=== PATIENT | female | born 1960 | race Caucasian/White ===

== ENCOUNTER 2020-03-30 08:28 | Outpatient (REF) | payer OTHER, SELFPAY ==
--- NOTE | 2020-03-30 08:39 | MM_ITS ---
EXAMINATION: MM SCREENING DIGITAL BREAST TOMOSYNTHESIS, BILATERAL CLINICAL INFORMATION: Screening. Asymptomatic. The lifetime risk of breast cancer based on the Tyrer-Cuzick Model is 3.7%. COMPARISON: Mammography: December 28, 2017 and studies dating back to January 07, 2013 TECHNIQUE: Digital breast tomosynthesis is performed in both the craniocaudal and mediolateral oblique views along with computer-aided detection (CAD). Synthesized 2D images are generated from the tomosynthesis. FINDINGS: The breasts are heterogeneously dense, which may obscure small masses (ACR BI-RADS breast composition Category c). There are no significant masses, abnormal calcifications, or other abnormalities. MM/MM tomosynthesis screening BI IMPRESSION: There are no significant changes from prior study. ASSESSMENT: BI-RADS 1: Negative RECOMMENDATION: Routine annual mammography screening. This patient's information was entered into a reminder system with a target due date for their next mammogram.
--- NOTE | 2020-03-30 08:39 | MM_ITS ---
EXAMINATION: BONE DENSITOMETRY CLINICAL INDICATION: Asymptomatic menopausal state. COMPARISON: None (current study represents initial baseline exam). TECHNIQUE: Using a enosiX DXA System (software version: 13.1) manufactured by [employer], dual-energy x-ray absorptiometry was performed of the lumbar spine and left hip. The images are of good technical quality. Summary results are attached. FINDINGS: AP SPINE L1-L4: BMD 1.032 g/cm2, Z-score 0.6, T-score -1.2, osteopenia. LEFT FEMUR, NECK: BMD 0.694 g/cm2, Z-score -0.8, T-score -2.5, osteoporosis. LEFT FEMUR, TOTAL: BMD 0.648 g/cm2, Z-score -1.5, T-score -2.9, osteoporosis. IDENTIFIED RISK FACTORS: Early menopause. Secondary osteoporosis. Left oophorectomy. Low body weight. Low calcium intake. Current smoker. HISTORY OF FRACTURE: Other. No insufficiency fracture reported. MEDICATIONS: None listed. MM/XR DEXA axial skeleton IMPRESSION: 1. DIAGNOSIS: Osteoporosis based on the lowest T-score value of -2.9 in the total femur applying World Health Organization criteria. 2. 10-YEAR FRACTURE RISK PREDICTION, FRAX: Major osteoporotic fracture (clinical spine, forearm, hip or shoulder) 10.3%. Hip fracture 3.4%. 3. Treatment Recommendations: NOF guidelines recommend consideration for treatment in postmenopausal women and men age 50 and older presenting with the following: -A hip or vertebral (clinical or morphometric) fracture. -T-score less than or equal to -2.5 at the femoral neck or spine after appropriate evaluation to exclude secondary causes. -Low bone mass at the hip or spine and a 10-year fracture probability by FRAX of greater than or equal to 3% for hip fracture or greater than or equal to 20% for major osteoporotic fracture based on the [place] adapted WHO algorithm. 4. Other Recommendations: All treatment decisions require clinical judgment and consideration of individual patient factors, including patient preferences, comorbidities, previous drug use, risk factors not captured in the FRAX model (e.g. frailty, falls, vitamin D deficiency, increased bone turnover, interval significant decline in bone density) and possible under or overestimation of fracture risk by FRAX. Additional medical evaluation for secondary cause of low bone mineral density may be appropriate. FUTURE SCAN RECOMMENDATION: People with diagnosed cases of osteoporosis or at high risk for fracture should have regular bone mineral density tests. For patients eligible for Medicare, routine testing is allowed once every 2 years. The testing frequency can be increased to one year for patients who have rapidly progressing disease, those who are receiving or discontinuing medical therapy to restore bone mass, or have additional risk factors.
== END 2020-03-30 08:29 | disposition home or self-care (01) ==
LOC: HO.MAMMO 08:28
PROVIDERS: Visit Provider Internal Medicine
DX: Z12.31 Encounter for screening mammogram for malignant neoplasm of breast (principal); M81.8 Other osteoporosis without current pathological fracture; E58 Dietary calcium deficiency; R63.6 Underweight; F17.200 Nicotine dependence, unspecified, uncomplicated; Z78.0 Asymptomatic menopausal state; Z90.721 Acquired absence of ovaries, unilateral
CPT/HCPCS: 77063; 77067; 77080

== ENCOUNTER 2020-06-24 07:08 | Day surgery (SDC) | payer OTHER, SELFPAY ==
[2020-06-20 10:57] VITALS: BMI 17.7
--- NOTE | 2020-06-23 08:30 | HO.ANESPROP2 ---
Documented by User: Madelaine Mckinney 06/23/20 08:31 HPI - Anesthesia Eval Consult details Narrative: 60yo F for Colonoscopy [facility] Past Medical History Medical History (Updated 06/24/20 @ 08:03 by Noreen Armijo) Anxiety and depression COPD (chronic obstructive pulmonary disease) Surgical History Surgical History H/O colonoscopy History of esophagogastroduodenoscopy (EGD) Hx of oophorectomy Social History Social History Smoking Status: Current every day smoker Tobacco Type: Cigarette Cigarettes Per Day: 10.0 Second Hand Smoke Exposure: No Use of substances other than those prescribed or required for medical reasons: No Advance Directives: No Advance Directives Information Provided: No Advance Directives on File: No Meds Allergies Allergy/AdvReac Type Severity Reaction Status Date / Time No Known Allergies Allergy Verified 06/24/20 07:20 Home Medications Medication Instructions Recorded Confirmed Type levalbuterol tartrate 06/20/20 History sertraline [Zoloft] 100 mg PO DAILY 06/20/20 06/20/20 History cetirizine [Zyrtec] 5 mg PO DAILY 06/24/20 06/24/20 History umeclidinium-vilanterol [Anoro INHALATION 06/24/20 History Ellipta] Exam Exam Date and Time: June 23, 2020 0830 Height,Weight and Vital Signs: Height 5 ft 4.5 in Weight 47.627 kg Assessment and Plan Assessment Anesthesia Assessment: Chart Reviewed Documented by User: Noreen Armijo 06/24/20 08:33 [facility] Past Medical History Medical History (Updated 06/24/20 @ 08:03 by Noreen Armijo) Anxiety and depression COPD (chronic obstructive pulmonary disease) Surgical History Surgical History H/O colonoscopy History of esophagogastroduodenoscopy (EGD) Hx of oophorectomy Social History Social History Smoking Status: Current every day smoker Tobacco Type: Cigarette Cigarettes Per Day: 10.0 Second Hand Smoke Exposure: No Use of substances other than those prescribed or required for medical reasons: No Advance Directives: No Advance Directives Information Provided: No Advance Directives on File: No Meds Allergies Allergy/AdvReac Type Severity Reaction Status Date / Time No Known Allergies Allergy Verified 06/24/20 07:20 Home Medications Medication Instructions Recorded Confirmed Type levalbuterol tartrate 06/20/20 History sertraline [Zoloft] 100 mg PO DAILY 06/20/20 06/20/20 History cetirizine [Zyrtec] 5 mg PO DAILY 06/24/20 06/24/20 History umeclidinium-vilanterol [Anoro INHALATION 06/24/20 History Ellipta] Exam Height,Weight and Vital Signs: Vital Signs Temp Pulse Resp BP Pulse Ox 06/24/20 07:24 98.1 F 91 16 99/63 98 Airway Mallampati Class: I TM Dist: >3cm Neck ROM: Full Heart: RRR Lungs: CTAB Assessment and Plan Assessment Anesthesia Assessment: Anesthesia Plan Discussed and Chart Reviewed Final Anesthetic Review NPO: Yes ASA Class: II Final Preanesthetic Review: No Changes in Pt Med Stat, Meds/Allgs Chart Reviewed, Consent Obtained/Reviewed and Anes Risks/Benef Reviewed Patient Risk: Low Procedure Risk: Low Anesthetic Plan Anesthetic Plan: MAC: Disposition: Standard PACU
--- NOTE | 2020-06-24 | XR_ITS ---
EXAMINATION: XR CHEST CLINICAL INFORMATION: Post procedure. Evaluate for aspiration. COMPARISON: None TECHNIQUE: Frontal view of the chest was obtained. FINDINGS: The cardiac and mediastinal contours are normal. The lungs are clear. There is blunting at the bilateral costophrenic angles questionable for pleural thickening or small pleural effusions. There is lucency under the right hemidiaphragm questionable for free intraperitoneal air. This may be post operative. If there is no history of recent abdominal procedure, additional imaging would be recommended. There is no pneumothorax. There is curvature of the thoracic spine to the right and degenerative change. XR/XR chest 1V IMPRESSION: No evidence of pneumonia. Blunting at the bilateral costophrenic angles questionable for pleural thickening or tiny bilateral pleural effusions. Lucency under the right hemidiaphragm questionable for free intraperitoneal air. Correlation with recent surgical history recommended. Findings will be communicated by the [place] work flow line builder Danette Sanches.
[2020-06-24 07:24] VITALS: BP 99/63; PULSE 91; RESP 16; TEMP 36.7; O2SAT 98
[2020-06-24] MEDS: Lactated Ringers 1,000 ML 100 ML IVCONT (07:36)
[2020-06-24 09:22] VITALS: BP 102/66; PULSE 86; RESP 20; TEMP 36.5; O2SAT 100
--- NOTE | 2020-06-24 09:23 | PM.OP ---
Brief Operative Note Date of Service: 06/24/20 Pre-op diagnosis: SCreening Post-op diagnosis: other (Colon polyps) Procedure: Colonoscopy to cecum with biopsy and removal of polyps Surgeon: Raymon Sawyer Anesthesia: MAC Estimated blood loss (mL): 3.0 Pathology: other (A. Polyp at 30cm B. Polyp at 60cm C. Ascending colon polyps D. Transverse colon polyps) Condition: stable Disposition: PACU
[2020-06-24 09:27] VITALS: BP 114/96; PULSE 95; RESP 20; O2SAT 96
[2020-06-24 09:37] VITALS: BP 110/61; PULSE 86; RESP 20; O2SAT 95
--- NOTE | 2020-06-24 09:47 | OP_ITS ---
SURGEON: Raymon Sawyer MD INDICATIONS: The patient presents for evaluation of personal history of tubular adenoma of the colon, family history of colon cancer, and colorectal cancer screening. Full consent was obtained from her for this, including risks of bleeding and perforation. PREOPERATIVE DIAGNOSIS: POSTOPERATIVE DIAGNOSIS: PROCEDURE PERFORMED: Colonoscopy to cecum with biopsy and removal of polyps. ESTIMATED BLOOD LOSS: COMPLICATIONS: ANESTHESIA: Medication used, monitored anesthesia care. ASSISTANTS: SPECIMENS: PREOPERATIVE DIAGNOSES: Colorectal cancer screening, personal history of tubular adenoma of the colon, family history of colon cancer. POSTOPERATIVE DIAGNOSES: Colorectal cancer screening, personal history of tubular adenoma of the colon, family history of colon cancer, colon polyps, diverticulosis, and internal hemorrhoids. DESCRIPTION OF PROCEDURE: The patient was placed in the left lateral decubitus position. The digital rectal exam revealed no abnormalities. The Olympus video pediatric colonoscope was entered into the rectum and advanced easily to the cecum. Once in the cecum, I did identify normal-appearing cecal pouch with appendiceal orifice and a normal-appearing ileocecal valve. The entire cecum and ileocecal valve appeared normal. There was transillumination of light deep in the right lower quadrant. The scope was slowly withdrawn assessing all mucosal surfaces carefully. Preparation was excellent. In the ascending colon were 3 flat, approximately 4 mm polyps, which were all biopsied and completely removed with cold biopsy forceps. In the transverse colon, at 60 cm and at 30 cm, were flat approximately 4 mm polyps, which were all biopsied and completely removed with cold biopsy forceps as well. I did not visualize any other polyps, colitis, nor angiodysplasia. There was a mild amount of sigmoid diverticulosis. In the rectum, scope was retroflexed visualizing small internal hemorrhoids, but no other pathology. The rectal mucosa appeared normal. The scope was straightened and withdrawn from the patient. She tolerated the procedure well and was returned to recovery area in stable condition. IMPRESSION: 1. Small colon polyps, status post biopsy removal. 2. Mild diverticulosis. 3. Internal hemorrhoids. PLAN: The results of the biopsies will be checked. Given her previous history, today's findings, and family history, I would recommend a repeat colonoscopy in 3 years for further screening. She will otherwise see me on a p.r.n. basis. MD GRECIA Gillette/DAVID / [phone] MTDD
[2020-06-24 09:52] VITALS: BP 115/66; PULSE 84; RESP 20; O2SAT 98
--- NOTE | 2020-06-24 09:53 | PC.NURSE ---
PORT CXR DONE LESS COUGHING NOW, BREATH SOUNDS VERY DIM NO NOTED WHZS AT PRESENT O2 SAT 97-98 STS SHE DIDNT TAKE HER ANORA THIS AM AND STS SHE FINDS THAT SHE REALLY NEEDS TO TAKE EVERY MORNING
--- NOTE | 2020-06-24 10:02 | PC.NURSE ---
1000 DR COMBS AT BEDSIDE SPEAKING TO PT RE COUGHING AND EXPECTORATION AT END OF CASE WHY CXR WAS DONE AND S&S OF ISSUES AND WHEN SHE SHOULD GO TO ED IF ISSUES
--- NOTE | 2020-06-24 10:09 | PC.NURSE ---
[id number] CXR RESULTS MONITORS AND IVF DCD ASST OOB CH STEADY IV PRN ADAPTER REMAINS IN PLACE, DRESSED SELF AT BEDSIDE CALL DE LA CRUZ IN REACH.
== END 2020-06-24 11:10 | disposition home or self-care (01) ==
PROVIDERS: PCP Internal Medicine; Visit Provider Internal Medicine
PROC: 0DJD8ZZ Inspection of Lower Intestinal Tract, Via Natural or Artificial Opening Endoscopic (ICD-10-PCS; CPT 45378; principal; 2020-06-24 08:30)
DX: Z12.11 Encounter for screening for malignant neoplasm of colon (principal); Z86.010 Personal history of colon polyps; Z80.0 Family history of malignant neoplasm of digestive organs; Z83.71 Family history of colonic polyps; D12.3 Benign neoplasm of transverse colon; D12.4 Benign neoplasm of descending colon; D12.5 Benign neoplasm of sigmoid colon; K57.30 Diverticulosis of large intestine without perforation or abscess without bleeding; K64.8 Other hemorrhoids; J44.9 Chronic obstructive pulmonary disease, unspecified; F32.9 Major depressive disorder, single episode, unspecified; F17.210 Nicotine dependence, cigarettes, uncomplicated; Z79.51 Long term (current) use of inhaled steroids; Z79.899 Other long term (current) drug therapy
CPT/HCPCS: 45380; 71045; 88305; J2405; J2765

== ENCOUNTER 2020-06-25 10:00 | Outpatient (REF) | payer OTHER, SELFPAY ==
--- NOTE | 2020-06-25 | XR_ITS ---
EXAMINATION: XR ABDOMEN COMPLETE CLINICAL INDICATION: Rule out free air COMPARISON: Chest x-ray 06/24/2020 TECHNIQUE: 2 views of the abdomen. FINDINGS: Cardiac silhouette is normal in size. The lungs are well aerated. No lobar consolidation. Symmetric nodular opacities projecting over both lower lungs are nonspecific but suspected to represent nipple shadows. Similar mild blunting of the costophrenic angles. No pneumothorax. No dilated air-filled loops of small bowel to suggest an obstructive process. No abnormal air-fluid levels appreciated on upright imaging. No gross free abdominal air. Mild stool burden throughout the colon. Scoliotic and degenerative changes of the spine. Calcifications of the pelvis are likely vascular in nature. XR/XR acute abdomen series IMPRESSION: -No gross free intra-abdominal air. -Nonobstructing bowel gas pattern.
== END 2020-06-25 10:01 | disposition home or self-care (01) ==
LOC: HO.XRAY 10:00
PROVIDERS: PCP Internal Medicine; Visit Provider Internal Medicine
DX: R93.5 Abnormal findings on diagnostic imaging of other abdominal regions, including retroperitoneum (principal)
CPT/HCPCS: 74022

== ENCOUNTER → 2020-08-31 13:51 | Outpatient (BNVA) | payer OTHER, SELFPAY | PROVIDERS: PCP Internal Medicine; Referring Provider Internal Medicine; Visit Provider Internal Medicine Endocrinology, Diabetes & Metabolism | DX: M81.0 Age-related osteoporosis without current pathological fracture (principal); R79.89 Other specified abnormal findings of blood chemistry | CPT/HCPCS: 99202 ==

== ENCOUNTER 2020-10-14 15:41 | Inpatient (IN) | payer OTHER, SELFPAY ==
[2020-10-14] VITALS (8 sets, daily range): BP systolic 98–124; BP diastolic 54–79; PULSE 73–100; RESP 16–19; TEMP 36.6–36.7; O2SAT 95–99; BMI 17.4
--- NOTE | ~2020-10-14 | CT_ITS ---
EXAMINATION: CT CHEST WITHOUT CONTRAST CLINICAL INFORMATION: Pulmonary nodule COMPARISON: Chest x-ray 10/14/[address] head/cervical spine 10/14/2020 TECHNIQUE: Multidetector volumetric CT imaging of the chest was done. Axial MIP volume rendering provided. Sagittal and coronal reformatted images were obtained. This CT examination was performed using dose optimization techniques as appropriate, variously including the following: *Automated exposure control *Adjustment of mA and/or kV according to patient size (this includes techniques or standardized protocols for targeted exams where dose is matched to indication/reason for exam; i.e. extremities or head) *Use of iterative reconstruction technique DLP: 160 mGy-cm FINDINGS: The heart is normal in size. Coronary artery calcifications are present. There is no pericardial effusion. Nonaneurysmal thoracic aorta. No gross mediastinal lymphadenopathy appreciated on today's noncontrast imaging. Heterogeneous 2 cm left thyroid nodule. No enlarged axillary lymph nodes appreciated. Central airways are patent. Lungs are adequately aerated. Moderate diffuse emphysematous changes are present. Spiculated 1 cm pulmonary nodule again demonstrated within the medial aspect of the left upper lobe (image 98/560, series 5). 2 mm pulmonary nodule the posterior left lower lobe (image 405). There is a 3 mm subpleural nodule of the left lower lobe (image 306). No lobar consolidation, pleural effusion or pneumothorax. Visualized portion of the upper abdomen demonstrate some retained contrast within the bilateral collecting systems, likely secondary to yesterday's CTA imaging of the head and neck. There are partially visualized coarse calcifications noted in the region of the duodenal sweep/CBD which are inaccurately characterized. Degenerative changes of the spine. CT/CT chest wo con IMPRESSION: 1. Spiculated 1 cm left upper lobe pulmonary nodule. Findings are concerning for neoplasm. A few other tiny pulmonary nodules are also noted. PET imaging likely warranted. 2. Moderate emphysema. 3. Heterogeneous 2 cm left thyroid nodule. This can be further evaluated with dedicated thyroid ultrasound if clinically indicated. 4. Partially visualized coarse calcifications are noted in the region of the duodenal sweep/CBD. There exact location cannot be determined and anesthetized they are nonspecific. These may be further evaluated with cross-sectional imaging of the abdomen as clinically indicated. According to the UPDATED 2017 Fleischner Society recommendations, the advised follow-up imaging for a single solid nodule measuring 8 mm or greater is: Consider CT, PET/CT, or tissue sampling at 3 months.
--- NOTE | ~2020-10-14 | XR_ITS ---
EXAMINATION: XR CHEST CLINICAL INFORMATION: AMS COMPARISON: June 24, 2020 TECHNIQUE: AP portable view of the chest was obtained. FINDINGS: There is hyperinflation lungs with diminished vascularity in the upper lobes consistent with emphysematous change. Heart normal size. No evidence of pulmonary edema. No pneumothorax or significant pleural effusion. Old healed left rib fractures evident. XR/XR chest 1V IMPRESSION: COPD. No acute disease.
--- NOTE | ~2020-10-14 | CT_ITS ---
EXAMINATION: CTA OF THE HEAD AND NECK CLINICAL INFORMATION: Dizziness and slurred speech. COMPARISON: Head CT from earlier in the same day on 10/14/2020. TECHNIQUE: Test bolus sequences followed by intravenous administration 70 mL of Omnipaque 350. Helical imaging was performed in the axial plane from the mediastinum to the skull vertex. Delayed postcontrast imaging of the head was also performed. The data was processed at the eeg technologist's workstation for generation of MIP sequences. Three-dimensional volume rendered reformatted images were also generated at an offline 3-D workstation. Stenoses are assessed in accordance with NASCET criteria unless otherwise indicated. This CT examination was performed using dose optimization techniques as appropriate, variously including the following: *Automated exposure control *Adjustment of mA and/or kV according to patient size (this includes techniques or standardized protocols for targeted exams where dose is matched to indication/reason for exam; i.e. extremities or head) *Use of iterative reconstruction technique DLP: 1411 mGy-cm. FINDINGS: CTA neck: The imaged aortic arch and origins of the great vessels are normal. The common carotid arteries are widely patent. The carotid bifurcations are patent with mild atherosclerotic wall calcifications, more so on the left side. The cervical internal carotid arteries are otherwise normal in caliber. The vertebral arteries opacify normally and are of normal caliber. There is a 2.3 cm heterogeneous central low density nodule arising posterolaterally from the left thyroid lobe with some calcification. Extensive emphysematous changes are visible. There is a spiculated 1 cm nodular lesion medially in the left upper lobe. CTA head: The intradural vertebral arteries and basilar artery are normal. The posterior cerebral arteries are widely patent. The internal carotid arteries are of normal caliber. The ANTHONY and MCA vascular complexes bilaterally are normal. The venous sinuses opacify normally. CT/CT angio head neck IMPRESSION: No vascular occlusion or significant stenosis in the cervical or intracranial vessels. Severe emphysema and suspicious spiculated 1 cm nodule in the left upper lobe, concerning for malignancy. Recommend further oncologic workup. Incidental 2.3 cm heterogeneous nodule arising from the left thyroid lobe. Imaging findings reported to JEOVANNY Terrell at 7:44 PM on 10/14/2020.
--- NOTE | ~2020-10-14 | CT_ITS ---
EXAMINATION: CT HEAD WITHOUT CONTRAST CLINICAL INFORMATION: Acute mental status change. Slurred speech. COMPARISON: Previous head CT September 2015 TECHNIQUE: Contiguous axial imaging was performed from the skull base to vertex without intravenous administration of contrast. This CT examination was performed using dose optimization techniques as appropriate, variously including the following: *Automated exposure control *Adjustment of mA and/or kV according to patient size (this includes techniques or standardized protocols for targeted exams where dose is matched to indication/reason for exam; i.e. extremities or head) *Use of iterative reconstruction technique DLP: 557 mGy-cm FINDINGS: There is no evidence of acute intracranial hemorrhage or territorial infarction. No abnormal mass effect or midline shift is seen. Garcia to white matter differentiation is well preserved. No extra-axial fluid collections are identified. The ventricles are normal in size. There is no abnormal attenuation within the brain parenchyma. The osseous structures and soft tissues are normal. The mastoid air cells and visualized portions of the paranasal sinuses are well aerated. CT/CT head/brain wo con IMPRESSION: No acute intracranial pathology.
--- NOTE | ~2020-10-14 | MR_ITS ---
MRI OF THE BRAIN WITHOUT IV CONTRAST INDICATION: Slurred speech, rule out stroke. COMPARISON: Head CT 10/14/2020. TECHNIQUE: Multiplanar multisequence MR imaging of the brain was obtained without IV contrast. FINDINGS: There is no hydrocephalus, extra-axial surface collection, or herniation. There is mild chronic microangiopathy. The major flow voids at the skull base are preserved. There is no acute infarct on diffusion-weighted imaging. There is no intracranial hemorrhage on the gradient recalled echo acquisition. The midline structures are normal. The cerebellar tonsils are normally positioned. The cerebellum and brainstem are normal. The craniocervical junction is normal. Osseous marrow signal intensity is homogenous. The visualized soft tissues are unremarkable. Small right mastoid effusion. MR/MR head/brain wo con IMPRESSION: - No acute intracranial findings. - Mild chronic microangiopathy.
--- NOTE | ~2020-10-14 | US_ITS ---
EXAMINATION: US VENOUS ULTRASOUND WITH DOPPLER LOWER EXTREMITY, BILATERAL CLINICAL INFORMATION: Pain COMPARISON: None TECHNIQUE: Ultrasound of the deep veins is performed from the hip to the calf with compression sonography and color and pulse Doppler assessment. Spectral analysis with color-flow imaging is performed. FINDINGS: RIGHT: There is normal venous compression and respiratory variation and augmented flow. The visualized common femoral vein, superficial femoral vein, profunda femoral vein, popliteal vein, and the trifurcation region shows no evidence of deep venous thrombosis. There is no significant popliteal fossa cyst. LEFT: There is normal venous compression and respiratory variation and augmented flow. The visualized common femoral vein, superficial femoral vein, profunda femoral vein, popliteal vein, and the trifurcation region shows no evidence of deep venous thrombosis. There is no significant popliteal fossa cyst. If the patient's symptoms persist, followup ultrasound in 5 days 7 days might be of value to exclude proximal propagation from a non-visualized calf vein. US/US venous duplex LE BI IMPRESSION: No DVT demonstrated in the right and left lower extremity.
--- NOTE | 2020-10-14 15:44 | ECG_ITS ---
Test Reason : STROKE Blood Pressure : / mmHG Vent. Rate : 074 BPM Atrial Rate : 074 BPM P-R Int : 146 ms QRS Dur : 084 ms QT Int : 384 ms P-R-T Axes : 075 078 060 degrees QTc Int : 426 ms Normal sinus rhythm Possible Left atrial enlargement Borderline ECG When compared with ECG of 22-JUN-2004 01:33, No significant change was found Referred By: Marga Davis Electronically Signed By:Daniel Hernandez
--- NOTE | 2020-10-14 15:50 | ED.NEUROSD ---
HPI - Neuro Symptoms/Deficit General Chief Complaint: Stroke <JEOVANNY Triplett - Last Filed: 10/14/20 20:04> Stated Complaint: Stroke alert <JEOVANNY Triplett - Last Filed: 10/14/20 20:04> Time Seen by Provider: 10/14/20 15:43 <JEOVANNY Triplett Last Filed: 10/14/20 20:04> Source: patient and EMS <JEOVANNY Triplett - Last Filed: 10/14/20 20:04> Mode of arrival: EMS <JEOVANNY Triplett - Last Filed: 10/14/20 20:04> Limitations: no limitations <JEOVANNY Triplett Last Filed: 10/14/20 20:04> History of Present Illness HPI Narrative: 60 y/o female with history of anxiety, depression, osteoporosis, former ETOH abuse (sober x4 years) , COPD, active smoker who presents to the ED from home via EMS with new onset of slurred speech that started when she woke up at 5am today. She states that she started feeling off four days ago with slight dizziness. When she went to work on Saturday the dizziness was worse and she had difficulty ambulating and had to leave early. She spent most of in bed because she was so tired and was having to hold onto giron when she walked. When she woke up today at 5am she noticed her speech was slurred and she was having trouble talking. She states she texted her daughter that something was wrong who called 911 this afternoon. She denies weakness, numbness or tingling. No vision changes. On arrival her speech is slurred and she feels like the room is spinning when she moves. <JEOVANNY Triplett - Last Filed: 10/14/20 20:04> Onset (ago): hour(s) (11) <JEOVANNY Triplett - Last Filed: 10/14/20 20:04> Time: 05:00 <JEOVANNY Triplett - Last Filed: 10/14/20 20:04> Location: speech and ataxia <JEOVANNY Triplett Last Filed: 10/14/20 20:04> History of same: No <JEOVANNY Triplett Last Filed: 10/14/20 20:04> Severity: moderate <JEOVANNY Triplett - Last Filed: 10/14/20 20:04> Quality: constant <JEOVANNY Triplett Last Filed: 10/14/20 20:04> Relieving factors: none <JEOVANNY Triplett Last Filed: 10/14/20 20:04> Exacerbating factors: other (movement) <JEOVANNY Triplett Last Filed: 10/14/20 20:04> Context: gradual onset <JEVOANNY Triplett Last Filed: 10/14/20 20:04> On Anticoagulants: No <JEOVANNY Triplett Last Filed: 10/14/20 20:04> Associated symptoms: vertigo <JEOVANNY Triplett Last Filed: 10/14/20 20:04> Treatments Prior to Arrival: none <JEOVANNY Triplett Last Filed: 10/14/20 20:04> Related Data Home Medications: Home Medications Medication Instructions Recorded Confirmed sertraline [Zoloft] 100 mg PO DAILY 06/20/20 10/14/20 Anoro Ellipta 1 puff PO DAILY 10/14/20 10/14/20 levalbuterol tartrate [Xopenex HFA] 1 puff PO Q4H PRN 10/14/20 10/14/20 meclizine 1 tab PO TID PRN 10/14/20 10/14/20 <JEOVANNY Triplett Last Filed: 10/14/20 20:04> Allergies/Adverse Reactions: Allergies Allergy/AdvReac Type Severity Reaction Status Date / Time No Known Allergies Allergy Verified 10/14/20 18:01 <JEOVANNY Triplett Last Filed: 10/14/20 20:04> Review of Systems Review of Systems: Constitutional: No Fever, No Chills ENT/Mouth: No sore throat, No Rhinorrhea, No Swallowing Difficulty Eyes: No Eye Pain, No Swelling, No Redness, No vision changes Cardiovascular: No Chest Pain, No SOB, No Orthopnea, No Edema Respiratory: No Cough, No Sputum, No Wheezing, No dyspnea Gastrointestinal: No Nausea, No Vomiting, No Diarrhea, No abdominal Pain Genitourinary: No Dysuria, No Urinary Frequency, No Hematuria Musculoskeletal: + joint pain (right knee, now resolved), No Myalgias Skin: No Skin Lesions, No rash Neuro: No Weakness, No Numbness, + Dizziness, No Headache, +slurred speech Psych: + Anxiety/Panic, No Depression Heme/Lymph: No Bruising, No Lymphadenopathy Endocrine: No Polyuria, No Polydipsia <JEOVANNY Triplett - Last Filed: 10/14/20 20:04> [facility] Past Medical History Medical History: Medical History Anxiety and depression COPD (chronic obstructive pulmonary disease) Low TSH level Osteoporosis <JEOVANNY Triplett - Last Filed: 10/14/20 20:04> Surgical History: Surgical History H/O colonoscopy History of esophagogastroduodenoscopy (EGD) Hx of oophorectomy <JEOVANNY Triplett - Last Filed: 10/14/20 20:04> Social History Social History: Social History Household Members: Other Housing: House Do you presently have visiting nurse or other home services: No Alcohol intake: former Cigarettes Per Day: 24 Second Hand Smoke Exposure: No service: No Current occupational status: employed <JEOVANNY Triplett - Last Filed: 10/14/20 20:04> Physical Exam Vital Signs: Vital Signs: Last Vital Signs Temp 97 F 10/15/20 15:38 Pulse 77 10/15/20 15:38 Resp 20 10/15/20 15:38 BP 119/67 10/15/20 15:38 Pulse Ox 97 10/15/20 15:38 Body Mass Index 17.4 Appearance: Alert middle aged female laying on the stretcher, tearful. Oriented X3. No acute distress. Eyes: Pupils equal, round and reactive to light. EOMI, no nystagmus. ENT: Pharynx normal. Neck: Normal inspection. Neck supple. CVS: Normal heart rate and rhythm. Pulses normal. Respiratory: No respiratory distress. Breath sounds normal. Abdomen: Soft and nontender. +BS x4 Skin: Skin warm and dry. Normal skin color. Normal skin turgor. No rashes. Extremities: No lower extremity edema. Neuro: Oriented X 3. No motor deficit. No sensory deficit. Equal and symmetrical strength throughout. No pronator drift. Speech is slurred and pressured but she is speaking in full sentences. Normal patellar DTR. Able to sit on the side of the side. Gait not tested due to dizziness. Normal heel to bright and finger to nose bilaterally. <JEOVANNY Triplett - Last Filed: 10/14/20 20:04> Vital Signs: Last Vital Signs Temp 97 F 10/15/20 15:38 Pulse 77 10/15/20 15:38 Resp 20 10/15/20 15:38 BP 119/67 10/15/20 15:38 Pulse Ox 97 10/15/20 15:38 Body Mass Index 17.4 <Betito Machado MD - Last Filed: 11/07/20 07:17> Course Course Course Narrative: 60 y/o female presenting with slurred speech x11 hours and dizziness x3 days. Non-focal physical exam with non-debilitating symptoms. NIH 0. Out of window for TPA. CT head and metabolic workup ordered. Doubt LVO. Possible cerebellar lesion with dizziness. May also have vertigo, ?etoh or illiicit drugs. <JEOVANNY Triplett - Last Filed: 10/14/20 20:04> I have reviewed the chart <Betito Machado MD - Last Filed: 11/07/20 07:17> Reevaluation(s) Reevaluation #1: CT head negative. CTA ordered, although LVO is less likely given her exam. Metabolic workup is unremarkable so far. Dysarthria slowly improving but persists and so does dizziness. <JEOVANNY Triplett - Last Filed: 10/14/20 20:04> Reevaluation #2: CTA head/neck is negative. It did show a spiculated MARYELLEN nodule concerning for malignancy. She is a long time smoker. The findings were d/w the patient and her daughter at the bedside. All questions were anwered. They are agreeable to admission for further workup and management. Dr. Giles to admit. <JEOVANNY Triplett - Last Filed: 10/14/20 20:04> MDM - Neuro Symptoms/Deficit Medical Records Attestation: I reviewed the patient's medical records. <JEOVANNY Triplett - Last Filed: 10/14/20 20:04> Lab Data Attestation: I reviewed the patient's lab results. <JEOVANNY Triplett - Last Filed: 10/14/20 20:04> Result diagrams: : 10/15/20 06:48 10/15/20 06:48 <JEOVANNY Triplett - Last Filed: 10/14/20 20:04> Labs: Lab Results 10/14/20 10/14/20 10/14/20 Range/Units 16:34 16:34 16:34 WBC 8.2 (4.8-10.8) X10*3/uL RBC 5.27 (4.20-5.50) X10*6/uL Hgb 15.4 (12.0-16.0) g/dl Hct 46.4 (37-47) % MCV 88.0 (80-98) fL MCH 29.2 (27.0-33.0) pg MCHC 33.2 (31.0-35.0) g/dl RDW 12.1 (11.0-16.0) % Plt Count 215 (160-400) X10*3/uL MPV 9.4 (9.4-12.3) fL Immature Gran % (Auto) 0.2 (0.0-0.4) % Neut % (Auto) 80.7 H (45-73) % Lymph % (Auto) 12.0 L (20-40) % Zapata % (Auto) 5.7 (2-11) % Eos % (Auto) 1.2 (0-4) % Baso % (Auto) 0.2 (0-2) % Lymph # (Auto) 1.0 L (1.2-4.9) X10*3/uL Zapata # (Auto) 0.5 (0.1-1.2) X10*3/uL Eos # (Auto) 0.1 (0.0-0.4) X10*3/uL Baso # (Auto) 0.0 (0.0-0.2) X10*3/uL Abs Immat Gran (auto) 0.02 (0.00-0.03) X10*3/uL Absolute Neuts (auto) 6.6 (2.0-8.3) X10*3/uL Absolute Nucleated RBC 0.000 (0.0-0.012) X10*3/uL Nucleated RBC % (auto) 0.0 (0.0-0.2) /100WBC PT (10.8-13.0) SEC INR (0.9-1.1) APTT (24.1-38.0) SEC VBG pH (7.32-7.43) VBG pCO2 mmHg VBG pO2 mmHg VBG HCO3 (22-26) mmol/L VBG O2 Saturation % VBG Base Excess mmol/L Sodium 143 (135-145) mmol/L Potassium 3.5 (3.3-5.1) mmol/L Chloride 104 (96-108) mmol/L Carbon Dioxide 29 (22-29) mmol/L Anion Gap 14 (12-20) BUN 21 H (9-16) mg/dL Creatinine 0.71 (0.5-1.4) mg/dL Estim Creat Clear Calc 61.1 Estimated GFR > 60 POC Glucose (60-115) mg/dL Random Glucose 102 (60-115) mg/dL Lactic Acid (0.5-2.0) mmol/L Calcium 9.2 (8.4-10.2) mg/dL Magnesium 2.1 (1.6-2.6) mg/dL Total Bilirubin 0.4 (0.0-1.0) mg/dL Direct Bilirubin 0.2 (0.0-0.5) mg/dL AST 17 (5-31) U/L ALT 19 (0-31) U/L Alkaline Phosphatase 64 (39-117) U/L Ammonia (13-55) umol/L Troponin I High Sens (<3.5-17.0) ng/L Total Protein 6.8 (6.5-8.0) g/dL Albumin 4.4 (3.5-5.0) g/dL Lipase 37 (8-78) U/L TSH 0.14 L (0.32-4.0) uIU/mL Ethyl Alcohol mg/dL COVID-19 ([facility]) Negative (Negative) COVID-19 Clin Com See Note 10/14/20 10/14/20 10/14/20 Range/Units 16:34 16:34 16:34 WBC (4.8-10.8) X10*3/uL RBC (4.20-5.50) X10*6/uL Hgb (12.0-16.0) g/dl Hct (37-47) % MCV (80-98) fL MCH (27.0-33.0) pg MCHC (31.0-35.0) g/dl RDW (11.0-16.0) % Plt Count (160-400) X10*3/uL MPV (9.4-12.3) fL Immature Gran % (Auto) (0.0-0.4) % Neut % (Auto) (45-73) % Lymph % (Auto) (20-40) % Zapata % (Auto) (2-11) % Eos % (Auto) (0-4) % Baso % (Auto) (0-2) % Lymph # (Auto) (1.2-4.9) X10*3/uL Zapata # (Auto) (0.1-1.2) X10*3/uL Eos # (Auto) (0.0-0.4) X10*3/uL Baso # (Auto) (0.0-0.2) X10*3/uL Abs Immat Gran (auto) (0.00-0.03) X10*3/uL Absolute Neuts (auto) (2.0-8.3) X10*3/uL Absolute Nucleated RBC (0.0-0.012) X10*3/uL Nucleated RBC % (auto) (0.0-0.2) /100WBC PT 11.6 (10.8-13.0) SEC INR 1.0 (0.9-1.1) APTT 33.3 (24.1-38.0) SEC VBG pH (7.32-7.43) VBG pCO2 mmHg VBG pO2 mmHg VBG HCO3 (22-26) mmol/L VBG O2 Saturation % VBG Base Excess mmol/L Sodium (135-145) mmol/L Potassium (3.3-5.1) mmol/L Chloride (96-108) mmol/L Carbon Dioxide (22-29) mmol/L Anion Gap (12-20) BUN (9-16) mg/dL Creatinine (0.5-1.4) mg/dL Estim Creat Clear Calc Estimated GFR POC Glucose (60-115) mg/dL Random Glucose (60-115) mg/dL Lactic Acid 1.0 (0.5-2.0) mmol/L Calcium (8.4-10.2) mg/dL Magnesium (1.6-2.6) mg/dL Total Bilirubin (0.0-1.0) mg/dL Direct Bilirubin (0.0-0.5) mg/dL AST (5-31) U/L ALT (0-31) U/L Alkaline Phosphatase (39-117) U/L Ammonia (13-55) umol/L Troponin I High Sens < 3.5 (<3.5-17.0) ng/L Total Protein (6.5-8.0) g/dL Albumin (3.5-5.0) g/dL Lipase (8-78) U/L TSH (0.32-4.0) uIU/mL Ethyl Alcohol mg/dL COVID-19 ([facility]) (Negative) COVID-19 Clin Com 10/14/20 10/14/20 10/14/20 Range/Units 16:34 16:42 16:45 WBC (4.8-10.8) X10*3/uL RBC (4.20-5.50) X10*6/uL Hgb (12.0-16.0) g/dl Hct (37-47) % MCV (80-98) fL MCH (27.0-33.0) pg MCHC (31.0-35.0) g/dl RDW (11.0-16.0) % Plt Count (160-400) X10*3/uL MPV (9.4-12.3) fL Immature Gran % (Auto) (0.0-0.4) % Neut % (Auto) (45-73) % Lymph % (Auto) (20-40) % Zapata % (Auto) (2-11) % Eos % (Auto) (0-4) % Baso % (Auto) (0-2) % Lymph # (Auto) (1.2-4.9) X10*3/uL Zapata # (Auto) (0.1-1.2) X10*3/uL Eos # (Auto) (0.0-0.4) X10*3/uL Baso # (Auto) (0.0-0.2) X10*3/uL Abs Immat Gran (auto) (0.00-0.03) X10*3/uL Absolute Neuts (auto) (2.0-8.3) X10*3/uL Absolute Nucleated RBC (0.0-0.012) X10*3/uL Nucleated RBC % (auto) (0.0-0.2) /100WBC PT (10.8-13.0) SEC INR (0.9-1.1) APTT (24.1-38.0) SEC VBG pH 7.37 (7.32-7.43) VBG pCO2 49 mmHg VBG pO2 45 mmHg VBG HCO3 28 H (22-26) mmol/L VBG O2 Saturation 77.0 % VBG Base Excess 2.7 mmol/L Sodium (135-145) mmol/L Potassium (3.3-5.1) mmol/L Chloride (96-108) mmol/L Carbon Dioxide (22-29) mmol/L Anion Gap (12-20) BUN (9-16) mg/dL Creatinine (0.5-1.4) mg/dL Estim Creat Clear Calc Estimated GFR POC Glucose (60-115) mg/dL Random Glucose (60-115) mg/dL Lactic Acid (0.5-2.0) mmol/L Calcium (8.4-10.2) mg/dL Magnesium (1.6-2.6) mg/dL Total Bilirubin (0.0-1.0) mg/dL Direct Bilirubin (0.0-0.5) mg/dL AST (5-31) U/L ALT (0-31) U/L Alkaline Phosphatase (39-117) U/L Ammonia 27 (13-55) umol/L Troponin I High Sens (<3.5-17.0) ng/L Total Protein (6.5-8.0) g/dL Albumin (3.5-5.0) g/dL Lipase (8-78) U/L TSH (0.32-4.0) uIU/mL Ethyl Alcohol < 10 mg/dL COVID-19 ([facility]) (Negative) COVID-19 Clin Com 10/14/20 Range/Units 17:00 WBC (4.8-10.8) X10*3/uL RBC (4.20-5.50) X10*6/uL Hgb (12.0-16.0) g/dl Hct (37-47) % MCV (80-98) fL MCH (27.0-33.0) pg MCHC (31.0-35.0) g/dl RDW (11.0-16.0) % Plt Count (160-400) X10*3/uL MPV (9.4-12.3) fL Immature Gran % (Auto) (0.0-0.4) % Neut % (Auto) (45-73) % Lymph % (Auto) (20-40) % Zapata % (Auto) (2-11) % Eos % (Auto) (0-4) % Baso % (Auto) (0-2) % Lymph # (Auto) (1.2-4.9) X10*3/uL Zapata # (Auto) (0.1-1.2) X10*3/uL Eos # (Auto) (0.0-0.4) X10*3/uL Baso # (Auto) (0.0-0.2) X10*3/uL Abs Immat Gran (auto) (0.00-0.03) X10*3/uL Absolute Neuts (auto) (2.0-8.3) X10*3/uL Absolute Nucleated RBC (0.0-0.012) X10*3/uL Nucleated RBC % (auto) (0.0-0.2) /100WBC PT (10.8-13.0) SEC INR (0.9-1.1) APTT (24.1-38.0) SEC VBG pH (7.32-7.43) VBG pCO2 mmHg VBG pO2 mmHg VBG HCO3 (22-26) mmol/L VBG O2 Saturation % VBG Base Excess mmol/L Sodium (135-145) mmol/L Potassium (3.3-5.1) mmol/L Chloride (96-108) mmol/L Carbon Dioxide (22-29) mmol/L Anion Gap (12-20) BUN (9-16) mg/dL Creatinine (0.5-1.4) mg/dL Estim Creat Clear Calc Estimated GFR POC Glucose 101 (60-115) mg/dL Random Glucose (60-115) mg/dL Lactic Acid (0.5-2.0) mmol/L Calcium (8.4-10.2) mg/dL Magnesium (1.6-2.6) mg/dL Total Bilirubin (0.0-1.0) mg/dL Direct Bilirubin (0.0-0.5) mg/dL AST (5-31) U/L ALT (0-31) U/L Alkaline Phosphatase (39-117) U/L Ammonia (13-55) umol/L Troponin I High Sens (<3.5-17.0) ng/L Total Protein (6.5-8.0) g/dL Albumin (3.5-5.0) g/dL Lipase (8-78) U/L TSH (0.32-4.0) uIU/mL Ethyl Alcohol mg/dL COVID-19 ([facility]) (Negative) COVID-19 Clin Com <JEOVANNY Triplett - Last Filed: 10/14/20 20:04> Lab Results 10/14/20 10/14/20 10/14/20 Range/Units 16:34 16:34 16:34 WBC 8.2 (4.8-10.8) X10*3/uL RBC 5.27 (4.20-5.50) X10*6/uL Hgb 15.4 (12.0-16.0) g/dl Hct 46.4 (37-47) % MCV 88.0 (80-98) fL MCH 29.2 (27.0-33.0) pg MCHC 33.2 (31.0-35.0) g/dl RDW 12.1 (11.0-16.0) % Plt Count 215 (160-400) X10*3/uL MPV 9.4 (9.4-12.3) fL Immature Gran % (Auto) 0.2 (0.0-0.4) % Neut % (Auto) 80.7 H (45-73) % Lymph % (Auto) 12.0 L (20-40) % Zapata % (Auto) 5.7 (2-11) % Eos % (Auto) 1.2 (0-4) % Baso % (Auto) 0.2 (0-2) % Lymph # (Auto) 1.0 L (1.2-4.9) X10*3/uL Zapata # (Auto) 0.5 (0.1-1.2) X10*3/uL Eos # (Auto) 0.1 (0.0-0.4) X10*3/uL Baso # (Auto) 0.0 (0.0-0.2) X10*3/uL Abs Immat Gran (auto) 0.02 (0.00-0.03) X10*3/uL Absolute Neuts (auto) 6.6 (2.0-8.3) X10*3/uL Absolute Nucleated RBC 0.000 (0.0-0.012) X10*3/uL Nucleated RBC % (auto) 0.0 (0.0-0.2) /100WBC PT (10.8-13.0) SEC INR (0.9-1.1) APTT (24.1-38.0) SEC VBG pH (7.32-7.43) VBG pCO2 mmHg VBG pO2 mmHg VBG HCO3 (22-26) mmol/L VBG O2 Saturation % VBG Base Excess mmol/L Sodium 143 (135-145) mmol/L Potassium 3.5 (3.3-5.1) mmol/L Chloride 104 (96-108) mmol/L Carbon Dioxide 29 (22-29) mmol/L Anion Gap 14 (12-20) BUN 21 H (9-16) mg/dL Creatinine 0.71 (0.5-1.4) mg/dL Estim Creat Clear Calc 61.1 Estimated GFR > 60 POC Glucose (60-115) mg/dL Random Glucose 102 (60-115) mg/dL Lactic Acid (0.5-2.0) mmol/L Calcium 9.2 (8.4-10.2) mg/dL Magnesium 2.1 (1.6-2.6) mg/dL Total Bilirubin 0.4 (0.0-1.0) mg/dL Direct Bilirubin 0.2 (0.0-0.5) mg/dL AST 17 (5-31) U/L ALT 19 (0-31) U/L Alkaline Phosphatase 64 (39-117) U/L Ammonia (13-55) umol/L Troponin I High Sens (<3.5-17.0) ng/L Total Protein 6.8 (6.5-8.0) g/dL Albumin 4.4 (3.5-5.0) g/dL Lipase 37 (8-78) U/L TSH 0.14 L (0.32-4.0) uIU/mL Ethyl Alcohol mg/dL COVID-19 ([facility]) Negative (Negative) COVID-19 Clin Com See Note 10/14/20 10/14/20 10/14/20 Range/Units 16:34 16:34 16:34 WBC (4.8-10.8) X10*3/uL RBC (4.20-5.50) X10*6/uL Hgb (12.0-16.0) g/dl Hct (37-47) % MCV (80-98) fL MCH (27.0-33.0) pg MCHC (31.0-35.0) g/dl RDW (11.0-16.0) % Plt Count (160-400) X10*3/uL MPV (9.4-12.3) fL Immature Gran % (Auto) (0.0-0.4) % Neut % (Auto) (45-73) % Lymph % (Auto) (20-40) % Zapata % (Auto) (2-11) % Eos % (Auto) (0-4) % Baso % (Auto) (0-2) % Lymph # (Auto) (1.2-4.9) X10*3/uL Zapata # (Auto) (0.1-1.2) X10*3/uL Eos # (Auto) (0.0-0.4) X10*3/uL Baso # (Auto) (0.0-0.2) X10*3/uL Abs Immat Gran (auto) (0.00-0.03) X10*3/uL Absolute Neuts (auto) (2.0-8.3) X10*3/uL Absolute Nucleated RBC (0.0-0.012) X10*3/uL Nucleated RBC % (auto) (0.0-0.2) /100WBC PT 11.6 (10.8-13.0) SEC INR 1.0 (0.9-1.1) APTT 33.3 (24.1-38.0) SEC VBG pH (7.32-7.43) VBG pCO2 mmHg VBG pO2 mmHg VBG HCO3 (22-26) mmol/L VBG O2 Saturation % VBG Base Excess mmol/L Sodium (135-145) mmol/L Potassium (3.3-5.1) mmol/L Chloride (96-108) mmol/L Carbon Dioxide (22-29) mmol/L Anion Gap (12-20) BUN (9-16) mg/dL Creatinine (0.5-1.4) mg/dL Estim Creat Clear Calc Estimated GFR POC Glucose (60-115) mg/dL Random Glucose (60-115) mg/dL Lactic Acid 1.0 (0.5-2.0) mmol/L Calcium (8.4-10.2) mg/dL Magnesium (1.6-2.6) mg/dL Total Bilirubin (0.0-1.0) mg/dL Direct Bilirubin (0.0-0.5) mg/dL AST (5-31) U/L ALT (0-31) U/L Alkaline Phosphatase (39-117) U/L Ammonia (13-55) umol/L Troponin I High Sens < 3.5 (<3.5-17.0) ng/L Total Protein (6.5-8.0) g/dL Albumin (3.5-5.0) g/dL Lipase (8-78) U/L TSH (0.32-4.0) uIU/mL Ethyl Alcohol mg/dL COVID-19 ([facility]) (Negative) COVID-19 Clin Com 10/14/20 10/14/20 10/14/20 Range/Units 16:34 16:42 16:45 WBC (4.8-10.8) X10*3/uL RBC (4.20-5.50) X10*6/uL Hgb (12.0-16.0) g/dl Hct (37-47) % MCV (80-98) fL MCH (27.0-33.0) pg MCHC (31.0-35.0) g/dl RDW (11.0-16.0) % Plt Count (160-400) X10*3/uL MPV (9.4-12.3) fL Immature Gran % (Auto) (0.0-0.4) % Neut % (Auto) (45-73) % Lymph % (Auto) (20-40) % Zapata % (Auto) (2-11) % Eos % (Auto) (0-4) % Baso % (Auto) (0-2) % Lymph # (Auto) (1.2-4.9) X10*3/uL Zapata # (Auto) (0.1-1.2) X10*3/uL Eos # (Auto) (0.0-0.4) X10*3/uL Baso # (Auto) (0.0-0.2) X10*3/uL Abs Immat Gran (auto) (0.00-0.03) X10*3/uL Absolute Neuts (auto) (2.0-8.3) X10*3/uL Absolute Nucleated RBC (0.0-0.012) X10*3/uL Nucleated RBC % (auto) (0.0-0.2) /100WBC PT (10.8-13.0) SEC INR (0.9-1.1) APTT (24.1-38.0) SEC VBG pH 7.37 (7.32-7.43) VBG pCO2 49 mmHg VBG pO2 45 mmHg VBG HCO3 28 H (22-26) mmol/L VBG O2 Saturation 77.0 % VBG Base Excess 2.7 mmol/L Sodium (135-145) mmol/L Potassium (3.3-5.1) mmol/L Chloride (96-108) mmol/L Carbon Dioxide (22-29) mmol/L Anion Gap (12-20) BUN (9-16) mg/dL Creatinine (0.5-1.4) mg/dL Estim Creat Clear Calc Estimated GFR POC Glucose (60-115) mg/dL Random Glucose (60-115) mg/dL Lactic Acid (0.5-2.0) mmol/L Calcium (8.4-10.2) mg/dL Magnesium (1.6-2.6) mg/dL Total Bilirubin (0.0-1.0) mg/dL Direct Bilirubin (0.0-0.5) mg/dL AST (5-31) U/L ALT (0-31) U/L Alkaline Phosphatase (39-117) U/L Ammonia 27 (13-55) umol/L Troponin I High Sens (<3.5-17.0) ng/L Total Protein (6.5-8.0) g/dL Albumin (3.5-5.0) g/dL Lipase (8-78) U/L TSH (0.32-4.0) uIU/mL Ethyl Alcohol < 10 mg/dL COVID-19 ([facility]) (Negative) COVID-19 Clin Com 10/14/20 Range/Units 17:00 WBC (4.8-10.8) X10*3/uL RBC (4.20-5.50) X10*6/uL Hgb (12.0-16.0) g/dl Hct (37-47) % MCV (80-98) fL MCH (27.0-33.0) pg MCHC (31.0-35.0) g/dl RDW (11.0-16.0) % Plt Count (160-400) X10*3/uL MPV (9.4-12.3) fL Immature Gran % (Auto) (0.0-0.4) % Neut % (Auto) (45-73) % Lymph % (Auto) (20-40) % Zapata % (Auto) (2-11) % Eos % (Auto) (0-4) % Baso % (Auto) (0-2) % Lymph # (Auto) (1.2-4.9) X10*3/uL [place]apata # (Auto) (0.1-1.2) X10*3/uL Eos # (Auto) (0.0-0.4) X10*3/uL Baso # (Auto) (0.0-0.2) X10*3/uL Abs Immat Gran (auto) (0.00-0.03) X10*3/uL Absolute Neuts (auto) (2.0-8.3) X10*3/uL Absolute Nucleated RBC (0.0-0.012) X10*3/uL Nucleated RBC % (auto) (0.0-0.2) /100WBC PT (10.8-13.0) SEC INR (0.9-1.1) APTT (24.1-38.0) SEC VBG pH (7.32-7.43) VBG pCO2 mmHg VBG pO2 mmHg VBG HCO3 (22-26) mmol/L VBG O2 Saturation % VBG Base Excess mmol/L Sodium (135-145) mmol/L Potassium (3.3-5.1) mmol/L Chloride (96-108) mmol/L Carbon Dioxide (22-29) mmol/L Anion Gap (12-20) BUN (9-16) mg/dL Creatinine (0.5-1.4) mg/dL Estim Creat Clear Calc Estimated GFR POC Glucose 101 (60-115) mg/dL Random Glucose (60-115) mg/dL Lactic Acid (0.5-2.0) mmol/L Calcium (8.4-10.2) mg/dL Magnesium (1.6-2.6) mg/dL Total Bilirubin (0.0-1.0) mg/dL Direct Bilirubin (0.0-0.5) mg/dL AST (5-31) U/L ALT (0-31) U/L Alkaline Phosphatase (39-117) U/L Ammonia (13-55) umol/L Troponin I High Sens (<3.5-17.0) ng/L Total Protein (6.5-8.0) g/dL Albumin (3.5-5.0) g/dL Lipase (8-78) U/L TSH (0.32-4.0) uIU/mL Ethyl Alcohol mg/dL COVID-19 ([facility]) (Negative) COVID-19 Clin Com <Betito Machado MD - Last Filed: 11/07/20 07:17> ECG Data Attestation: I personally reviewed and interpreted this ECG as follows: <JEOVANNY Triplett - Last Filed: 10/14/20 20:04> ECG interpretation date: 10/14/20 <JEOVANNY Triplett - Last Filed: 10/14/20 20:04> ECG interpretation time: 16:25 <JEOVANNY Triplett - Last Filed: 10/14/20 20:04> Interpretation: normal sinus rhythm, HR 74 bpm, normal FL interval, normal QTc, normal QRS <JEOVANNY Triplett - Last Filed: 10/14/20 20:04> NIH Stroke Scale Internal: Initial- Upon Arrival <JEOVANNY Triplett - Last Filed: 10/14/20 20:04> Level of Consciousness: Alert <JEOVANNY Triplett - Last Filed: 10/14/20 20:04> Level of Consciousness Questions: Answers both questions correctly <JEOVANNY Triplett - Last Filed: 10/14/20 20:04> Level of Consciousness Commands: Performs both tasks correctly <JEOVANNY Triplett - Last Filed: 10/14/20 20:04> Best Gaze: Normal <JEOVANNY Triplett - Last Filed: 10/14/20 20:04> Visual: No visual loss <JEOVANNY Triplett - Last Filed: 10/14/20 20:04> Facial Palsy: Normal <JEOVANNY Triplett - Last Filed: 10/14/20 20:04> Motor Arm (Right): No drift <JEOVANNY Triplett - Last Filed: 10/14/20 20:04> Motor Arm (Left): No drift <JEOVANNY Triplett - Last Filed: 10/14/20 20:04> Motor Leg (Right): No drift <JEOVANNY Triplett - Last Filed: 10/14/20 20:04> Motor Leg (Left): No drift <JEOVANNY Triplett - Last Filed: 10/14/20 20:04> Limb Ataxia: Absent <JEOVANNY Triplett - Last Filed: 10/14/20 20:04> Sensory: Normal <JEOVANNY Triplett - Last Filed: 10/14/20 20:04> Best Language: No aphasia <JEOVANNY Triplett - Last Filed: 10/14/20 20:04> Dysarthia: Mild to moderate dysarthria <JEOVANNY Triplett - Last Filed: 10/14/20 20:04> Extinction and Inattention: No abnormality <JEOVANNY Triplett - Last Filed: 10/14/20 20:04> Score: 1 <JEOVANNY Triplett - Last Filed: 10/14/20 20:04> Critical Care Time Critical Care Time Critical Care Time: Yes <JEOVANNY Triplett - Last Filed: 10/14/20 20:04> Total Critical Care Time: 45 <JEOVANNY Triplett - Last Filed: 10/14/20 20:04> Attestation: I attest to critical care time spent caring for this patient. <JEOVANNY Triplett - Last Filed: 10/14/20 20:04> Discharge Plan Discharge Clinical Impression: Dizziness, Dysarthria, Lung nodule <JEOVANNY Triplett - Last Filed: 10/14/20 20:04> Patient Disposition: Admitted As Inpatient <JEOVANNY Triplett - Last Filed: 10/14/20 20:04> Interventions: Admission Worksheet (ED) Last Done: 10/15/20 05:50 <JEOVANNY Triplett - Last Filed: 10/14/20 20:04> Discharge Date/Time: 10/15/20 06:27 <JEOVANNY Triplett - Last Filed: 10/14/20 20:04>
[2020-10-14 16:46] LABS: MANUAL DIFF FLAG NO; Venous Blood Gas Refer to POC result
[2020-10-14 16:47] LABS: Basophils Percent Auto 0.2 % (0-2); Eosinophils Absolute Auto 0.1 X10*3/uL (0.0-0.4); Eosinophils Percent Auto 1.2 % (0-4); Hematocrit 46.4 % (37-47); Hemoglobin 15.4 g/dl (12.0-16.0); Imm Gran Abs Auto 0.02 X10*3/uL (0.00-0.03); Imm Gran Pct Auto 0.2 % (0.0-0.4); Mean Corpuscular HGB Conc 33.2 g/dl (31.0-35.0); Mean Corpuscular Hemoglobin 29.2 pg (27.0-33.0); Mean Platelet Volume 9.4 fL (9.4-12.3); Monocytes Absolute Auto 0.5 X10*3/uL (0.1-1.2); Monocytes Percent Auto 5.7 % (2-11); Neutrophils Absolute Auto 6.6 X10*3/uL (2.0-8.3); Neutrophils Percent Auto 80.7 % (45-73); Platelet Count 215 X10*3/uL (160-400); Red Blood Count 5.27 X10*6/uL (4.20-5.50); Red Cell Distribution Width 12.1 % (11.0-16.0); White Blood Count 8.2 X10*3/uL (4.8-10.8)
[2020-10-14 16:48] LABS: VBG Base Excess 2.7 mmol/L; VBG HCO3 28 mmol/L (22-26); VBG pCO2 49 mmHg; VBG pH 7.37 (7.32-7.43); VBG pO2 45 mmHg
[2020-10-14 16:55] LABS: Prothrombin Time 11.6 SEC (10.8-13.0)
[2020-10-14 16:58] LABS: Partial Thromboplastin Time 33.3 SEC (24.1-38.0)
[2020-10-14 17:05] LABS: Glucose, Whole Blood 101 mg/dL (60-115)
[2020-10-14 17:12] LABS: Ethanol < 10 mg/dL
[2020-10-14 17:16] LABS: COVID-19 Test Negative (Negative)
[2020-10-14 17:18] LABS: Alanine Aminotransferase 19 U/L (0-31); Albumin Level 4.4 g/dL (3.5-5.0); Alkaline Phosphatase 64 U/L (39-117); Anion Gap 14 (12-20); Aspartate Amino Transferase 17 U/L (5-31); Bilirubin Direct 0.2 mg/dL (0.0-0.5); Bilirubin Total 0.4 mg/dL (0.0-1.0); Blood Urea Nitrogen 21 mg/dL (9-16); Calcium 9.2 mg/dL (8.4-10.2); Carbon Dioxide 29 mmol/L (22-29); Chloride 104 mmol/L (96-108); Creatinine Clr Calc Pharmacy 61.1; Estimated Glomerular Filt Rate > 60; Glucose Random 102 mg/dL (60-115); Lipase 37 U/L (8-78); Magnesium 2.1 mg/dL (1.6-2.6); Potassium 3.5 mmol/L (3.3-5.1); Sodium 143 mmol/L (135-145); Total Protein 6.8 g/dL (6.5-8.0); Troponin-I High Sensitivity < 3.5 ng/L (<3.5-17.0)
[2020-10-14 17:22] LABS: Ammonia 27 umol/L (13-55)
[2020-10-14 17:38] LABS: Thyroid Stimulating Hormone 0.14 uIU/mL (0.32-4.0)
[2020-10-14] MEDS: Acetaminophen 325 MG TABLET 975 MG PO (17:51)
--- NOTE | 2020-10-14 17:53 | PC.NURSE ---
Pt medicated for a headache to the left side of her head. PA aware of pt's headache
[2020-10-14] MEDS: iohexoL 350 MG/ML 100 ML INFUS..BTL IV (19:17)
--- NOTE | 2020-10-14 19:47 | PC.NURSE ---
REPORT TAKEN FROM THIERRY Levy RN, FIRST CONTACT WITH PT. SITTING UP IN BED SKIN PWD RESPIRATIONS EVEN UNLABORED. AWAITING MD REEVAL AND UPDATED PLAN OF CARE. OFFERS NO COMPLAINT AT THIS [facility].E
--- NOTE | 2020-10-14 20:07 | PM.IMHP ---
History of Present Illness Date of Service: 10/14/20 Chief Complaint: Slurred speech 60-year-old female with a past medical history of COPD, tobacco dependence, anxiety, depression, osteoporosis presented to the hospital with a chief complaint of slurred speech. Reportedly noted slurred speech this morning around 5:00 a.m.; denies headaches blurry visions numbness tingling focal weakness. Denies any chest pain or palpitations. Rate and afternoon her daughter called in the EMS and presented to the ER for further evaluation. Denies any swallowing difficulty. Denies any GI or symptoms. Also complains of dizziness and unsteady on the gait. Denies any falls or trauma; reports that when she had dizziness she also feels things around her moving like vertigo. She was given meclizine recently but has not used yet. Review of all other systems is negative except mentioned above ER course: Per ER team patient noted to have slurred speech otherwise grossly nonfocal examination. Patient is out of the window for tPA. CT head and CT angio head and neck showed no acute findings. Noted spiculated lesion of lung; admitted to the hospital for further management. [facility] Medical History Anxiety and depression COPD (chronic obstructive pulmonary disease) Low TSH level Osteoporosis Surgical History H/O colonoscopy History of esophagogastroduodenoscopy (EGD) Hx of oophorectomy Social History Household Members: Other Housing: House Do you presently have visiting nurse or other home services: No Alcohol intake: former Smoking Status: Current every day smoker Tobacco Type: Cigarette Cigarettes Per Day: 24 Second Hand Smoke Exposure: No service: No Current occupational status: employed Meds Allergies Allergy/AdvReac Type Severity Reaction Status Date / Time No Known Allergies Allergy Verified 10/14/20 18:01 Active Medications: Current Medications Generic Name Dose Route Start Last Admin Trade Name Freq PRN Reason Stop Dose Admin Acetaminophen 650 mg 10/14/20 19:59 Acetaminophen 325 Mg Tablet PO Q6H PRN Pain, Mild (Pain Scale 1-3) Aspirin 81 mg 10/15/20 09:00 Aspirin Enteric Coated 81 Mg Tablet.Dr PO DAILY RILEY Atorvastatin Calcium 80 mg 10/15/20 09:00 Atorvastatin Calcium 80 Mg Tablet PO DAILY [facility] Heparin Sodium (Porcine) 5,000 unit 10/14/20 20:00 Heparin Sodium,Porcine 5,000 Unit/Ml Vial SUBCUT Q8H [facility] Magnesium Hydroxide 30 ml 10/14/20 19:59 Milk Of Magnesia 30 Ml Oral.Susp PO DAILY PRN Constipation Meclizine HCl 25 mg 10/14/20 20:03 Meclizine Hcl 25 Mg Tablet PO TID PRN Dizziness Non-Formulary Medication 1 puff 10/14/20 20:03 Levalbuterol Tartrate [Xopenex Hfa] PO Q4H PRN Shortness Of Breath Or Wheezing Non-Formulary Medication 1 puff 10/15/20 09:00 Umeclidinium-Vilanterol [Anoro Ellipta] PO DAILY [facility] Ondansetron HCl 4 mg 10/14/20 19:59 Ondansetron Hcl 4 Mg/2 Ml Vial IVPUSH Q8H PRN Nausea and Vomiting Pharmacy Consult 1 each 10/14/20 18:02 Consult Rx Perform Med Rec MISCELLANE ONCE PRN Consult order Senna 17.2 mg 10/14/20 19:59 Sennosides 8.6 Mg Tablet PO BEDTIME PRN Constipation Sertraline HCl 100 mg 10/15/20 09:00 Sertraline Hcl 100 Mg Tablet PO DAILY [facility] Sodium Chloride 3 ml 10/15/20 00:00 0.9 % Sodium Chloride Flush 3 Ml Syringe IVFLUSH QSHIFT [facility] Home Medications Medication Instructions Recorded Confirmed Last Taken Type sertraline [Zoloft] 100 mg PO DAILY 06/20/20 10/14/20 1 Day Ago History ~10/13/20 Anoro Ellipta 1 puff PO DAILY 10/14/20 10/14/20 Unknown History levalbuterol tartrate [Xopenex HFA] 1 puff PO Q4H PRN 10/14/20 10/14/20 Unknown History meclizine 1 tab PO TID PRN 10/14/20 10/14/20 10/14/20 History Physical Exam Vital Signs and Narrative: Vital Signs: Last Vital Signs Temp 98.0 F 10/14/20 19:42 Pulse 74 10/14/20 19:42 Resp 19 10/14/20 19:42 BP 122/65 10/14/20 19:42 Pulse Ox 95 10/14/20 19:42 Body Mass Index 17.4 Gen: Appears be in no acute distress HEENT: NCAT, Moist mucosa. Pulmonary: Vesicular breath sounds, fair air entry CVS: Normal S1-S2 Abdomen: BS+, Soft, Nontender Extremities: Warm well perfused Neuro: Alert and awake. Oriented x3. Strength 5/5 upper and lower extremities. Sensations equal bilaterally. Speech is slightly slurred. Uvula is midline. No facial droop noted. [id number] intact bilaterally; [id number] slightly uncoordinated Results Labs CBC and Chem 7: 10/15/20 06:48 10/15/20 06:48 Labs: Laboratory Results - last 24 hr 10/14/20 10/14/20 10/14/20 16:34 16:34 16:34 MCV 88.0 MCH 29.2 MCHC 33.2 RDW 12.1 Plt Count 215 MPV 9.4 Immature Gran % (Auto) 0.2 Neut % (Auto) 80.7 H Lymph % (Auto) 12.0 L [place] % (Auto) 5.7 Eos % (Auto) 1.2 Baso % (Auto) 0.2 Lymph # (Auto) 1.0 L [place] # (Auto) 0.5 Eos # (Auto) 0.1 Baso # (Auto) 0.0 Abs Immat Gran (auto) 0.02 Absolute Neuts (auto) 6.6 Absolute Nucleated RBC 0.000 Nucleated RBC % (auto) 0.0 PT INR APTT VBG pH VBG pCO2 VBG pO2 VBG HCO3 VBG O2 Saturation VBG Base Excess Anion Gap 14 Estim Creat Clear Calc 61.1 Estimated GFR > 60 POC Glucose Random Glucose 102 Lactic Acid Calcium 9.2 Magnesium 2.1 Total Bilirubin 0.4 Direct Bilirubin 0.2 AST 17 ALT 19 Alkaline Phosphatase 64 Ammonia Troponin I High Sens Total Protein 6.8 Albumin 4.4 Lipase 37 TSH 0.14 L Ethyl Alcohol COVID-19 ([facility]) Negative COVID-19 Clin Com See Note 10/14/20 10/14/20 10/14/20 16:34 16:34 16:34 MCV MCH MCHC RDW Plt Count MPV Immature Gran % (Auto) Neut % (Auto) Lymph % (Auto) [place] % (Auto) Eos % (Auto) Baso % (Auto) Lymph # (Auto) [place] # (Auto) Eos # (Auto) Baso # (Auto) Abs Immat Gran (auto) Absolute Neuts (auto) Absolute Nucleated RBC Nucleated RBC % (auto) PT 11.6 INR 1.0 APTT 33.3 VBG pH VBG pCO2 VBG pO2 VBG HCO3 VBG O2 Saturation VBG Base Excess Anion Gap Estim Creat Clear Calc Estimated GFR POC Glucose Random Glucose Lactic Acid 1.0 Calcium Magnesium Total Bilirubin Direct Bilirubin AST ALT Alkaline Phosphatase Ammonia Troponin I High Sens < 3.5 Total Protein Albumin Lipase TSH Ethyl Alcohol COVID-19 ([facility]) COVID-19 Control de Pacientes 10/14/20 10/14/20 10/14/20 16:34 16:42 16:45 MCV MCH MCHC RDW Plt Count MPV Immature Gran % (Auto) Neut % (Auto) Lymph % (Auto) [place] % (Auto) Eos % (Auto) Baso % (Auto) Lymph # (Auto) [place] # (Auto) Eos # (Auto) Baso # (Auto) Abs Immat Gran (auto) Absolute Neuts (auto) Absolute Nucleated RBC Nucleated RBC % (auto) PT INR APTT VBG pH 7.37 VBG pCO2 49 VBG pO2 45 VBG HCO3 28 H VBG O2 Saturation 77.0 VBG Base Excess 2.7 Anion Gap Estim Creat Clear Calc Estimated GFR POC Glucose Random Glucose Lactic Acid Calcium Magnesium Total Bilirubin Direct Bilirubin AST ALT Alkaline Phosphatase Ammonia 27 Troponin I High Sens Total Protein Albumin Lipase TSH Ethyl Alcohol < 10 COVID-19 ([facility]ANY) COVID-19 Control de [place]ientes 10/14/20 17:00 MCV MCH MCHC RDW Plt Count MPV Immature Gran % (Auto) Neut % (Auto) Lymph % (Auto) [place] % (Auto) Eos % (Auto) Baso % (Auto) Lymph # (Auto) [place] # (Auto) Eos # (Auto) Baso # (Auto) Abs Immat Gran (auto) Absolute Neuts (auto) Absolute Nucleated RBC Nucleated RBC % (auto) PT INR APTT VBG pH VBG pCO2 VBG pO2 VBG HCO3 VBG O2 Saturation VBG Base Excess Anion Gap Estim Creat Clear Calc Estimated GFR POC Glucose 101 Random Glucose Lactic Acid Calcium Magnesium Total Bilirubin Direct Bilirubin AST ALT Alkaline Phosphatase Ammonia Troponin I High Sens Total Protein Albumin Lipase TSH Ethyl Alcohol COVID-19 ([facility]) COVID-19 Clin Com Imaging Radiologist's Impressions: Impressions Chest X-Ray 10/14/20 15:44 IMPRESSION: COPD. No acute disease. Head CT 10/14/20 15:44 IMPRESSION: No acute intracranial pathology. Head/Neck CTA 10/14/20 16:26 IMPRESSION: No vascular occlusion or significant stenosis in the cervical or intracranial vessels. Severe emphysema and suspicious spiculated 1 cm nodule in the left upper lobe, concerning for malignancy. Recommend further oncologic workup. Incidental 2.3 cm heterogeneous nodule arising from the left thyroid lobe. Imaging findings reported to JEOVANNY Terrell at 7:44 PM on 10/14/2020. Assessment and Plan (1) Dysarthria: Status: Resolved 60-year-old female with a past medical history of COPD, tobacco dependence, anxiety, depression presented to the hospital with a chief complaint of slurred speech/dizziness. Admitted to hospital concerns for CVA. CVA: Patient is to have persistent slurred speech. Otherwise nonfocal examination. CT head and CT angio head and neck showed no acute findings. Neuro checks Dysphagia screen Speech and swallow eval PT/OT Fall precautions Neurology consult Echo with bubble study EKG nonischemic, follow-up troponin. Dizziness: Meclizine p.r.n.. Will continue for now. Fall precautions. PT/OT. Neurology consult as mentioned Leg pain: Will obtain venous duplex Thyroid nodule: 2.3 cm heterogeneous nodule noted from left thyroid lobe. Patient TSH is 0.14. Free T3 and free T4 pending. Endocrine follow-up. Spiculated lung lesion: Noted 1 cm spiculated lesion on the left upper lobe concerning for malignancy. Will consult pulmonology. COPD: Stable. Continue home inhalers . Tobacco dependence: Counseled on smoking cessation. For all other chronic conditions, home medications will be continued DVT prophylaxis: Subcu heparin Code status: Full code
[2020-10-14 21:01] LABS: Cholesterol 177 mg/dL; HDL Cholesterol 60 mg/dL; LDL Cholesterol Calculated 108 mg/dl; Triglycerides 46 mg/dL
[2020-10-14 21:08] LABS: Troponin-I High Sensitivity < 3.5 ng/L (<3.5-17.0)
[2020-10-14 21:09] LABS: Glucose Urine UA NEG (NEG); Leukocyte Esterase Urine NEG (NEG); Nitrite Urine NEG (NEG); Specific Gravity - Urine <= 1.005 (1.005-1.025); Urine Blood NEG (NEG); Urine Ketones NEG (NEG); Urine Protein NEG (NEG-TRACE)
[2020-10-14 21:10] LABS: Appearance Urine CLEAR; Color Urine YELLOW
[2020-10-14 21:12] LABS: Glucose, Whole Blood 98 mg/dL (60-115)
[2020-10-14 21:26] LABS: Amphetamine Screen Urine Not Detected (Not Detect); Barbiturates, Urine Not Detected (Not Detect); Benzodiazepines Screen Urine Not Detected (Not Detect); Cannabinoid Screen Urine Not Detected (Not Detect); Cocaine Screen Urine Not Detected (Not Detect); Opiate Screen Urine Not Detected (Not Detect); Phencyclidine Screen Urine Not Detected (Not Detect)
[2020-10-14] MEDS: 0.9 % Sodium Chloride Flush 3 ML SYRINGE IVFLUSH (23:37)
[2020-10-14] MEDS: Heparin Sodium,Porcine 5,000 UNIT/ML VIAL 5000 UNIT SUBCUT (23:39)
--- NOTE | 2020-10-14 23:54 | PC.NURSE ---
PT TO REMAIN IN ED AT THIS TIME UNTIL BED AVAILABLE UPSTAIRS. AWARE OF PLAN OF CARE. NEUROS INTACT, NO DEFICITS NOTED. VSS. SKIN PWD RESPIRATIONS EVEN UNLABORED. 20G IV TO LEFT AC REMOVED FOR PT COMFORT. RIGHT FOREARM 18G J LOOP CHANGED AND NEW DRESSING APPLIED, FLUSHING WITHOUT DIFFICULTY. ADDITIONAL PILLOW GIVEN FOR COMFORT. WILL CONTINUE TO MONITOR.
[2020-10-15 00:39] VITALS: BP 98/54; PULSE 77; RESP 15; O2SAT 95
[2020-10-15 06:25] VITALS: BP 100/63; PULSE 86; RESP 16; TEMP 36.3; O2SAT 97
[2020-10-15 07:10] LABS: MANUAL DIFF FLAG NO
[2020-10-15 07:19] LABS: Basophils Percent Auto 0.5 % (0-2); Eosinophils Absolute Auto 0.1 X10*3/uL (0.0-0.4); Eosinophils Percent Auto 1.8 % (0-4); Hematocrit 44.5 % (37-47); Hemoglobin 14.8 g/dl (12.0-16.0); Lymphocytes Absolute Auto 1.3 X10*3/uL (1.2-4.9); Lymphocytes Percent Auto 22.7 % (20-40); Mean Corpuscular HGB Conc 33.3 g/dl (31.0-35.0); Mean Corpuscular Hemoglobin 29.2 pg (27.0-33.0); Mean Corpuscular Volume 87.9 fL (80-98); Mean Platelet Volume 9.5 fL (9.4-12.3); Monocytes Absolute Auto 0.4 X10*3/uL (0.1-1.2); Monocytes Percent Auto 7.4 % (2-11); Neutrophils Absolute Auto 3.9 X10*3/uL (2.0-8.3); Neutrophils Percent Auto 67.6 % (45-73); Platelet Count 209 X10*3/uL (160-400); Red Blood Count 5.06 X10*6/uL (4.20-5.50); White Blood Count 5.7 X10*3/uL (4.8-10.8)
[2020-10-15 07:34] LABS: Estimated Average Glucose 103 mg/dL; Hemoglobin A1c % 5.2 %
[2020-10-15 07:35] LABS: Blood Urea Nitrogen 16 mg/dL (9-16); Carbon Dioxide 29 mmol/L (22-29); Chloride 106 mmol/L (96-108); Creatinine Clr Calc Pharmacy 68.9; Estimated Glomerular Filt Rate > 60; Glucose Random 90 mg/dL (60-115); Sodium 141 mmol/L (135-145)
[2020-10-15 07:41] LABS: Anion Gap 10 (12-20); Potassium 4.4 mmol/L (3.3-5.1)
[2020-10-15 08:00] VITALS: BP 112/68; PULSE 91; RESP 18; TEMP 36.1; O2SAT 96
[2020-10-15] MEDS: 0.9 % Sodium Chloride Flush 3 ML SYRINGE IVFLUSH ×2 (08:25→15:32)
[2020-10-15] MEDS: Aspirin Enteric Coated 81 MG TABLET.DR PO (08:25)
[2020-10-15] MEDS: Sertraline HCL 100 MG TABLET PO (08:25)
[2020-10-15 08:56] VITALS: BP 112/68; PULSE 91; O2SAT 96
--- NOTE | 2020-10-15 09:39 | HO.PM.IMPN ---
Subjective Subjective Date of Service: 10/15/20 Interval History: Seen in f/u for dysarthria and lung mass--word finding difficulty is better and able converse better Review of Systems Gen: no fever Resp: no sob, no cough CV: no chest, no ADAN, no leg edema GI: No n/v, no abd pain Neuro: Dysarthria otherwise unremarkable. No focal deficit Physical Exam Vital Signs: Vital Signs: Last Vital Signs Temp 96.9 F 10/15/20 08:00 Pulse 91 10/15/20 08:56 Resp 18 10/15/20 08:00 BP 112/68 10/15/20 08:56 Pulse Ox 96 10/15/20 08:56 Body Mass Index 17.4 Const: Other: General: AO X 3, no acute distress Resp: CTA bilateral CVS: S1,S2,RRR GI: +BS, NT, no distention Skin: No rash Neuro: grosly normal, other mild residual dysarthria Psych: appropriate affect Objective Data Current Medications Generic Name Dose Route Start Last Admin Trade Name Brandenq PRN Reason Stop Dose Admin Acetaminophen 650 mg 10/14/20 19:59 Acetaminophen 325 Mg Tablet PO Q6H PRN Pain, Mild (Pain Scale 1-3) Aspirin 81 mg 10/15/20 09:00 10/15/20 08:25 Aspirin Enteric Coated 81 Mg Tablet.Dr PO 81 mg DAILY [facility] Administration Atorvastatin Calcium 80 mg 10/15/20 09:00 10/15/20 08:29 Atorvastatin Calcium 80 Mg Tablet PO Not Given DAILY [facility] Heparin Sodium (Porcine) 5,000 unit 10/14/20 22:00 10/14/20 23:39 Heparin Sodium,Porcine 5,000 Unit/Ml Vial SUBCUT 5,000 unit Q12H [facility] Administration Levalbuterol HCl 1.25 mg 10/14/20 20:44 Levalbuterol Hcl 1.25 Mg/0.5 Ml Vial.Neb INHALE Q4H PRN Shortness Of Breath Or Wheezing Magnesium Hydroxide 30 ml 10/14/20 19:59 Milk Of Magnesia 30 Ml Oral.Susp PO DAILY PRN Constipation Meclizine HCl 25 mg 10/14/20 20:03 Meclizine Hcl 25 Mg Tablet PO TID PRN Dizziness Non-Formulary Medication 1 puff 10/15/20 09:00 Umeclidinium-Vilanterol [Anoro Ellipta] PO DAILY [facility] Ondansetron HCl 4 mg 10/14/20 19:59 Ondansetron Hcl 4 Mg/2 Ml Vial IVPUSH Q8H PRN Nausea and Vomiting Pharmacy Consult 1 each 10/14/20 18:02 Consult Rx Perform Med Rec MISCELLANE ONCE PRN Consult order Senna 17.2 mg 10/14/20 19:59 Sennosides 8.6 Mg Tablet PO BEDTIME PRN Constipation Sertraline HCl 100 mg 10/15/20 09:00 10/15/20 08:25 Sertraline Hcl 100 Mg Tablet PO 100 mg DAILY [facility] Administration Sodium Chloride 3 ml 10/15/20 00:00 10/15/20 08:25 0.9 % Sodium Chloride Flush 3 Ml Syringe IVFLUSH 3 ml QSHIFT [facility] Administration Labs CBC & Chem 7: 10/15/20 06:48 10/15/20 06:48 Assessment and Plan (1) Dysarthria: Status: Acute Assessment and Plan: 60-year-old female with a past medical history of COPD, tobacco dependence, anxiety, depression here with dysarthria, negative CVA by CT, aslo found to have a spiculated lung mass Dysarthria--better, CT and H/N CTA negative, need to rule CVA or mets -MRI, Neuro consult -Echo Dizziness: Meclizine p.r.n.. Will continue for now. Fall precautions. PT/OT. Neurology consult as mentioned Leg pain: negative doppler, no pain right now Thyroid nodule: 2.3 cm heterogeneous nodule noted from left thyroid lobe. Patient TSH is 0.14. Free T3 and free T4 pending. Endocrine follow-up on outpatient basis Spiculated lung lesion: Noted 1 cm spiculated lesion on the left upper lobe concerning for malignancy. -dedicated CT of chest, pulmonary consult COPD: Stable. Continue home inhalers . Tobacco dependence: Counseled on smoking cessation. For all other chronic conditions, home medications will be continued DVT prophylaxis: Subcu heparin Code status: Full code
[2020-10-15 10:56] LABS: Free T4 (Free Thyroxine) 1.15 ng/dL (0.71-1.85); T4 Thyroxine 8.2 ug/dL (4.5-12.0)
--- NOTE | 2020-10-15 11:06 | P.CONPL_ITS ---
History of Present Illness History of Present Illness Consult date: 10/15/20 Requesting physician: Zak Giles Chief complaint: CVA Narrative: 60-year-old lady, active 50+ pack-year smoker, hospitalized on 10/14/2020 with slurring of speech, who has had air CT angiogram of neck to workup her neurologic symptoms was noted to have a left upper 1 cm pulmonary no dule. Pulmonary evaluation has been requested. Patient states that she has never seen a rv detailer. She uses Anoro and levalbuterol MDI. She denies wheezing or dyspnea. Patient denies family history of lung disease. She also has no current pulmonary concerns or complaints. Review of Systems Constitutional: Constitutional: Denies daytime sleepiness, Denies excessive sweating, Denies fatigue, Denies fever(s), Denies lethargy, Denies malaise, Denies night sweats, Denies snoring and Denies weight loss Eyes: Eyes: Denies blurry vision and Denies itchy eyes ENT: Denies nasal congestion, Denies post nasal drip, Denies sinus pain, Denies sinus pressure and Denies other ( Thrush) Cardiovascular: Cardiovascular: Denies chest pain, Denies pedal edema, Denies dyspnea, Denies orthopnea and Denies paroxysmal nocturnal dyspnea Respiratory: Respiratory: Denies cough, Denies hemoptysis, Denies excessive phlegm production, Denies dyspnea, Denies snoring and Denies wheezing Gastrointestinal: Gastrointestinal: Denies abdominal pain and Denies heartburn Musculoskeletal: Musculoskeletal: Denies myalgias, Denies arthralgias and Denies joint swelling Integumentary/Breasts: Skin/Breast: Denies rash Neurologic: Denies memory loss and Denies seizure-like activity Psychiatric: Psychiatric: Denies abnormal sleep pattern, Denies anxiety and Denies memory loss Endocrine: Endocrine: Denies excessive sweating, Denies fatigue and Denies heat intolerance Hematologic/Lymphatic: Hematologic/Lymphatic: Denies easy bruising Allergic/Immunologic: Allergic/Immunologic: Denies itchy eyes, Denies seasonal rhinorrhea and Denies wheezing PMFSH Past Medical History Medical History Anxiety and depression COPD (chronic obstructive pulmonary disease) Low TSH level Osteoporosis Surgical History Surgical History H/O colonoscopy History of esophagogastroduodenoscopy (EGD) Hx of oophorectomy Social History Social History Household Members: Other Housing: House Do you presently have visiting nurse or other home services: No Alcohol intake: former Smoking Status: Current every day smoker Tobacco Type: Cigarette Cigarettes Per Day: 24 Smoked in Last 30 Days: Yes Patient Interested in Nicotine Replacement: No Patient Given Instructions on How to Stop Smoking: No Second Hand Smoke Exposure: No Use of substances other than those prescribed or required for medical reasons: No Currently Displaying Signs/Symptoms of Drug Intoxication Withdrawal: No Any prior treatment program specific to substance use: No Have you been hit, kicked, punched, or otherwise hurt by someone within the past year? If so, by whom?: No Do you feel safe in your current relationship?: No Is there a partner from a previous relationship who is making you feel unsafe now?: No Are you made to feel afraid or neglected: Yes Advance Directives: No Advance Directives Information Provided: No Do you have thoughts of harming others: None Do you have a plan to hurt others: No Plan Patient : No : No Poor oral hygiene: No Meds Allergies Allergy/AdvReac Type Severity Reaction Status Date / Time No Known Allergies Allergy Verified 10/14/20 18:01 Active Medications: Current Medications Generic Name Dose Route Start Last Admin Trade Name Freq PRN Reason Stop Dose Admin Acetaminophen 650 mg 10/14/20 19:59 Acetaminophen 325 Mg Tablet PO Q6H PRN Pain, Mild (Pain Scale 1-3) Aspirin 81 mg 10/15/20 09:00 10/15/20 08:25 Aspirin Enteric Coated 81 Mg Tablet. PO 81 mg DAILY RILEY Administration Atorvastatin Calcium 80 mg 10/15/20 09:00 10/15/20 08:29 Atorvastatin Calcium 80 Mg Tablet PO Not Given DAILY RILEY Heparin Sodium (Porcine) 5,000 unit 10/14/20 22:00 10/14/20 23:39 Heparin Sodium,Porcine 5,000 Unit/Ml Vial SUBCUT 5,000 unit Q12H RILEY Administration Levalbuterol HCl 1.25 mg 10/14/20 20:44 Levalbuterol Hcl 1.25 Mg/0.5 Ml Vial.Neb INHALE Q4H PRN Shortness Of Breath Or Wheezing Magnesium Hydroxide 30 ml 10/14/20 19:59 Milk Of Magnesia 30 Ml Oral.Susp PO DAILY PRN Constipation Meclizine HCl 25 mg 10/14/20 20:03 Meclizine Hcl 25 Mg Tablet PO TID PRN Dizziness Non-Formulary Medication 1 puff 10/15/20 09:00 Umeclidinium-Vilanterol [Anoro Ellipta] PO DAILY [facility] Ondansetron HCl 4 mg 10/14/20 19:59 Ondansetron Hcl 4 Mg/2 Ml Vial IVPUSH Q8H PRN Nausea and Vomiting Pharmacy Consult 1 each 10/14/20 18:02 Consult Rx Perform Med Rec MISCELLANE ONCE PRN Consult order Senna 17.2 mg 10/14/20 19:59 Sennosides 8.6 Mg Tablet PO BEDTIME PRN Constipation Sertraline HCl 100 mg 10/15/20 09:00 10/15/20 08:25 Sertraline Hcl 100 Mg Tablet PO 100 mg DAILY RILEY Administration Sodium Chloride 3 ml 10/15/20 00:00 10/15/20 08:25 0.9 % Sodium Chloride Flush 3 Ml Syringe IVFLUSH 3 ml QSHIFT RILEY Administration Home Medications Medication Instructions Recorded Confirmed Last Taken Type sertraline [Zoloft] 100 mg PO DAILY 06/20/20 10/14/20 1 Day Ago History ~10/13/20 levalbuterol tartrate [Xopenex HFA] 1 puff PO Q4H PRN 10/14/20 10/14/20 Unknown History meclizine 1 tab PO TID PRN 10/14/20 10/14/20 10/14/20 History umeclidinium-vilanterol [Anoro 1 puff PO DAILY 10/14/20 10/14/20 Unknown History Ellipta] Physical Exam Vital Signs: Vital Signs: Last Vital Signs Temp 96.9 F 10/15/20 08:00 Pulse 91 10/15/20 08:56 Resp 18 10/15/20 08:00 BP 112/68 10/15/20 08:56 Pulse Ox 96 10/15/20 08:56 Body Mass Index 17.4 Const: General: no acute distress, alert and awake Eyes: Sclerae: sclerae normal EOM: EOMs intact bilaterally Neck: Neck: Yes no lymphadenopathy, Yes trachea midline and Yes supple Resp: Effort & Inspection: normal respiratory effort and no respiratory distress Auscultation: clear to auscultation bilaterally Cardio: Rate: regular rate Rhythm: regular rhythm Heart sounds: no gallops, no murmurs and no rubs GI: Palpation (GI): Soft to palpation and Other GI palpation findings present ( Nontender) Auscultation: normal bowel sounds Extrem: General: Yes no pedal edema, No clubbing and No cyanosis Results Laboratory Findings CBC and BMP: 10/15/20 06:48 10/15/20 06:48 ABG, PT/INR, D-dimer: PT/INR, D-dimer PT 11.6 SEC (10.8-13.0) 10/14/20 16:34 INR 1.0 (0.9-1.1) 10/14/20 16:34 Abnormal lab findings: Abnormal Labs 10/14/20 10/14/20 10/14/20 16:34 16:34 16:42 Neut % (Auto) 80.7 H Lymph % (Auto) 12.0 L Lymph # (Auto) 1.0 L VBG HCO3 28 H Anion Gap BUN 21 H TSH 0.14 L 10/15/20 06:48 Neut % (Auto) Lymph % (Auto) Lymph # (Auto) VBG HCO3 Anion Gap 10 L BUN TSH Assessment and Plan (1) Lung nodule: Status: Acute Impression: 60-year-old lady active 50+ pack-years smoker admitted with neurologic symptoms found to have an incidental 1 cm left upper lobe nodule on the background of significant emphysema. Recommendations: Outpatient follow-up with pulmonary service for lung function testing and discussion of excisional biopsy.
--- NOTE | 2020-10-15 11:28 | MHC.STROKE ---
10/14/20 NO EMS PRE-NOTIFICATION, ARRIVED AT 1541, EXPRESSIVE [facility] LKW 10/13/20 AT 2300, DISCOVERED SYMPTOMS 10/14/20 AT [address] HEAD AT 1555, NO BLEED, CTA DONE NO LVO. OUT OF THE WINDOW FOR TPA, SLIGHTLY HYPOTENSIVE. PASSED SWALLOW SCREEN ON 10/14/20 AT 1649, PRIOR TO ANY PO. ALL STROKE MEASURES ORDERED, PLEASE INITIATE STROKE EDUCATION.
[2020-10-15 11:59] VITALS: BP 135/70; PULSE 70; RESP 18; TEMP 36.3; O2SAT 96
--- NOTE | 2020-10-15 13:29 | MHC.CM.PN ---
CASE MANAGEMENT ATTEMPTED ASSESSMENT. PATIENT IS ASLEEP FOLLOWING PAIN MEDICATION ADMINISTRATION FOR COMPLAINT OF HEADACHE. CASE MANAGEMENT CARD LEFT BEDSIDE AND NAME WRITTEN ON WHITE BOARD. NO HCP ON FILE AND SUBJECT TO BE DISCUSSED DURING ASSESSMENT.
[2020-10-15 15:38] VITALS: BP 119/67; PULSE 77; RESP 20; TEMP 36.1; O2SAT 97
--- NOTE | 2020-10-15 16:21 | MHC.CM.PN ---
PATIENT LIVES WITH A ROOMMATE SHE IS INDEPENDENT WITH HER ADLS. NO DME OR VNA SERVICES. SHE ASSIGNS HER DAUGHTER ANDREW (IN ROOM) HCP AGENT. [phone]. COPY IN CHART. PLAN IS DISCHARGE HOME WITH NO SERVICES.
--- NOTE | 2020-10-15 18:55 | PM.DS ---
DS: Providers Provider Date of Service: 11/01/20 Date of admission: 10/14/20 19:59 Primary care physician: Ric Prado MD Consults: 10/14/20 20:01 Consult to Neurology Routine Consulting Provider: Karel Haro Reason for consultation: Slurred speech 10/14/20 20:05 Consult to Pulmonology Routine Consulting Provider: Tessa Spangler Reason for consultation: spiculated lung lesion DS: Diagnosis Discharge Diagnosis (1) Lung nodule: Status: Acute DS: Medications Discharge Medications Home Medications: Home Medications Medication Instructions Recorded Confirmed sertraline [Zoloft] 100 mg PO DAILY 06/20/20 10/14/20 Anoro Ellipta 1 puff PO DAILY 10/14/20 10/14/20 levalbuterol tartrate [Xopenex HFA] 1 puff PO Q4H PRN 10/14/20 10/14/20 meclizine 1 tab PO TID PRN 10/14/20 10/14/20 DS: Summary Hospital Course Hospital Course: 60-year-old female with a past medical history of COPD, tobacco dependence, anxiety, depression here with dysarthria, negative CVA by CT, aslo found to have a spiculated lung mass Dysarthria--better, CT and H/N CTA negative, and MRI negative for stroke. I discussed finding with Dr. Haro over the phone and will se patient in the office, offer baby ASA in the event of tia, patietn would like to wait and see Neurologist first. Dizziness: this has resolved Leg pain: negative doppler, no pain right now Thyroid nodule: 2.3 cm heterogeneous nodule noted from left thyroid lobe. Patient TSH is 0.14. Free T3 and free T4 normal Endocrine follow-up on outpatient basis. Will arrange for outpatient thyroid ultraound Spiculated lung lesion: Noted 1 cm spiculated lesion on the left upper lobe concerning for malignancy. -dedicated CT of chest done result pending. Dr. Sandoval saw her and would like to follow up on outpatient basis for further work up. COPD: Stable. Continue home inhalers . Tobacco dependence: Counseled on smoking cessation. HLD-- offered statin and patient's would like to try non phamarcological means first Time spent discussing smoking cessation with patient: 3 to 10 minutes Time Spent with Patient Time attestation: Total time spent providing and/or coordinating discharge services: Discharge coordination time: Greater than 30 minutes Quality: Stroke Does the patient have a stroke diagnosis?: No Physical Exam Vital Signs: Vital Signs: Last Vital Signs Temp 97 F 10/15/20 15:38 Pulse 77 10/15/20 15:38 Resp 20 10/15/20 15:38 BP 119/67 10/15/20 15:38 Pulse Ox 97 10/15/20 15:38 Body Mass Index 17.4 Constitutional Awake and Alert, No apparent distress HEENT both ears looked into and uremarkable Neck Supple, No lymphadenopathy, could not palpate thyroid nodule Cardiovascular RRR, No M/R/G, S1 S2, No S3 S4, No pedal edema Respiratory Lungs clear, No respiratory distress Gastrointestinal Non tender, Non-distended Skin No rash Neurological Alert & oriented x3, no focal deficit and normal speech Psychological Appropriate affect DS: Data Data Completed and Pending Labs on day of discharge: Laboratory Results - last 24 hr 10/14/20 10/14/20 10/14/20 20:30 20:30 21:01 WBC RBC Hgb Hct MCV MCH MCHC RDW Plt Count MPV Immature Gran % (Auto) Neut % (Auto) Lymph % (Auto) Moody % (Auto) Eos % (Auto) Baso % (Auto) Lymph # (Auto) Moody # (Auto) Eos # (Auto) Baso # (Auto) Abs Immat Gran (auto) Absolute Neuts (auto) Absolute Nucleated RBC Nucleated RBC % (auto) Sodium Potassium Chloride Carbon Dioxide Anion Gap BUN Creatinine Estim Creat Clear Calc Estimated GFR POC Glucose Random Glucose Estimat Average Glucose Hemoglobin A1c % Calcium Troponin I High Sens < 3.5 Triglycerides 46 Cholesterol 177 LDL Cholesterol, Calc 108 HDL Cholesterol 60 Free T4 Free T4 (Dialysis) Thyroxine (T4) Urine Color YELLOW Urine Appearance CLEAR Urine pH 6.0 Ur Specific Huntington <= 1.005 Urine Protein NEG Urine Glucose (UA) NEG Urine Ketones NEG Urine Blood NEG Urine Nitrite NEG Ur Leukocyte Esterase NEG Urine Opiates Screen Ur Barbiturates Screen Ur Phencyclidine Scrn Ur Amphetamines Screen U Benzodiazepines Scrn Urine Cocaine Screen U Marijuana (THC) Screen 10/14/20 10/14/20 10/15/20 21:01 21:05 06:48 WBC 5.7 RBC 5.06 Hgb 14.8 Hct 44.5 MCV 87.9 MCH 29.2 MCHC 33.3 RDW 12.0 Plt Count 209 MPV 9.5 Immature Gran % (Auto) 0.0 Neut % (Auto) 67.6 Lymph % (Auto) 22.7 Moody % (Auto) 7.4 Eos % (Auto) 1.8 Baso % (Auto) 0.5 Lymph # (Auto) 1.3 Moody # (Auto) 0.4 Eos # (Auto) 0.1 Baso # (Auto) 0.0 Abs Immat Gran (auto) 0.00 Absolute Neuts (auto) 3.9 Absolute Nucleated RBC 0.000 Nucleated RBC % (auto) 0.0 Sodium Potassium Chloride Carbon Dioxide Anion Gap BUN Creatinine Estim Creat Clear Calc Estimated GFR POC Glucose 98 Random Glucose Estimat Average Glucose Hemoglobin A1c % Calcium Troponin I High Sens Triglycerides Cholesterol LDL Cholesterol, Calc HDL Cholesterol Free T4 Free T4 (Dialysis) Thyroxine (T4) Urine Color Urine Appearance Urine pH Ur Specific Huntington Urine Protein Urine Glucose (UA) Urine Ketones Urine Blood Urine Nitrite Ur Leukocyte Esterase Urine Opiates Screen Not Detected Ur Barbiturates Screen Not Detected Ur Phencyclidine Scrn Not Detected Ur Amphetamines Screen Not Detected U Benzodiazepines Scrn Not Detected Urine Cocaine Screen Not Detected U Marijuana (THC) Screen Not Detected 10/15/20 10/15/20 10/15/20 06:48 06:48 06:48 WBC RBC Hgb Hct MCV MCH MCHC RDW Plt Count MPV Immature Gran % (Auto) Neut % (Auto) Lymph % (Auto) Moody % (Auto) Eos % (Auto) Baso % (Auto) Lymph # (Auto) Moody # (Auto) Eos # (Auto) Baso # (Auto) Abs Immat Gran (auto) Absolute Neuts (auto) Absolute Nucleated RBC Nucleated RBC % (auto) Sodium 141 Potassium 4.4 D Chloride 106 Carbon Dioxide 29 Anion Gap 10 L BUN 16 Creatinine 0.63 Estim Creat Clear Calc 68.9 Estimated GFR > 60 POC Glucose Random Glucose 90 Estimat Average Glucose 103 Hemoglobin A1c % 5.2 Calcium 9.0 Troponin I High Sens Triglycerides Cholesterol LDL Cholesterol, Calc HDL Cholesterol Free T4 1.15 Free T4 (Dialysis) Cancelled Thyroxine (T4) 8.2 Urine Color Urine Appearance Urine pH Ur Specific Huntington Urine Protein Urine Glucose (UA) Urine Ketones Urine Blood Urine Nitrite Ur Leukocyte Esterase Urine Opiates Screen Ur Barbiturates Screen Ur Phencyclidine Scrn Ur Amphetamines Screen U Benzodiazepines Scrn Urine Cocaine Screen U Marijuana (THC) Screen Preliminary micro results at discharge 10/14/20 16:45 Blood Culture - Preliminary Blood - Venous No growth after 24 hours. 10/14/20 16:34 Blood Culture - Preliminary Blood - Venous No growth after 24 hours. Discharge Plan Discharge Anticipated Discharge Date/Time: 10/15/20 18:02 Patient Disposition: Home, Self-Care Discharge Diagnosis: Transient dysarthria Referrals: Ric Prado MD [Primary Care Provider] - 1 Week Karel Haro MD [Physician] - 1 Week (follow up on dysarthria) Rajendra Sandoval MD [Physician] - 1 Week (follow up on lung nodule) Ashok Gomez MD [Physician] - 1 Week (thyroid nodule) Discharge Medications: Continued sertraline [Zoloft] 100 mg Tablet 100 mg PO DAILY RF: 0 meclizine 25 mg tablet 1 tab PO TID PRN (Reason: Dizziness) RF: 0 levalbuterol tartrate [Xopenex HFA] 45 mcg/actuation HFA aerosol inhaler 1 puff PO Q4H PRN (Reason: Shortness Of Breath Or Wheezing) RF: 0 Anoro Ellipta 62.5-25 mcg/actuation blister with device 1 puff PO DAILY RF: 0 Discharge Orders: Discharge Order (Routine); Ordered 10/15/20 Ordered By: Sheldon Nguyễn Diet: advance to usual diet Activity on Discharge: As tolerated Stand Alone Forms: Patient Portal Discharge page Other Ambulatory Orders: US thyroid (Routine) Timeframe: 1 Day Facility: [facility] - Location: Ultrasound Ordered By: Sheldon Kinney Care Plan Goals: Full work into Dysarthria, lung nodule, thyroid nodule Health Concerns: Lung mass, thyroid nodule Plan of Treatment: Outpatient follow up with Dr. Haro (Neurolgist) for dysarthria Outpatient follow up with Dr. Sandoval for lung nodule Outpatient follow up with Endocrinology Dr. Sauer Follow up with your Doctor Assessment: See above Discharge Date/Time: 10/15/20 18:35
[2020-10-17 03:54] LABS: Folate 16.9 ng/mL (> or = 4.0); Vitamin B12 516 pg/mL (200-900)
== END 2020-10-15 18:35 | disposition home or self-care (01) | DRG 136 ==
LOC: HO.ED 20:04 → HO.EDOVER 20:16 → HO.S3 10-15 05:26
PROVIDERS: Admitting Provider Hospitalist; Emergency Provider Emergency Medicine; PCP Internal Medicine; Visit Provider Internal Medicine
DX: C34.12 Malignant neoplasm of upper lobe, left bronchus or lung (principal); E04.1 Nontoxic single thyroid nodule; R47.1 Dysarthria and anarthria; J44.9 Chronic obstructive pulmonary disease, unspecified; E78.5 Hyperlipidemia, unspecified; F10.21 Alcohol dependence, in remission; F17.210 Nicotine dependence, cigarettes, uncomplicated; F41.9 Anxiety disorder, unspecified; F32.9 Major depressive disorder, single episode, unspecified; R47.81 Slurred speech; Z20.822 Contact with and (suspected) exposure to COVID-19; Z71.6 Tobacco abuse counseling; Z79.899 Other long term (current) drug therapy
CPT/HCPCS: 36415; 70450; 70496; 70498; 70551; 71045; 71250; 80048; 80061; 80076; 80307; 80320; 81003; 82140; 82607; 82746; 82947; 83036; 83605; 83690; 83735; 84436; 84439; 84443; 84484; 85025; 85610; 85730; 87040; 87635; 93005; 93970; 97162; 99285; 99291; Q9967

== ENCOUNTER 2020-11-07 08:29 | Outpatient (REF) | payer OTHER, SELFPAY ==
--- NOTE | ~2020-11-07 | US_ITS ---
EXAMINATION: US THYROID CLINICAL INFORMATION: Thyroid nodule COMPARISON: Previous chest CT October 2020 TECHNIQUE: Linear transducer grayscale and color Doppler examination with attention to the region of the thyroid. FINDINGS: SIZE: Measurements of the thyroid lobes and nodules are given in sagittal, anteroposterior and transverse dimensions respectively. Right Thyroid Lobe: 4.3 x 1.3 x 1.4 cm, volume 4.1 mL. Parenchyma: The gland echotexture is heterogeneous. Thyroid vascularity is increased. Left Thyroid Lobe: 4.7 x 2.3 x 1.5 cm, volume 8.5 mL. Parenchyma: The gland echotexture is heterogeneous. Thyroid vascularity is increased. Isthmus: 0.2 cm in maximum AP dimension. There are bilateral multiple nodules. Estimated total number of nodules greater than or equal to 1 cm: 3. Hand Patcher nodules are described as follows: 1. Location: Mid left. Size: 2.4 x 1.7 x 1.6 cm, volume 3.38 mL. Nodule characteristics: Composition: Solid/almost completely solid (2). Echogenicity: Isoechoic (1). Shape: Taller than wide (3). Margins: Irregular (2). Echogenic Foci: Macrocalcifications (1). ACR TI-RADS total points: 12 ACR TI-RADS category: 5 2. Location: Low medial left. Size: 1.4 x 0.7 x 1.2 cm, volume 0.58 mL. Nodule characteristics: Composition: Solid/almost completely solid (2). Echogenicity: Isoechoic (1). Shape: Not taller than wide (0). Margins: Smooth (0). Echogenic Foci: None (0). ACR TI-RADS total points: 3 ACR TI-RADS category: 3 3. Location: Lower lateral left. Size: 1.1 x 0.8 x 0.8 cm, volume 0.38 mL. Nodule characteristics: Composition: Solid/almost completely solid (2). Echogenicity: Isoechoic (1). Shape: Not taller than wide (0). Margins: Irregular (2). Echogenic Foci: Punctate echogenic foci (3). ACR TI-RADS total points: 8 ACR TI-RADS category: 5 4. Location: Upper right isthmus. Size: 0.9 x 0.4 x 0.8 cm, volume 0.15 mL. Nodule characteristics: Composition: Solid/almost completely solid (2). Echogenicity: Isoechoic (1). Shape: Not taller than wide (0). Margins: Smooth (0). Echogenic Foci: None (0). ACR TI-RADS total points: 3 ACR TI-RADS category: 3 NODES: No lymphadenopathy is seen in the tissue surrounding the thyroid gland. US/US thyroid IMPRESSION: Heterogeneous hypervascular thyroid with multiple bilateral nodules. Fine-needle aspiration of nodule in the mid left lobe and lateral lower left lobe and continued ultrasound follow-up every year for 5 years recommended. ACR TI-RADS RECOMMENDATION REFERENCE: Ultrasound-guided fine-needle aspiration, followup ultrasound, no further follow up. * TR1 (0 point) and TR 2 (2 points): No FNA or follow up * TR3 (3 points): FNA if more than or equal to 2.5 cm in maximum dimension, followup ultrasound in 1, 3 and 5 years if 1.5 to 2.4 cm in maximum dimension. * TR4 (4-6 points): FNA if more than or equal to 1.5 cm in maximum dimension, followup ultrasound in 1, 2, 3 and 5 years if 1 to 1.4 cm in maximum dimension. * TR5 (more than or equal to 7 points): FNA if more than or equal to 1 cm in maximum dimension, followup ultrasound every year for 5 years if 0.5 to 0.9 cm in maximum dimension. * TR3, TR4 or TR5 nodules that are below the size threshold for follow up receive no follow up.
== END 2020-11-07 08:30 | disposition home or self-care (01) ==
LOC: HO.HMGCX 08:29
PROVIDERS: Visit Provider Internal Medicine
DX: E04.1 Nontoxic single thyroid nodule (principal)
CPT/HCPCS: 76536

== ENCOUNTER 2020-11-25 06:26 | Outpatient (REF) | payer OTHER, SELFPAY ==
[2020-11-25 08:01] LABS: Free T4 (Free Thyroxine) 0.98 ng/dL (0.71-1.85); Thyroid Stimulating Hormone 0.09 uIU/mL (0.32-4.0)
[2020-11-26 08:51] LABS: Triiodothyronine T3 Total 122 ng/dL (76-181)
[2020-11-26 10:32] LABS: Thyroglobulin Antibodies <1 IU/mL (< or = 1); Thyroid Peroxidase Antibodies 2 IU/mL (<9)
[2020-11-28 15:32] LABS: Prot Elec - Albumin 4.2 g/dL (3.8-4.8); Prot Elec - Alpha1 0.3 g/dL (0.2-0.3); Prot Elec - Alpha2 0.7 g/dL (0.5-0.9); Prot Elec - Beta 1 0.4 g/dL (0.4-0.6); Prot Elec - Beta 2 0.3 g/dL (0.2-0.5); Prot Elec - Gamma 0.8 g/dL (0.8-1.7); Prot Elec - Total Protein 6.8 g/dL (6.1-8.1)
[2020-11-28 17:33] LABS: Iodine, Random Urine 34 mcg/L (34-523)
[2020-11-29 08:53] LABS: Calcium (PTHI) 9.4 mg/dL (8.6-10.4); PTHI 68 pg/mL (14-64)
[2020-11-29 13:42] LABS: Thyrotropin Receptor Antibody <1.00 IU/L (<=2.00)
[2020-11-30 22:11] LABS: N-Telopeptide 35 (see note); NTXCreaRU 31 mg/dL (20-275)
[2020-12-01 15:42] LABS: Thyroid Stimulating Immunoglob <89 % baseline (<140)
== END 2020-11-25 06:27 | disposition home or self-care (01) ==
LOC: HO.LAB 06:26
PROVIDERS: PCP Internal Medicine; Visit Provider Internal Medicine Endocrinology, Diabetes & Metabolism
DX: R79.89 Other specified abnormal findings of blood chemistry (principal); E04.2 Nontoxic multinodular goiter; M81.0 Age-related osteoporosis without current pathological fracture
CPT/HCPCS: 36415; 82306; 82523; 83520; 83789; 83970; 84155; 84165; 84439; 84443; 84445; 84480; 86376; 86800

== ENCOUNTER → 2020-11-30 14:32 | Outpatient (BNVA) | payer OTHER, SELFPAY | PROVIDERS: PCP Internal Medicine; Visit Provider Internal Medicine Endocrinology, Diabetes & Metabolism | DX: M81.0 Age-related osteoporosis without current pathological fracture (principal); E04.2 Nontoxic multinodular goiter; E05.90 Thyrotoxicosis, unspecified without thyrotoxic crisis or storm; E21.1 Secondary hyperparathyroidism, not elsewhere classified | CPT/HCPCS: 99212 ==

== ENCOUNTER → 2020-12-06 15:43 | Outpatient (BNVA) | payer OTHER, SELFPAY | PROVIDERS: PCP Internal Medicine; Visit Provider Internal Medicine Pulmonary Disease | DX: R91.1 Solitary pulmonary nodule (principal); J44.9 Chronic obstructive pulmonary disease, unspecified; E04.2 Nontoxic multinodular goiter; E21.2 Other hyperparathyroidism; M81.0 Age-related osteoporosis without current pathological fracture; F17.210 Nicotine dependence, cigarettes, uncomplicated; Z90.721 Acquired absence of ovaries, unilateral | CPT/HCPCS: 99212 ==

== ENCOUNTER → 2020-12-07 13:56 | Outpatient (REF) | payer OTHER, SELFPAY ==
--- NOTE | 2020-12-07 14:00 | CA_ITS ---
Transthoracic Echocardiogram Patient (Last, First, Middle): Araseli Bridges, Gender: Female Date of : 1960 Age: 60 Procedure Date: 12/07/2020 Procedure Type: Transthoracic Echocardiogram Location: OP Height: 162.56 cm Weight: 48.08 kg BSA: 1.49 m2 Heart Rate: bpm BP: 106 / 60 mmHg Sheet Cutting Operator: BLANQUITA Referring MD: Ric Prado MD Symptoms: G45.9 TIA Study Quality: Good ECG Rhythm: Sinus Conclusions: - The left ventricular systolic function is normal. The visually estimated ejection fraction is between 60-65%. - No obvious valvular pathology seen on this study. Findings Left Ventricle Normal left ventricular cavity size. There is normal left ventricular wall thickness. The left ventricular systolic function is normal. The visually estimated ejection fraction is between 60-65%. There is no evidence of regional wall motion abnormalities. Diastolic function is normal for age. Right Ventricle Normal right ventricular cavity size and systolic function. Atria Both atria are normal in size. Aortic Valve There is a normal trileaflet aortic valve. There is no aortic valve stenosis. There is no aortic valve regurgitation. Mitral Valve The mitral valve appears normal. There is no mitral valve regurgitation. There is no mitral valve stenosis. Pulmonic Valve The pulmonic valve was not well visualized. Tricuspid Valve Normal tricuspid valve structure. There is trace tricuspid valve regurgitation. The pulmonary artery systolic pressure is normal. Great Vessels The aortic annulus, sinuses of valsalva, asc aorta, and aortic arch are normal in size. Venous The inferior vena cava is normal in size and collapses greater than 50% with inspiration. Pericardium/Pleural There is no evidence of pericardial effusion. Prior Study Comparison No prior study available for comparison. Recommendations, Care & Conclusions No obvious valvular pathology seen on this study. Measurements 2D Linear Measurements IVSd: 0.89 0.6-0.9/0.6-1.0 cm LVIDd: 4.16 3.9-5.3/4.2-5.9 cm LVIDd Index: 2.79 2.4-3.2/2.2-3.1 cm/m2 LVIDs: 2.00 2.0-3.6 cm LVPWd: 0.95 0.7-1.1 cm Ao Root: 2.90 2.1-3.5 cm LA Diam: 2.40 2.7-3.8/3.0-4.0 cm LAIDs Index: 1.61 1.5-2.3 cm/m2 LV Mass: 150.22 67-162/88-224 g LV Mass Index: 100.82 43-95/49-115 g/m2 LVOT Diam: 2.10 3.0+(-)1.3 cm 2D Systolic Function EF 4C: 73.50 >55% Mitral Valve MV Pk E: 0.84 MV PK A: 0.70 MV Decel Time: 214.00 E/A: 1.20 E'Lateral: 11.00 E'Medial: 8.27 E/E' Med: 10.20 E/E' Lat: 7.60 PHT: 63.00 MVA PHT: 3.49 Decel Johnson: 3.93 Aortic Valve AoV Pk Gilberto: 1.07 AoV Pk Grad: 5.00 LVOT LVOT Pk Gilberto: 0.87 LVOT Mn Gilberto: 0.51 LVOT VTI: 0.20 LVOT Pk Grad: 3.00 LVOT Mn Grad: 1.00 LVOT Diam: 2.10 LVOT Area: 3.46 Diastolic Function MV Pk E: 0.84 MV Pk A: 0.70 E/A: 1.20 E'Medial: 8.27 E/E' Med: 10.20 E' Laterial: 11.00 E/E' Lat: 7.60 Tricuspid Valve TR Pk Gilberto: 2.47 TR Pk Grad: 24.00 RA Press: 3.00 RVSP: 27.00 Great Vessels Aorta Ao Root-2D: 2.90 2.0-3.7 cm Ao Asc: 3.50 2.1-3.4 cm Updated in Other Vendor System with Status of Final Juan Gant MD electronically signed on 12/09/2020 10:41:39 AM with status of Final
== END ==
LOC: HO.CARD 13:56
PROVIDERS: PCP Internal Medicine; Visit Provider Internal Medicine
DX: G45.9 Transient cerebral ischemic attack, unspecified (principal)
CPT/HCPCS: 93306

== ENCOUNTER 2020-12-15 15:51 | Outpatient (REF) | payer OTHER, SELFPAY ==
--- NOTE | 2020-12-15 17:29 | PFT_ITS ---
FLOWS: FEV1 of 47% of predicted at 1.20 L. FVC 89% of predicted at 2.92 L. FEV1 to FVC ratio of 0.41. No bronchodilator response except in small to medium airways. LUNG VOLUMES: Total lung capacity 124% of predicted at 6.27 L. Residual volume 183% of predicted at 3.66 L. Slow vital capacity 85% of predicted at 2.61 L. Expiratory reserve volume 136% of predicted at 1.18 L. Diffusion capacity is severely decreased. IMPRESSION: Severe obstructive ventilatory defect with no bronchodilator response except in small to medium airways. Increased total lung capacity suggests hyperinflation. Increased residual volume suggests air trapping. Decreased diffusion capacity suggests emphysema. MD WILLIE Paige/MODL / [id number]
== END 2020-12-15 15:52 | disposition home or self-care (01) ==
LOC: HO.RESP 15:51
PROVIDERS: PCP Internal Medicine; Visit Provider Internal Medicine Pulmonary Disease
DX: R91.1 Solitary pulmonary nodule (principal)
CPT/HCPCS: 94060; 94727; 94729

== ENCOUNTER 2020-12-19 12:16 | Outpatient (REF) | payer OTHER, SELFPAY | END 2020-12-19 12:17 | disposition home or self-care (01) | LOC: HO.PET 12:16 | PROVIDERS: PCP Internal Medicine; Visit Provider Internal Medicine Pulmonary Disease | DX: Z13.89 Encounter for screening for other disorder (principal) ==

== ENCOUNTER 2020-12-20 12:41 | Outpatient (REF) | payer OTHER, SELFPAY ==
--- NOTE | ~2020-12-20 | PE_ITS ---
EXAMINATION: Fluorine-18 FDG PET/CT Scan CLINICAL INDICATION: Initial treatment management. Solitary pulmonary nodule. PROCEDURE: 60 minutes following the intravenous administration of 15.8 mCi of fluorine 18 FDG, images from the base of the skull to the mid thighs were obtained using a combined PET/CT scanner with CT scan based attenuation correction. No oral contrast was administered. No intravenous contrast was administered. Transverse, coronal, sagittal, and volume reconstruction projections were obtained. The patient's blood glucose as determined by a finger stick, was 93 mg/dl immediately prior to injection. Total CT exam dose-length product 261.56 mGy-cm * These CT images were obtained using dose optimization techniques as appropriate, variously including the following: Automated exposure control * Adjustment of mA and/or kV according to patient size (this includes techniques or standardized protocols for targeted exams where dose is matched to indication/reason for exam; i.e. extremities or head) * Use of iterative reconstruction technique COMPARISON: No previous PET/CT scan is available for comparison. CT scan of the chest dated 10/15/[address] angiogram of the head and neck dated 10/14/2020 are available for comparison. FINDINGS: (Slice numbers described in this report are numbered superiorly to inferiorly with slice #1 in the head) NECK AND VISUALIZED HEAD: No foci of abnormal FDG activity are noted. The distribution of FDG activity is physiological. There is no cervical lymphadenopathy. There is a 1.3 cm centrally hypodense left thyroid nodule. This shows no abnormal FDG activity and this nodule was better visualized on the IV contrast enhanced CT angiogram of the head and neck dated 10/14/2020 and does not appear significantly changed since that date. THORAX: There is FDG avid medial left upper lobe pulmonary nodule showing SUVmax 7.4, slice 66/267. This measures 1.0 x 1.3 cm in largest transverse dimensions, and approximately 1.4 cm cephalocaudad. No additional foci of abnormal FDG activity are visualized in the chest. There are no additional pulmonary nodules visualized. There is no mediastinal, supraclavicular, or axillary lymphadenopathy. There is no pleural or pericardial fluid, or pneumothorax. ABDOMEN AND PELVIS: No foci of abnormal FDG activity are present in the abdomen or pelvis. There is mild diffuse FDG activity throughout the gastrointestinal tract without a suspicious focal component. There is mild diverticulosis without evidence of diverticulitis. The liver, gallbladder, spleen, kidneys, adrenal glands, and pancreas are unremarkable. There are dense calcifications in the portacaval region with no associated abnormal FDG activity likely representing calcified lymph nodes. There is no retroperitoneal, mesenteric, pelvic or inguinal lymphadenopathy. MUSCULOSKELETAL: No foci of abnormal FDG activity are present in the osseous structures. VASCULAR: Diffuse vascular calcifications including coronary are noted. PET/PET CT fusion skull to thigh IMPRESSION: 1. A solitary FDG avid left upper lobe pulmonary nodule is noted as described above. This is strongly suspicious for malignancy and biopsy is recommended. 2. A centrally hypodense left thyroid nodule is noted. The absence of abnormal FDG activity suggests this is benign. Further characterization of this with thyroid ultrasonography is recommended. 3. No additional abnormalities suspicious for metastatic or other malignant lesions are noted. 4. Diffuse vascular calcifications including coronary.
== END 2020-12-20 12:42 | disposition home or self-care (01) ==
LOC: HO.PET 12:41
PROVIDERS: PCP Internal Medicine; Visit Provider Internal Medicine Pulmonary Disease
DX: Z13.89 Encounter for screening for other disorder (principal)

== ENCOUNTER → 2020-12-23 09:28 | Outpatient (BNVA) | payer OTHER, SELFPAY | PROVIDERS: PCP Internal Medicine; Visit Provider Surgery | DX: R91.1 Solitary pulmonary nodule (principal); J44.9 Chronic obstructive pulmonary disease, unspecified; F17.210 Nicotine dependence, cigarettes, uncomplicated; Z79.899 Other long term (current) drug therapy; Z71.6 Tobacco abuse counseling | CPT/HCPCS: 99212 ==

== ENCOUNTER 2021-01-05 08:45 | Outpatient (REF) | payer OTHER, SELFPAY ==
--- NOTE | ~2021-01-05 | XR_ITS ---
EXAMINATION: XR CHEST CLINICAL INFORMATION: Solitary pulmonary nodule COMPARISON: CT scan of October 15, 2020 and chest x-rays dating back to January 09, 2013 TECHNIQUE: 2 views of the chest were obtained. FINDINGS: There is a 1 cm ill-defined density seen within the left upper lobe which can be seen a few centimeters superior to the aortic arch. Heart normal size. No evidence of pulmonary edema. No pneumothorax or pleural effusion. XR/XR chest 2V IMPRESSION: 1 cm density left upper lobe as seen on CT scan of October 15, 2020
== END 2021-01-05 08:46 | disposition home or self-care (01) ==
LOC: HO.XRAY 08:45
PROVIDERS: PCP Internal Medicine; Visit Provider Surgery
DX: R91.1 Solitary pulmonary nodule (principal)
CPT/HCPCS: 71046

== ENCOUNTER → 2021-01-06 13:22 | Outpatient (REF) | payer OTHER, SELFPAY ==
--- NOTE | ~2021-01-06 | NM_ITS ---
EXAMINATION: MO NUCLEAR MEDICINE PERFUSION QUANTITATIVE SCAN CLINICAL INFORMATION: Solitary pulmonary nodule left upper lobe. COMPARISON: Nothing recent. TECHNIQUE: Following intravenous administration of 4 mCi of technetium 99 MAA, imaging of both lungs was obtained in multiple projections. Subsequently, quantification of activity was performed upper, mid and lower segments of both lobes. FINDINGS: There is normal perfusion seen to all segments of both lungs without any focal defect. Of the total lung quantification, right lung contribution is 49.40% perfusion. The right upper lobe contributes 6.32%, middle lobe contributes 28.35% and lower lobe contributes 14.72%. Total left lung contribution is 50.60%. The upper lobe contributes 9.24%, midpole contributes 30.93% and the lower pole contributes 10.43%. MO/MO pul perf britta dif w image IMPRESSION: Almost symmetrical bilateral lung perfusion. There is diminished perfusion in the right upper lobe, left upper lobe and left lower lobe compared to right side.
== END ==
LOC: HO.NUCMED 13:22
PROVIDERS: Visit Provider Surgery
DX: R91.1 Solitary pulmonary nodule (principal)
CPT/HCPCS: 78597; A9540

== ENCOUNTER → 2021-03-08 09:12 | Outpatient (REF) | payer OTHER, SELFPAY ==
--- NOTE | ~2021-03-08 | NM_ITS ---
EXAMINATION: THYROID UPTAKE AND SCAN CLINICAL INFORMATION: Thyrotoxicosis. COMPARISON: No previous radionuclide thyroid scan is available for comparison. Thyroid ultrasound dated 11/07/2020 is available for comparison. TECHNIQUE: Following the oral administration of 295 microcuries of I-123 sodium iodide, thyroid uptake was performed and expressed as a percentage of the administrated dose. Gamma scintillation camera images of the thyroid in the anterior and right and left anterior oblique views were obtained using a pinhole collimator following the administration of 10 mCi Tc-99m pertechnetate. FINDINGS: The uptake is 14.5% at 4 hours and 33.1% at 24 hours (Normal radioiodine uptake at 24 hours is 10% to 30%). The radioiodine uptake is mildly elevated. The radiopertechnetate thyroid scintigram demonstrates the thyroid gland to be normal in size, shape, and position. There is a discrete focus of more intense activity present in the mid left thyroid lobe. The trapping function in the remainder the gland appears normal but is significantly less intense than at this focus. No other focal abnormalities are present in either lobe. A single anterior radioiodine image obtained at the time of the 24-hour uptake measurement is similar to the radio pertechnetate image. The thyroid ultrasound dated 11/07/2020 shows a dominant 2.4 x 1.7 x 1.6 cm nodule in the mid left lobe that appears to correspond to the focal abnormality present on the current study at this site. There are several much smaller additional nodules present bilaterally. None of these is well visualized on this radionuclide scan. NM/NM thyroid w uptake IMPRESSION: 1. A solitary hyperfunctioning (hot) nodule is visualized in the mid left lobe and appears to correspond to a solid nodule at this site on the 11/07/2020 ultrasound. The activity in the remainder the gland is mildly decreased compared to this, but is nonetheless well visualized. This suggests that the patient thyrotoxicosis is either due to Graves' disease with a coexisting hot nodule in the left lobe, or alternatively there is incomplete extra nodular suppression of a solitary autonomously functioning nodule in the left lobe. The presence or absence of thyroid stimulating immunoglobulins should be helpful in determining whether or not Graves' disease is present. 2. No additional nodules are well delineated, although subtle concavity in the lateral aspect of the mid right lobe and may represent poorly delineated hypofunctioning (cold nodules). 3. The radioiodine uptake is mildly elevated.
== END ==
LOC: HO.NUCMED 09:12
PROVIDERS: Visit Provider Internal Medicine Endocrinology, Diabetes & Metabolism
DX: E05.90 Thyrotoxicosis, unspecified without thyrotoxic crisis or storm (principal); E03.8 Other specified hypothyroidism
CPT/HCPCS: 78014; A9512; A9516

== ENCOUNTER → 2021-03-15 07:52 | Outpatient (BNV) | payer OTHER, SELFPAY | PROVIDERS: PCP Internal Medicine; Referring Provider Surgery; Visit Provider Internal Medicine Medical Oncology | DX: C34.12 Malignant neoplasm of upper lobe, left bronchus or lung (principal) | CPT/HCPCS: 99203; 99213 ==

== ENCOUNTER 2021-03-20 14:46 | Outpatient (REF) | payer OTHER, SELFPAY ==
[2021-03-20 18:02] LABS: Alanine Aminotransferase 15 U/L (0-31); Albumin Level 4.8 g/dL (3.5-5.0); Alkaline Phosphatase 65 U/L (39-117); Anion Gap 14 (12-20); Aspartate Amino Transferase 18 U/L (5-31); Bilirubin Total 0.6 mg/dL (0.0-1.0); Blood Urea Nitrogen 8 mg/dL (9-16); Calcium 9.7 mg/dL (8.4-10.2); Carbon Dioxide 26 mmol/L (22-29); Chloride 105 mmol/L (96-108); Estimated Glomerular Filt Rate > 60; Glucose Random 82 mg/dL (60-115); Phosphorus 3.4 mg/dL (2.7-4.5); Potassium 3.7 mmol/L (3.3-5.1); Sodium 141 mmol/L (135-145); Total Protein 7.5 g/dL (6.5-8.0)
[2021-03-20 18:25] LABS: Free T4 (Free Thyroxine) 1.09 ng/dL (0.71-1.85); Thyroid Stimulating Hormone 0.16 uIU/mL (0.32-4.0); Vitamin D 25-OH Total 68.9 ng/mL (>30)
[2021-03-21 12:42] LABS: Thyroglobulin Antibodies <1 IU/mL (< or = 1); Thyroid Peroxidase Antibodies 2 IU/mL (<9)
[2021-03-21 16:05] LABS: Calcium (PTHI) 9.8 mg/dL (8.6-10.4); PTHI 48 pg/mL (14-64)
[2021-03-21 21:27] LABS: Prot Elec - Albumin 4.4 g/dL (3.8-4.8); Prot Elec - Alpha1 0.4 g/dL (0.2-0.3); Prot Elec - Alpha2 0.7 g/dL (0.5-0.9); Prot Elec - Beta 1 0.4 g/dL (0.4-0.6); Prot Elec - Beta 2 0.4 g/dL (0.2-0.5); Prot Elec - Gamma 0.8 g/dL (0.8-1.7)
[2021-03-21 22:42] LABS: Triiodothyronine T3 Total 115 ng/dL (76-181)
[2021-03-24 19:31] LABS: Thyrotropin Receptor Antibody <1.00 IU/L (<=2.00)
[2021-03-29 16:02] LABS: Thyroid Stimulating Immunoglob <89 % baseline (<140)
== END 2021-03-20 14:47 | disposition home or self-care (01) ==
LOC: HO.LAB 14:46
PROVIDERS: PCP Internal Medicine; Visit Provider Internal Medicine
DX: M81.0 Age-related osteoporosis without current pathological fracture (principal); E21.3 Hyperparathyroidism, unspecified; E05.90 Thyrotoxicosis, unspecified without thyrotoxic crisis or storm; E04.2 Nontoxic multinodular goiter; E55.9 Vitamin D deficiency, unspecified
CPT/HCPCS: 36415; 80053; 82306; 83520; 83970; 84100; 84165; 84439; 84443; 84445; 84480; 86376; 86800; 99212

== ENCOUNTER 2021-07-11 16:04 | Outpatient (REF) | payer OTHER, SELFPAY ==
--- NOTE | ~2021-07-11 | MM_ITS ---
EXAMINATION: MM SCREENING DIGITAL BREAST TOMOSYNTHESIS, BILATERAL CLINICAL INFORMATION: Screening. Asymptomatic. The lifetime risk of breast cancer based on the Tyrer-Cuzick Model is 3%. COMPARISON: Mammography: 03/30/2020, 12/25/2017, 11/23/2016 TECHNIQUE: Digital breast tomosynthesis is performed in both the craniocaudal and mediolateral oblique views along with computer-aided detection (CAD). Synthesized 2D images are generated from the tomosynthesis. FINDINGS: There are scattered areas of fibroglandular density (ACR BI-RADS breast composition Category b). There are no significant masses, abnormal calcifications, or other abnormalities. Parenchymal pattern is similar to prior studies. There is no developing density or architectural abnormality. Parenchymal pattern borders on heterogeneously dense. The axilla and skin contours are unremarkable. No significant changes. MM/MM tomosynthesis screening BI IMPRESSION: No mammographic evidence of malignancy. ASSESSMENT: BI-RADS 1: Negative RECOMMENDATION: Routine annual mammography screening. This patient's information was entered into a reminder system with a target due date for their next mammogram.
== END 2021-07-11 16:05 | disposition home or self-care (01) ==
LOC: HO.MAMMO 16:04
PROVIDERS: Visit Provider Internal Medicine
DX: Z12.31 Encounter for screening mammogram for malignant neoplasm of breast (principal)
CPT/HCPCS: 77063; 77067

== ENCOUNTER 2021-08-03 07:45 | Outpatient (REF) | payer OTHER, SELFPAY ==
--- NOTE | 2021-08-03 08:53 | PM.OP ---
Brief Operative Note Date of Service: 08/03/21 Pre-op diagnosis: Multinodular Thyroid Procedure: This is doctor Elana Suazo. This is an ultrasound-guided fine-needle aspiration report. Date of Examination: 08/03/2021 Indication: Multinodular Thyroid Porcedure: Procedure was explained to the patient. Alternatives, the risk and benefits were discussed. Written consent was obtained. A time-out was also obtained. After sterile preparation, fine-needle aspiration of a left mid pole anterior 1.1 cm thyroid nodule was performed using direct ultrasound guidance to confirm accurate needle placement. Three aspirations were made using 27 gauge needles. Samples were submitted for cytology. One pass was dedicated for [employer] sequencing oracle business analyst testing. Our attention was then turned to the left lower pole. Fine-needle aspiration of a left lower pole 1.4 cm thyroid nodule was performed using direct ultrasound guidance to confirm accurate needle placement. Four aspirations were made using 27 gauge needles. An additional 2 aspirations were made using 25 guage needles. Samples were submitted for cytology. One pass was dedicated for [employer] sequencing oracle business analyst testing. The patient tolerated the procedure well. Aftercare instructions were provided. Impression: Uncomplicated fine needle aspiration biopsy of a left mid pole 1.1 cm thyroid nodule and a left lower pole 1.4 cm thyroid nodule under ultrasound guidance. Surgeon: Elana Suazo, DO Was an Horse Breeder used for this Procedure?: No Estimated blood loss (mL): 0
[2021-08-03] MEDS: Lidocaine HCl 1 % MPF 5 ML VIAL SUBCUT (10:45)
== END 2021-08-03 07:46 | disposition home or self-care (01) ==
LOC: HO.US 07:45
PROVIDERS: Visit Provider Internal Medicine
DX: E04.2 Nontoxic multinodular goiter (principal)
CPT/HCPCS: 10005; 10006; 88172; 88173; 88177

== ENCOUNTER 2021-08-10 13:37 | Outpatient (REF) | payer OTHER, SELFPAY ==
--- NOTE | ~2021-08-10 | CT_ITS ---
EXAMINATION: CT CHEST WITHOUT CONTRAST CLINICAL INFORMATION: Malignant neoplasm of unspecified part of unspecified lung COMPARISON: Chest CT 10/15/2020, PET/CT 12/20/2020 TECHNIQUE: Multidetector volumetric CT imaging of the chest was done. Axial MIP volume rendering provided. Sagittal and coronal reformatted images were obtained. This CT examination was performed using dose optimization techniques as appropriate, variously including the following: *Automated exposure control *Adjustment of mA and/or kV according to patient size (this includes techniques or standardized protocols for targeted exams where dose is matched to indication/reason for exam; i.e. extremities or head) *Use of iterative reconstruction technique DLP: 86 mGy-cm FINDINGS: LUNGS: There are postsurgical changes along the medial superior aspect of the left upper lobe from interval resection of the previously seen spiculated nodule. There is expected architectural distortion in this region in particular along inferior anterior aspect of the staple line there is small amount of opacity likely relating to postsurgical change which measures up to 5 mm in thickness (image 164, series 7). Stable appearance of a 3 mm left lower lobe nodule adjacent to the pleura (image 318, series 7) and a 2 mm posterior left lower lobe nodule (image 455, series 7). No new pulmonary nodules are identified. No consolidative opacities. Emphysematous changes of the lungs are similar to prior. Chronic mild thickening of the airways again noted. The airways are otherwise patent and unremarkable. MEDIASTINUM: The heart is not enlarged. There are atherosclerotic calcifications of the coronary arteries. The ascending thoracic aorta is ectatic and measures 3.8 cm at the level of the main pulmonary artery. No pathologically enlarged mediastinal or hilar lymph nodes are seen. There is again a heterogeneous 1.7 cm left thyroid nodule. PLEURA: Expected pleural changes at the resection margin. No pleural effusion or other abnormal pleural thickening. AXILLA: No lymphadenopathy. UPPER ABDOMEN: Unremarkable. OSSEOUS STRUCTURES: Unremarkable. CT/CT chest wo con IMPRESSION: Postsurgical changes relating to resection of a medial left upper lobe pulmonary nodule with architectural distortion along the staple line. There is a stable appearance of subcentimeter left lower lobe pulmonary nodules. No new evidence of intrathoracic malignancy. Fleischner guidelines were followed.
== END 2021-08-10 13:38 | disposition home or self-care (01) ==
LOC: HO.CT 13:37
PROVIDERS: Visit Provider Surgery
DX: C34.90 Malignant neoplasm of unspecified part of unspecified bronchus or lung (principal)
CPT/HCPCS: 71250

== ENCOUNTER → 2021-08-17 12:49 | Outpatient (BNVA) | payer OTHER, SELFPAY | PROVIDERS: PCP Internal Medicine; Visit Provider Internal Medicine | DX: Z13.89 Encounter for screening for other disorder (principal) ==

== ENCOUNTER → 2021-08-25 09:35 | Outpatient (BNVA) | payer OTHER, SELFPAY | PROVIDERS: PCP Internal Medicine; Visit Provider Surgery | DX: C34.12 Malignant neoplasm of upper lobe, left bronchus or lung (principal) | CPT/HCPCS: 99212 ==

== ENCOUNTER → 2021-09-04 15:30 | Outpatient (BNVA) | payer OTHER, SELFPAY | PROVIDERS: PCP Internal Medicine; Visit Provider Internal Medicine Pulmonary Disease | DX: J44.9 Chronic obstructive pulmonary disease, unspecified (principal) | CPT/HCPCS: 99212 ==

== ENCOUNTER → 2021-10-16 15:34 | Outpatient (BNVA) | payer OTHER, SELFPAY | PROVIDERS: PCP Internal Medicine; Visit Provider Internal Medicine Pulmonary Disease | DX: J44.9 Chronic obstructive pulmonary disease, unspecified (principal) | CPT/HCPCS: 99212 ==

== ENCOUNTER 2022-02-23 07:22 | Outpatient (REF) | payer OTHER, SELFPAY ==
--- NOTE | ~2022-02-23 | CT_ITS ---
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 COMPARISON: Chest CTs dated August 10, 2021 and October 15, 2020 TECHNIQUE: Multidetector volumetric CT imaging of the chest was done. Axial MIP volume rendering provided. Sagittal and coronal reformatted images were obtained. This CT examination was performed using dose optimization techniques as appropriate, variously including the following: *Automated exposure control *Adjustment of mA and/or kV according to patient size (this includes techniques or standardized protocols for targeted exams where dose is matched to indication/reason for exam; i.e. extremities or head) *Use of iterative reconstruction technique DLP: 91 mGy-cm FINDINGS: LUNGS: Postsurgical change sutures and fibrotic changes involving the medial aspect of the left upper lobe, unchanged compared with most recent prior. No evidence of local tumor recurrence. Moderate emphysema, unchanged. MEDIASTINUM: No evidence of adenopathy by size criteria. 1.2 cm left posterior thyroid nodule containing an approximately 3 mm calcification, not grossly changed dating back to October 15, 2020. CORONARY ARTERY CALCIFICATION: None visualized on this study. PLEURA: There is no pleural effusion. No pleural mass or thickening. AXILLA: No lymphadenopathy by size criteria. UPPER ABDOMEN: Unremarkable. OSSEOUS STRUCTURES: Unremarkable. CT/CT chest wo IV con IMPRESSION: No evidence of recurrent malignancy. Moderate emphysema, unchanged. 1.2 cm left posterior thyroid nodule containing an approximately 3 mm calcification, not grossly changed dating back to October 15, 2020. The patient underwent thyroid ultrasound examination on November 07, 2020. Please refer to that study for further details.
== END 2022-02-23 07:23 | disposition home or self-care (01) ==
LOC: HO.CT 07:22
PROVIDERS: Visit Provider Surgery
DX: C34.90 Malignant neoplasm of unspecified part of unspecified bronchus or lung (principal); R06.00 Dyspnea, unspecified; J44.9 Chronic obstructive pulmonary disease, unspecified; Z87.891 Personal history of nicotine dependence
CPT/HCPCS: 71250; 94618; 99212

== ENCOUNTER → 2022-04-04 11:18 | Outpatient (BNVA) | payer OTHER, SELFPAY | PROVIDERS: PCP Internal Medicine; Visit Provider Internal Medicine Pulmonary Disease | DX: J44.9 Chronic obstructive pulmonary disease, unspecified (principal); R91.1 Solitary pulmonary nodule; C34.90 Malignant neoplasm of unspecified part of unspecified bronchus or lung | CPT/HCPCS: 99212 ==

== ENCOUNTER → 2022-04-09 09:43 | Outpatient (BNVA) | payer OTHER, SELFPAY | PROVIDERS: PCP Internal Medicine; Visit Provider Internal Medicine Pulmonary Disease | DX: J44.9 Chronic obstructive pulmonary disease, unspecified (principal) | CPT/HCPCS: 99212 ==

== ENCOUNTER → 2022-04-16 10:19 | Outpatient (BNVA) | payer OTHER, SELFPAY | PROVIDERS: PCP Internal Medicine; Visit Provider Internal Medicine Pulmonary Disease | DX: J44.9 Chronic obstructive pulmonary disease, unspecified (principal) | CPT/HCPCS: 99212 ==

== ENCOUNTER 2022-04-19 08:48 | Outpatient (REF) | payer OTHER, SELFPAY ==
--- NOTE | 2022-04-19 13:03 | PFT_ITS ---
FLOWS: FEV1 48% of predicted at 1.21 L. FVC 91% of predicted at 2.97 L. FEV1 to FVC ratio of 0.41. Positive bronchodilator response. LUNG VOLUMES: Total lung capacity 113% of predicted at 5.72 L. Residual volume 159% of predicted at 3.24 L. Slow vital capacity 82% of predicted at 2.49 L. Expiratory reserve volume 81% of predicted at 0.68 L. Diffusion capacity is severely decreased. In comparison to pulmonary function test from December 2020, FEV1 and FVC have been without significant changes; total lung capacity has decreased by 0.55 L; residual volume has decreased by 0.42 L; slow vital capacity has decreased by 0.12 L; expiratory reserve volume has decreased by 0.50 L; diffusion capacity has improved by 1.2 mL/minute per mmHg. IMPRESSION: Severe obstructive ventilatory defect with positive bronchodilator response. Increased residual volume suggests air trapping. Decreased diffusion capacity suggests emphysema. MD WILLIE Paige/MODL / [id number]
== END 2022-04-19 08:49 | disposition home or self-care (01) ==
LOC: HO.RESP 08:48
PROVIDERS: PCP Internal Medicine; Visit Provider Internal Medicine Pulmonary Disease
DX: J44.9 Chronic obstructive pulmonary disease, unspecified (principal)
CPT/HCPCS: 94060; 94727; 94729

== ENCOUNTER → 2022-05-01 10:22 | Outpatient (BNVA) | payer OTHER, SELFPAY | PROVIDERS: PCP Internal Medicine; Visit Provider Internal Medicine Pulmonary Disease | DX: J44.9 Chronic obstructive pulmonary disease, unspecified (principal); R06.09 Other forms of dyspnea | CPT/HCPCS: 99212 ==

== ENCOUNTER → 2022-05-04 09:24 | Outpatient (REF) | payer OTHER, SELFPAY ==
--- NOTE | 2022-05-04 09:26 | CA_ITS ---
Transthoracic Echocardiogram Patient (Last, First, Middle): Araseli Bridges M Gender: Female Date of : 1960 Age: 62 Procedure Date: 05/04/2022 Procedure Type: Transthoracic Echocardiogram Location: OP Height: 162.56 cm Weight: 50.8 kg BSA: 1.53 m2 Heart Rate: 85 bpm BP: 105 / 60 mmHg Mental Health Orderly: [place] Referring MD: Rajendra Sandoval MD Symptoms: R06.09 - Other forms of dyspnea Study Quality: Fair ECG Rhythm: Sinus Conclusions: - Normal left ventricular size and systolic function. There is normal left ventricular wall thickness. The visually estimated ejection fraction is between 55-60%. - Normal right ventricular cavity size and systolic function. - There is mild dilatation of the ascending aorta measuring 3.70 cm. Findings Left Ventricle Normal left ventricular size and systolic function. There is normal left ventricular wall thickness. The visually estimated ejection fraction is between 55-60%. There is no evidence of regional wall motion abnormalities. Diastolic function is normal for age. Right Ventricle Normal right ventricular cavity size and systolic function. Atria The left atrium is normal in size. The right atrium is normal in size. Aortic Valve There is a normal trileaflet aortic valve. There is no aortic valve stenosis. There is no aortic valve regurgitation. Mitral Valve The mitral valve appears normal. There is no mitral valve regurgitation. There is no mitral valve stenosis. Pulmonic Valve The pulmonic valve is likely normal. Tricuspid Valve Likely normal tricuspid valve structure and function. Tricuspid regurgitation envelope is inadequate for calculation of right ventricular systolic pressure. Normal right atrial pressure. Great Vessels There is mild dilatation of the ascending aorta measuring 3.70 cm. The visualized portions of the pulmonary artery and branches are normal. Venous The inferior vena cava is normal in size and collapses greater than 50% with inspiration. Pericardium/Pleural There is no evidence of pericardial effusion. Prior Study Comparison Changes noted compared to prior study dated: 12/07/2020. Mild dilation of the ascending aorta. Measurements 2D Linear Measurements IVSd: 0.91 0.6-0.9/0.6-1.0 cm LVIDd: 3.36 3.9-5.3/4.2-5.9 cm LVIDd Index: 2.20 2.4-3.2/2.2-3.1 cm/m2 LVIDs: 2.71 2.0-3.6 cm LVPWd: 0.83 0.7-1.1 cm LA Diam: 2.10 2.7-3.8/3.0-4.0 cm LAIDs Index: 1.37 1.5-2.3 cm/m2 LV Mass: 98.91 67-162/88-224 g LV Mass Index: 64.65 43-95/49-115 g/m2 LVOT Diam: 1.90 3.0+(-)1.3 cm 2D Systolic Function EF 4C: 54.00 >55% EF 2C: 51.20 >55% EF BiP: 51.60 >55% Mitral Valve MV Pk E: 0.69 MV PK A: 0.71 MV Decel Time: 274.00 E/A: 1.00 E'Lateral: 10.80 E'Medial: 8.27 E/E' Med: 8.30 E/E' Lat: 6.40 PHT: 80.00 MVA PHT: 2.75 Decel Vilas: 2.50 Aortic Valve AoV Pk Gilberto: 1.01 AoV Mn Gilberto: 0.68 AoV VTI: 0.16 AoV Pk Grad: 4.00 Aov Mn Grad: 2.00 AMANDA Cont.VTI: 2.47 LVOT LVOT Pk Gilberto: 0.82 LVOT Mn Gilberto: 0.57 LVOT VTI: 0.14 LVOT Pk Grad: 3.00 LVOT Mn Grad: 2.00 LVOT Diam: 1.90 LVOT Area: 2.84 Diastolic Function MV Pk E: 0.69 MV Pk A: 0.71 E/A: 1.00 E'Medial: 8.27 E/E' Med: 8.30 E' Laterial: 10.80 E/E' Lat: 6.40 Right Ventricle TAPSE (mm): 13.10 Tricuspid Valve RA Press: 3.00 Great Vessels Aorta Sinus of Valsalva: 3.70 2.0-3.5 cm Ao Asc: 3.70 2.1-3.4 cm Pulmonary Valve PV Pk Gilberto: 0.75 Peak PV Grad: 2.00 Updated in Other Vendor System with Status of Final Daniel Hernandez MD electronically signed on 05/05/2022 7:52:45 PM with status of Final
== END ==
LOC: HO.CARD 09:24
PROVIDERS: Visit Provider Internal Medicine Pulmonary Disease
DX: R06.09 Other forms of dyspnea (principal)
CPT/HCPCS: 93306

== ENCOUNTER → 2022-05-22 10:18 | Outpatient (BNVA) | payer OTHER, SELFPAY | PROVIDERS: PCP Internal Medicine; Visit Provider Internal Medicine Pulmonary Disease | DX: J44.9 Chronic obstructive pulmonary disease, unspecified (principal) | CPT/HCPCS: 99212 ==

== ENCOUNTER 2022-07-19 15:54 | Outpatient (REF) | payer OTHER, SELFPAY ==
[2022-07-19 16:00] LABS: MANUAL DIFF FLAG NO
[2022-07-19 16:08] LABS: Basophils Percent Auto 0.8 % (0-2); Eosinophils Absolute Auto 0.1 X10*3/uL (0.0-0.4); Eosinophils Percent Auto 2.2 % (0-4); Hematocrit 46.2 % (37.0-47.0); Hemoglobin 15.5 g/dl (12.0-16.0); Imm Gran Abs Auto 0.01 X10*3/uL (0.00-0.03); Imm Gran Pct Auto 0.2 % (0.0-0.4); Lymphocytes Absolute Auto 1.1 X10*3/uL (1.2-4.9); Mean Corpuscular HGB Conc 33.5 g/dl (31.0-35.0); Mean Corpuscular Hemoglobin 28.9 pg (27.0-33.0); Mean Corpuscular Volume 86.2 fL (80.0-98.0); Mean Platelet Volume 9.6 fL (9.4-12.3); Monocytes Absolute Auto 0.3 X10*3/uL (0.1-1.2); Monocytes Percent Auto 5.6 % (2-11); Neutrophils Absolute Auto 3.5 x10*3/uL (2.0-8.3); Neutrophils Percent Auto 70.2 % (45-73); Platelet Count 244 X10*3/uL (160-400); Red Blood Count 5.36 X10*6/uL (4.20-5.50); Red Cell Distribution Width 12.3 % (11.0-16.0)
[2022-07-19 16:45] LABS: Alanine Aminotransferase 12 U/L (0-31); Albumin Level 4.3 g/dL (3.5-5.0); Alkaline Phosphatase 65 U/L (39-117); Anion Gap 16 (12-20); Aspartate Amino Transferase 17 U/L (5-31); Bilirubin Total 0.5 mg/dL (0.0-1.0); Blood Urea Nitrogen 11 mg/dL (9-16); Calcium 9.4 mg/dL (8.4-10.2); Carbon Dioxide 24 mmol/L (22-29); Chloride 107 mmol/L (96-108); Estimated Glomerular Filt Rate > 60; Glucose Fasting 88 mg/dL (60-99); Potassium 4.5 mmol/L (3.3-5.1); Sodium 142 mmol/L (135-145); Total Protein 6.6 g/dL (6.5-8.0)
[2022-07-19 16:57] LABS: Erythrocyte Sedimentation Rate 5 MM/HR (0-20)
[2022-07-20 03:39] LABS: Theophylline 11.2 MG/L ((10-20))
== END 2022-07-19 15:55 | disposition home or self-care (01) ==
LOC: HO.LNP 15:54
PROVIDERS: Visit Provider Internal Medicine
DX: Z85.118 Personal history of other malignant neoplasm of bronchus and lung (principal)
CPT/HCPCS: 80053; 80198; 85025; 85652

== ENCOUNTER 2022-07-20 13:10 | Outpatient (REF) | payer OTHER, SELFPAY ==
--- NOTE | ~2022-07-20 | MM_ITS ---
EXAMINATION: MM SCREENING DIGITAL BREAST TOMOSYNTHESIS, BILATERAL CLINICAL INFORMATION: Screening. Asymptomatic. The lifetime risk of breast cancer based on the Tyrer-Cuzick Model is 4%. COMPARISON: Mammography: 07/11/2021, 03/30/2020, 12/25/2017 TECHNIQUE: Digital breast tomosynthesis is performed in both the craniocaudal and mediolateral oblique views along with computer-aided detection (CAD). Synthesized 2D images are generated from the tomosynthesis. FINDINGS: There are scattered areas of fibroglandular density (ACR BI-RADS breast composition Category b). There are no significant masses, abnormal calcifications, or other abnormalities. No architectural abnormality or developing density or significant change from prior studies. The axilla and skin contours are unremarkable. MM/MM tomosynthesis screening BI IMPRESSION: No mammographic evidence of malignancy. ASSESSMENT: BI-RADS 1: Negative RECOMMENDATION: Routine annual mammography screening. This patient's information was entered into a reminder system with a target due date for their next mammogram.
== END 2022-07-20 13:11 | disposition home or self-care (01) ==
LOC: HO.MAMMO 13:10
PROVIDERS: PCP Internal Medicine; Visit Provider Nurse Practitioner Adult Health
DX: Z12.31 Encounter for screening mammogram for malignant neoplasm of breast (principal)
CPT/HCPCS: 77063; 77067

== ENCOUNTER 2022-08-01 08:52 | Outpatient (REF) | payer OTHER, SELFPAY ==
--- NOTE | ~2022-08-01 | CT_ITS ---
EXAMINATION: CT CHEST WITHOUT CONTRAST CLINICAL INFORMATION: Squamous cell carcinoma of the lung. COMPARISON: CT chest 02/23/2022. TECHNIQUE: Multidetector volumetric CT imaging of the chest was done. Axial MIP volume rendering provided. Sagittal and coronal reformatted images were obtained. This CT examination was performed using dose optimization techniques as appropriate, variously including the following: *Automated exposure control *Adjustment of mA and/or kV according to patient size (this includes techniques or standardized protocols for targeted exams where dose is matched to indication/reason for exam; i.e. extremities or head) *Use of iterative reconstruction technique DLP: 75 mGy-cm FINDINGS: FISHERIES MANAGEMENT BIOLOGIST: Hyperinflated lungs. LUNGS: There are postsurgical changes left upper lobe medially with scarring but no recurrent lung nodule, mass or consolidation. Lungs are diffusely emphysematous. MEDIASTINUM: The thyroid lobes are symmetrical and normal. The central trachea and the bronchi are widely patent. The heart size and the great vessels are normal caliber. No abnormal-size mediastinal or hilar lymph node seen. No pericardial effusion. CORONARY ARTERY CALCIFICATION: There is moderate coronary artery calcification PLEURA: There is no pleural effusion. No pleural mass or thickening. AXILLA: There are small shotty bilateral axillary lymph nodes. UPPER ABDOMEN: Visualized liver, spleen, pancreas and bilateral adrenal glands are unremarkable. OSSEOUS STRUCTURES: Unremarkable. CT/CT chest wo IV con IMPRESSION: 1. Postsurgical changes left upper lobe medially with scarring. No recurrent lung nodule, mass or consolidation seen. Diffuse emphysematous lungs. 2. No abnormal mediastinal or axillary lymph nodes seen. 3. No major change compared to previous study 02/23/2022. Fleischner guidelines were followed.
== END 2022-08-01 08:53 | disposition home or self-care (01) ==
LOC: HO.CT 08:52
PROVIDERS: PCP Internal Medicine; Visit Provider Surgery
DX: C34.90 Malignant neoplasm of unspecified part of unspecified bronchus or lung (principal)
CPT/HCPCS: 71250

== ENCOUNTER → 2022-08-03 10:45 | Outpatient (REF) | payer OTHER, SELFPAY ==
--- NOTE | ~2022-08-03 | NM_ITS ---
EXAMINATION: NM BONE SCAN OF THE WHOLE BODY CLINICAL INFORMATION: Bone pain. History of pulmonary nodules. Patient states COPD and lung cancer. Also states bone pain all over. Worst pain is in the left shoulder and bilateral hips. COMPARISON: No previous bone scan is available for comparison. No recent radiographs are available for comparison. CT scan of the chest dated 08/01/2022 TECHNIQUE: Multiple gamma scintillation camera images of the whole body were performed 2.25 hours following the intravenous administration of 20 mCi Tc-99m MDP. FINDINGS: In the head, no significant abnormalities are present. In the thoracic cage and upper extremities, there is minimally increased activity in the sternoclavicular joints bilaterally. There is mildly increased activity in the radial side of the right hand, probably at the first carpometacarpal joint. Is a small focus of residual radiopharmaceutical at the injection site in the right antecubital fossa. In the spine, there is a minimal S-shaped thoracolumbar scoliosis with lower lumbar convexity to the right. There is a focus of moderately increased activity in the right posterior elements at L3-L4. There is minimally increased activity in the left side of the mid cervical spine in the posterior elements. In the pelvis, no significant abnormalities are present. In the lower extremities, no significant abnormalities are present. No other definite bony abnormalities are noted. The urinary bladder and faint visualization of both kidneys are noted. NM/NM bone scan whole body IMPRESSION: 1. Prominent nonspecific abnormality in the right posterior elements at L3-L4 is nonspecific but most likely due to facet arthropathy. 2. Mild nonspecific abnormality in the left side of the mid cervical spine is also likely due to facet arthropathy. 3. A few additional very mild nonspecific abnormalities are noted as described above and these are all likely arthritic or traumatic in etiology. None of these abnormalities is strongly suspicious for metastatic disease.
== END ==
LOC: HO.NUCMED 10:45
PROVIDERS: Visit Provider Internal Medicine
DX: M89.8X9 Other specified disorders of bone, unspecified site (principal); C34.90 Malignant neoplasm of unspecified part of unspecified bronchus or lung; J44.9 Chronic obstructive pulmonary disease, unspecified
CPT/HCPCS: 78306; A9503

== ENCOUNTER → 2022-08-10 10:03 | Outpatient (BNVA) | payer OTHER, SELFPAY | PROVIDERS: PCP Internal Medicine; Visit Provider Internal Medicine Pulmonary Disease | DX: J44.9 Chronic obstructive pulmonary disease, unspecified (principal) | CPT/HCPCS: 99212 ==

== ENCOUNTER → 2022-08-17 10:21 | Outpatient (BNVA) | payer OTHER, SELFPAY | PROVIDERS: PCP Internal Medicine; Visit Provider Surgery | DX: C34.90 Malignant neoplasm of unspecified part of unspecified bronchus or lung (principal); Z87.891 Personal history of nicotine dependence | CPT/HCPCS: 99212 ==

== ENCOUNTER 2022-09-14 12:05 | Outpatient (REF) | payer OTHER, SELFPAY ==
--- NOTE | ~2022-09-14 | XR_ITS ---
EXAMINATION: XR SHOULDER, LEFT CLINICAL INFORMATION: Reason for Exam PAIN COMPARISON: None TECHNIQUE: Four views of the shoulder. FINDINGS: No acute fracture or dislocation. Mild degenerative changes of the acromioclavicular joint with degenerative spurring. Soft tissues are unremarkable. Suture chain material in the left lung apex. XR/XR shoulder LT min 2V IMPRESSION: * Mild degenerative changes of the shoulder.
--- NOTE | ~2022-09-14 | XR_ITS ---
EXAMINATION: XR HIP, LEFT CLINICAL INFORMATION: Pain COMPARISON: None available. TECHNIQUE: Two views of the left hip. FINDINGS: Mild degenerative changes of the hip with acetabular spurring. Moderate degenerative changes of the pubic symphysis with mineralization within the pubic symphysis suggesting chondrocalcinosis. No acute fracture or dislocation. Calcified phleboliths in the pelvis. XR/XR hip LT min 2V IMPRESSION: 1. Mild degenerative changes of the hip with acetabular spurring. 2. Moderate degenerative changes of the pubic symphysis with mineralization within the pubic symphysis suggesting chondrocalcinosis.
== END 2022-09-14 12:06 | disposition home or self-care (01) ==
LOC: HO.XRAY 12:05
PROVIDERS: PCP Internal Medicine; Visit Provider Internal Medicine
DX: M25.552 Pain in left hip (principal); M25.512 Pain in left shoulder
CPT/HCPCS: 73030; 73502

== ENCOUNTER → 2022-10-05 09:48 | Outpatient (BNVA) | payer OTHER, SELFPAY | PROVIDERS: PCP Internal Medicine; Visit Provider Internal Medicine Pulmonary Disease | DX: J44.9 Chronic obstructive pulmonary disease, unspecified (principal); R91.1 Solitary pulmonary nodule; R06.09 Other forms of dyspnea | CPT/HCPCS: 99212 ==

== ENCOUNTER 2023-02-12 07:09 | Outpatient (REF) | payer OTHER, SELFPAY ==
--- NOTE | ~2023-02-12 | CT_ITS ---
EXAMINATION: CT CHEST WITHOUT CONTRAST CLINICAL INFORMATION: Malignant neoplasm of lung. COMPARISON: CT chest 08/01/2022. Thyroid ultrasound 11/07/2020 TECHNIQUE: Multidetector volumetric CT imaging of the chest was done. Axial MIP volume rendering provided. Sagittal and coronal reformatted images were obtained. This CT examination was performed using dose optimization techniques as appropriate, variously including the following: *Automated exposure control *Adjustment of mA and/or kV according to patient size (this includes techniques or standardized protocols for targeted exams where dose is matched to indication/reason for exam; i.e. extremities or head) *Use of iterative reconstruction technique DLP: 78 mGy-cm FINDINGS: LUNGS: Again seen are postsurgical changes in the left lung with a suture line in the left upper lobe medially. No recurrent mass is seen. Marked emphysematous changes are again noted throughout the lungs which are hyperinflated. Of note, there are a number of new pulmonary densities seen not noted previously (novak images of all have been saved) including: - 3 mm left upper lobe nodule (5:251) - 6 mm left lower lobe spiculated nodular density (5:289) - 4 mm lingular density (5:305) - 4 mm left lower lobe anterior nodule (5:397) - 3 mm nodule in the right lower lobe, azygoesophageal recess (5:402) - 2 mm right lower lobe nodule (5:406) There is a 3 mm left lower lobe nodule which was present previously (5:478 compare prior 7:452). No consolidations. MEDIASTINUM: No mediastinal or hilar lymphadenopathy. Heart size normal. Calcific plaque present in the aorta without aneurysm. A 1.2 cm nodule appears to be present in the left lobe of the thyroid which was seen on the 11/07/2020 ultrasound. CORONARY ARTERY CALCIFICATION: Moderate. PLEURA: There is no pleural effusion. No pleural mass or thickening. AXILLA: No lymphadenopathy. UPPER ABDOMEN: Unremarkable. OSSEOUS STRUCTURES: Unremarkable. CT/CT chest wo IV con IMPRESSION: 1. Stable postsurgical changes in the left lung. 2. New pulmonary densities are seen, the largest measuring 6 mm in the left lower lobe. Appearance since the prior study of 08/01/2022 is concerning for malignancy. 3. Incidentally noted 1.2 cm left thyroid nodule appears stable. Follow up per oncology protocol.
== END 2023-02-12 07:10 | disposition home or self-care (01) ==
LOC: HO.CT 07:09
PROVIDERS: PCP Internal Medicine; Visit Provider Surgery
DX: C34.90 Malignant neoplasm of unspecified part of unspecified bronchus or lung (principal)
CPT/HCPCS: 71250

== ENCOUNTER 2023-02-15 08:49 | Outpatient (AMB) | payer OTHER, SELFPAY ==
--- NOTE | 2023-02-15 09:05 | MHC.OFFVIS ---
Intake Intake Visit Reasons: copd Allergies No Known Allergies Allergy (Verified 02/15/23 09:13) HPI copd HPI Details 62-year-old lady, recent 50+ pack-year smoker, followed for underlying severe COPD.? 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 Dutton.? She also was evaluated by Oncology and did not require any adjuvant therapy.? She continues to follow-up with thoracic surgery and Oncology. Unfortunately, now she has new pulmonary nodules and is scheduled to undergo follow-up CT scan and evaluation by Dr. Dutton in 3 months.? She continues Anoro, Xopenex, and theophylline 600 with worsening baseline control of her symptoms.? She denies any recent acute exacerbations. [facility] Medical History Vitamin D deficiency Hyperparathyroidism Personal history of nicotine dependence Tubular adenoma of colon (~2002) Subclinical hyperthyroidism Multinodular goiter Low TSH level Osteoporosis Anxiety and depression COPD (chronic obstructive pulmonary disease) Surgical History Status post biopsy of thyroid gland (~08/2021) History of left oophorectomy History of lung surgery (~02/2021) History of colonoscopy (~06/2020) History of esophagogastroduodenoscopy (EGD) Family History Mother Hx of cardiac pacemaker Father Colon cancer Brother Testicular cancer COPD (chronic obstructive pulmonary disease) Maternal Aunt Breast cancer Social History Household Members: Other Household Members Other:: Housemate Housing: House Are you a primary critical care unit nurse to a significant other at home: No Do you presently have visiting nurse or other home services: No Alcohol intake: former Patient Tobacco Use Status: Current everyday Tobacco user Tobacco use type: Cigarette Cigarette Packs Per Day: 0.5 Cigarettes Per Day: 10 Years Smoked: 50yrs Second Hand Smoke Exposure: Yes service: No Current occupational status: employed Review of Systems Const Denies daytime sleepiness, Denies excessive sweating, Denies fatigue, Denies fever(s), Denies lethargy, Denies malaise, Denies night sweats, Denies snoring and Denies weight loss Eyes Denies blurry vision and Denies itchy eyes ENT Denies nasal congestion, Denies post nasal drip, Denies sinus pain, Denies sinus pressure and Denies other ( Thrush) Card Denies chest pain, Denies pedal edema, Denies dyspnea, Reports dyspnea on exertion, Denies orthopnea and Denies paroxysmal nocturnal dyspnea Resp Denies cough, Denies hemoptysis, Denies excessive phlegm production, Denies dyspnea, Reports dyspnea on exertion, Denies snoring and Denies wheezing GI Denies abdominal pain and Denies heartburn Musc Denies myalgias, Denies arthralgias and Denies joint swelling Skin/Breast Denies rash Neuro Denies memory loss and Denies seizure-like activity Psych Denies abnormal sleep pattern, Denies anxiety and Denies memory loss Endo Denies excessive sweating, Denies fatigue and Denies heat intolerance Christopher/Lymph Denies easy bruising Aller/Immun Denies itchy eyes, Denies seasonal rhinorrhea and Denies wheezing Physical Exam Const General: no acute distress and alert Nutritional Appearance: not obese Orientation/consciousness: Other orientation findings ( oriented) HEENT Head: Yes atraumatic Eyes General: appearance normal, both eyes and all related structures Sclerae: sclerae normal EOM: EOMs intact bilaterally Neck Neck: Yes supple Lymphatic: no lymphadenopathy noted Resp Effort & Inspection: normal respiratory effort and no use of accessory muscles Auscultation: clear to auscultation bilaterally Cardio Rate: regular rate Rhythm: regular rhythm Heart sounds: no gallops, no murmurs and no rubs Skin General skin exam: other ( warm) Extrem General: No clubbing, No cyanosis and No edema Assessment & Plan Assessment & Plan (1) COPD (chronic obstructive pulmonary disease): Code(s): J44.9 - Chronic obstructive pulmonary disease, unspecified Plan: Suboptimally controlled on Anoro, theophylline 600, duo nebs. Will add Brovana. (2) Multiple pulmonary nodules: Code(s): R91.8 - Other nonspecific abnormal finding of lung field Plan: New 6 mm and under pulmonary nodules on the side of the prior resection. Patient schedule for 3 months follow-up CT and re-evaluation by thoracic surgery. Medications: New arformoterol (Brovana) 2 mL inhalation BID 120 mL 6RF 30 days Changed From umeclidinium-vilanterol 62.5-25 mcg/actuation (Anoro Ellipta) 1 puff PO DAILY To umeclidinium-vilanterol 62.5-25 mcg/actuation (Anoro Ellipta) 1 ea PO DAILY 1 ea 6RF 30 days Coding Level of Care Code Est Pt Level 4 (32137) Diagnoses COPD (chronic obstructive pulmonary disease) J44.9 Multiple pulmonary nodules R91.8
== END 2023-02-15 09:30 | disposition home or self-care (01) ==
PROVIDERS: PCP Internal Medicine; Visit Provider Internal Medicine Pulmonary Disease
DX: J44.9 Chronic obstructive pulmonary disease, unspecified (principal); R91.8 Other nonspecific abnormal finding of lung field
CPT/HCPCS: 99214

== ENCOUNTER 2023-02-15 08:49 | Outpatient (AMB) | payer OTHER, SELFPAY ==
--- NOTE | 2023-02-15 09:01 | MHC.OFFVIS ---
Intake Vital Signs 02/15/23 09:02 Height 5 ft 4 in Weight 99 lb BMI 17.0 BP 90/60 Blood Pressure Location Lt brachial Position Sitting Pulse 100 Pulse Oximetry (%) 95 Intake Visit Reasons: 6 month follow up Allergies No Known Allergies Allergy (Verified 02/15/23 09:13) Medication List - Last Reconciled 02/15/23 by Caio Dutton MD ipratropium bromide 2.5 mL inhalation Q6H PRN 30 days meclizine 12.5 mg PO DAILY sertraline (Zoloft) 100 mg PO DAILY theophylline ER 600 mg (1.5 x 400 mg) PO DAILY umeclidinium-vilanterol 62.5-25 mcg/actuation (Anoro Ellipta) 1 puff PO DAILY Xopenex HFA 45 mcg/actuation (levalbuterol tartrate) 1 puff PO Q4H PRN NS HPI 6 month follow up HPI Details 62-year-old woman current smoker who had a Davinci left upper lobe wedge and mediastinal lymphadenectomy on 02/14/2021. Since that time as per protocol she has had a CT scan every 6 months with a visit up until this point showing no evidence of recurrence or new disease. Her most recent CT scan done on 02/12/2023 shows multiple new pulmonary nodules reviewed interpreted by me directly. There is a 3 mm left upper lobe nodule, 6 mm left lower lobe nodule, 4 mm lingular nodule, 4 mm left lower lobe nodule, 3 mm right lower lobe nodule, and 3 mm separate right lower lobe nodule. All of these are new. There is no mediastinal lymphadenopathy and no pleural fluid. She tells me her breathing is at her baseline and does report some pain in the left chest specially when sleeping on that side. She denies unintentional weight loss decreased appetite fevers chills or soaking sweats. She denies hemoptysis. She does report a chronic cough that she has had for many years and shortness of breath as above at her baseline. She has no new neurologic symptoms. [facility] Medical History Vitamin D deficiency Hyperparathyroidism Personal history of nicotine dependence Tubular adenoma of colon (~2002) Subclinical hyperthyroidism Multinodular goiter Low TSH level Osteoporosis Anxiety and depression COPD (chronic obstructive pulmonary disease) Surgical History Status post biopsy of thyroid gland (~08/2021) History of left oophorectomy History of lung surgery (~02/2021) History of colonoscopy (~06/2020) History of esophagogastroduodenoscopy (EGD) Family History Mother Hx of cardiac pacemaker Father Colon cancer Brother Testicular cancer COPD (chronic obstructive pulmonary disease) Maternal Aunt Breast cancer Social History Household Members: Other Household Members Other:: Housemate Housing: House Are you a primary healthcare translator to a significant other at home: No Do you presently have visiting nurse or other home services: No Alcohol intake: former Patient Tobacco Use Status: Current everyday Tobacco user Tobacco use type: Cigarette Cigarette Packs Per Day: 0.5 Cigarettes Per Day: 10 Years Smoked: 50yrs Second Hand Smoke Exposure: Yes service: No Current occupational status: employed Physical Exam Vital Signs: Last Vital Signs Pulse 100 02/15/23 09:02 BP 90/60 02/15/23 09:02 Pulse Ox 95 02/15/23 09:02 BMI result Body Mass Index 17.0 General: No acute distress HEENT: Moist mucous membranes, normocephalic, pupils equal round and reactive to light. Neck: No thyromegaly, supple, no JVD Lymph: No cervical, supraclavicular, or other lymphadenopathy Chest: No chest wall abnormalities or deformities wounds are all well healed Heart: Regular rate and rhythm Lungs: Clear to auscultation bilaterally Abdomen: Soft, nontender, normal bowel sounds Extremities: No edema, cyanosis, or clubbing. Full range of motion Neuro: Grossly intact, alert and oriented x3, and nonfocal Skin: Warm and dry no rashes Affect: Normal Assessment & Plan Assessment & Plan (1) Squamous cell carcinoma of lung, stage I: Onset Date: ~2020 Code(s): C34.90 - Malignant neoplasm of unspecified part of unspecified bronchus or lung Plan: 62-year-old woman long-time smoker who underwent a Davinci left upper lobe wedge resection and mediastinal lymphadenectomy on 02/14/2021 for stage I squamous cell carcinoma of the lung. She has been followed with serial CT scans as per protocol every 6 months for the 1st 2 years and her most recent CT scan unfortunately shows multiple new 6 mm and less pulmonary nodules. I discussed with her these findings in detail as described above. I also discussed pulmonary nodules in general and how their size, shape, and belt changer time affect her level of suspicion for malignancy in particular in some with a history of malignancy and a sublobar resection done to to poor pulmonary function testing. It is possible that these are just infectious or inflammatory but a.m. quite suspicious so will plan on getting a 3 month follow-up CT scan of the chest and a visit with me at the [facility] office after that. I gave her the option of following up here at [facility] per she wants to stay with me because she knows me and I did her operation. (2) Multiple pulmonary nodules: Code(s): R91.8 - Other nonspecific abnormal finding of lung field Orders: Orders CT chest wo IV con 3 Months R91.8 - Other nonspecific abnormal finding of lung field Coding Level of Care Code Est Pt Level 5 (94866) Diagnoses Squamous cell carcinoma of lung, stage I C34.90 Multiple pulmonary nodules R91.8 Time Spent (min) 55
[2023-02-15 09:02] VITALS: BP 90/60; PULSE 100; O2SAT 95; BMI 17.0
== END 2023-02-15 09:14 | disposition home or self-care (01) ==
PROVIDERS: PCP Internal Medicine; Visit Provider Surgery
DX: C34.90 Malignant neoplasm of unspecified part of unspecified bronchus or lung (principal); R91.8 Other nonspecific abnormal finding of lung field

== ENCOUNTER → 2023-02-15 08:49 | Outpatient (BNVA) | payer OTHER, SELFPAY | PROVIDERS: PCP Internal Medicine; Visit Provider Surgery | DX: C34.12 Malignant neoplasm of upper lobe, left bronchus or lung (principal); R91.8 Other nonspecific abnormal finding of lung field; J44.9 Chronic obstructive pulmonary disease, unspecified; Z79.899 Other long term (current) drug therapy | CPT/HCPCS: 99212 ==

== ENCOUNTER 2023-03-04 14:03 | Outpatient (AMB) | payer OTHER, SELFPAY ==
--- NOTE | 2023-03-04 14:10 | A.OFFVIS_ITS ---
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 Patient reports that she has had ongoing shoulder pain for about a year now. Reports no previous treatment. Her pain is felt at all times, worsted with lateral lifting. Her pain is felt in the underarm and radiates down the arm and occasionally feels numbness and tingling. She reports that she has history of left partial lung removal due to cancer, her symptoms seem to have started after this. 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 She complains of pain primarily in her left underarm, and says this radiates down her arm. She has pain constantly, worse with lateral lifting activities. She denies any prior treatment and is not taking any pain medication. She has a hx of lung cancer and a left partial lobectomy, and says her symptoms of pain seemed to begin shortly after surgery. She says she has more nodules found on her left lung and is in the process of planning another surgery. [facility] Medical History Vitamin D deficiency Hyperparathyroidism Personal history of nicotine dependence Tubular adenoma of colon (~2002) Subclinical hyperthyroidism Multinodular goiter Low TSH level Osteoporosis Anxiety and depression COPD (chronic obstructive pulmonary disease) Surgical History Status post biopsy of thyroid gland (~08/2021) History of left oophorectomy History of lung surgery (~02/2021) History of colonoscopy (~06/2020) History of esophagogastroduodenoscopy (EGD) Family History Mother Hx of cardiac pacemaker Father Colon cancer Brother Testicular cancer COPD (chronic obstructive pulmonary disease) Maternal Aunt Breast cancer Social History Household Members: Other Household Members Other:: Housemate Housing: House Are you a primary career services director to a significant other at home: No Do you presently have visiting nurse or other home services: No Alcohol intake: former Patient Tobacco Use Status: Current everyday Tobacco user Tobacco use type: Cigarette Cigarette Packs Per Day: 0.5 Cigarettes Per Day: 10 Years Smoked: 50yrs Second Hand Smoke Exposure: Yes service: No Current occupational status: employed Review of Systems Const All systems reviewed & are unremarkable except as noted in HPI and below Physical Exam Vital Signs: BMI result Body Mass Index 17.0 Const Other: cachectic General: no acute distress, alert and awake Orientation/consciousness: patient oriented x3 HEENT Head: Yes normocephalic and Yes atraumatic Eyes EOM: EOMs intact bilaterally Resp Effort & Inspection: normal respiratory effort and able to speak in complete sentences Cardio Jugular venous distension: no JVD Skin General skin exam: turgor normal Rashes: no rashes Neuro General: patient oriented x3 Extrem Other: Left Shoulder: + haswkins and Neer Painful but strong empty can ER to 45 deg Psych Appearance: grossly normal Affect: normal affect Attitude: cooperative Office Procedures Joint Injection/Drain Joint Injection/Drain Details: Injected 1 mL of Decadron and 3 mL 1% lidocaine and 3 mL of 0.25% Marcaine. Site was prepped using aseptic technique. Patient tolerated the procedure well. Primary Site: left shoulder Approach Used: posterolateral Coding 89022 - Large joint Procedure code (CPT) selection complete Results Reviewed Results Reviewed: 03/04/23 14:34 BUPivacaine MPF 0.25 % [Sensorcaine-MPF 0.25% 10 ML] 10 ml .ROUTE .STK-MED ONE Lidocaine HCl 2 % MPF [Xylocaine 2 % MPF] 5 ml .ROUTE .STK-MED ONE dexAMETHasone sod phosphate [Decadron] 4 mg .ROUTE .STK-MED ONE I personally reviewed relevant radiographs. Mild GH OA Assessment & Plan Assessment & Plan (1) Multiple pulmonary nodules: Code(s): R91.8 - Other nonspecific abnormal finding of lung field (2) Squamous cell carcinoma of lung, stage I: Onset Date: ~2020 Code(s): C34.90 - Malignant neoplasm of unspecified part of unspecified bronchus or lung Plan: S/P MAREYLLEN wedge resection (3) Bursitis of left shoulder: Code(s): M75.52 - Bursitis of left shoulder Plan: This is a 63 year old woman with left shoulder pain. She has pain with daily activity, worse with lifting activities, that radiates from her underarm distally. I discussed her diagnosis and treatment options. I cannot exclude pleural pain as underarm pain is not common with shoulder pathology but she also describes sub deltoid pain and night and has a + Segura and Neer. I injected her left shoulder today and recommend occasional NSAIDs She declined PT at this time, and can follow up as needed. Medications: New ibuprofen 800 mg PO TID PRN 90 tabs 0RF pain Coding Level of Care Code New Pt Level 4 (00565) Diagnoses Multiple pulmonary nodules R91.8 Squamous cell carcinoma of lung, stage I C34.90 Bursitis of left shoulder M75.52 CPT Codes Coding - 07232 Large joint: 32855 - Large joint ([id number])
[2023-03-04 14:11] VITALS: BMI 17.0
== END 2023-03-04 14:54 | disposition home or self-care (01) ==
PROVIDERS: PCP Internal Medicine; Visit Provider Orthopaedic Surgery
DX: M75.52 Bursitis of left shoulder (principal); R91.8 Other nonspecific abnormal finding of lung field; C34.90 Malignant neoplasm of unspecified part of unspecified bronchus or lung
CPT/HCPCS: 20610; 99204

== ENCOUNTER → 2023-03-04 14:03 | Outpatient (BNVA) | payer OTHER, SELFPAY | PROVIDERS: PCP Internal Medicine; Visit Provider Orthopaedic Surgery | DX: M75.52 Bursitis of left shoulder (principal); C34.90 Malignant neoplasm of unspecified part of unspecified bronchus or lung; R91.8 Other nonspecific abnormal finding of lung field; F17.210 Nicotine dependence, cigarettes, uncomplicated; Z90.2 Acquired absence of lung [part of] | CPT/HCPCS: 20610; 99202; J1100 ==

== ENCOUNTER 2023-03-19 13:30 | Outpatient (AMB) | payer OTHER, SELFPAY ==
[2023-03-19 13:32] VITALS: BP 98/60; PULSE 93; O2SAT 97; BMI 17.4
--- NOTE | 2023-03-19 13:32 | MHC.OFFVIS ---
Intake Vital Signs 03/19/23 13:32 Height 5 ft 4 in Weight 101 lb 6.602 oz BMI 17.4 BP 98/60 Blood Pressure Location Lt brachial Position Sitting Pulse 93 Pulse Source Doppler Pulse Oximetry (%) 97 Oxygen Delivery Method Room Air Intake Visit Reasons: copd Allergies No Known Allergies Allergy (Verified 03/19/23 13:37) HPI copd HPI Details 63-year-old lady, recent 50+ pack-year smoker, followed for underlying severe COPD.? 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 Dutton.? She also was evaluated by Oncology and did not require any adjuvant therapy.? She continues to follow-up with thoracic surgery for newly noted pulmonary nodules. She was not able to receive Anoro since the last office visit and she has been relying on Xopenex much more. Though she denies an acute exacerbation. [facility] Medical History Vitamin D deficiency Hyperparathyroidism Personal history of nicotine dependence Tubular adenoma of colon (~2002) Subclinical hyperthyroidism Multinodular goiter Low TSH level Osteoporosis Anxiety and depression COPD (chronic obstructive pulmonary disease) Surgical History Status post biopsy of thyroid gland (~08/2021) History of left oophorectomy History of lung surgery (~02/2021) History of colonoscopy (~06/2020) History of esophagogastroduodenoscopy (EGD) Family History Mother Hx of cardiac pacemaker Father Colon cancer Brother Testicular cancer COPD (chronic obstructive pulmonary disease) Maternal Aunt Breast cancer Social History Household Members: Other Household Members Other:: Housemate Housing: House Are you a primary skin care therapist to a significant other at home: No Do you presently have visiting nurse or other home services: No Alcohol intake: former Patient Tobacco Use Status: Current everyday Tobacco user Tobacco use type: Cigarette Cigarette Packs Per Day: 0.5 Cigarettes Per Day: 14 Years Smoked: 50yrs Second Hand Smoke Exposure: Yes service: No Current occupational status: employed Review of Systems Const Denies daytime sleepiness, Denies excessive sweating, Denies fatigue, Denies fever(s), Denies lethargy, Denies malaise, Denies night sweats, Denies snoring and Denies weight loss Eyes Denies blurry vision and Denies itchy eyes ENT Denies nasal congestion, Denies post nasal drip, Denies sinus pain, Denies sinus pressure and Denies other ( Thrush) Card Denies chest pain, Denies pedal edema, Denies dyspnea, Reports dyspnea on exertion, Denies orthopnea and Denies paroxysmal nocturnal dyspnea Resp Denies cough, Denies hemoptysis, Denies excessive phlegm production, Denies dyspnea, Reports dyspnea on exertion, Denies snoring and Denies wheezing GI Denies abdominal pain and Denies heartburn Musc Denies myalgias, Denies arthralgias and Denies joint swelling Skin/Breast Denies rash Neuro Denies memory loss and Denies seizure-like activity Psych Denies abnormal sleep pattern, Denies anxiety and Denies memory loss Endo Denies excessive sweating, Denies fatigue and Denies heat intolerance Christopher/Lymph Denies easy bruising Aller/Immun Denies itchy eyes, Denies seasonal rhinorrhea and Denies wheezing Physical Exam Vital Signs: Last Vital Signs Pulse 93 03/19/23 13:32 BP 98/60 03/19/23 13:32 Pulse Ox 97 03/19/23 13:32 Oxygen Delivery Method Room Air 03/19/23 13:32 BMI result Body Mass Index 17.4 Const General: no acute distress and alert Nutritional Appearance: thin Orientation/consciousness: Other orientation findings ( oriented) HEENT Head: Yes atraumatic Eyes General: appearance normal, both eyes and all related structures Sclerae: sclerae normal EOM: EOMs intact bilaterally Neck Neck: Yes supple Lymphatic: no lymphadenopathy noted Resp Effort & Inspection: normal respiratory effort and no use of accessory muscles Auscultation: clear to auscultation bilaterally Cardio Rate: regular rate Rhythm: regular rhythm Heart sounds: no gallops, no murmurs and no rubs Skin General skin exam: other ( warm) Extrem General: No clubbing, No cyanosis and No edema Assessment & Plan Assessment & Plan (1) COPD (chronic obstructive pulmonary disease): Code(s): J44.9 - Chronic obstructive pulmonary disease, unspecified Plan: Suboptimally controlled as patient was not able to receive Anoro pre Anoro reordered as a 3 months supply. Continue Brovana, theophylline, and Xopenex. (2) Multiple pulmonary nodules: Code(s): R91.8 - Other nonspecific abnormal finding of lung field Plan: Patient continues to follow-up with thoracic surgery. Medications: Changed From umeclidinium-vilanterol 62.5-25 mcg/actuation (Anoro Ellipta) 1 ea PO DAILY 30 days 1 ea 6RF To umeclidinium-vilanterol 62.5-25 mcg/actuation (Anoro Ellipta) 1 ea PO DAILY 90 days 3 ea 4RF Coding Level of Care Code Est Pt Level 3 (38767) Diagnoses COPD (chronic obstructive pulmonary disease) J44.9 Multiple pulmonary nodules R91.8
== END 2023-03-19 14:03 | disposition home or self-care (01) ==
PROVIDERS: PCP Internal Medicine; Visit Provider Internal Medicine Pulmonary Disease
DX: J44.9 Chronic obstructive pulmonary disease, unspecified (principal); R91.8 Other nonspecific abnormal finding of lung field
CPT/HCPCS: 99213

== ENCOUNTER → 2023-03-19 13:30 | Outpatient (BNVA) | payer OTHER, SELFPAY | PROVIDERS: PCP Internal Medicine; Visit Provider Internal Medicine Pulmonary Disease | DX: J44.9 Chronic obstructive pulmonary disease, unspecified (principal); R91.8 Other nonspecific abnormal finding of lung field; F17.210 Nicotine dependence, cigarettes, uncomplicated | CPT/HCPCS: 99212 ==

== ENCOUNTER 2023-05-17 12:43 | Outpatient (REF) | payer OTHER, SELFPAY ==
--- NOTE | ~2023-05-17 | CT_ITS ---
EXAMINATION: CT CHEST WITHOUT CONTRAST CLINICAL INFORMATION: Multiple pulmonary nodules. COMPARISON: Chest CT 02/12/2023. TECHNIQUE: Multidetector volumetric CT imaging of the chest was done. Axial MIP volume rendering provided. Sagittal and coronal reformatted images were obtained. This CT examination was performed using dose optimization techniques as appropriate, variously including the following: *Automated exposure control *Adjustment of mA and/or kV according to patient size (this includes techniques or standardized protocols for targeted exams where dose is matched to indication/reason for exam; i.e. extremities or head) *Use of iterative reconstruction technique DLP: 72 mGy-cm FINDINGS: LUNGS: Medial left upper lobe staple line. No evidence of local recurrence along the staple line. Severe centrilobular emphysema. Diffuse airway wall thickening. Previously seen pulmonary nodules have either resolved or significantly improved in size. The largest persistent nodule measures 4 x 3 mm decreased from 6 x 4 mm in the left lower lobe series 5 image 279. This is consistent with positive treatment effect. New cystic lesion in the right middle lobe series 5 image 283 measuring 6 x 6 mm with an irregular wall measuring 1-2 mm in thickness MEDIASTINUM: No adenopathy. CORONARY ARTERY CALCIFICATION: Moderate LAD calcium. PLEURA: There is no pleural effusion. No pleural mass or thickening. AXILLA: No lymphadenopathy. UPPER ABDOMEN: Unremarkable. OSSEOUS STRUCTURES: No suspicious osseous lesions. CT/CT chest wo IV con IMPRESSION: Significant interval improvement in the multiple pulmonary nodules compared to the prior study consistent with positive treatment effect. New 6 mm cystic lesion in the right middle lobe may reflect similar positive treatment response to a nodule that developed between the the most recent CT scan and this CT scan. Alternatively this may represent an infectious/inflammatory finding. Continued surveillance via oncologic protocol is recommended. Fleischner guidelines do not apply (lung cancer patient).
== END 2023-05-17 12:44 | disposition home or self-care (01) ==
LOC: HO.CT 12:43
PROVIDERS: PCP Internal Medicine; Visit Provider Surgery
DX: R91.8 Other nonspecific abnormal finding of lung field (principal)
CPT/HCPCS: 71250

== ENCOUNTER 2023-06-06 12:50 | Outpatient (AMB) | payer OTHER, SELFPAY ==
--- NOTE | 2023-06-06 13:22 | MHC.OFFVIS ---
Intake Intake Visit Reasons: OV-Left rotator cuff injection-last inject 03/04/23 Intake Note: Araseli is a 63 year old right hand dominant female who presents today for a follow up of her left shoulder pain. Last injection was done on 03/04/23, she reports that this injection was not helpful. She has been using topical creams and lidocane patches which offer minimal releif. Allergies No Known Allergies Allergy (Verified 03/19/23 13:37) HPI OV-Left rotator cuff injection-last inject 03/04/23 HPI Details Araseli is a 63 year old woman who returns to discuss her left shoulder pain. She continues to have pain in her shoulder with daily activity, primarily in her underarm, that radiates down her arm She found no relief from her steroid injection on 03/04/23. She has been managing her pain with NSAIDs & Lidocaine patches, with limited relief. She declined PT at her last appointment. Ward is describing similar symptoms in her right shoulder [facility] Medical History Vitamin D deficiency Hyperparathyroidism Personal history of nicotine dependence Tubular adenoma of colon (~2002) Subclinical hyperthyroidism Multinodular goiter Low TSH level Osteoporosis Anxiety and depression COPD (chronic obstructive pulmonary disease) Surgical History Status post biopsy of thyroid gland (~08/2021) History of left oophorectomy History of lung surgery (~02/2021) History of colonoscopy (~06/2020) History of esophagogastroduodenoscopy (EGD) Family History Mother Hx of cardiac pacemaker Father Colon cancer Brother Testicular cancer COPD (chronic obstructive pulmonary disease) Maternal Aunt Breast cancer Social History Household Members: Other Household Members Other:: Housemate Housing: House Are you a primary healthcare science specialist to a significant other at home: No Do you presently have visiting nurse or other home services: No Alcohol intake: former Patient Tobacco Use Status: Current everyday Tobacco user Tobacco use type: Cigarette Cigarette Packs Per Day: 0.5 Cigarettes Per Day: 14 Years Smoked: 50yrs Second Hand Smoke Exposure: Yes service: No Current occupational status: employed Review of Systems Const All systems reviewed & are unremarkable except as noted in HPI and below Physical Exam Const General: no acute distress, alert and awake Orientation/consciousness: patient oriented x3 HEENT Head: Yes normocephalic and Yes atraumatic Eyes EOM: EOMs intact bilaterally Resp Effort & Inspection: normal respiratory effort and able to speak in complete sentences Cardio Jugular venous distension: no JVD Skin General skin exam: turgor normal Rashes: no rashes Neuro General: patient oriented x3 Extrem Other: ROM of motion of shoulder is not limited +Segura and Neer bilaterally Neg Spurlings Psych Appearance: grossly normal Affect: normal affect Attitude: cooperative Assessment & Plan Assessment & Plan (1) Shoulder pain: Code(s): M25.519 - Pain in unspecified shoulder Plan: Bilateral shoulder pain Injections entirely unhelpful on the left Deconditioned and mildly cachectic Not interested in PT I recommend referral to pain management Plan Scribed for Marlon Perez MD by Rupert Elliott, director of graduate medical education, on 06/06/23 at 1:35 PM, EST. Orders: Referrals Pain Management Referral M25.519 - Pain in unspecified shoulder Coding Level of Care Code Est Pt Level 4 (01083) Diagnoses Shoulder pain M25.519
== END 2023-06-06 15:07 | disposition home or self-care (01) ==
PROVIDERS: PCP Internal Medicine; Visit Provider Orthopaedic Surgery
DX: M25.512 Pain in left shoulder (principal); M25.511 Pain in right shoulder
CPT/HCPCS: 99214

== ENCOUNTER → 2023-06-06 12:50 | Outpatient (BNVA) | payer OTHER, SELFPAY | PROVIDERS: PCP Internal Medicine; Visit Provider Orthopaedic Surgery | DX: M25.512 Pain in left shoulder (principal) | CPT/HCPCS: 99212 ==

== ENCOUNTER 2023-08-13 11:33 | Outpatient (AMB) | payer OTHER, SELFPAY ==
[2023-08-13 11:39] VITALS: BP 98/62; PULSE 102; O2SAT 93; BMI 38.2
--- NOTE | 2023-08-13 11:39 | MHC.OFFVIS ---
Intake Vital Signs 08/13/23 11:39 Height 5 ft 4 in Weight 222 lb 10.67 oz BMI 38.2 BP 98/62 Blood Pressure Location Lt brachial Position Sitting Pulse 102 H Pulse Source Doppler Pulse Oximetry (%) 93 Oxygen Delivery Method Room Air Intake Visit Reasons: copd Allergies No Known Allergies Allergy (Verified 06/11/23 14:07) HPI copd HPI Details 63-year-old lady, recent 50+ pack-year smoker, followed for underlying severe COPD.? 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 Dutton.? She also was evaluated by Oncology and did not require any adjuvant therapy.? At this time patient wants to have follow-up CT scans performed at [facility]. At the last office visit she was restarted on Anoro with improvement her symptoms. She is also using Brovana, ipratropium, theophylline, and Xopenex MDI. She denies recent acute exacerbations. She denies recent acute exacerbations. [facility] Medical History Vitamin D deficiency Hyperparathyroidism Personal history of nicotine dependence Tubular adenoma of colon (~2002) Subclinical hyperthyroidism Multinodular goiter Low TSH level Osteoporosis Anxiety and depression COPD (chronic obstructive pulmonary disease) Surgical History Status post biopsy of thyroid gland (~08/2021) History of left oophorectomy History of lung surgery (~02/2021) History of colonoscopy (~06/2020) History of esophagogastroduodenoscopy (EGD) Family History Mother Hx of cardiac pacemaker Father Colon cancer Brother Testicular cancer COPD (chronic obstructive pulmonary disease) Maternal Aunt Breast cancer Social History Household Members: Other Household Members Other:: Housemate Housing: House Are you a primary child day care provider to a significant other at home: No Do you presently have visiting nurse or other home services: No Alcohol intake: former Patient Tobacco Use Status: Current everyday Tobacco user Tobacco use type: Cigarette Cigarette Packs Per Day: 0.5 Cigarettes Per Day: 14 Years Smoked: 50yrs Second Hand Smoke Exposure: Yes service: No Current occupational status: employed Review of Systems Const Denies daytime sleepiness, Denies excessive sweating, Denies fatigue, Denies fever(s), Denies lethargy, Denies malaise, Denies night sweats, Denies snoring and Denies weight loss Eyes Denies blurry vision and Denies itchy eyes ENT Denies nasal congestion, Denies post nasal drip, Denies sinus pain, Denies sinus pressure and Denies other ( Thrush) Card Denies chest pain, Denies pedal edema, Denies dyspnea, Denies orthopnea and Denies paroxysmal nocturnal dyspnea Resp Denies cough, Denies hemoptysis, Denies excessive phlegm production, Denies dyspnea, Denies snoring and Denies wheezing GI Denies abdominal pain and Denies heartburn Musc Denies myalgias, Denies arthralgias and Denies joint swelling Skin/Breast Denies rash Neuro Denies memory loss and Denies seizure-like activity Psych Denies abnormal sleep pattern, Denies anxiety and Denies memory loss Endo Denies excessive sweating, Denies fatigue and Denies heat intolerance Christopher/Lymph Denies easy bruising Aller/Immun Denies itchy eyes, Denies seasonal rhinorrhea and Denies wheezing Physical Exam Vital Signs: Last Vital Signs Pulse 102 H 08/13/23 11:39 BP 98/62 08/13/23 11:39 Pulse Ox 93 08/13/23 11:39 Oxygen Delivery Method Room Air 08/13/23 11:39 BMI result Body Mass Index 38.2 Const General: no acute distress and alert Nutritional Appearance: not obese Orientation/consciousness: Other orientation findings ( oriented) HEENT Head: Yes atraumatic Eyes General: appearance normal, both eyes and all related structures Sclerae: sclerae normal EOM: EOMs intact bilaterally Neck Neck: Yes supple Lymphatic: no lymphadenopathy noted Resp Effort & Inspection: normal respiratory effort and no use of accessory muscles Auscultation: clear to auscultation bilaterally Cardio Rate: regular rate Rhythm: regular rhythm Heart sounds: no gallops, no murmurs and no rubs Skin General skin exam: other ( warm) Extrem General: No clubbing, No cyanosis and No edema Assessment & Plan Assessment & Plan (1) COPD (chronic obstructive pulmonary disease): Code(s): J44.9 - Chronic obstructive pulmonary disease, unspecified Plan: Reasonable control on current regimen of Anoro, Xopenex, ipratropium neb, Brovana, theophylline. Continue current regimen. (2) Multiple pulmonary nodules: Code(s): R91.8 - Other nonspecific abnormal finding of lung field Plan: Follow-up CT scan ordered for November of 2023. Orders: Orders CT chest wo IV con 11/13/23 R91.8 - Other nonspecific abnormal finding of lung field Coding Level of Care Code Est Pt Level 4 (05329) Diagnoses COPD (chronic obstructive pulmonary disease) J44.9 Multiple pulmonary nodules R91.8
== END 2023-08-13 11:56 | disposition home or self-care (01) ==
PROVIDERS: PCP Internal Medicine; Visit Provider Internal Medicine Pulmonary Disease
DX: J44.9 Chronic obstructive pulmonary disease, unspecified (principal); R91.8 Other nonspecific abnormal finding of lung field
CPT/HCPCS: 99214

== ENCOUNTER → 2023-08-13 11:33 | Outpatient (BNVA) | payer OTHER, SELFPAY | PROVIDERS: PCP Internal Medicine; Visit Provider Internal Medicine Pulmonary Disease | DX: J44.9 Chronic obstructive pulmonary disease, unspecified (principal); R91.8 Other nonspecific abnormal finding of lung field | CPT/HCPCS: 99212 ==

== ENCOUNTER 2023-08-27 14:55 | Outpatient (REF) | payer OTHER, SELFPAY | END 2023-08-27 14:56 | disposition home or self-care (01) | LOC: HO.MAMMO 14:55 | PROVIDERS: PCP Internal Medicine; Visit Provider Nurse Practitioner Adult Health | DX: Z12.31 Encounter for screening mammogram for malignant neoplasm of breast (principal) | CPT/HCPCS: 77063; 77067 ==

== ENCOUNTER → 2023-08-27 15:15 | Outpatient (BNV) | payer OTHER, SELFPAY | PROVIDERS: PCP Internal Medicine; Visit Provider Radiology Diagnostic Radiology | DX: Z12.31 Encounter for screening mammogram for malignant neoplasm of breast (principal) | CPT/HCPCS: 77063; 77067 ==

== ENCOUNTER 2023-12-06 08:57 | Outpatient (REF) | payer OTHER, SELFPAY ==
--- NOTE | ~2023-12-06 | CT_ITS ---
EXAMINATION: CT CHEST WITHOUT CONTRAST CLINICAL INFORMATION: Pulmonary nodules, follow-up, history of lung CA; other nonspecific abnormal finding of lung field. COMPARISON: CT chest 05/17/2023, 02/12/2023. TECHNIQUE: Multidetector volumetric CT imaging of the chest was done. Axial MIP volume rendering provided. Sagittal and coronal reformatted images were obtained. This CT examination was performed using dose optimization techniques as appropriate, variously including the following: *Automated exposure control *Adjustment of mA and/or kV according to patient size (this includes techniques or standardized protocols for targeted exams where dose is matched to indication/reason for exam; i.e. extremities or head) *Use of iterative reconstruction technique DLP: 75 mGy-cm FINDINGS: BOOM STICK MAN: There is pulmonary hyperaeration suggesting COPD. LUNGS: -There is moderate to severe centrilobular emphysema with upper lobe predominance. There is been a prior wedge resection of the medial left upper lobe, with surgical sutures and clips seen along the left superior mediastinal wall. -There are no pulmonary consolidations or groundglass opacities. -There is mild bronchiectasis without bronchial wall thickening in both lower lobes. -There is mild scarring in the medial left upper lobe. -Previously seen 2 mm nodule in the left upper lobe centrally is no longer appreciated. -There is a 2 mm nodule in the subpleural anterior left upper lobe (series 5, image 162), previously measuring 3 mm. -There are a few scattered tiny 2 mm nodules which have not significantly changed. Some appear calcified representing granulomas. -In the superior segment left lower lobe, there is a stable and unchanged 3 mm nodule (series 5, image 193). -In the posterior superior left temporal lobe, there is a pleural-based opacity measuring 1.2 x 0.4 cm, new from prior, although appearance highly suggests localized scarring or microatelectasis. Attention on follow-up recommended. -There is a 2 mm nodule in the anterior superior left lower lobe (series 5, image 309), smaller, previously measuring 4 x 3 mm. -A previously present 5 mm cavitary nodule in the medial right lower lobe has resolved. -A previously present 4 mm nodule in the most posterior most inferior right upper lobe abutting the major fissure has resolved and is not currently seen. -A previously present cystic 6 x 6 mm nodule in the right middle lobe superiorly with near completely resolved, currently measuring 2 mm (series 5, image 290). -A left upper lobe pleural-based lateral nodule measuring 5 mm (series 5, image 108), is unchanged. -There are no new or enlarging nodules. PLEURA: There is no pleural effusion. No pleural mass or thickening. MEDIASTINUM: -Multinodular thyroid is present with a solitary left posterior lobe calcification. -Aorta is mildly prominent measuring up to 3.8 cm descending region, not meeting criteria for true aneurysm. This is ectatic. Mild to moderate aortic calcification. No dissection or aneurysm identified. -Main pulmonary artery is prominent but not enlarged. -No pathologic adenopathy is present. There are small subcentimeter lymph nodes present. -Heart size is normal. No pericardial effusion. -Esophagus has a normal appearance. CORONARY ARTERY CALCIFICATION: Moderate left main and LAD calcification. Mild ostial RCA calcifications. AXILLA/CHEST WALL: No masses or abnormal lymphadenopathy. UPPER ABDOMEN: Renal pyramids are somewhat hyperattenuating on this noncontrast exam, finding which can relate to hypercalcemic states or medullary nephrocalcinosis. Mild hyperplasia of the adrenal glands noted. No masses. OSSEOUS STRUCTURES: No suspicious lytic or blastic bone lesions. Minimal superior wedging T3 and T4, likely chronic. Bones do appear osteopenic. CT/CT chest wo IV con IMPRESSION: 1. Numerous pulmonary nodules previously seen demonstrate the majority are significantly smaller or have resolved, and the other tiny nodules are unchanged. Findings represent continued good treatment response. 2. Moderate to severe centrilobular emphysema with upper lobe predominance. Prior wedge resection medial left upper lobe. 3. Mild bronchiectasis both lower lobes without significant bronchial wall thickening. 4. No definite parenchymal consolidation or opacity. No active disease aside from known pulmonary nodules. 5. No pathologic lymphadenopathy identified. 6. See above for additional ancillary findings. Recommend follow-up as per oncology.
== END 2023-12-06 08:58 | disposition home or self-care (01) ==
LOC: HO.CT 08:57
PROVIDERS: PCP Internal Medicine; Visit Provider Internal Medicine Pulmonary Disease
DX: R91.8 Other nonspecific abnormal finding of lung field (principal)
CPT/HCPCS: 71250

== ENCOUNTER → 2023-12-06 08:58 | Outpatient (BNV) | payer OTHER, SELFPAY | PROVIDERS: PCP Internal Medicine; Visit Provider Radiology Diagnostic Radiology | DX: R91.8 Other nonspecific abnormal finding of lung field (principal) | CPT/HCPCS: 71250 ==

== ENCOUNTER 2024-01-22 13:02 | Outpatient (AMB) | payer OTHER, SELFPAY ==
--- NOTE | 2024-01-22 13:07 | A.OFFVIS_ITS ---
Vital Signs 01/22/24 13:12 Height 5 ft 4 in Weight 90 lb BMI 15.4 BP 98/62 Blood Pressure Location Lt brachial Position Sitting Pulse 113 H Pulse Source Doppler Pulse Oximetry (%) 94 Oxygen Delivery Method Room Air Intake Visit Reasons: COPD/CT Chest results Allergies No Known Allergies Allergy (Verified 11/11/23 14:37) HPI HPI COPD/CT Chest results: Details: 63-year-old lady, recent 50+ pack-year smoker, followed for underlying severe COPD.? 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 Dutton.? She also was evaluated by Oncology and did not require any adjuvant therapy.? Patient had follow-up CT scan that showed improving pulmonary nodules. She also continues to use Anoro, Brovana, theophylline, ipratropium, and Xopenex with good control of her underlying symptoms. She denies recent exacerbations. [facility] Medical History Vitamin D deficiency Hyperparathyroidism Personal history of nicotine dependence Tubular adenoma of colon (~2002) Subclinical hyperthyroidism Multinodular goiter Low TSH level Osteoporosis Anxiety and depression COPD (chronic obstructive pulmonary disease) Surgical History Status post biopsy of thyroid gland (~08/2021) History of left oophorectomy History of lung surgery (~02/2021) History of colonoscopy (~06/2020) History of esophagogastroduodenoscopy (EGD) Family History Mother Hx of cardiac pacemaker Father Colon cancer Brother Testicular cancer COPD (chronic obstructive pulmonary disease) Maternal Aunt Breast cancer Social History Household Members: Other Household Members Other:: Housemate Housing: House Are you a primary nursing care partner to a significant other at home: No Do you presently have visiting nurse or other home services: No Alcohol intake: former Patient Tobacco Use Status: Current everyday Tobacco user Tobacco use type: Cigarette Cigarette Packs Per Day: 0.5 Cigarettes Per Day: 14 Years Smoked: 50yrs Second Hand Smoke Exposure: Yes service: No Current occupational status: employed Review of Systems Const Denies daytime sleepiness, Denies excessive sweating, Denies fatigue, Denies fever(s), Denies lethargy, Denies malaise, Denies night sweats, Denies snoring and Denies weight loss Eyes Denies blurry vision and Denies itchy eyes ENT Denies nasal congestion, Denies post nasal drip, Denies sinus pain, Denies sinus pressure and Denies other ( Thrush) Card Denies chest pain, Denies pedal edema, Denies dyspnea, Denies orthopnea and Denies paroxysmal nocturnal dyspnea Resp Denies cough, Denies hemoptysis, Denies excessive phlegm production, Denies dyspnea, Denies snoring and Denies wheezing GI Denies abdominal pain and Denies heartburn Musc Denies myalgias, Denies arthralgias and Denies joint swelling Skin/Breast Denies rash Neuro Denies memory loss and Denies seizure-like activity Psych Denies abnormal sleep pattern, Denies anxiety and Denies memory loss Endo Denies excessive sweating, Denies fatigue and Denies heat intolerance Christopher/Lymph Denies easy bruising Aller/Immun Denies itchy eyes, Denies seasonal rhinorrhea and Denies wheezing Physical Exam Vital Signs: Last Vital Signs Pulse 113 H 01/22/24 13:12 BP 98/62 01/22/24 13:12 Pulse Ox 94 01/22/24 13:12 Oxygen Delivery Method Room Air 01/22/24 13:12 BMI result Body Mass Index 15.4 Const General: no acute distress and alert Nutritional Appearance: not obese Orientation/consciousness: Other orientation findings ( oriented) HEENT Head: Yes atraumatic Eyes General: appearance normal, both eyes and all related structures Sclerae: sclerae normal EOM: EOMs intact bilaterally Neck Neck: Yes supple Lymphatic: no lymphadenopathy noted Resp Effort & Inspection: normal respiratory effort and no use of accessory muscles Auscultation: clear to auscultation bilaterally Cardio Rate: tachycardic Rhythm: regular rhythm Heart sounds: no gallops, no murmurs and no rubs Skin General skin exam: other ( warm) Extrem General: No clubbing, No cyanosis and No edema Assessment & Plan Assessment & Plan (1) COPD (chronic obstructive pulmonary disease): Code(s): J44.9 - Chronic obstructive pulmonary disease, unspecified Category: Medical Plan: Reasonable control on current regimen of Anoro, Brovana, theophylline, ipratropium, and Xopenex. Continue current regimen. (2) Multiple pulmonary nodules: Code(s): R91.8 - Other nonspecific abnormal finding of lung field Category: Medical Plan: Results of follow-up CT chest reviewed, improving pulmonary nodules. Will repeat CT chest in 12 months. Coding Level of Care Code Est Pt Level 4 (96133) Diagnoses COPD (chronic obstructive pulmonary disease) J44.9 Multiple pulmonary nodules R91.8
[2024-01-22 13:12] VITALS: BP 98/62; PULSE 113; O2SAT 94; BMI 15.4
== END 2024-01-22 13:30 | disposition home or self-care (01) ==
PROVIDERS: PCP Internal Medicine; Visit Provider Internal Medicine Pulmonary Disease
DX: J44.9 Chronic obstructive pulmonary disease, unspecified (principal); R91.8 Other nonspecific abnormal finding of lung field
CPT/HCPCS: 99214

== ENCOUNTER → 2024-01-22 13:02 | Outpatient (BNVA) | payer OTHER, SELFPAY | PROVIDERS: PCP Internal Medicine; Visit Provider Internal Medicine Pulmonary Disease | DX: J44.9 Chronic obstructive pulmonary disease, unspecified (principal); R91.8 Other nonspecific abnormal finding of lung field; F17.210 Nicotine dependence, cigarettes, uncomplicated; Z85.118 Personal history of other malignant neoplasm of bronchus and lung | CPT/HCPCS: 99212 ==

== ENCOUNTER 2024-05-20 13:59 | Outpatient (AMB) | payer OTHER, SELFPAY ==
[2024-05-20 14:04] VITALS: BP 98/58; PULSE 99; O2SAT 93; BMI 16.1
--- NOTE | 2024-05-20 14:04 | MHC.OFFVIS ---
Vital Signs 05/20/24 14:04 Height 5 ft 4 in Weight 94 lb BMI 16.1 BP 98/58 L Blood Pressure Location Lt brachial Position Sitting Pulse 99 Pulse Source Doppler Pulse Oximetry (%) 93 Oxygen Delivery Method Room Air Intake Visit Reasons: COPD/CT Chest results Allergies No Known Allergies Allergy (Verified 11/11/23 14:37) HPI HPI COPD/CT Chest results: Details: 64-year-old lady, active 50+ pack-year smoker, followed for underlying severe COPD.? 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 Dutton.? She also was evaluated by Oncology and did not require any adjuvant therapy.? Patient had follow-up CT scan that showed improving pulmonary nodules. She also continues to use Anoro, Brovana, theophylline, ipratropium, and Xopenex with good control of her underlying symptoms. She complains of bronchitic symptoms, particularly cough productive of greenish sputum. [facility] Medical History Vitamin D deficiency Hyperparathyroidism Personal history of nicotine dependence Tubular adenoma of colon (~2002) Subclinical hyperthyroidism Multinodular goiter Low TSH level Osteoporosis Anxiety and depression COPD (chronic obstructive pulmonary disease) Surgical History Status post biopsy of thyroid gland (~08/2021) History of left oophorectomy History of lung surgery (~02/2021) History of colonoscopy (~06/2020) History of esophagogastroduodenoscopy (EGD) Family History Mother Hx of cardiac pacemaker Father Colon cancer Brother Testicular cancer COPD (chronic obstructive pulmonary disease) Maternal Aunt Breast cancer Social History Household Members: Other Household Members Other:: Housemate Housing: House Are you a primary medical care evaluation specialist to a significant other at home: No Do you presently have visiting nurse or other home services: No Alcohol intake: former Patient Tobacco Use Status: Current everyday Tobacco user Tobacco use type: Cigarette Cigarette Packs Per Day: 0.5 Cigarettes Per Day: 14 Years Smoked: 50yrs Second Hand Smoke Exposure: Yes service: No Current occupational status: employed Review of Systems Const Denies daytime sleepiness, Denies excessive sweating, Denies fatigue, Denies fever(s), Denies lethargy, Denies malaise, Denies night sweats, Denies snoring and Denies weight loss Eyes Denies blurry vision and Denies itchy eyes ENT Denies nasal congestion, Denies post nasal drip, Denies sinus pain, Denies sinus pressure and Denies other ( Thrush) Card Denies chest pain, Denies pedal edema, Denies dyspnea, Denies orthopnea and Denies paroxysmal nocturnal dyspnea Resp Reports cough, Denies hemoptysis, Reports excessive phlegm production, Denies dyspnea, Denies snoring and Denies wheezing GI Denies abdominal pain and Denies heartburn Musc Denies myalgias, Denies arthralgias and Denies joint swelling Skin/Breast Denies rash Neuro Denies memory loss and Denies seizure-like activity Psych Denies abnormal sleep pattern, Denies anxiety and Denies memory loss Endo Denies excessive sweating, Denies fatigue and Denies heat intolerance Christopher/Lymph Denies easy bruising Aller/Immun Denies itchy eyes, Denies seasonal rhinorrhea and Denies wheezing Physical Exam Vital Signs: Last Vital Signs Pulse 99 05/20/24 14:04 BP 98/58 L 05/20/24 14:04 Pulse Ox 93 05/20/24 14:04 Oxygen Delivery Method Room Air 05/20/24 14:04 BMI result Body Mass Index 16.1 Const General: no acute distress and alert Nutritional Appearance: not obese Orientation/consciousness: Other orientation findings ( oriented) HEENT Head: Yes atraumatic Eyes General: appearance normal, both eyes and all related structures Sclerae: sclerae normal EOM: EOMs intact bilaterally Neck Neck: Yes supple Lymphatic: no lymphadenopathy noted Resp Effort & Inspection: normal respiratory effort and no use of accessory muscles Auscultation: clear to auscultation bilaterally Cardio Rate: regular rate Rhythm: regular rhythm Heart sounds: no gallops, no murmurs and no rubs Skin General skin exam: other ( warm) Extrem General: No clubbing, No cyanosis and No edema Assessment & Plan Assessment & Plan (1) COPD (chronic obstructive pulmonary disease): Code(s): J44.9 - Chronic obstructive pulmonary disease, unspecified Category: Medical Plan: Essentially on maximum medical therapy with Anoro, theophylline, Brovana, and Xopenex. Continue current regimen. Will treat bronchitic exacerbation with a course of Levaquin. (2) Multiple pulmonary nodules: Code(s): R91.8 - Other nonspecific abnormal finding of lung field Category: Medical Plan: Waxing waning pulmonary nodules. Continue with yearly lung cancer screening, next in December of 2024, ordered. Orders: Orders CT chest wo IV con 12/18/24 R91.8 - Other nonspecific abnormal finding of lung field Medications: New levofloxacin 750 mg PO DAILY 10 tabs 0RF Coding Level of Care Code Est Pt Level 4 (00243) Complex EM visit Add On G2211 Diagnoses COPD (chronic obstructive pulmonary disease) J44.9 Multiple pulmonary nodules R91.8
== END 2024-05-20 14:21 | disposition home or self-care (01) ==
PROVIDERS: PCP Internal Medicine; Visit Provider Internal Medicine Pulmonary Disease
DX: J44.9 Chronic obstructive pulmonary disease, unspecified (principal); R91.8 Other nonspecific abnormal finding of lung field
CPT/HCPCS: 99214; G2211

== ENCOUNTER → 2024-05-20 13:59 | Outpatient (BNVA) | payer OTHER, SELFPAY | PROVIDERS: PCP Internal Medicine; Visit Provider Internal Medicine Pulmonary Disease | DX: J44.9 Chronic obstructive pulmonary disease, unspecified (principal); R91.8 Other nonspecific abnormal finding of lung field | CPT/HCPCS: 99212 ==

== ENCOUNTER 2024-09-24 13:35 | Outpatient (AMB) | payer OTHER, SELFPAY ==
--- NOTE | 2024-09-24 13:40 | MHC.OFFVIS ---
Vital Signs 09/24/24 13:41 Height 5 ft 4 in Weight 88 lb BMI 15.1 BP 100/57 L Blood Pressure Location Lt brachial Position Sitting Pulse 111 H Pulse Source Doppler Pulse Oximetry (%) 93 Oxygen Delivery Method Room Air Intake Visit Reasons: copd Allergies No Known Allergies Allergy (Verified 11/11/23 14:37) HPI HPI copd: Details: 64-year-old lady, active 50+ pack-year smoker, followed for underlying severe COPD.? 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 Dutton.? She also was evaluated by Oncology and did not require any adjuvant therapy.? Patient had follow-up CT scan that showed improving pulmonary nodules. She also continues to use Anoro, Brovana, theophylline, ipratropium, and Xopenex with good control of her underlying symptoms. She continues to unintentional lose weight, likely secondary to chronically elevated work of breathing. [facility] Medical History (Updated 09/24/24 @ 14:28 by Rajendra Sandoval MD) Lung cancer Depression Pancreatitis Vitamin D deficiency Hyperparathyroidism Personal history of nicotine dependence Tubular adenoma of colon (~2002) Subclinical hyperthyroidism Multinodular goiter Low TSH level Osteoporosis Anxiety and depression COPD (chronic obstructive pulmonary disease) Surgical History Status post biopsy of thyroid gland (~08/2021) History of left oophorectomy History of lung surgery (~02/2021) History of colonoscopy (~06/2020) History of esophagogastroduodenoscopy (EGD) Family History Mother Hx of cardiac pacemaker Father Colon cancer Brother Testicular cancer COPD (chronic obstructive pulmonary disease) Maternal Aunt Breast cancer Social History Household Members: Other Household Members Other:: Housemate Housing: House Are you a primary home health care case manager to a significant other at home: No Do you presently have visiting nurse or other home services: No Alcohol intake: former Patient Tobacco Use Status: Current everyday Tobacco user Tobacco use type: Cigarette Cigarette Packs Per Day: 0.5 Cigarettes Per Day: 14 Years Smoked: 50yrs Second Hand Smoke Exposure: Yes service: No Current occupational status: employed Review of Systems Const Denies daytime sleepiness, Denies excessive sweating, Denies fatigue, Denies fever(s), Denies lethargy, Denies malaise, Denies night sweats, Denies snoring and Reports weight loss Eyes Denies blurry vision and Denies itchy eyes ENT Denies nasal congestion, Denies post nasal drip, Denies sinus pain, Denies sinus pressure and Denies other ( Thrush) Card Denies chest pain, Denies pedal edema, Denies dyspnea, Denies orthopnea and Denies paroxysmal nocturnal dyspnea Resp Denies cough, Denies hemoptysis, Denies excessive phlegm production, Denies dyspnea, Denies snoring and Denies wheezing GI Denies abdominal pain and Denies heartburn Musc Denies myalgias, Denies arthralgias and Denies joint swelling Skin/Breast Denies rash Neuro Denies memory loss and Denies seizure-like activity Psych Denies abnormal sleep pattern, Denies anxiety and Denies memory loss Endo Denies excessive sweating, Denies fatigue and Denies heat intolerance Christopher/Lymph Denies easy bruising Aller/Immun Denies itchy eyes, Denies seasonal rhinorrhea and Denies wheezing Physical Exam Vital Signs: Last Vital Signs Pulse 111 H 09/24/24 13:41 BP 100/57 L 09/24/24 13:41 Pulse Ox 93 09/24/24 13:41 Oxygen Delivery Method Room Air 09/24/24 13:41 BMI result Body Mass Index 15.1 Const General: no acute distress and alert Nutritional Appearance: cachectic Orientation/consciousness: Other orientation findings ( oriented) HEENT Head: Yes atraumatic Eyes General: appearance normal, both eyes and all related structures Sclerae: sclerae normal EOM: EOMs intact bilaterally Neck Neck: Yes supple Lymphatic: no lymphadenopathy noted Resp Effort & Inspection: normal respiratory effort and no use of accessory muscles Auscultation: clear to auscultation bilaterally Cardio Rate: regular rate Rhythm: regular rhythm Heart sounds: no gallops, no murmurs and no rubs Skin General skin exam: other ( warm) Extrem General: No clubbing, No cyanosis and No edema Assessment & Plan Assessment & Plan (1) COPD (chronic obstructive pulmonary disease): Code(s): J44.9 - Chronic obstructive pulmonary disease, unspecified Category: Medical Plan: Reasonable baseline control on Anoro, theophylline, ipratropium, Brovana, and albuterol MDI. Continue current regimen. (2) Multiple pulmonary nodules: Code(s): R91.8 - Other nonspecific abnormal finding of lung field Category: Medical Plan: Follow-up CT chest is pending for December of 2024. (3) Cachexia: Code(s): R64 - Cachexia Category: Medical Plan: Appears to be related to chronically elevated work breathing with underlying COPD. Will start on dronabinol. Medications: New dronabinol administer before lunch and evening meal/dinner 10 mg PO BID 60 caps 3RF Coding Level of Care Code Est Pt Level 4 (10408) Complex EM visit Add On G2211 Diagnoses COPD (chronic obstructive pulmonary disease) J44.9 Multiple pulmonary nodules R91.8 Cachexia R64
[2024-09-24 13:41] VITALS: BP 100/57; PULSE 111; O2SAT 93; BMI 15.1
--- OUTSIDE RECORDS SUMMARY | 2024-09-24 15:57 | XMS_ITS | Clinical Summary ---
Author Organization [facility] Address [address] [place] [phone] Care Team Providers Care Records Management Clerk Name Role Phone Ric Prado MD Primary Care Provider Medical History Medical History Date Comments Lung cancer ([facility] V24, [facility] V28) DX:Lung cancer ([facility]); COMMENT: MARYELLEN Lung Cancer COPD (chronic obstructive pu lmonary disease) ([facility] V24, [facility] V28) DX:COPD (chronic o bstructive pulmonary disease) ([facility]) Pulmonary nodules DX:Pulmonary n odules Family History Medical History Relation Name Comments COPD Brother Relation Name Status Comments Brother Social History Tobacco Use Types Packs/Day Years Used Date Smoking Tobacco: Every Day Cigarettes 0.5 51.3 Started: 06/03/1973 Smokeless Tobacco: Never Alcohol Use Standard Drinks/Week Comments Never 0 (1 standard drink = 0.6 oz pur e alcohol) Comments Unknown Sex and Gender Information Value Date Recorded Sex Assigned at Not on file Legal Sex Female 7:30 PM EST Gender Identity Not on file Sexual Orientation Not on file Obstetrics History Last Filed Vital Signs Vital Sign Reading Time Taken Comments Blood Pressure 127/81 06/06/2023 10:45 AM EST Si tting L Arm Pulse 89 06/06/2023 10:45 AM EST Temperature - - Respiratory Rate - - Oxygen Saturation - - Inhaled Oxygen Concentration - - Weight 47.6 kg (105 lb) 06/06/2023 10:45 AM EST Height 162.6 cm (5' 4 ) 06/06/2023 10:45 AM EST Body Mass Index 18.02 06/06/2023 10:45 AM EST Plan of Treatment Health Maintenance Due Date Last Done Comments Breast Cancer Screening 1960 COVID-19 Vaccine (#1) 1965 DTaP,Tdap,and Td Vaccines (1 - Tdap) 1979 Pneumococcal Vaccine: 50+ Ye ars (1 of 2 - PCV) 1979 Pneumococcal Vaccine: Pediat rics (0 to 5 Years) and At-Risk Patients (6 to 64 Years) (1 of 2 - PCV) 1979 Zoster Vaccines (1 of 2) 1979 Cervical Cancer Screening: P ap Smear 1981 RSV Immunization Adult Patie nts (1 - Risk 60-74 years 1-dose series) 2020 Colorectal Cancer Screening: Colonoscopy 05/05/2022 Depression Screening 05/05/2022 HIV Screening 05/05/2022 Hepatitis C Screening 05/05/2022 Social Influencers of Health Screening 05/05/2022 Influenza Vaccine (Season Ended) 2025 HIB Vaccines Aged Out No longer eligi ble based on patient's age to complete this topic HPV Vaccines Aged Out No longer eligi ble based on patient's age to complete this topic Hepatitis A Vaccines Aged Out No long er eligible based on patient's age to complete this topic Hepatitis B Vaccines Aged Out No long er eligible based on patient's age to complete this topic IPV Vaccines Aged Out No longer eligi ble based on patient's age to complete this topic MMR Vaccines Aged Out No longer eligi ble based on patient's age to complete this topic Meningococcal ACWY Vaccine Aged Out N o longer eligible based on patient's age to complete this topic Meningococcal B Vaccine Aged Out No l onger eligible based on patient's age to complete this topic RSV Immunization Patients Un gutierrez 20 months Aged Out No longer eligible b ased on patient's age to complete this topic Varicella Vaccines Aged Out No longer eligible based on patient's age to complete this topic Advance Directives Documents on File Type Date Recorded Patient Billet Heater Expl anation Health Care Decision (hx) 02/17/2021 AD SHIRLEY DIRECTIVE Health Care Decision (hx) 02/17/2021 AD SHIRLEY DIRECTIVE Health Care Decision (hx) 02/17/2021 AD SHIRLEY DIRECTIVE Health Care Decision (hx) 02/17/2021 AD SHIRLEY DIRECTIVE Care Teams Records Management Clerk Relationship Specialty Start Date End Date Ric Prado MD PCP - General Internal Medicine 3/25/22
== END 2024-09-24 14:05 | disposition home or self-care (01) ==
LOC: HO.HPS 13:35
PROVIDERS: PCP Internal Medicine; Visit Provider Internal Medicine Pulmonary Disease
DX: J44.9 Chronic obstructive pulmonary disease, unspecified (principal); R91.8 Other nonspecific abnormal finding of lung field; R64 Cachexia
CPT/HCPCS: 99214; G2211

== ENCOUNTER → 2024-09-24 13:35 | Outpatient (BNVA) | payer OTHER, SELFPAY | PROVIDERS: PCP Internal Medicine; Visit Provider Internal Medicine Pulmonary Disease | DX: J44.9 Chronic obstructive pulmonary disease, unspecified (principal); R91.8 Other nonspecific abnormal finding of lung field; R64 Cachexia; F17.210 Nicotine dependence, cigarettes, uncomplicated | CPT/HCPCS: 99212 ==

== ENCOUNTER 2024-10-20 15:17 | Outpatient (REF) | payer OTHER, SELFPAY ==
--- OUTSIDE RECORDS SUMMARY | 2024-10-20 16:21 | XMS_ITS ---
Author Organization Ric Prado MD Address [address] [place] [id number] Care Team Providers Care Barrel Marker Name Role Phone Ric Prado Primary Care [...] needed for 30 days 02/11/2023 Active Ipratropium [place] 0.02 % 2.5 mL Inhalation every 8 [...] Location Date Provider Diagnosis Ric Prado MD [address] [place] [address] [address] [place], [place] [id number] 01/20/2024 Ric Prado Chronic obstructive pulmonary disease, [...] Up: 6 Months, Reason: Provider Name:Ric garvin, 01/28/2025 03:00:00 PM, [address] [place] [address], [address], [phone], Progress Notes * Araseli BRIDGES MDOB:[birth year] (63 yo F)Acc No.[id number]:01/20/2024 Progress Notes Patient:?Araseli Bridges Provider:?Ric Prado MD :1960???Age:63 Y???Sex:Female D ate:01/20/2024 Address:[address] [place], [place] [id number] Subjective: * Chief Complaints: * ???6 MO F/U * HPI: ???Symptom(s):? patient is a 63 yo female here for 6 month follow up visit complaining she is not able to breath. * ROS:?General/Constitutional:?Denies?Chills.?Denies?Fatigue.?Denies?Fever.?Denies?Headache.?ENT:?Patient denies?decreased sense of smell , any loss of taste , sore throat.?Denies?Sore throat.?Respiratory:?Admits?Cough.?Admits?Shortness of breath at rest.?Admits?Shortness of breath with exertion.?Admits?Sputum production.?Denies?Wheezing.?Gastrointestinal:?Denies?Diarrhea.?Denies?Nausea.?Musculoskeletal:?Patient denies?muscle aches.?Peripheral Vascular:?Patient denies?red and blue toes.? * Medical History:? * Surgical History:? * Hospitalization/Major Diagno stic Procedure:? * Social History:?Tobacco Use:?Tobacco Use/Smoking?Patient is a?current smoker,?How often do you smoke cigarettes??every day,?How many cigarettes a day do you smoke??11-20,?How soon after you wake up do you smoke your first cigarette??31-60 minutes,?Are you interested in quitting??Not ready to quit,?Additional Findings: Tobacco User?Current cigarette smoker, not currently using another form of tobacco.?Patient states has not had a drink in 4 years. * Medications:?TakingMeclizine HCl 12.5 MG Tablet 1 tablet as needed Orally twice a dayAmbien 5 MG Tablet 1 tablet at bedtime as needed Orally Once a day as neededAnoro Ellipta 62.5-25 MCG/ACT Aerosol Powder Breath Activated inhale 1 puff into the lungs every day for 90 days Inhalation Once a dayTheophylline ER 400 MG Tablet Extended Release 24 Hour 1 tablet Orally Once a dayIpratropium [place] 0.02 % Solution 2.5 mL Inhalation every [...] 1 tablet Orally Once a dayTaking Ipratropium [place] 0.02 % Solution 2.5 mL Inhalation every [...] a dayVitamin D3 Super Strength 50 MCG (2000 UT) [...] reviewed and reconciled with the patient * Allergies:?N.K.D.A.yes[Aller gies Verified] Objective: * Vitals:?Ht: 64, Wt:92, BMI:1 5.79, BP:84/50 weight is down 8 pounds since 02-11-23. * Examination: ???General Examination: ?GENERAL APPEARANCE:? alert, well hydrated, in no distress , female.?HEAD:? normocephalic.?HEART:? regular rate and rhythm, no murmurs, rubs, gallops.?LUNGS:? diminished breath sounds throughout.? Assessment: * Assessment: 1.?Chronic obstructive pulmo nary disease, unspecified - J44.9 (Primary)?2.?Smoker unmotivated to quit - F17.210? Plan: * Treatment: 2.?Smoker unmotivated to haley t? Notes: have explained that her continued smoking does not help her breathing and continues to worsen it.?? * Procedure Codes:? * Preventive Medicine:? ??Counseling:?Smoking?Patient counseled on the dangers of tobacco use and urged to quit.?01/20/2024,?Patient Lifestyle Goals?Patient does not want to quit,?Treatment Goals?suggested patient at least, Cut down by 1 cigarette a week,?Self-Managment Goals?Consider support such as [employer] or counseling,?Barriers?Does not want to quit,?Set a Quit Date?Does not want to quit.? ??COPD Care Plan:?Patient Lifestyle Goals?Relieve symptoms and improve quality of life.?Treatment Goals?Quit smoking or cut down number of cigarettes slowly.?Barriers?Patient unmotivated to quit smoking.?Self-Managment Plan?Make a plan for quitting smoking - set a quit date.? * Follow Up:?6 Months * * Sign off status: Completed true * Provider:?Ric Prado MD Date:?0 01/20/2024 Generated for Colton gordon/Derek/Lambert on:?10/20/2024 04:21 PM EDT History and Physical Notes * [...]
--- OUTSIDE RECORDS SUMMARY | 2024-10-20 16:21 | XMS_ITS | Patient Health Record ---
[facility] Organization [facility] Address [address] [place] [address] Care Team Providers Care Production Operations Engineer Name Role Phone Ric Prado MD Primary Care Provider Raymon Alegria Unavailable [phone] Allergies Allergen (clinical drug ingredient) Drug/Non Drug Allergy documented on EMR Reaction Allergy Type Onset Date Status seasonal (uncoded) Unknown Allergy A ctive Reason For Referral No Information Medications Medication SIG (Take, Route, Frequency, Duration) Notes Start Date End Date Status Ipratropium [place] 0.02 % 2.5 ML INHALE D EVERY 6 HOURS NEEDED FOR SHORTNESS OF BREATH OR WHEEZING FOR 30 DAYS Inhalation for 30 Active Sertraline HCl 100 MG Oral for 90 Active Theophylline ER 400 MG Oral for 90 Active Arformoterol Tartrate 15 MCG/2ML Inhalation for 30 Active MiraLax (colon prep) 17 GM/SCOOP 1/2 of 238m bottle mixed with Gatorade 2 days before the colonoscopy, and then 1 full 238 bottle of Miralax mixed with Gatorade or Crystal Light the day before the colonoscopy orally Begin 2 days before the colonoscopy, and then begin at 5:00 p.m. the day before the procedure for 2 days 07/02/2024 Active Zoloft 100 MG Orally Active Levalbuterol Tartrate Active Biotin Active Anoro Ellipta 62.5-25 MCG/ACT INHALE 1 PUFF ORALLY DAILY FOR 90 DAYS Inhalation for 30 Active Dulcolax (colon prep) 5 MG Take 2 tablet s 2 days before the colonoscopy, and then take 2 tablets at 3:00 p.m and 7:00p.m. on the day before the colonosocpy orally Two tablets once two days before the colonoscopy, and then two tablets twice a day for one day for 2 days 07/02/2024 Active Meloxicam 15 MG Oral for 30 Ac tive Gabapentin 300 MG Oral for 30 Active Immunizations Vaccine Route Administration Date Status Comme nts Influenza Unknown 03/09/2020 Administered Influenza Unknown 03/24/2024 Administered Social History Tobacco Use: Social History Observation Description Date Details (start date - stop date) Current Smoker NA - NA Tobacco Use/Smoking Question Answer Notes Patient is a current smoker When did you start smoking? 13 years old How often do you smoke cigarettes? every day How many cigarettes a day do you smoke? 6-10 How soon after you wake up do you smoke your fir st cigarette? 6-30 minutes Are you interested in quitting? Not ready to haley t Section Notes: She smokes, and reports 2 be ers per day She smokes 1 ppd and has not used alcohol in 1 year--has a hx of heavy EtOH use in the past She smokes 1 ppd and has not used alcohol in 1 year--has a hx of heavy EtOH use in the past She smokes 7 cig a day and h as not used alcohol in 3 year--has a hx of heavy EtOH use in the past She smokes 9 cigs a day and has not used alcohol in 8 years--has a hx of heavy EtOH use in the past Problems Problem Type SNOMED Code ICD Code Onset Dates Problem Status W/U Status Risk Notes Problem 550240669 Encounter for screening for malignant neoplasm of colon (Z12.11) Active confirmed Problem 243988967 History of adenomatous polyp of colon (Z86.010) Active confirmed Problem Imaging of abdomen abnormal (596441067) Abnormal findings on diagnostic imaging of other abdominal regions, including retroperitoneum (R93.5) Active confirmed Problem Screening for malignant neoplasm of rectum (345139959) Encounter for screening for malignant neoplasm of rectum (Z12.12) Active confirmed Problem 425611908 Family history o f colon cancer (Z80.0) Active confirmed Problem 91285406 Constipation, unspecified constipation type (K59.00) Active confirmed Problem Personal history of adenomatous and serrated colon polyps (Z86.0101) Active confirmed Vital Signs Temperature 97.1 degrees Fahrenheit 06/10/2024 Blood pressure diastolic 00 mm Hg 06/10/2024 Height 64.5 in 06/10/2024 Blood pressure systolic 000 mm Hg 06/10/2024 Weight 90 lb 8 oz lbs 06/10/2024 BMI 15.29 kg/m2 06/10/2024 Encounters Encounter Location Date Provider Diagnosis [facility] [address] [place] [address] 06/10/2024 Raymon Sawyer Constipation, unspecified constipation type K59.00 ; History of adenomatous polyp of colon Z86.010 ; Family history of colon cancer Z80.0 and Encounter for screening for malignant neoplasm of colon Z12.11 [facility] [address] [place] [address] 02/04/2024 Raymon Sawyer [facility] [address] [place] [address] 06/10/2024 Raymon Sawyer [facility] [address] [place] [phone] 10/03/2024 Raymon Sawyer [facility] [address] [place] [address] 10/05/2024 Raymon Sawyer Assessments Encounter Date Diagnosis (ICD Code) Assessment Notes Treatment Notes Treatment Clinical Notes Section Notes 06/10/2024 History of adenomatous polyp of colon (ICD-10 - Z86.010) Overall, Nichole appears well from a GI standpoint, although her weight loss since her lung cancer surgery has been significant. However, based on her history it does seem to have leveled off at this point. I advised her to continue to eat well and monitor her weight. We did review that her continued smoking obviously needs to be addressed and hopefully she will be able to stop completely at some point. In regard to the chronic constipation I did recommend that she use MiraLax and Citrucel on a daily and regular basis rather than just p.r.n.. I also advised her to drink plenty of fluids on a daily basis and try to eat a healthy diet with fruits and vegetables. I did recommend a followup colonoscopy for further screening given her personal history of tubular adenomas and significant family history of colon cancer. We did review the rationale for that in regard to colon cancer prevention. Full consent was obtained for this, including risks of bleeding and perforation. The procedure will be done with monitored anesthesia care. She will have a 2 day preparation for the colonoscopy given her significant constipation so as to hopefully allow for an adequate clean out. Nichole was comfortable with this plan. Thank you again for allowing me to participate in Nichole's care. I shall continue to keep you advised of her progress. 06/10/2024 Constipation, unspecified constipation type (ICD-10 - K59.00) Use some Miralax and Citrucel every day with a lot of fluids to help with the constipation Overall, Nichole appears well from a GI standpoint, although her weight loss since her lung cancer surgery has been significant. However, based on her history it does seem to have leveled off at this point. I advised her to continue to eat well and monitor her weight. We did review that her continued smoking obviously needs to be addressed and hopefully she will be able to stop completely at some point. In regard to the chronic constipation I did recommend that she use MiraLax and Citrucel on a daily and regular basis rather than just p.r.n.. I also advised her to drink plenty of fluids on a daily basis and try to eat a healthy diet with fruits and vegetables. I did recommend a followup colonoscopy for further screening given her personal history of tubular adenomas and significant family history of colon cancer. We did review the rationale for that in regard to colon cancer prevention. Full consent was obtained for this, including risks of bleeding and perforation. The procedure will be done with monitored anesthesia care. She will have a 2 day preparation for the colonoscopy given her significant constipation so as to hopefully allow for an adequate clean out. Nichole was comfortable with this plan. Thank you again for allowing me to participate in Nichole's care. I shall continue to keep you advised of her progress. 06/10/2024 Family history of colon cancer (ICD-10 - Z80.0) Overall, Nichole appears well from a GI standpoint, although her weight loss since her lung cancer surgery has been significant. However, based on her history it does seem to have leveled off at this point. I advised her to continue to eat well and monitor her weight. We did review that her continued smoking obviously needs to be addressed and hopefully she will be able to stop completely at some point. In regard to the chronic constipation I did recommend that she use MiraLax and Citrucel on a daily and regular basis rather than just p.r.n.. I also advised her to drink plenty of fluids on a daily basis and try to eat a healthy diet with fruits and vegetables. I did recommend a followup colonoscopy for further screening given her personal history of tubular adenomas and significant family history of colon cancer. We did review the rationale for that in regard to colon cancer prevention. Full consent was obtained for this, including risks of bleeding and perforation. The procedure will be done with monitored anesthesia care. She will have a 2 day preparation for the colonoscopy given her significant constipation so as to hopefully allow for an adequate clean out. Nichole was comfortable with this plan. Thank you again for allowing me to participate in Nichole's care. I shall continue to keep you advised of her progress. 06/10/2024 Encounter for screening for malignant neoplasm of colon (ICD-10 - Z12.11) Overall, Nichole appears well from a GI standpoint, although her weight loss since her lung cancer surgery has been significant. However, based on her history it does seem to have leveled off at this point. I advised her to continue to eat well and monitor her weight. We did review that her continued smoking obviously needs to be addressed and hopefully she will be able to stop completely at some point. In regard to the chronic constipation I did recommend that she use MiraLax and Citrucel on a daily and regular basis rather than just p.r.n.. I also advised her to drink plenty of fluids on a daily basis and try to eat a healthy diet with fruits and vegetables. I did recommend a followup colonoscopy for further screening given her personal history of tubular adenomas and significant family history of colon cancer. We did review the rationale for that in regard to colon cancer prevention. Full consent was obtained for this, including risks of bleeding and perforation. The procedure will be done with monitored anesthesia care. She will have a 2 day preparation for the colonoscopy given her significant constipation so as to hopefully allow for an adequate clean out. Nichloe was comfortable with this plan. Thank you again for allowing me to participate in Nichole's care. I shall continue to keep you advised of her progress. Plan Of Treatment Pending Test Test Name Order Date XR ABD UPRIGHT AND CHEST 06/24/2020 Pathology 06/24/2020 Future Test Test Name Order Date COLONOSCOPY 03/14/2016 COLONOSCOPY 05/04/2020 COLONOSCOPY 06/10/2024 Insurance Providers Payer Name Payer Address Payer Phone Subscriber Number Group Number Insured Name Patient Relationship to Insured Coverage Start Date Coverage End Date [facility] [address] [address] [place], [place] [id number] [phone] [id number] ISAIAS KING Self - patient is the insured MEDICAID OF [facility] [address] [place] [phone] [id number] ISAIAS KING Self - patient is the insured Medical (General) History Medical History History ICD Code EGD in 2001--small HH-no gastritis, no e sophagitis Tubular adenomas of the colon removed in 2002 and 2004 Colonoscopy 07-25-2009--no polyps, internal wholesaler al hemorrhoids Denies VT,DM,CV,renal disease Distant history of pancreatitis in relat ion to previous alcohol use Colonoscopy in 01/2015--1.5 c m flat tubular adenoma removed from the ascending colon Depression Osteoporosis Colonoscopy in 06/2016 with a hyperplasti c polyp removed [place] [facility] [place] in 06/2020 with several tubul ar adenomas Left lung cancer approx 2021-Dr. Dutton Surgical History Surgery Date(Month/Year) Endometriosis and removal of one ovary Lung cancer-removed part of left lung
--- OUTSIDE RECORDS SUMMARY | 2024-10-20 16:21 | XMS_ITS ---
Author Organization Ric Prado MD Address [address] [place] [phone] Care Team Providers Care Erp Project Manager Name Role Phone Ric Prado Primary Care Provider REASON FOR VISIT REFILL GABAPENTIN Medications Medication SIG (Take, Route, Fr equency, Duration) Notes Start Date End Date Status Gabapentin 300 MG 1 capsule Orally at night for 30 days 07/25/2023 Active Encounters Encounter Location Date Provider Diagnosis Ric Prado MD [address] [place] [phone] 04/09/2024 Ric Prado Cervical neuropathy G54.2 Assessments Encounter Date Diagnosis (ICD Code) Assessment Notes Treatment Notes Treatment Clinical Notes Section Notes 04/09/2024 Cervical neuropathy (ICD-10 - G54.2) Plan Of Treatment Medication Medication Name Sig Start Date Stop Date Notes Gabapentin 300 MG 1 capsule Orally at night for 30 days Next Appt Details Provider Name:Ric Lundberg ier, 01/28/2025 03:00:00 PM, [address] [facility], [address], [place], [phone], Progress Notes * Araseli BRIDGES MDOB:[birth year] (64 yo F)Acc No.[id number]:04/09/2024 Patient:?Araseli Bridges :1960???Age:64 Y???Sex:Female Address:[address] [place] [address] [place], [id number] * Refills? Refill Gabapentin Capsule, 300 MG, Orally, 1 capsule, at night, 30 days, Refills=3 * true * Date:? Generated for Colton gordon/Derek/eTransmitting on:?10/20/2024 04:21 PM EDT
--- OUTSIDE RECORDS SUMMARY | 2024-10-20 16:22 | XMS_ITS | Clinical Summary ---
Author Organization [facility] Address [id number] [place] [id number] Care Team Providers Care Planner/Scheduler Name Role Phone Ric Prado MD Primary Care Provider [phone] Medical History Medical History Date Comments Lung cancer ([facility] V24, [facility] V28) DX:Lung cancer ([facility]); COMMENT: MARYELELN Lung Cancer COPD (chronic obstructive pu lmonary disease) ([facility] V24, [facility] V28) DX:COPD (chronic o bstructive pulmonary disease) ([facility]) Pulmonary nodules DX:Pulmonary n odules Family History Medical History Relation Name Comments COPD Brother Relation Name Status Comments Brother Social History Tobacco Use Types Packs/Day Years Used Date Smoking Tobacco: Every Day Cigarettes 0.5 51.4 Started: 06/03/1973 Smokeless Tobacco: Never Alcohol Use [...] Documents on File Type Date Recorded Patient Copy Manager Expl anation Health Care Decision (hx) 02/17/2021 AD SHIRLEY DIRECTIVE Health Care Decision (hx) 02/17/2021 AD SHIRLEY DIRECTIVE Health Care Decision (hx) 02/17/2021 AD SHIRLEY DIRECTIVE Health Care Decision (hx) 02/17/2021 AD SHIRLEY DIRECTIVE Care Teams Planner/Scheduler Relationship Specialty Start Date End Date Ric Prado MD PCP - General Internal Medicine 3/25/22
--- OUTSIDE RECORDS SUMMARY | 2024-10-20 16:22 | XMS_ITS ---
Author Organization [facility] Address [address] [place] [address] Care Team Providers Care Emergency Service Worker Name Role Phone Ric Prado MD Primary Care Provider Raymon Alegria Unavailable [phone] Encounters Encounter Location Date Provider Diagnosis [facility] [address] [place] [address] 10/05/2024 Raymon Sawyer Plan Of Treatment No Information Progress Notes * ISAIAS KING MDOB:[birth year] (64 yo F)Acc No.[id number]:10/05/2024 Patient:?ISAIAS KING :1960???Age:64 Y???Sex:Female Address:[address] [place] [address] * true * Date:? Generated for Printi ng/Faxing/eTransmitting on:?10/20/2024 04:21 PM EDT
--- OUTSIDE RECORDS SUMMARY | 2024-10-20 16:22 | XMS_ITS | Patient Health Record ---
Author Organization Ric Prado MD Address [address] [place], [place] [id number] Care Team Providers Care Certified Neurodiagnostic Technologist Name Role Phone Ric Prado Primary Care Provider Allergies No Known Allergies Results Component Value Reference Range Notes Complete Blood Count Auto Di ff Reviewed date:11/11/2023 04:29:35 PM Interpretation: Performing Lab:[facility], [address] [place] [id number] Notes/Report: White Blood Count 4.6 4.8-10.8 X10*3/uL Red Blood Count 5.71 4.20-5.50 X10*6/uL Hemoglobin 16.5 12.0-16.0 g/dl Hematocrit 48.2 37.0-47.0 % Mean Corpuscular Volume 84.4 80.0-98.0 fL Mean Corpuscular Hemoglobin 28.9 27.0-33.0 pg Mean Corpuscular HGB Conc 34.2 31.0-35.0 g/dl Red Cell Distribution Width 13.1 11.0-16.0 % Platelet Count 177 160-400 X10*3/uL Mean Platelet Volume 8.8 9.4-12.3 fL Neutrophils Percent Auto 75.7 45-73 % Imm Gran Pct Auto 0.4 0.0-0.4 % Lymphocytes Percent Auto 15.8 20-40 % Monocytes Percent Auto 6.0 2-11 % Eosinophils Percent Auto 1.5 0-4 % Basophils Percent Auto 0.6 0-2 % NRBC Pct Auto 0.0 0.0-0.2 /100WBC Neutrophils Absolute Auto 3.5 2.0-8.3 x10*3/u L Imm Gran Abs Auto 0.02 0.00-0.03 X10*3/uL Lymphocytes Absolute Auto 0.7 1.2-4.9 X10*3/u L Monocytes Absolute Auto 0.3 0.1-1.2 X10*3/uL Eosinophils Absolute Auto 0.1 0.0-0.4 X10*3/u L Basophils Absolute Auto 0.0 0.0-0.2 X10*3/uL NRBC Abs Auto 0.000 0.0-0.012 X10*3/uL Comprehensive Met. Panel Reviewed date:11/11/2023 04:54:00 PM Interpretation: Performing Lab:[facility], [address] [place] [phone] Notes/Report: Sodium 143 135-145 mmol/L Potassium 4.9 3.3-5.1 mmol/L Chloride 108 96-108 mmol/L Carbon Dioxide 28 22-29 mmol/L Anion Gap 12 12-20 Blood Urea Nitrogen 21 9-16 mg/dL Creatinine 0.73 0.5-1.4 mg/dL Creatinine Clr Calc Pharmacy 57.2 Provided height and weight: 162.56 cm, 46 kg. eGFR (calculated from the MDRD study equation) and eCrCl (calculated from the Cockcroft-Gault equation) are based on different parameters and may not yield comparable results. If eCrCl result is absurd, please check patient's height/weight. Estimated Glomerular Filt Rate > 60 NOTE: For -Australian individuals, multiply the result by 1.210. Chronic Kidney Disease: Estimated GFR < 60 mL/min/1.73m2 Severe Kidney Disease: Estimated GFR < 15 mL/min/1.73m2 Glucose Random 97 60-115 mg/dL Calcium 9.9 8.4-10.2 mg/dL Bilirubin Total 0.7 0.0-1.0 mg/dL Aspartate Amino Transferase 16 5-31 U/L Alanine Aminotransferase 12 0-31 U/L Total Protein 7.0 6.5-8.0 g/dL Albumin Level 4.5 3.5-5.0 g/dL Alkaline Phosphatase 65 39-117 U/L Hold Gold Reviewed date:11/11/2023 04:27:42 PM Interpretation: Performing Lab:[facility], [address] [place] [phone] Notes/Report: Hold Gold See Note Specimen held untested for 24 hours; Call to request Chemistry testing. CT chest wo con Reviewed date:01/10/2024 03:36:29 PM Interpretation: Performing Lab: Notes/Report: [address] [address] [address] Scan Report Signed Patient: Araseli Bridges MR#: [id number] 394 : 1960 Acct:[id number] Age/Sex: 63 / F ADM Date: 12/06/23 Loc: .CT Attending Dr: Rajendra Sandoval MD Ordering Physician: Rajendra Sandoval MD Date of Service: 12/06/23 Procedure(s): CT chest wo IV con Accession Number(s): [id number] cc: Ric Prado MD; Rajendra Sandoval MD EXAMINATION: CT CHEST WITHOUT CONTRAST CLINICAL INFORMATION: Pulmonary nodules, follow-up, history of lung CA; other nonspecific abnormal finding of lung field. COMPARISON: CT chest 05/17/2023, 02/12/2023. TECHNIQUE: Multidetector volumetric CT imaging of the chest was done. Axial MIP volume rendering provided. Sagittal and coronal reformatted images were obtained. This CT examination was performed using dose optimization techniques as appropriate, variously including the following: *Automated exposure control *Adjustment of mA and/or kV according to patient size (this includes techniques or standardized protocols for targeted exams where dose is matched to indication/reason for exam; i.e. extremities or head) *Use of iterative reconstruction technique DLP: 75 mGy-cm FINDINGS: BONE CRUSHER: There is pulmonary hyperaeration suggesting COPD. LUNGS: -There is moderate to severe centrilobular emphysema with upper lobe predominance. There is been a prior wedge resection of the medial left upper lobe, with surgical sutures and clips seen along the left superior mediastinal wall. -There are no pulmonary consolidations or groundglass opacities. -There is mild bronchiectasis without bronchial wall thickening in both lower lobes. -There is mild scarring in the medial left upper lobe. -Previously seen 2 mm nodule in the left upper lobe centrally is no longer appreciated. -There is a 2 mm nodule in the subpleural anterior left upper lobe (series 5, image 162), previously measuring 3 mm. -There are a few scattered tiny 2 mm nodules which have not significantly changed. Some appear calcified representing granulomas. -In the superior segment left lower lobe, there is a stable and unchanged 3 mm nodule (series 5, image 193). -In the posterior superior left temporal lobe, there is a pleural-based opacity measuring 1.2 x 0.4 cm, new from prior, although appearance highly suggests localized scarring or microatelectasis. Attention on follow-up recommended. -There is a 2 mm nodule in the anterior superior left lower lobe (series 5, image 309), smaller, previously measuring 4 x 3 mm. -A previously present 5 mm cavitary nodule in the medial right lower lobe has resolved. -A previously present 4 mm nodule in the most posterior most inferior right upper lobe abutting the major fissure has resolved and is not currently seen. -A previously present cystic 6 x 6 mm nodule in the right middle lobe superiorly with near completely resolved, currently measuring 2 mm (series 5, image 290). -A left upper lobe pleural-based lateral nodule measuring 5 mm (series 5, image 108), is unchanged. -There are no new or enlarging nodules. PLEURA: There is no pleural effusion. No pleural mass or thickening. MEDIASTINUM: -Multinodular thyroid is present with a solitary left posterior lobe calcification. -Aorta is mildly prominent measuring up to 3.8 cm descending region, not meeting criteria for true aneurysm. This is ectatic. Mild to moderate aortic calcification. No dissection or aneurysm identified. -Main pulmonary artery is prominent but not enlarged. -No pathologic adenopathy is present. There are small subcentimeter lymph nodes present. -Heart size is normal. No pericardial effusion. -Esophagus has a normal appearance. CORONARY ARTERY CALCIFICATION: Moderate left main and LAD calcification. Mild ostial RCA calcifications. AXILLA/CHEST WALL: No masses or abnormal lymphadenopathy. UPPER ABDOMEN: Renal pyramids are somewhat hyperattenuating on this noncontrast exam, finding which can relate to hypercalcemic states or medullary nephrocalcinosis. Mild hyperplasia of the adrenal glands noted. No masses. OSSEOUS STRUCTURES: No suspicious lytic or blastic bone lesions. Minimal superior wedging T3 and T4, likely chronic. Bones do appear osteopenic. CT/CT chest wo IV con IMPRESSION: 1. Numerous pulmonary nodules previously seen demonstrate the majority are significantly smaller or have resolved, and the other tiny nodules are unchanged. Findings represent continued good treatment response. 2. Moderate to severe centrilobular emphysema with upper lobe predominance. Prior wedge resection medial left upper lobe. 3. Mild bronchiectasis both lower lobes without significant bronchial wall thickening. 4. No definite parenchymal consolidation or opacity. No active disease aside from known pulmonary nodules. 5. No pathologic lymphadenopathy identified. 6. See above for additional ancillary findings. Recommend follow-up as per oncology. Dictated By: Ben Plasencia MD Signed By: <Electronically signed by Ben Plasencia MD in OV> 01/10/24 1026 DD/ 0920 TD/TT: Education Rn: [place] [id number] CT Scan Report Signed Patient: Quique Bridges MR#: [id number] : 1960 Acct:[id number] Age/Sex: 63 / F ADM Date: 12/06/23 Loc: HO.CT Attending Dr: Rajendra Sandoval MD Ordering Physician: Rajendra Sandoval MD Date of Service: 12/06/23 Procedure(s): CT [facility] [facility] wo IV con Accession Number(s): [id number] cc: Ric Prado MD; Rajendra Sandoval MD EXAMINATION: CT CHEST WITHOUT CONTRAST CLINICAL INFORMATION: Pulmonary nodules, follow-up, history of lung CA; other nonspecific abnormal finding of lung field. COMPARISON: CT chest 05/17/2023, 02/12/2023. TECHNIQUE: Multidetector volume tric CT imaging of the chest was done. Axial MIP volume rendering provided. Sagittal and coronal reformatted images were obtained. This CT examination was performed using dose optimization techniques as appropriate, various ly including the following: *Automated exposure control *Adjustment of mA an d/or kV according to patient size (this includes techniques or standardized protocols for targeted exams where dose is matched to indication/reason for exam; i.e. extremities or head) *Use of iterative reconstruction technique DLP: 75 mGy-cm FINDINGS: BONE CRUSHER: There is pulm onary hyperaeration suggesting COPD. LUNGS: -There is moderate t o severe centrilobular emphysema with upper lobe predominance. There is been a prior wedge resection of the medial left upper lobe, with larry gical sutures and clips seen along the left superior mediastinal wall. -There are no pulmon felicity consolidations or groundglass opacities. -There is mild bronchiectasis without bronchial wall thickening in both lower lobes. -There is mild scarr ing in the medial left upper lobe. -Previously seen 2 m m nodule in the left upper lobe centrally is no longer appreciated. -There is a 2 mm nod ule in the subpleural anterior left upper lobe (series 5, image 162 ), previously measuring 3 mm. -There are a few scattered tiny 2 mm nodules which have not significantly change d. Some appear calcified representing granulomas. -In the superior seg ment left lower lobe, there is a stable and unchanged 3 mm nodul e (series 5, image 193). -In the posterior superior left temporal lobe, there is a pleural-based opacity measuring 1. 2 x 0.4 cm, new from prior, although appearance highly suggests loca lized scarring or microatelectasis. Attention on follow-up recommended. -There is a 2 mm nod ule in the anterior superior left lower lobe (series 5, image 309 ), smaller, previously measuring 4 x 3 mm. -A previously presen t 5 mm cavitary nodule in the medial right lower lobe has resolved. -A previously presen t 4 mm nodule in the most posterior most inferior right upper lobe abu tting the major fissure has resolved and is not currently seen. -A previously presen t cystic 6 x 6 mm nodule in the right middle lobe superiorly with near completely resolved, currently measuring 2 mm (series 5, image 290). -A left upper lobe pleural-based lateral nodule measuring 5 mm (series 5, image 108), is unchanged. -There are no new or enlarging nodules. PLEURA: There is no pleural effusion. No pleural mass or thickening. MEDIASTINUM: -Multinodular thyroi d is present with a solitary left posterior lobe calcification. -Aorta is mildly prominent measuring up to 3.8 cm descending region, not meeting criteria for true aneurysm. This is ectatic. Mild to moderate aortic calcification. No dissection or aneurysm identified. -Main pulmonary dayanara ry is prominent but not enlarged. -No pathologic adeno prem is present. There are small subcentimeter lymph nodes present. -Heart size is clara l. No pericardial effusion. -Esophagus has a nor mal appearance. CORONARY ARTERY CALCIFICATION: Moderate left main and LAD calcification. Mild ostial RCA calcifications. AXILLA/CHEST WALL: N o masses or abnormal lymphadenopathy. UPPER ABDOMEN: Renal pyramids are somewhat hyperattenuating on this noncontrast exam, fi nding which can relate to hypercalcemic states or medullary nephrocalcinosis. Mild hyperplasia of the adrenal glands noted. No masses. OSSEOUS STRUCTURES: No suspicious lytic or blastic bone lesions. Minimal superior wed ging T3 and T4, likely chronic. Bones do appear osteopenic. C T/CT chest wo IV con IMPRESSION: 1. Numerous pulmonar y nodules previously seen demonstrate the majority are significantly sm aller or have resolved, and the other tiny nodules are unchanged. Findi ngs represent continued good treatment response. 2. Moderate to sever e centrilobular emphysema with upper lobe predominance. Prior wedge resection medial left upper lobe. 3. Mild bronchiectas is both lower lobes without significant bronchial wall thickening. 4. No definite parenchymal consolidation or opacity. No active disease aside from known pulmonary nodules. 5. No pathologic lymphadenopathy identified. 6. See above for additional ancillary findings. Recommend follow-up as per oncology. Dictated By: Ben Plasencia MD Signed By: <Electronically signed by Ben Plasencia MD in OV> 01/10/24 1026 DD/ 0920 TD/TT: Education Rn: Reason For Referral No Information Medications Medication SIG (Take, Route, Frequency, Duration) Notes Start Date End Date Status Meloxicam 15 MG TAKE 1 TABLET BY DONOVAN TH EVERY DAY for 30 Active Sertraline HCl 100 MG TAKE 1 TABLET BY M OUTH EVERY DAY for 90 Active Gabapentin 300 MG TAKE 1 CAPSULE BY MO UTH AT NIGHT for 30 Active Theophylline ER 400 MG 1 tablet Orally O nce a day Active Ipratropium Franklin 0.02 % 2.5 mL Inhalation every 8 hrs Active Anoro Ellipta 62.5-25 MCG/ACT inhale 1 puff into the lungs every day for 90 days Inhalation Once a day Active Stiolto Respimat 2.5-2.5 MCG/ACT 2 puffs Inhalation Once a day 02/12/2023 Active Ambien 5 MG 1 tablet at bedtime as needed Orally Once a day as needed for 30 days 02/11/2023 Active Levalbuterol Tartrate 45 MCG/ACT 1 puff as needed Inhalation every 4 hrs for 30 days Not-Taking Clobetasol Propionate 0.05 % 1 application to affected area Externally Twice a day for 10 day(s) 01/03/2018 Not-Taking Breo Ellipta 200-25 MCG/ACT 1 puff Inhalation Once a day for 30 days 01/24/2023 Not-Taking Xopenex HFA 45 MCG/ACT 1 puff as needed Inhalation every 4 hrs 06/16/2020 Active Meclizine HCl 12.5 MG 1 tablet as needed Orally twice a day for 10 days 10/24/2020 Active Vitamin D3 Super Strength 50 MCG (1999 UT) 1 capsule Orally Once a day for 30 day(s) Not-Taking Immunizations Vaccine Route Administration Date Status Comme nts DECLINED, FLU Unknown 02/03/2013 Administered Fluarix Quadrivalent IM Intramuscular 03/30/2019 Administe red pt was given the vaccine at [facility] [place] TDaP IM Intramuscular 03/30/2019 Administered pt was given the vaccine at [facility] [place] Tetanus Unknown 03/30/2019 Administered Fluarix Quadrivalent Unknown 02/19/2020 Administered CV S Covid Vaccine Unknown 10/05/2020 Administered Moderna SARS-COV-2 Moderna Unknown 11/03/2020 Administered Fluarix Quadrivalent Unknown 03/19/2021 Administered CV S SARS-COV-2 Moderna Unknown 06/06/2021 Administered [facility] Fluarix Quadrivalent Unknown 03/21/2022 Administered Fluarix Quadrivalent - 150 Unknown 02/28/2024 Administered [facility] SARS-COV-2 Moderna 2022 Unknown 02/28/2024 Administered [facility] Fluarix Quadrivalent Unknown 03/11/2015 Refused Fluarix Quadrivalent Unknown 02/27/2016 Refused Fluarix Quadrivalent Unknown 03/20/2016 Refused Fluarix Quadrivalent Unknown 07/28/2018 Refused Social History Tobacco Use: Social History Observation [...] to haley t Additional Findings: Tobacco User Cody lopez cigarette smoker, not currently using another form of tobacco Alcohol Screen Question Answer Notes Did you have a drink containing alcohol in the p ast year? No Points 0 Interpretation Negative Section Notes: patient states has not had a drink in 3 weeks patient states has not had a drink in 3weeks. since 09-06-15 No alcoholic beverages patient states has not had a drink in 3weeks. since 09-06-15 No alcoholic beverages patient states has not had a drink in 3weeks. since 09-06-15 No alcoholic beverages patient states has not had a drink in 3weeks. since 09-06-15 No alcoholic beverages Patient states has not had any alcohol in 2 years patient states has not had a drink in 3weeks. since 09-06-15 No alcoholic beverages Patient states has not had any alcohol in 3 years4 months patient states has not had a drink in 3weeks. since 09-06-15 No alcoholic beverages Patient states has not had any alcohol in 3 years4 months1-14=-21 HAS NOT HAD ADRINK IN ALMOST 4 YEARS patient states has not had a drink in 3weeks. since 09-06-15 No alcoholic beverages Patient states has not had any alcohol in 3 years4 months1-14=-21 HAS NOT HAD ADRINK IN ALMOST 4 YEARS Patient states has not had a drink in 4 years. Patient states has not had a drink in 4 years. Patient states has not had a drink in 4 years. 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) Active confirmed Problem Smoker (34592553) Smoker (F17.200) Active confi rmed Problem 76433227 Smoker unmotivated to quit (F17.210) Active confirmed Problem 52952384 Alcohol abuse (F10.10) Active confirmed Problem Age related osteoporosis (52457899) Age related osteoporosis (M81.0) Active confirmed Problem 07403567 Intrinsic eczema (L20.84) Active confirmed Problem 2970425271692 Cervical neuropathy (G54.2) Active confirmed Problem 384297365 Abnormal mammogram (R92.8) Active confirmed Problem 02177285 Internal hemorrhoids (K64.8) Active confirmed Problem 24408077 Hyperplastic polyp of ascending colon (D12.2) Active confirmed Problem Age-related osteoporosis with current pathological fracture with delayed healing, subsequent encounter (M80.00XG) Active confirmed Problem 184740406 Lung nodule < 6c m on CT (R91.1) Active confirmed Problem 940569588 Thyroid nodule greater than or equal to 1.5 cm in diameter incidentally noted on imaging study (E04.1) Active confirmed Problem 506694673 History of lung cancer (Z85.118) Active confirmed Vital Signs Blood pressure diastolic 50 mm Hg 07/30/2024 farzana ght is down 2 pounds since 01-20-24 Height 64 in 07/30/2024 weight is down 2 pounds since 01-20-24 Blood pressure systolic 94 mm Hg 07/30/2024 weig ht is down 2 pounds since 01-20-24 Weight 90 lbs 07/30/2024 weight is down 2 pounds since 01-20-24 BMI 15.45 kg/m2 07/30/2024 weight is down 2 pounds since 01-20-24 Encounters Encounter Location Date Provider Diagnosis Ric Prado MD [address] [place] [id number] 01/20/2024 Ric Prado Chronic obstructive pulmonary disease, unspecified J44.9 and Smoker unmotivated to quit F17.210 Ric Prado MD [address] [place] [address] Drive [address] [place] [id number] 07/30/2024 Ric Prado Chronic obstructive pulmonary disease, unspecified J44.9 ; History of lung cancer Z85.118 ; Palpitations R00.2 and Smoker F17.200 Ric Prado MD [address] [place] [id number] 12/09/2023 Ric Prado Cervical neuropathy G54.2 Ric Prado MD [address] [place] [id number] 04/09/2024 Ric Prado Cervical neuropathy G54.2 Assessments [...] her breathing and continues to worsen it 07/30/2024 Chronic obstructive pulmonary disease, unspecified (ICD-10 - J44.9) has severe shortness of breath from the time of the surgery. still gets episodes of severe shortness of breaht yesterday had an attack 07/30/2024 History of lung cancer (ICD-10 - Z85.118) is followed by pulmonary 12/09/2023 Cervical neuropathy (ICD-10 - G54.2) 04/09/2024 Cervical neuropathy (ICD-10 - G54.2) 07/30/2024 Palpitations (ICD-10 - R00.2) at this point doesn't want to do any testing 07/30/2024 Smoker (ICD-10 - F17.200) trying to fquit Plan Of Treatment Pending Test Test Name Order Date MRI BREAST BILATERAL 04/07/2020 ECHO 11/01/2020 NM bone scan whole body 07/19/2022 US thyroid 10/27/2020 MM tomosynthesis screening BI 03/20/2021 Next Appt Details Provider Name:Ric Lundberg ier, 01/28/2025 03:00:00 PM, [address] [place] [address], [address], [place], [place], [phone], Insurance Providers Payer Name Payer Address Payer Phone Subscriber Number Group Number Insured Name Patient Relationship to Insured Coverage Start Date Coverage End Date [facility] [address] [address] [place] [phone] [id number] Araseli Bridges Self - patient is the insured Medical (General) History Medical History History ICD Code Colonoscopy done 01/27/15 w/Shanelle Sawyer - repeat 1 year; colonoscopy 06/07/[address] Sawyer - repeat 3 years; Colonoscopy 06/24/[address] Sawyer - repeat 3 years thyroid nodule refuses evaluation 2022
--- OUTSIDE RECORDS SUMMARY | 2024-10-20 16:22 | XMS_ITS ---
Author Organization Ric Prado MD Address [address] [place] [phone] Care Team Providers Care Plan Examiner Name Role Phone Ric Prado Primary Care Provider [phone] Allergies No Known Allergies REASON FOR VISIT 6 month Medications Medication SIG (Take, Route, Frequency, Duration) Notes Start Date End Date Status Ipratropium [place] 0.02 % 2.5 mL Inhalation every 8 [...] Status W/U Status Risk Notes Problem Smoker (24096166) Smoker (F17.200) Active confirmed Vital Signs Blood pressure systolic 94 mm Hg 07/30/19 25 Blood pressure diastolic 50 mm Hg 025 Height 64 in 07/30/2024 Weight 90 lbs 07/30/2024 BMI 15.45 kg/m2 07/30/2024 weight is down 2 pounds [facility] e 01-20-24 Encounters Encounter Location Date Provider Diagnosis Ric Prado MD [address] [place] [address] [place] [phone] 07/30/2024 Ric Prado Chronic obstructive pulmonary disease, [...] Sig Start Date Stop Date Notes Ipratropium [place] 0.02 % 2.5 mL Inhala tion every [...] Up: 6 Months, Reason: Provider Name:Ric tadeor, 01/28/2025 03:00:00 PM, [address] [place] [address], [facility] [address], [place], [place], [phone], Progress Notes * Araseli BRIDGES MDOB:[birth year] (64 yo F)Acc No.[id number]:07/30/2024 Progress Notes Patient:?Araseli BRIDGES Provider:?Ric Prado MD :1960???Age:64 Y???Sex:Female D ate:07/30/2024 Address:[address] [place] [address] [facility] Subjective: * Chief Complaints: * ???6 month * HPI: ???Symptom(s):?patient is a 64 yo female here for 6 month follow up visit. * ROS:?General/Constitutional:?Denies?Chills.?Denies?Fatigue.?Denies?Fever.?Denies?Headache.?ENT:?Patient denies?decreased sense of smell, any loss of taste, sore throat.?Denies?Sore throat.?Respiratory:?Denies?Cough.?Denies?Shortness of breath at rest.?Denies?Shortness of breath with exertion.?Cardiovascular:?Patient complaining of?palpitaitons at night and during the day..?Gastrointestinal:?Denies?Diarrhea.?Denies?Nausea.?Musculoskeletal:?Patient denies?muscle aches.?Peripheral Vascular:?Patient denies?red and blue toes.? * Medical History:? * Surgical History:? * Hospitalization/Major Diagno stic Procedure:? * Medications:?TakingMeclizine HCl 12.5 MG Tablet 1 [...] 1 tablet Orally Once a day Ipratropium [place] 0.02 % Solution 2.5 mL Inhalation every [...] tablet Orally Once a day Taking Ipratropium [place] 0.02 % Solution 2.5 mL Inhalation every [...] Allergies:?N.K.D.A.yes[Aller gies Verified] Objective: * Vitals:?Ht: 64, Wt: 90, BMI: 15.45, BP:94/50, Wt-k.82. weight is down 2 pounds since 01-20-24. * Examination: ???General Examination: ?GENERAL APPEARANCE:?alert, well hydrated, in no distress.?SKIN:?good turgor.?HEART:?regular rate and rhythm, no murmurs, rubs, gallops.?LUNGS:?diminished breath sounds throughout.? Assessment: * Assessment: 1.?Chronic obstructive pulmo nary disease, unspecified - J44.9 (Primary)???2.?History of lung cancer - Z85.118???3.?Palpitations - R00.2???4.?Smoker - F17.200??? Plan: * Treatment: 2.?History of lung cancer? Notes: is followed by pulmonary?? 3.?Palpitations? Notes: at this point doesn't want to do any testing?? 4.?Smoker? Notes: trying to fquit?? * Procedure Codes:? * Follow Up:?6 Months * * Sign off status: Completed true * Provider:?Ric Prado MD Date:?0 07/30/2024 Generated for Colton gordon/Derek/Malcomitting on:?10/20/2024 04:21 PM EDT History and Physical [...]
--- OUTSIDE RECORDS SUMMARY | 2024-10-20 16:22 | XMS_ITS ---
Author Organization [facility] Address [address] [place] [address] Care Team Providers Care Cyber Incident Analyst Name Role Phone Eve DUBOSE, Ric Primary Care Provider Raymon Alegria Unavailable [phone] REASON FOR VISIT screening,hx polyps, fam hx colon ca Encounters Encounter Location Date Provider Diagnosis [facility] Outpatient [address] [place], [place] [phone] 09/28/2024 Raymon Sawyer Plan Of Treatment No Information Progress Notes * ISAIAS KING MDOB:[birth year] (64 yo F)Acc No.[id number]:09/28/2024 COLON WITH MAC Patient:?ISAIAS KING Provider:?Raymon Sawyer MD :1960???Age:64 Y???Sex:Female D ate:09/28/2024 Address:[address] [place] [address] [address] [facility] Pcp:Ric Prado MD Subjective: * Chief Complaints: * ???1. Screening,hx polyps, f am hx colon ca. * Medical History:? Objective: * Vitals:? Assessment: Plan: * Treatment: * * The named appointment provid er may or may not be the originator of this progress note, and it is not deemed complete until electronically signed by the appointment provider. Sign off status: Pending * Provider:?Raymon Sawyer MD Date:? 025 Generated for Urszulai ng/Fabrendang/eTransmitting on:?10/20/2024 04:22 PM EDT
--- OUTSIDE RECORDS SUMMARY | 2024-10-20 16:22 | XMS_ITS ---
Author Organization [facility] Address [address] [place] [address] Care Team Providers Care Production Engine Repairer Name Role Phone Ric Prado MD Primary Care Provider Raymon Alegria Unavailable [phone] REASON FOR VISIT 5/ left msg Encounters Encounter Location Date Provider Diagnosis [facility] [address] [place] [address] 10/03/2024 Raymon Sawyer Plan Of Treatment No Information Progress Notes * ISAIAS KING MDOB:[birth year] (64 yo F)Acc No.[id number]:10/03/2024 Patient:?ISAIAS KING :1960???Age:64 Y???Sex:Female Address:[address] [place] [address] * true * Date:? Generated for Printi ng/Faxing/eTransmitting on:?10/20/2024 04:22 PM EDT
== END 2024-10-20 15:18 | disposition home or self-care (01) ==
LOC: HO.MAMMO 15:17
PROVIDERS: PCP Internal Medicine; Visit Provider Internal Medicine
DX: Z12.31 Encounter for screening mammogram for malignant neoplasm of breast (principal)
CPT/HCPCS: 77063; 77067

== ENCOUNTER → 2024-10-20 15:30 | Outpatient (BNV) | payer OTHER, SELFPAY | PROVIDERS: PCP Internal Medicine; Visit Provider Internal Medicine | DX: Z12.31 Encounter for screening mammogram for malignant neoplasm of breast (principal) | CPT/HCPCS: 77063; 77067 ==

== ENCOUNTER 2024-12-18 12:54 | Outpatient (REF) | payer OTHER, SELFPAY ==
--- OUTSIDE RECORDS SUMMARY | 2024-04-09 07:31 | XMS_ITS ---
Author Organization Ric Prado MD Address [address] [place] [phone] Care Team Providers Care Ticketer Name Role Phone Ric Prado Primary Care Provider REASON FOR VISIT REFILL GABAPENTIN Medications Medication SIG (Take, Route, Fr equency, Duration) Notes Start Date End Date Status Gabapentin 300 MG 1 capsule Orally at night for 30 days 07/25/2023 Active Encounters Encounter Location Date Provider Diagnosis Ric Prado MD [address] [place] [phone] 04/09/2024 Ric Prado Cervical neuropathy G54.2 Assessments Encounter Date Diagnosis (ICD Code) Assessment Notes Treatment Notes Treatment Clinical Notes Section Notes 04/09/2024 Cervical neuropathy (ICD-10 - G54.2) Plan Of Treatment Medication Medication Name Sig Start Date Stop Date Notes Gabapentin 300 MG 1 capsule Orally at night for 30 days Next Appt Details Provider Name:Ric Lundberg ier, 01/28/2025 03:00:00 PM, [address] [facility] [address], [place], [place], [phone], Progress Notes * Araseli BRIDGES MDOB:[birth year] (64 yo F)Acc No.[id number]:04/09/2024 Patient: Regi duranAraseli :1960 A ge:64 Y S ex:Female Address:[address] [place] [address], [place], [address] * Refills Refill Gabapentin Capsule, 300 MG, Orally, 1 capsule, at night, 30 days, Refills=3 * true * Date: Generated for Colton gordon/Derek/Kacismitting on: 0 12/18/2024 12:56 PM EDT
--- NOTE | ~2024-12-18 | CT_ITS ---
CLINICAL HISTORY: R91.8 - Other nonspecific abnormal finding of lung field CT chest without contrast Comparison: CT/MI/SR - CT CHEST WITHOUT IV CONTRAST - 12/06/23 09:[address]/REG/MI/SR - CT CHEST WITHOUT IV CONTRAST - 05/17/23 12:53 EST Findings: The heart is normal size. Atherosclerosis calcification of the coronary artery. 1.2 cm nodule in the left lobe of thyroid gland. No mediastinal lymphadenopathy. Severe emphysema. Postsurgical change of the left upper lobe. Stable 3 mm pulmonary nodule of the left lower lobe series 4, image 120. Stable additional micro nodules. The upper abdomen is unremarkable. The bones are intact. IMPRESSION: Stable small pulmonary nodules. No new suspicious nodule. Additional findings as above. This document has been electronically signed by: Loren Wen MD on 12/18/2024 17:47:50
--- OUTSIDE RECORDS SUMMARY | 2024-12-18 12:56 | XMS_ITS | Clinical Summary ---
Author Organization [facility] Address [address] [place] [phone] Care Team Providers Care Topper Press Operator Automatic Name Role Phone Ric Prado MD Primary Care Provider Medical History Medical History Date Comments Lung cancer ([facility] V24, [facility] V28) DX:Lung cancer ([facility]); COMMENT: MARYELLEN Lung Cancer COPD (chronic obstructive pu lmonary disease) ([facility] V24, [facility] V28) DX:COPD (chronic o bstructive pulmonary disease) ([facility]) Pulmonary nodules DX:Pulmonary n odules Family History Medical History Relation Name Comments COPD Brother Relation Name Status Comments Brother Social History Tobacco Use Types Packs/Day Years Used Date Smoking Tobacco: Every Day Cigarettes 0.5 51.5 Started: 06/03/1973 Smokeless Tobacco: Never Alcohol Use [...] ars (1 of 2 - PCV) 1979 Zoster Vaccines (1 of 2) 1979 Cervical Cancer Screening: P ap Smear 1981 RSV Immunization Adult Patie nts (1 - Risk 60-74 years 1-dose series) 2020 Colorectal Cancer Screening: Colonoscopy 05/05/2022 Depression Screening 05/05/2022 HIV Screening 05/05/2022 Hepatitis C Screening 05/05/2022 Social Influencers of Health Screening 05/05/2022 Influenza Vaccine (#1) 2025 HIB Vaccines Aged Out No longer [...] Documents on File Type Date Recorded Patient Stockroom Attendant Expl anation Health Care Decision (hx) 02/17/2021 AD SHIRLEY DIRECTIVE Health Care Decision (hx) 02/17/2021 AD SHIRLEY DIRECTIVE Health Care Decision (hx) 02/17/2021 AD SHIRLEY DIRECTIVE Health Care Decision (hx) 02/17/2021 AD SHIRLEY DIRECTIVE Care Teams Topper Press Operator Automatic Relationship Specialty Start Date End Date Ric Prado MD PCP - General Internal Medicine 08/25/21
--- OUTSIDE RECORDS SUMMARY | 2024-12-18 12:56 | XMS_ITS | Patient Health Record ---
Author Organization [facility] Address [address] [place] [address] Care Team Providers Care Scoop Operator Name Role Phone Ric Prado MD Primary Care Provider Raymon Alegria Unavailable [phone] Allergies Allergen (clinical drug ingredient) Drug/Non Drug Allergy documented on EMR Reaction Allergy Type Onset Date Status seasonal (uncoded) Unknown Allergy A ctive Reason For Referral No Information Medications Medication SIG (Take, Route, Frequency, Duration) Notes Start Date End Date Status Ipratropium [place] 0.02 % 2.5 ML INHALE D EVERY [...] Problem Status W/U Status Risk Notes Problem [id number] Encounter for screening for malignant neoplasm of colon (Z12.11) Active confirmed Problem 945902601 History of adenomatous polyp of colon (Z86.010) Active confirmed Problem Imaging of abdomen abnormal (200044324) Abnormal findings on diagnostic imaging of other abdominal regions, including retroperitoneum (R93.5) Active confirmed Problem Screening for malignant neoplasm of rectum (390757799) Encounter for screening for malignant neoplasm of rectum (Z12.12) Active confirmed Problem 887219544 Family history o f colon cancer (Z80.0) Active confirmed Problem 98833818 Constipation, unspecified constipation type (K59.00) Active confirmed Problem Personal history of adenomatous and serrated colon polyps (Z86.0101) Active confirmed Vital Signs Temperature 97.1 degrees Fahrenheit 06/10/2024 Blood pressure diastolic 00 mm Hg 06/10/2024 Height 64.5 in 06/10/2024 Blood pressure systolic 000 mm Hg 06/10/2024 Weight 90 lb 8 oz lbs 06/10/2024 BMI 15.29 kg/m2 06/10/2024 Encounters Encounter Location Date Provider Diagnosis [facility] [address] [place] [address] 06/10/2024 Raymon Sawyer Constipation, unspecified constipation type K59.00 ; History of adenomatous polyp of colon Z86.010 ; Family history of colon cancer Z80.0 and Encounter for screening for malignant neoplasm of colon Z12.11 [facility] [address] [place] [address] 02/04/2024 Raymon Sawyer [facility] [address] [place] [address] 06/10/2024 Raymon Sawyer [facility] [address] [place] [phone] 10/03/2024 Raymon Sawyer [facility] [address] [place] [address] 10/05/2024 Raymon Sawyer Assessments Encounter Date Diagnosis [...] Insured Coverage Start Date Coverage End Date [facility] [address] [address] [place], [place] [id number] [phone] [id number] ISAIAS KING Self - patient is the insured MEDICAID OF [facility] [address] [place] [phone] [id number] ISAIAS KING Self - patient is the insured Medical (General) History Medical History History ICD Code EGD in 2001--small HH-no gastritis, no e sophagitis Tubular adenomas of the colon removed in 2002 and 2004 Colonoscopy 07-25-2009--no polyps, wireless internet installer al hemorrhoids Denies AR,DM,CV,renal disease Distant history of pancreatitis in relat ion to previous alcohol use Colonoscopy in 01/2015--1.5 c m flat tubular adenoma removed from the ascending colon Depression Osteoporosis Colonoscopy in 06/2016 with a hyperplasti c polyp removed COPD--Dr. Sandoval at [facility] Colonoscopy in 06/2020 with several tubul ar adenomas Left lung cancer approx 2021-Dr. Dutton Surgical History Surgery Date(Month/Year) Endometriosis and removal of one ovary Lung cancer-removed part of left lung
== END 2024-12-18 12:55 | disposition home or self-care (01) ==
LOC: HO.CT 12:54
PROVIDERS: PCP Internal Medicine; Visit Provider Internal Medicine Pulmonary Disease
DX: R91.8 Other nonspecific abnormal finding of lung field (principal)
CPT/HCPCS: 71250

== ENCOUNTER → 2024-12-18 12:55 | Outpatient (BNV) | payer OTHER, SELFPAY | PROVIDERS: PCP Internal Medicine; Visit Provider Nuclear Medicine | DX: R91.8 Other nonspecific abnormal finding of lung field (principal) | CPT/HCPCS: 71250 ==

== ENCOUNTER 2024-12-22 14:12 | Outpatient (AMB) | payer OTHER, SELFPAY ==
--- OUTSIDE RECORDS SUMMARY | 2024-04-09 07:31 | XMS_ITS ---
Author Organization Ric Prado MD Address [address] [place] [phone] Care Team Providers Care Brand Activation Manager Name Role Phone Ric Prado Primary Care Provider [phone] REASON FOR VISIT REFILL GABAPENTIN Medications Medication SIG (Take, Route, Fr equency, Duration) Notes Start Date End Date Status Gabapentin 300 MG 1 capsule Orally at night for 30 days 07/25/2023 Active Encounters Encounter Location Date Provider Diagnosis Ric Prado MD [address] [place] [phone] 04/09/2024 Ric Prado Cervical neuropathy G54.2 Assessments Encounter Date Diagnosis (ICD Code) Assessment Notes Treatment Notes Treatment Clinical Notes Section Notes 04/09/2024 Cervical neuropathy (ICD-10 - G54.2) Plan Of Treatment Medication Medication Name Sig Start Date Stop Date Notes Gabapentin 300 MG 1 capsule Orally at night for 30 days Next Appt Details Provider Name:Ric Lundberg ier, 02/04/2025 03:00:00 PM, [address], [address], [place], [place], [phone], Progress Notes * Araseli BRIDGES MDOB:[birth year] (64 yo F)Acc No.[id number]:04/09/2024 Patient: Regi duranAraseli :1960 A ge:64 Y S ex:Female Address:[address] [place] [address], [place], [address] * Refills Refill Gabapentin Capsule, 300 MG, Orally, 1 capsule, at night, 30 days, Refills=3 * true * Date: Generated for Colton gordon/Derek/Malcomitting on: 0 12/22/2024 03:29 PM EDT
[2024-12-22 14:15] VITALS: BP 109/60; PULSE 106; O2SAT 94; BMI 14.4
--- NOTE | 2024-12-22 14:15 | A.OFFVIS_ITS ---
Vital Signs 12/22/24 14:15 Height 5 ft 4 in Weight 84 lb BMI 14.4 BP 109/60 Blood Pressure Location Lt brachial Position Sitting Pulse 106 H Pulse Source Pulse Oximeter Pulse Oximetry (%) 94 Oxygen Delivery Method Room Air Intake Visit Reasons: copd Allergies No Known Allergies Allergy (Verified 12/22/24 14:22) HPI HPI copd: Details: 64-year-old lady, active 50+ pack-year smoker, followed for underlying severe COPD.? 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 Dutton.? She also was evaluated by Oncology and did not require any adjuvant therapy.? Patient had follow-up CT scan that showed stable pulmonary nodules. She also continues to use Anoro, Brovana, theophylline, ipratropium, and Xopenex with good control of her underlying symptoms. She continues to unintentional lose weight.. [facility] Medical History (Updated 12/22/24 @ 14:34 by Rajendra Sandoval MD) Lung cancer Depression Pancreatitis Vitamin D deficiency Hyperparathyroidism Personal history of nicotine dependence Tubular adenoma of colon (~2002) Subclinical hyperthyroidism Multinodular goiter Low TSH level Osteoporosis Anxiety and depression COPD (chronic obstructive pulmonary disease) Surgical History Status post biopsy of thyroid gland (~08/2021) History of left oophorectomy History of lung surgery (~02/2021) History of colonoscopy (~06/2020) History of esophagogastroduodenoscopy (EGD) Family History Mother Hx of cardiac pacemaker Father Colon cancer Brother Testicular cancer COPD (chronic obstructive pulmonary disease) Maternal Aunt Breast cancer Social History Household Members: Other Household Members Other:: Housemate Housing: House Are you a primary animal care service worker to a significant other at home: No Do you presently have visiting nurse or other home services: No Alcohol intake: former Patient Tobacco Use Status: Current everyday Tobacco user Tobacco use type: Cigarette Cigarette Packs Per Day: 0.5 Cigarettes Per Day: 14 Years Smoked: 50yrs Second Hand Smoke Exposure: Yes service: No Current occupational status: employed Review of Systems Const Denies daytime sleepiness, Denies excessive sweating, Denies fatigue, Denies fever(s), Denies lethargy, Denies malaise, Denies night sweats, Denies snoring and Reports weight loss Eyes Denies blurry vision and Denies itchy eyes ENT Denies nasal congestion, Denies post nasal drip, Denies sinus pain, Denies sinus pressure and Denies other ( Thrush) Card Denies chest pain, Denies pedal edema, Denies dyspnea, Reports orthopnea and Denies paroxysmal nocturnal dyspnea Resp Denies cough, Denies hemoptysis, Denies excessive phlegm production, Denies dyspnea, Denies snoring and Denies wheezing GI Denies abdominal pain and Denies heartburn Musc Denies myalgias, Denies arthralgias and Denies joint swelling Skin/Breast Denies rash Neuro Denies memory loss and Denies seizure-like activity Psych Denies abnormal sleep pattern, Denies anxiety and Denies memory loss Endo Denies excessive sweating, Denies fatigue and Denies heat intolerance Christopher/Lymph Denies easy bruising Aller/Immun Denies itchy eyes, Denies seasonal rhinorrhea and Denies wheezing Physical Exam Vital Signs: Last Vital Signs Pulse 106 H 12/22/24 14:15 BP 109/60 12/22/24 14:15 Pulse Ox 94 12/22/24 14:15 Oxygen Delivery Method Room Air 12/22/24 14:15 BMI result Body Mass Index 14.4 Const General: no acute distress and alert Nutritional Appearance: not obese Orientation/consciousness: Other orientation findings ( oriented) HEENT Head: Yes atraumatic Eyes General: appearance normal, both eyes and all related structures Sclerae: sclerae normal EOM: EOMs intact bilaterally Neck Neck: Yes supple Lymphatic: no lymphadenopathy noted Resp Effort & Inspection: normal respiratory effort and no use of accessory muscles Auscultation: clear to auscultation bilaterally Cardio Rate: regular rate Rhythm: regular rhythm Heart sounds: no gallops, no murmurs and no rubs Skin General skin exam: other ( warm) Extrem General: No clubbing, No cyanosis and No edema Assessment & Plan Assessment & Plan (1) COPD (chronic obstructive pulmonary disease): Code(s): J44.9 - Chronic obstructive pulmonary disease, unspecified Category: Medical Plan: Reasonable control on essentially maximum therapy with Anoro, theophylline, Brovana, and Xopenex. Continue current regimen. (2) Multiple pulmonary nodules: Code(s): R91.8 - Other nonspecific abnormal finding of lung field Category: Medical Plan: Results of follow-up CT chest from December of 2024 reviewed, stable pulmonary nodules, will repeat CT chest in 12 months. (3) Orthopnea: Code(s): R06.01 - Orthopnea Category: Medical Plan: Now with worsening orthopnea, will obtain 2D echocardiogram. Orders: Orders CA echo transthoracic complete Today R06.01 - Orthopnea Coding Level of Care Code Est Pt Level 4 (44286) Complex EM visit Add On G2211 Diagnoses COPD (chronic obstructive pulmonary disease) J44.9 Multiple pulmonary nodules R91.8 Orthopnea R06.01
--- OUTSIDE RECORDS SUMMARY | 2024-12-22 15:29 | XMS_ITS | Clinical Summary ---
Author Organization [facility] Address [address] [place] [address] Care Team Providers Care Sericulture Teacher Name Role Phone Ric Prado MD Primary Care Provider Medical History Medical History Date Comments Lung cancer ([facility] V24, [facility] V28) DX:Lung cancer ([facility]); COMMENT: MARYELLEN Lung Cancer COPD (chronic obstructive pu lmonary disease) ([facility] V24, [facility] V28) DX:COPD (chronic o bstructive pulmonary disease) ([facility]) Pulmonary nodules DX:Pulmonary n odules Family History Medical History Relation Name Comments COPD Brother Relation Name Status Comments Brother Social History Tobacco Use Types Packs/Day Years Used Date Smoking Tobacco: Every Day Cigarettes 0.5 51.6 Started: 06/03/1973 Smokeless Tobacco: Never Alcohol Use [...] series) 2020 Colorectal Cancer Screening: Colonoscopy 05/05/2022 HIV Screening 05/05/2022 Hepatitis C Screening 05/05/2022 Social Influencers of Health Screening 05/05/2022 Depression Screening 06/03/2024 Influenza Vaccine (#1) 2025 HIB Vaccines Aged [...] Documents on File Type Date Recorded Patient Grocery Store Associate Expl anation Health Care Decision (hx) 02/17/2021 AD SHIRLEY DIRECTIVE Health Care Decision (hx) 02/17/2021 AD SHIRLEY DIRECTIVE Health Care Decision (hx) 02/17/2021 AD SHIRLEY DIRECTIVE Health Care Decision (hx) 02/17/2021 AD SHIRLEY DIRECTIVE Care Teams Sericulture Teacher Relationship Specialty Start Date End Date Ric Prado MD PCP - General Internal Medicine 08/25/21
== END 2024-12-22 14:34 | disposition home or self-care (01) ==
LOC: HO.HPS 14:13
PROVIDERS: PCP Internal Medicine; Visit Provider Internal Medicine Pulmonary Disease
DX: J44.9 Chronic obstructive pulmonary disease, unspecified (principal); R91.8 Other nonspecific abnormal finding of lung field; R06.01 Orthopnea
CPT/HCPCS: 99214; G2211

== ENCOUNTER → 2024-12-22 14:12 | Outpatient (BNVA) | payer OTHER, SELFPAY | PROVIDERS: PCP Internal Medicine; Visit Provider Internal Medicine Pulmonary Disease | DX: R06.01 Orthopnea (principal); J44.9 Chronic obstructive pulmonary disease, unspecified; R91.8 Other nonspecific abnormal finding of lung field | CPT/HCPCS: 99212 ==

== ENCOUNTER → 2025-01-07 07:56 | Outpatient (REF) | payer OTHER, SELFPAY ==
--- OUTSIDE RECORDS SUMMARY | 2025-01-01 07:16 | XMS_ITS ---
Author Organization Ric Prado MD Address [address] [place] [phone] Care Team Providers Care Sanitation Lead Name Role Phone Ric Prado Primary Care Provider REASON FOR VISIT tooth infection Medications Medication SIG (Take, Route, Fr equency, Duration) Notes Start Date End Date Status Amoxicillin 500 MG 1 capsule Orally sulema ry 8 hrs for 5 days 01/01/2025 Active Encounters Encounter Location Date Provider Diagnosis Ric Prado MD [address] [place] [phone] 01/01/2025 Ric Prado Plan Of Treatment Medication Medication Name Sig Start Date Stop Date Notes Amoxicillin 500 MG 1 capsule Orally every 8 hrs for 5 days 01/01/2025 Next Appt Details Provider Name:Ric Lundberg ier, 02/04/2025 03:00:00 PM, [address] [place] [address], [address], [place], [place], [phone], Progress Notes * Araseli BRIDGES MDOB:[birth year] (64 yo F)Acc No.[id number]:01/01/2025 Patient: Karthik COLLIERleen Amaya :1960 A ge:64 Y S ex:Female Address:[address] [place] [address] [place], [address] * Refills Start Amoxicillin Capsule, 500 MG, Orally, 15, 1 capsule, every 8 hrs, 5 days * true * Date: Generated for Colton gordon/Derek/Kacismitting on: 0 01/07/2025 08:01 AM EDT
--- NOTE | 2025-01-07 07:59 | CA_ITS ---
Transthoracic Echocardiogram Patient (Last, First, Middle): Araseli Bridges M Gender: Female Date of : 1960 Age: 64 Procedure Date: 01/07/2025 Procedure Type: Transthoracic Echocardiogram Location: OP Height: 162.56 cm Weight: 38.1 kg BSA: 1.35 m2 Heart Rate: bpm BP: 102 / 60 mmHg Top Executive: TO/RC Referring MD: Rajendra Sandoval MD Symptoms: R06.01 - Orthopnea Study Quality: Fair ECG Rhythm: Sinus Conclusions: - The left ventricular systolic function is normal. The calculated ejection fraction is 57% by biplane method. - No obvious valvular pathology seen on this study. - There is no evidence of pulmonary hypertension. - There is mild dilatation of the ascending aorta measuring 3.90 cm. Findings Left Ventricle Normal left ventricular cavity size. There is normal left ventricular wall thickness. The left ventricular systolic function is normal. The calculated ejection fraction is 57% by biplane method. There is no evidence of regional wall motion abnormalities. Diastolic function is normal for age. Right Ventricle Normal right ventricular cavity size and systolic function. Atria Both atria are normal in size. Aortic Valve There is mild calcification of the aortic valve. There is no aortic valve stenosis. There is no aortic valve regurgitation. Mitral Valve The mitral valve appears normal. There is no mitral valve regurgitation. There is no mitral valve stenosis. Pulmonic Valve The pulmonic valve is likely normal. Tricuspid Valve There is trace tricuspid valve regurgitation. There is no evidence of pulmonary hypertension. Great Vessels There is mild dilatation of the ascending aorta measuring 3.90 cm. Small plaque is seen in the sino tubular ridge. Venous The inferior vena cava is normal in size and collapses greater than 50% with inspiration. Pericardium/Pleural There is no evidence of pericardial effusion. Prior Study Comparison Changes noted compared to prior study dated: 05/04/2022. Ascending aorta dimensions slightly higher. Recommendations, Care & Conclusions No obvious valvular pathology seen on this study. Measurements 2D Linear Measurements IVSd: 0.73 0.6-0.9/0.6-1.0 cm LVIDd: 3.12 3.9-5.3/4.2-5.9 cm LVIDd Index: 2.31 2.4-3.2/2.2-3.1 cm/m2 LVIDs: 2.29 2.0-3.6 cm LVPWd: 0.58 0.7-1.1 cm LA Diam: 2.50 2.7-3.8/3.0-4.0 cm LAIDs Index: 1.85 1.5-2.3 cm/m2 LV Mass: 58.58 67-162/88-224 g LV Mass Index: 43.40 43-95/49-115 g/m2 LVOT Diam: 2.00 3.0+(-)1.3 cm 2D Systolic Function EF 4C: 56.10 >55% EF 2C: 54.40 >55% EF BiP: 56.60 >55% Mitral Valve MV Pk E: 0.87 MV PK A: 0.78 MV Decel Time: 144.00 E/A: 1.10 E'Lateral: 9.57 E'Medial: 5.66 E/E' Med: 15.40 E/E' Lat: 9.10 PHT: 42.00 MVA PHT: 5.24 Decel Luna: 6.02 Aortic Valve AoV Pk Gilberto: 1.12 AoV Mn Gilberto: 0.80 AoV VTI: 0.24 AoV Pk Grad: 5.00 Aov Mn Grad: 3.00 AMANDA Cont.VTI: 2.30 LVOT LVOT Pk Gilberto: 0.88 LVOT Mn Gilberto: 0.64 LVOT VTI: 0.17 LVOT Pk Grad: 3.00 LVOT Mn Grad: 2.00 LVOT Diam: 2.00 LVOT Area: 3.14 Diastolic Function MV Pk E: 0.87 MV Pk A: 0.78 E/A: 1.10 E'Medial: 5.66 E/E' Med: 15.40 E' Laterial: 9.57 E/E' Lat: 9.10 Right Ventricle TAPSE (mm): 18.60 TVS' Gilberto: 9.68 Tricuspid Valve RA Press: 3.00 Great Vessels Aorta Sinus of Valsalva: 3.70 2.0-3.5 cm Ao Asc: 3.90 2.1-3.4 cm Pulmonary Valve PV Pk Gilberto: 0.69 Peak PV Grad: 2.00 Updated in Other Vendor System with Status of Final Juan Gant MD electronically signed on 01/09/2025 11:16:27 AM with status of Final
--- OUTSIDE RECORDS SUMMARY | 2025-01-07 08:01 | XMS_ITS | Patient Health Record ---
Author Organization [facility] Address [address] [place] [address] Care Team Providers Care Director Of Safety And Security Name Role Phone Ric Prado MD Primary Care Provider Raymon Alegria Unavailable [phone] Allergies Allergen (clinical drug ingredient) Drug/Non Drug Allergy documented on EMR Reaction Allergy Type Onset Date Status seasonal (uncoded) Unknown Allergy A ctive Reason For Referral No Information Medications Medication SIG (Take, Route, Frequency, Duration) Notes Start Date End Date Status Ipratropium [place] 0.02 % 2.5 ML INHALE D EVERY [...] Problem Status W/U Status Risk Notes Problem [id number] Encounter for screening for malignant neoplasm of colon (Z12.11) Active confirmed Problem 683564772 History of adenomatous polyp of colon (Z86.010) Active confirmed Problem Imaging of abdomen abnormal (890530575) Abnormal findings on diagnostic imaging of other abdominal regions, including retroperitoneum (R93.5) Active confirmed Problem Screening for malignant neoplasm of rectum (790289232) Encounter for screening for malignant neoplasm of rectum (Z12.12) Active confirmed Problem 247854779 Family history o f colon cancer (Z80.0) Active confirmed Problem 96948149 Constipation, unspecified constipation type (K59.00) Active confirmed Problem Personal history of adenomatous and serrated colon polyps (Z86.0101) Active confirmed Vital Signs Temperature 97.1 degrees Fahrenheit 06/10/2024 Blood pressure diastolic 00 mm Hg 06/10/2024 Height 64.5 in 06/10/2024 Blood pressure systolic 000 mm Hg 06/10/2024 Weight 90 lb 8 oz lbs 06/10/2024 BMI 15.29 kg/m2 06/10/2024 Encounters Encounter Location Date Provider Diagnosis [facility] [address] [place] [address] 06/10/2024 Raymon Sawyer Constipation, unspecified constipation type K59.00 ; History of adenomatous polyp of colon Z86.010 ; Family history of colon cancer Z80.0 and Encounter for screening for malignant neoplasm of colon Z12.11 [facility] [address] [place] [address] 02/04/2024 Raymon Sawyer [facility] [address] [place] [address] 06/10/2024 Raymon Sawyer [facility] [address] [place] [address] 10/03/2024 Raymon Sawyer [facility] [address] [place] [address] 10/05/2024 Raymon Sawyer Assessments Encounter Date Diagnosis [...] Insured Coverage Start Date Coverage End Date [facility] [address] [address] [place], [place] [id number] [phone] [id number] ISAIAS KING Self - patient is the insured MEDICAID OF [facility] [address] [place] [phone] [id number] ISAIAS KING Self - patient is the insured Medical (General) History Medical History History ICD Code EGD in 2001--small HH-no gastritis, no e sophagitis Tubular adenomas of the colon removed in 2002 and 2004 Colonoscopy 07-25-2009--no polyps, 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 Sandoval at [facility] [place] Colonoscopy in 06/2020 with several tubul ar adenomas Left lung cancer approx 2021-Dr. Dutton Surgical History Surgery Date(Month/Year) Endometriosis and removal of one ovary Lung cancer-removed part of left lung
--- OUTSIDE RECORDS SUMMARY | 2025-01-07 08:01 | XMS_ITS | Clinical Summary ---
Author Organization [facility] Address [address] [place] [address] Care Team Providers Care Dust Control Engineer Name Role Phone Ric Prado MD Primary Care Provider Medical History Medical History Date Comments Lung cancer ([facility] V24, [facility] V28) DX:Lung cancer ([facility]); COMMENT: MARYELLEN Lung Cancer COPD (chronic obstructive pu lmonary disease) ([facility] V24, [facility] V28) DX:COPD (chronic o bstructive pulmonary disease) ([facility]) Pulmonary nodules DX:Pulmonary n odules Family History [...] Documents on File Type Date Recorded 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
== END ==
LOC: HO.CARD 07:56
PROVIDERS: PCP Internal Medicine; Visit Provider Internal Medicine Pulmonary Disease
DX: R06.01 Orthopnea (principal)
CPT/HCPCS: 93306

== ENCOUNTER → 2025-01-07 07:59 | Outpatient (BNV) | payer OTHER, SELFPAY | PROVIDERS: PCP Internal Medicine; Visit Provider Internal Medicine | DX: R06.01 Orthopnea (principal) | CPT/HCPCS: 93306 ==

== ENCOUNTER 2025-02-27 00:19 | Inpatient (IN) | payer MEDICARE, MEDICAID, SELFPAY ==
--- OUTSIDE RECORDS SUMMARY | 2023-12-09 07:26 | XMS_ITS ---
Author Organization Ric Prado MD Address [address] [place] [phone] Care Team Providers Care Correctional Program Specialist Name Role Phone Ric Prado Primary Care Provider REASON FOR VISIT refill Medications Medication SIG (Take, Route, Fr equency, Duration) Notes Start Date End Date Status Gabapentin 300 MG 1 capsule Orally at night for 30 days 07/25/2023 Active Encounters Encounter Location Date Provider Diagnosis Ric Prado MD [address] [place] [phone] 12/09/2023 Ric Prado Cervical neuropathy G54.2 Assessments Encounter Date Diagnosis (ICD Code) Assessment Notes Treatment Notes Treatment Clinical Notes Section Notes 12/09/2023 Cervical neuropathy (ICD-10 - G54.2) Plan Of Treatment Medication Medication Name Sig Start Date Stop Date Notes Gabapentin 300 MG 1 capsule Orally at night for 30 days Next Appt Details Provider Name:Ric Lundberg ier, 03/04/2025 03:00:00 PM, [address], [address], [place], [place], [phone], Progress Notes * Araseli BRIDGES MDOB:[birth year] (63 yo F)Acc No.[id number]:12/09/2023 Patient: Regi duranAraseli :1960 A ge:63 Y S ex:Female Address:[address] [place] [address] [place], [id number] * Refills Refill Gabapentin Capsule, 300 MG, Orally, 30, 1 capsule, at night, 30 days, Refills=3 * true * Date: Generated for Colton gordon/Derek/Kacismitting on: 0 02/27/2025 01:23 AM EDT
--- OUTSIDE RECORDS SUMMARY | 2024-01-20 10:00 | XMS_ITS ---
Author Organization Ric Prado MD Address [address] [place], [place] [phone] Care Team Providers Care Private Branch Exchange Installer Name Role Phone Ric Prado Primary Care Provider [phone] Allergies No Known Allergies REASON FOR VISIT [...] needed for 30 days 02/11/2023 Active Ipratropium [place] 0.02 % 2.5 mL Inhalation every 8 [...] Location Date Provider Diagnosis Ric Prado MD [address] [place] [address] [address] [place], [place] [phone] 01/20/2024 Ric Prado Chronic obstructive pulmonary disease, [...] Follow Up: 6 Months, Reason: Provider Name:Ric tadeor, 03/04/2025 03:00:00 PM, [address] [place] [address], [address], [phone], Progress Notes * Araseli BRIDGES MDOB:[birth year] (63 yo F)Acc No.[id number]:01/20/2024 Progress Notes Patient: Araseli Miramontes Provider: Shalom Prado MD :1960 A ge:63 Y S ex:Female Date:01/20/2024 Address:[address] [place], [place] [phone] Subjective: * Chief Complaints: * 6 MO [...] Hour 1 tablet Orally Once a dayIpratropium [place] 0.02 % Solution 2.5 mL Inhalation every [...] 1 tablet Orally Once a dayTaking Ipratropium [place] 0.02 % Solution 2.5 mL Inhalation every [...] 0 01/20/2024 Generated for Colton gordon/Derek/Otisransmitting on: 0 02/27/2025 01:22 AM EDT History and Physical Notes * HPI [...]
--- OUTSIDE RECORDS SUMMARY | 2024-02-04 10:00 | XMS_ITS ---
Author Organization [facility] Address [address] [place] [address] Care Team Providers Care Office Services Manager Name Role Phone Ric Prado MD Primary Care Provider Raymon Alegria Unavailable [phone] REASON FOR VISIT Patient presents today for a colon screening Encounters Encounter Location Date Provider Diagnosis [facility] [address] [place] [phone] 02/04/2024 Raymon Sawyer Plan Of Treatment No Information Progress Notes * ISAIAS KING MDOB:[birth year] (64 yo F)Acc No.[id number]:02/04/2024 Progress Notes Patient: ISAIAS COLLIER Provider: Santos Sawyer MD :1960 A ge:63 Y S ex:Female Date:02/04/2024 Address:[address] [facility] [id number] Pcp:Ric Prado MD Subjective: * Chief Complaints: [...] Pending * Provider: Santos Sawyer MD Date: 02/04/2024 Generated for Colton gordon/Derek/eTransmitting on: 02/27/2025 01:23 AM EDT
--- OUTSIDE RECORDS SUMMARY | 2024-04-09 07:31 | XMS_ITS ---
Author Organization Ric Prado MD Address [address] [place] [phone] Care Team Providers Care Field Director Name Role Phone Ric Prado Primary Care Provider REASON FOR VISIT REFILL GABAPENTIN Medications Medication SIG (Take, Route, Fr equency, Duration) Notes Start Date End Date Status Gabapentin 300 MG 1 capsule Orally at night for 30 days 07/25/2023 Active Encounters Encounter Location Date Provider Diagnosis Ric Prado MD [address] [place] [phone] 04/09/2024 Ric Prado Cervical neuropathy G54.2 Assessments Encounter Date Diagnosis (ICD Code) Assessment Notes Treatment Notes Treatment Clinical Notes Section Notes 04/09/2024 Cervical neuropathy (ICD-10 - G54.2) Plan Of Treatment Medication Medication Name Sig Start Date Stop Date Notes Gabapentin 300 MG 1 capsule Orally at night for 30 days Next Appt Details Provider Name:Ric Lundberg ier, 03/04/2025 03:00:00 PM, [address] [facility], [address], [place], [place], [phone], Progress Notes * Araseli BRIDGES MDOB:[birth year] (64 yo F)Acc No.[id number]:04/09/2024 Patient: Regi duranAraseli :1960 A ge:64 Y S ex:Female Address:[address] [place] [address], [place], [address] * Refills Refill Gabapentin Capsule, 300 MG, Orally, 1 capsule, at night, 30 days, Refills=3 * true * Date: Generated for Colton gordon/Derek/Malcomitting on: 0 02/27/2025 01:22 AM EDT
--- OUTSIDE RECORDS SUMMARY | 2024-07-30 10:15 | XMS_ITS ---
Author Organization Ric Prado MD Address [address] [place] [phone] Care Team Providers Care Child Welfare Specialist Name Role Phone Ric Prado Primary Care Provider [phone] Allergies No Known Allergies REASON FOR VISIT 6 month Medications Medication SIG (Take, Route, Frequency, Duration) Notes Start Date End Date Status Ipratropium [place] 0.02 % 2.5 mL Inhalation every 8 hrs Active Stiolto Respimat 2.5-2.5 MCG/ACT 2 puffs Inhalation Once a day 02/12/2023 Active Ambien 5 MG 1 tablet at bedtime as needed Orally Once a day as needed for 30 days 02/11/2023 Active Xopenex HFA 45 MCG/ACT 1 puff as needed Inhalation every 4 hrs 06/16/2020 Active Meclizine HCl 12.5 MG 1 tablet as needed Orally twice a day for 10 days 10/24/2020 Active Theophylline ER 400 MG 1 tablet Orally O nce a day Active Anoro Ellipta 62.5-25 MCG/ACT inhale 1 puff into the lungs every day for 90 days Inhalation Once a day Active Levalbuterol Tartrate 45 MCG/ACT 1 puff as needed Inhalation every 4 hrs for 30 days Not-Taking Clobetasol Propionate 0.05 % 1 application to affected area Externally Twice a day for 10 day(s) 01/03/2018 Not-Taking Vitamin D3 Super Strength 50 MCG (1999) 1 capsule Orally Once a day for 30 day(s) Not-Taking Meloxicam 15 MG TAKE 1 TABLET BY DONOVAN TH EVERY DAY for 30 Active Gabapentin 300 MG TAKE 1 CAPSULE BY H AT NIGHT for 30 Active Sertraline HCl 100 MG TAKE 1 TABLET BY OUTH EVERY DAY for 90 Active Breo Ellipta 200-25 MCG/ACT 1 puff Inhalation Once a day for 30 days 01/24/2023 Not-Taking Problems Problem Type SNOMED Code ICD Code Onset Dates Problem Status W/U Status Risk Notes Problem Smoker (84719076) Smoker (F17.200) Active confirmed Vital Signs Blood pressure systolic 94 mm Hg 07/30/19 25 Blood pressure diastolic 50 mm Hg 025 Height 64 in 07/30/2024 Weight 90 lbs 07/30/2024 BMI 15.45 kg/m2 07/30/2024 weight is down 2 pounds [facility] 01-20-24 Encounters Encounter Location Date Provider Diagnosis Ric Prado MD [address] [place] [address] [place] [phone] 07/30/2024 Ric Prado Chronic obstructive pulmonary disease, unspecified J44.9 ; History of lung cancer Z85.118 ; Palpitations R00.2 and Smoker F17.200 Assessments Encounter Date Diagnosis (ICD Code) Assessment Notes Treatment Notes Treatment Clinical Notes Section Notes 07/30/2024 Chronic obstructive pulmonary disease, unspecified (ICD-10 - J44.9) has severe shortness of breath from the time of the surgery. still gets episodes of severe shortness of breaht yesterday had an attack 07/30/2024 History of lung cancer (ICD-10 - Z85.118) is followed by pulmonary 07/30/2024 Palpitations (ICD-10 - R00.2) at this point doesn't want to do any testing 07/30/2024 Smoker (ICD-10 - F17.200) trying to fquit Plan Of Treatment Medication Medication Name Sig Start Date Stop Date Notes Ipratropium [place] 0.02 % 2.5 mL Inhala tion every 8 hrs Stiolto Respimat 2.5-2.5 MCG/ACT 2 puffs Inhalation Once a day 02/12/2023 Xopenex HFA 45 MCG/ACT 1 puff as needed Inhalation every 4 hrs 06/16/2020 Theophylline ER 400 MG 1 tablet Orally Once a day Anoro Ellipta 62.5-25 MCG/ACT inhale 1 p uff into the lungs every day for 90 days Inhalation Once a day Treatment Notes Assessment Notes Chronic obstructive pulmonar y disease, unspecified has severe shortness of breath from the time of the surgery. still gets episodes of severe shortness of breaht yesterday had an attack History of lung cancer is followed by pu lmonary Palpitations at this point doesn' t want to do any testing Smoker trying to fquit Next Appt Details Follow Up: 6 Months, Reason: Provider Name:Ric Lundberg ier, 03/04/2025 03:00:00 PM, [address] [place] [address], [facility] [address], [place], [phone], Progress Notes * Araseli BRIDGES MDOB:[birth year] (64 yo F)Acc No.[id number]:07/30/2024 Progress Notes Patient: Regi MAY Araseli Amaya Provider: Shalom Prado MD :1960 A ge:64 Y S ex:Female Date:07/30/2024 Address:[address] [place], [place] [phone] Subjective: * Chief Complaints: * 6 month * HPI: S ymptom(s): patient is a 64 yo female here for 6 month follow up visit. * ROS: G eneral/Constitutional: Denies C hills. D enies F atigue. D enies F ever. D enies H eadache. E NT: Patient denies d ecreased sense of smell, any loss of taste, sore throat. D enies S ore throat. R espiratory: Denies C ough. D enies S hortness of breath at rest. D enies S hortness of breath with exertion. C ardiovascular: Patient complaining of p alpitaitons at night and during the day.. G astrointestinal: Denies D iarrhea. D enies N ausea. M usculoskeletal: Patient denies m uscle aches. P eripheral Vascular: Patient denies r ed and blue toes. * Medical History: * Surgical History: * Hospitalization/Major Diagno stic Procedure: * Medications: T akingMeclizine HCl 12.5 MG Tablet 1 tablet as needed Orally twice a day Ambien 5 MG Tablet 1 tablet at bedtime as needed Orally Once a day as needed Anoro Ellipta 62.5-25 MCG/ACT Aerosol Powder Breath Activated inhale 1 puff into the lungs every day for 90 days Inhalation Once a day Theophylline ER 400 MG Tablet Extended Release 24 Hour 1 tablet Orally Once a day Ipratropium [place] 0.02 % Solution 2.5 mL Inhalation every 8 hrs Xopenex HFA 45 MCG/ACT Aerosol 1 puff as needed Inhalation every 4 hrs Stiolto Respimat 2.5-2.5 MCG/ACT Aerosol Solution 2 puffs Inhalation Once a day Sertraline HCl 100 MG Tablet TAKE 1 TABLET BY MOUTH EVERY DAY Meloxicam 15 MG Tablet TAKE 1 TABLET BY MOUTH EVERY DAY Gabapentin 300 MG Capsule TAKE 1 CAPSULE BY MOUTH AT NIGHT Taking Meclizine HCl 12.5 MG Tablet 1 tablet as needed Orally twice a day Taking Ambien 5 MG Tablet 1 tablet at bedtime as needed Orally Once a day as needed Taking Anoro Ellipta 62.5-25 MCG/ACT Aerosol Powder Breath Activated inhale 1 puff into the lungs every day for 90 days Inhalation Once a day Taking Theophylline ER 400 MG Tablet Extended Release 24 Hour 1 tablet Orally Once a day Taking Ipratropium [place] 0.02 % Solution 2.5 mL Inhalation every 8 hrs Taking Xopenex HFA 45 MCG/ACT Aerosol 1 puff as needed Inhalation every 4 hrs Taking Stiolto Respimat 2.5-2.5 MCG/ACT Aerosol Solution 2 puffs Inhalation Once a day Taking Sertraline HCl 100 MG Tablet TAKE 1 TABLET BY MOUTH EVERY DAY Taking Meloxicam 15 MG Tablet TAKE 1 TABLET BY MOUTH EVERY DAY Taking Gabapentin 300 MG Capsule TAKE 1 CAPSULE BY MOUTH AT NIGHT Not-Taking/PRNBreo Ellipta 200-25 MCG/ACT Aerosol Powder Breath Activated 1 puff Inhalation Once a day Vitamin D3 Super Strength 50 MCG (2000 UT) Capsule 1 capsule Orally Once a day Levalbuterol Tartrate 45 MCG/ACT Aerosol 1 puff as needed Inhalation every 4 hrs Clobetasol Propionate 0.05 % Cream 1 application to affected area Externally Twice a day Medication List reviewed and reconciled with the patientNot-Taking/PRN Breo Ellipta 200-25 MCG/ACT Aerosol Powder Breath Activated 1 puff Inhalation Once a day Not-Taking/PRN Vitamin D3 Super Strength 50 MCG (2000 UT) Capsule 1 capsule Orally Once a day Not-Taking/PRN Levalbuterol Tartrate 45 MCG/ACT Aerosol 1 puff as needed Inhalation every 4 hrs Not-Taking/PRN Clobetasol Propionate 0.05 % Cream 1 application to affected area Externally Twice a day Medication List reviewed and reconciled with the patient * Allergies: N .K.D.A.yes[Allergies Verified] Objective: * Vitals: H t: 64, Wt: 90, BMI:15.45, BP:94/50, Wt-k.82. weight is down 2 pounds since 01-20-24. * Examination: G eneral Examination: GENERAL APPEARANCE: a lert, well hydrated, in no distress.? SKIN: g ood turgor. HEART: r egular rate and rhythm, no murmurs, rubs, gallops.? LUNGS: d iminished breath sounds throughout. ? Assessment: * Assessment: 1. C hronic obstructive pulmonary disease, unspecified - J44.9 (Primary) 2 .?History of lung cancer - Z85.118 3 . P alpitations - R00.2 4 . S holly - F17.200 Plan: * Treatment: 2. H istory of lung cancer Notes: is followed by pulmonary 3. P alpitations Notes: at this point doesn't want to do any testing 4. S holly Notes: trying to fquit * Procedure Codes: * Follow Up: 6 Months * * Sign off status: Completed true * Provider: Shalom Prado MD Date: 0 07/30/2024 Generated for Colton gordon/Derek/Malcomitting on: 0 02/27/2025 01:23 AM EDT History and Physical Notes * HPI (History of Present Illness) Category Sub-Category Detail Notes Category Not es Symptom(s) patient is a 64 yo female here for 6 month follow up visit Examination Category Sub-Category Detail Notes Category Not es General Examination GENERAL APPEARANCE: alert, w ell hydrated, in no distress HEART: regular rate and rhy thm, no murmurs, rubs, gallops LUNGS: diminished breath so unds throughout SKIN: good turgor
--- OUTSIDE RECORDS SUMMARY | 2024-09-28 03:30 | XMS_ITS ---
Author Organization [facility] Address [address] [place] [address] Care Team Providers Care Brim Stitcher Name Role Phone Ric Prado MD Primary Care Provider Raymon Alegria Unavailable [phone] REASON FOR VISIT screening,hx polyps, fam hx colon ca Encounters Encounter Location Date Provider Diagnosis [facility] Out[facility] [address] [place], [place] [id number] 09/28/2024 Raymon Sawyer Plan Of Treatment No Information Progress Notes * ISAIAS KING MDOB:[birth year] (64 yo F)Acc No.[id number]:09/28/2024 COLON WITH MAC Patient: ISAIAS COLLIER Provider: Sanots Sawyer MD :1960 A ge:64 Y S ex:Female Date:09/28/2024 Address:[address] [facility] Pcp:Ric Prado MD Subjective: * Chief Complaints: * 1 . Screening,hx polyps, fam hx colon ca. * Medical History: Objective: * Vitals: Assessment: Plan: * Treatment: * * The named appointment provid er may or may not be the originator of this progress note, and it is not deemed complete until electronically signed by the appointment provider. Sign off status: Pending * Provider: Santos Sawyer MD Date: 09/28/2024 Generated for Colton gordon/Derek/eTransmitting on: 0 02/27/2025 01:23 AM EDT
--- OUTSIDE RECORDS SUMMARY | 2025-01-01 07:16 | XMS_ITS ---
Author Organization Ric Prado MD Address [address] [place] [phone] Care Team Providers Care Quantitative Software Engineer Name Role Phone Ric Prado Primary Care Provider [phone] REASON FOR VISIT tooth infection Medications Medication SIG (Take, Route, Fr equency, Duration) Notes Start Date End Date Status Amoxicillin 500 MG 1 capsule Orally sulema ry 8 hrs for 5 days 01/01/2025 Active Encounters Encounter Location Date Provider Diagnosis Ric Prado MD [address] [facility] [address] [place] [phone] 01/01/2025 Ric Prado Plan Of Treatment Medication Medication Name Sig Start Date Stop Date Notes Amoxicillin 500 MG 1 capsule Orally every 8 hrs for 5 days 01/01/2025 Next Appt Details Provider Name:Ric Lundberg ier, 03/04/2025 03:00:00 PM, [address] [place] [address], [address], [place], [place], [phone], Progress Notes * Araseli BRIDGES MDOB:[birth year] (64 yo F)Acc No.[id number]:01/01/2025 Patient: Quique COLLIERen Amaya :1960 A ge:64 Y S ex:Female Address:[address] [place] [address] [place], [address] * Refills Start Amoxicillin Capsule, 500 MG, Orally, 15, 1 capsule, every 8 hrs, 5 days * true * Date: Generated for Colton gordon/Derek/Kacismitting on: 0 02/27/2025 01:22 AM EDT
[2025-02-27] VITALS (17 sets, daily range): BP systolic 84–127; BP diastolic 48–74; PULSE 76–118; RESP 16–22; TEMP 36.5–36.9; O2SAT 78–98; BMI 15.3; BMI 14.0
--- NOTE | ~2025-02-27 | CT_ITS ---
CLINICAL HISTORY: sob CT angiography chest with contrast. 3D Postprocessing. Comparison: CT/SR - CT CHEST WO IV CON - 12/18/24 12:[address]/ME/SR - CT CHEST WITHOUT IV CONTRAST - 12/06/23 09:10 EDT Findings: There is no pulmonary embolism. Heart size is normal. There is no pericardial effusion. Thoracic aorta is within normal limits in diameter without dissection. There is mild coronary artery calcification. There are no enlarged lymph nodes. There is a stable 1.2 cm left thyroid nodule. There is unchanged severe emphysema. There is a surgical staple line in the medial left upper lobe. There is unchanged mild subpleural scarring in the right upper lobe. Trachea and central bronchi are widely patent. There is no acute fracture or suspicious lytic or sclerotic lesion. IMPRESSION: 1. No pulmonary embolism. 2. Severe emphysema. This document has been electronically signed by: Ollie Santamaria MD on 02/27/2025 03:07:59
--- NOTE | ~2025-02-27 | CT_ITS ---
CLINICAL HISTORY: abd pain CT abdomen and pelvis with contrast Comparison: None provided Findings: The liver, gallbladder, pancreas, spleen, and adrenal glands are unremarkable. There is a small amount of excreted contrast in the renal collecting systems which could obscure small stones. There is no hydronephrosis. The appendix is normal. There is mild sigmoid diverticulosis. The remainder of the gastrointestinal tract is unremarkable. There is no free fluid or free air. There are no enlarged lymph nodes. The aorta is normal in diameter. Uterus and adnexa are grossly unremarkable. The bladder is decompressed. There is no fracture or suspicious lytic or sclerotic lesion. There are degenerative changes in the lumbar spine. IMPRESSION: No acute abnormality in the abdomen or pelvis. This document has been electronically signed by: Ollie Santamaria MD on 02/27/2025 03:00:49
--- NOTE | 2025-02-27 00:20 | ECG_ITS ---
Test Reason : chest pain Blood Pressure : */* mmHG Vent. Rate : 97 BPM Atrial Rate : 97 BPM P-R Int : 142 ms QRS Dur : 74 ms QT Int : 358 ms P-R-T Axes : 87 91 55 degrees QTcB Int : 454 ms Normal sinus rhythm Right atrial enlargement Rightward axis Possible Anterior infarct , age undetermined Abnormal ECG When compared with ECG of 14-Oct-2020 16:22, No significant change was found Referred By: Generic ED Physician Electronically Signed By: Daniel Hernandez
--- NOTE | 2025-02-27 00:47 | ED.CHESTPAIN ---
HPI - Chest Pain General Chief Complaint: Chest Pain Stated Complaint: Chestpain , N/V Time Seen by Provider: 02/27/25 00:24 History of Present Illness HPI narrative: Patient is a 64-year-old female with a history of COPD. History of hypertension. Previous history of lung cancer status post resection about 4 years ago currently not on chemotherapy. Patient complained that she has chest pain in the left lower chest area that is been ongoing since yesterday morning. Not associated with breathing is very sharp and also pressure-like. Patient from home. There is no diaphoresis. No travel history no leg swelling. No history of blood clots in the past not on blood thinners. Was given aspirin prior to arrival. Has a long history of smoking. Has a history of COPD. Has a history of TIAs in the past. No history of OH no history of hypertension no history of diabetes. Patient claims she lost about 40 lb in the last month or so. Question etiology. Had not had a colonoscopy recently. Patient feels weak and tired stools normal. Related Data Home Medications ?Medication ?Instructions ?Recorded ?Confirmed sertraline 100 mg tablet (Zoloft) 100 mg PO DAILY 06/20/20 09/24/24 biotin 09/24/24 09/24/24 gabapentin 300 mg capsule 300 mg PO BEDTIME 09/24/24 09/24/24 meloxicam 15 mg tablet 15 mg PO DAILY 09/24/24 09/24/24 theophylline 400 mg 400 mg PO DAILY 09/24/24 09/24/24 tablet,extended release 24 hr Previous Rx's ?Medication ?Instructions ?Recorded ipratropium bromide 0.02 % 2.5 ml inhalation Q6H PRN 12/26/23 solution for inhalation shortness of breath or wheezing 30 days #300 mL arformoterol 15 mcg/2 mL solution 2 ml inhalation BID 30 days #120 mL 09/03/24 for nebulization (Brovana) dronabinol 10 mg capsule 10 mg PO BID #60 caps 09/24/24 Xopenex HFA 45 mcg/actuation 1 puff PO Q4H PRN for wheezing #15 11/23/24 aerosol inhaler (levalbuterol ea tartrate) umeclidinium 62.5 mcg-vilanterol 1 ea inhalation DAILY #60 ea 02/24/25 25 mcg/actuation powdr for inhalation (Anoro Ellipta) Allergies Allergy/AdvReac Type Severity Reaction Status Date / Time No Known Allergies Allergy Verified 02/27/25 00:29 Review of Systems Review of Systems: Positive shortness of breath positive chest pain Positive weight loss PMFSH Past Medical History Attestation statement: The following information was validated with the patient. Medical History Lung cancer Depression Pancreatitis Vitamin D deficiency Hyperparathyroidism Personal history of nicotine dependence Tubular adenoma of colon (~2002) Subclinical hyperthyroidism Multinodular goiter Low TSH level Osteoporosis Anxiety and depression COPD (chronic obstructive pulmonary disease) Surgical History Status post biopsy of thyroid gland (~08/2021) History of left oophorectomy History of lung surgery (~02/2021) History of colonoscopy (~06/2020) History of esophagogastroduodenoscopy (EGD) Family History Family History Mother Hx of cardiac pacemaker Father Colon cancer Brother Testicular cancer COPD (chronic obstructive pulmonary disease) Maternal Aunt Breast cancer Social History Social History Household Members: Other Household Members Other:: Housemate Housing: House Are you a primary reservoir caretaker to a significant other at home: No Do you presently have visiting nurse or other home services: No Alcohol intake: former Patient Tobacco Use Status: Current everyday Tobacco user Tobacco use type: Cigarette Cigarette Packs Per Day: 0.5 Cigarettes Per Day: 14 Years Smoked: 50yrs Second Hand Smoke Exposure: Yes Advance Directives: Yes Advance Directives on File: Yes Advance Directives Date on File: 10/19/20 Do you have a plan to hurt others: No Plan service: No Current occupational status: employed Physical Exam Exam: Exam: Appearance: Alert. Oriented X3. No acute distress. Cachectic Eyes: Pupils equal, round and reactive to light. ENT: Pharynx normal. Neck: Normal inspection. Neck supple. No lymph nodes noted. No crepitus CVS: Normal heart rate and rhythm. Pulses normal. Normal S1 and S2 Respiratory: No respiratory distress. Diminished breath sounds bilaterally No Wheezing. No rales Abdomen: Soft and nontender. No rigidity. No distention. good BS x4 Skin: Skin warm and dry. Normal skin color. Normal skin turgor. Extremities: No lower extremity edema. Neurovascular intact to all extremities. No Lacerations. No Rash Neuro: Oriented X 3. No motor deficit. No sensory deficit. Moving all extermities. No slurred speech Vital Signs: Vital Signs: Last Vital Signs Temp 97.7 F 02/27/25 00:24 Pulse 107 H 02/27/25 02:17 Resp 22 H 02/27/25 02:17 BP 116/70 02/27/25 02:17 Pulse Ox 98 02/27/25 02:17 O2 Del Method Nasal Cannula 02/27/25 02:17 O2 Flow Rate 1 02/27/25 02:17 BMI result Body Mass Index 15.3 Medications Administered Discontinued Medications Generic Name Dose Route Start Last Admin Trade Name Freq PRN Reason Stop Dose Admin Iohexol 65 ml 02/27/25 01:52 02/27/25 02:04 Iohexol 350 Mg/Ml 100 Ml Infus..Btl IV 02/27/25 01:53 65 ml ONCE ONE Administration Medical Decision Making Medical Decision Making [facility] Narrative: Patient presented today with having chest pain. Difficult weight loss with a history of lung cancer. Her cardiac enzymes was negative. Pain has been ongoing for the last 20 hours at least. Less likely ACS my interpretation of patient's EKG showed a sinus rhythm heart rate is 100 FL QRS QTC normal no acute ST segment elevation. Will get a 2nd set of enzymes. We will get CTA of the chest to further delineate the risk for PE. Patient is at high risk as she had a previous history of malignancy. Patient's BNP is normal there is no evidence for congestive heart failure. Lipase is 22 there is no evidence for pancreatitis. I received sign-out from my colleague Dr. Wallace CT scans of the chest (CTA to rule out PE) and abdomen pelvis (to rule out abdominal malignancy) did not show any acute abnormality. However, patient does have chronic lung changes, severe emphysema. Patient is not oxygen dependent. Patient walked to the bathroom and started becoming very short of breath, her oxygen dropped to 78% on room air. Patient had to be taken back to her room and put on nasal cannula. Patient was given Solu-Medrol No active wheezing Patient received ceftriaxone, azithromycin, lactic acid and blood cultures pending. At this time, 03:31, sepsis is not suspected Differential Diagnosis Differential Diagnoses: The differential diagnosis associated with the presentation includes PE, pneumonia, ACS Admission/Observation Consideration of admission/observation: Escalation of care including admission/observation considered Consult Healthcare Provider Management of the patient was discussed with: Hospitalist Lab Data [facility] Lab Attestation statement: I reviewed the patient's lab results. 02/27/25 00:53 02/27/25 00:53 Labs: Lab Results 02/27/25 02/27/25 Range/Units 00:52 00:53 WBC 6.8 (4.8-10.8) X10*3/uL RBC 4.87 (4.20-5.50) X10*6/uL Hgb 14.1 (12.0-16.0) g/dl Hct 40.7 (37.0-47.0) % MCV 83.6 (80.0-98.0) fL MCH 29.0 (27.0-33.0) pg MCHC 34.6 (31.0-35.0) g/dl RDW 12.9 (11.0-16.0) % Plt Count 168 (160-400) X10*3/uL MPV 9.5 (9.4-12.3) fL Immature Gran % (Auto) 0.1 (0.0-0.4) % Neut % (Auto) 80.6 H (45-73) % Lymph % (Auto) 11.2 L (20-40) % [place]oshone % (Auto) 7.1 (2-11) % Eos % (Auto) 0.6 (0-4) % Baso % (Auto) 0.4 (0-2) % Lymph # (Auto) 0.8 L (1.2-4.9) X10*3/uL [place] # (Auto) 0.5 (0.1-1.2) X10*3/uL Eos # (Auto) 0.0 (0.0-0.4) X10*3/uL Baso # (Auto) 0.0 (0.0-0.2) X10*3/uL Abs Immat Gran (auto) 0.01 (0.00-0.03) X10*3/uL Absolute Neuts (auto) 5.5 (2.0-8.3) x10*3/uL Absolute Nucleated RBC 0.000 (0.0-0.012) X10*3/uL Nucleated RBC % (auto) 0.0 (0.0-0.2) /100WBC Sodium 144 (135-145) mmol/L Potassium 3.8 D (3.3-5.1) mmol/L Chloride 108 (96-108) mmol/L Carbon Dioxide 24 (22-29) mmol/L Anion Gap 16 (12-20) BUN 16 (9-16) mg/dL Creatinine 0.60 (0.5-1.4) mg/dL Estim Creat Clear Calc 60.5 Estimated GFR > 60 Random Glucose 95 (60-115) mg/dL Calcium 8.8 D (8.4-10.2) mg/dL Total Bilirubin 0.9 (0.0-1.0) mg/dL Direct Bilirubin 0.3 (0.0-0.5) mg/dL AST 29 (5-31) U/L ALT 10 (0-31) U/L Alkaline Phosphatase 56 (39-117) U/L Troponin I High Sens 4.8 (<3.5-17.0) ng/L NT-Pro-B Natriuret Pep 72.2 (<300) pg/mL Total Protein 6.5 (6.5-8.0) g/dL Albumin 4.0 (3.5-5.0) g/dL Lipase 22 (8-78) U/L TSH 0.60 (0.32-4.0) uIU/mL Influenza Type A (PCR) NEGATIVE (Negative) Influenza Type B (PCR) NEGATIVE (Negative) RSV RNA Qual (PCR) NEGATIVE (Negative) SARS-CoV-2 RNA (RT-PCR) NEGATIVE (Negative) Independent Interpretation I performed an independent interpretation of an: EKG (Sinus heart rate is 100 FL QRS QTC normal no acute ST segment elevation) and CT Scan Radiology Impression Discussion of test interpretation with radiology: I have reviewed the radiologist's reading. Radiologist Impression: There is no pulmonary embolism. Heart size is normal. There is no pericardial effusion. Thoracic aorta is within normal limits in diameter without dissection. There is mild coronary artery calcification. There are no enlarged lymph nodes. There is a stable 1.2 cm left thyroid nodule. There is unchanged severe emphysema. There is a surgical staple line in the medial left upper lobe. There is unchanged mild subpleural scarring in the right upper lobe. Trachea and central bronchi are widely patent. There is no acute fracture or suspicious lytic or sclerotic lesion. IMPRESSION: 1. No pulmonary embolism. 2. Severe emphysema. The liver, gallbladder, pancreas, spleen, and adrenal glands are unremarkable. There is a small amount of excreted contrast in the renal collecting systems which could obscure small stones. There is no hydronephrosis. The appendix is normal. There is mild sigmoid diverticulosis. The remainder of the gastrointestinal tract is unremarkable. There is no free fluid or free air. There are no enlarged lymph nodes. The aorta is normal in diameter. Uterus and adnexa are grossly unremarkable. The bladder is decompressed. There is no fracture or suspicious lytic or sclerotic lesion. There are degenerative changes in the lumbar spine. IMPRESSION: No acute abnormality in the abdomen or pelvis. External Record Review External record reviewed: Office record Chronic Conditions Lung cancer COPD Social Determinants Patient?s care significantly limited by Social Determinants of Health including: Problems related to primary support group Critical Care Time Critical Care Time Critical Care Time: Yes Total Critical Care Time: 60 Attestation: I have personally provided critical care time. Time includes review of lab data, radiology results, discussion with consultants, and monitoring for potential decompensation. Intervention performed as documented. Discharge Plan Discharge Clinical Impression: Chest pain, Emphysema lung, Acute hypoxic respiratory failure Patient Disposition: Admitted As Inpatient Print Language: Italian
[2025-02-27 00:56] LABS: Hematocrit 40.7 % (37.0-47.0); Hemoglobin 14.1 g/dl (12.0-16.0); Imm Gran Abs Auto 0.01 X10*3/uL (0.00-0.03); Imm Gran Pct Auto 0.1 % (0.0-0.4); Lymphocytes Absolute Auto 0.8 X10*3/uL (1.2-4.9); MANUAL DIFF FLAG NO; Mean Corpuscular HGB Conc 34.6 g/dl (31.0-35.0); Mean Corpuscular Hemoglobin 29.0 pg (27.0-33.0); Mean Corpuscular Volume 83.6 fL (80.0-98.0); NRBC Abs Auto 0.000 X10*3/uL (0.0-0.012); NRBC Pct Auto 0.0 /100WBC (0.0-0.2); Platelet Count 168 X10*3/uL (160-400); Red Blood Count 4.87 X10*6/uL (4.20-5.50); White Blood Count 6.8 X10*3/uL (4.8-10.8)
[2025-02-27 01:18] LABS: NT Pro B Type Natriuretic Pept 72.2 pg/mL (<300); Troponin-I High Sensitivity 4.8 ng/L (<3.5-17.0)
[2025-02-27 01:22] LABS: Anion Gap 16 (12-20); Blood Urea Nitrogen 16 mg/dL (9-16); Calcium 8.8 mg/dL (8.4-10.2); Carbon Dioxide 24 mmol/L (22-29); Chloride 108 mmol/L (96-108); Creatinine Clr Calc Pharmacy 60.5; Estimated Glomerular Filt Rate > 60; Lipase 22 U/L (8-78); Potassium 3.8 mmol/L (3.3-5.1); Sodium 144 mmol/L (135-145)
--- OUTSIDE RECORDS SUMMARY | 2025-02-27 01:23 | XMS_ITS | Patient Health Record ---
Author Organization [facility] Address [address] [place] [address] Care Team Providers Care Division Human Resources Manager Name Role Phone Ric Prado MD Primary Care Provider Raymon Alegria Unavailable [phone] Allergies Allergen (clinical drug ingredient) Drug/Non Drug Allergy documented on EMR Reaction Allergy Type Onset Date Status seasonal (uncoded) Unknown Allergy A ctive Reason For Referral No Information Medications Medication SIG (Take, Route, Frequency, Duration) Notes Start Date End Date Status Ipratropium [place] 0.02 % 2.5 ML INHALE D EVERY [...] Problem Status W/U Status Risk Notes Problem 881051155 Encounter for screening for malignant neoplasm of colon (Z12.11) Active confirmed Problem 874016565 History of adenomatous polyp of colon (Z86.010) Active confirmed Problem Imaging of abdomen abnormal (418784363) Abnormal findings on diagnostic imaging of other abdominal regions, including retroperitoneum (R93.5) Active confirmed Problem Screening for malignant neoplasm of rectum (812480025) Encounter for screening for malignant neoplasm of rectum (Z12.12) Active confirmed Problem 661039904 Family history o f colon cancer (Z80.0) Active confirmed Problem 69336218 Constipation, unspecified constipation type (K59.00) Active confirmed Problem Personal history of adenomatous and serrated colon polyps (Z86.0101) Active confirmed Vital Signs Temperature 97.1 degrees Fahrenheit 06/10/2024 Blood pressure diastolic 00 mm Hg 06/10/2024 Height 64.5 in 06/10/2024 Blood pressure systolic 000 mm Hg 06/10/2024 Weight 90 lb 8 oz lbs 06/10/2024 BMI 15.29 kg/m2 06/10/2024 Encounters Encounter Location Date Provider Diagnosis [facility] [address] [place] [address] 06/10/2024 Raymon Sawyer Constipation, unspecified constipation type K59.00 ; History of adenomatous polyp of colon Z86.010 ; Family history of colon cancer Z80.0 and Encounter for screening for malignant neoplasm of colon Z12.11 [facility] [address] [place] [address] 06/10/2024 Raymon Sawyer [facility] [address] [place] [address] 10/03/2024 Raymon Sawyer [facility] [address] [place] [address] 10/05/2024 Raymon Sawyer Assessments Encounter Date Diagnosis [...] Insured Coverage Start Date Coverage End Date [facility] [address] [address] [place], [place] [id number] ISAIAS KING Self - patient is the insured MEDICAID OF [facility] [address] [place] [address] [phone] [id number] ISAIAS KING Self - patient is the insured Medical (General) History Medical History History ICD Code EGD in 2001--small HH-no gastritis, no e sophagitis Tubular adenomas of the colon removed in 2002 and 2004 Colonoscopy 07-25-2009--no polyps, 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 Sandoval at [facility] [place] Colonoscopy in 06/2020 with several tubul ar adenomas Left lung cancer approx 2021-Dr. Dutton Surgical History Surgery Date(Month/Year) Endometriosis and removal of one ovary Lung cancer-removed part of left lung
--- OUTSIDE RECORDS SUMMARY | 2025-02-27 01:23 | XMS_ITS | Patient Health Record ---
Author Organization Ric Prado MD Address [address] [place], [place] [id number] Care Team Providers Care Property Inspector Name Role Phone Ric Prado Primary Care Provider Allergies No Known Allergies Results Component Value Reference Range Notes MM tomosynthesis screening B I Reviewed date:10/29/2024 07:12:08 PM Interpretation: Performing Lab: Notes/Report: [address] [place] [address] Mammography Report Signed Patient: Araseli Bridges MR#: [id number] 394 : 1960 Acct:[id number] Age/Sex: 64 / F ADM Date: 10/20/24 Loc: HO.MAMMO Attending Dr: Ric Prado MD Ordering Physician: Ric Prado MD Results: 1Ne gative Date of Service: 10/20/24 Follow Up: 1 Year From Orig inal Mammogram Procedure(s): MM tomosynthesis screening BI Accession Number(s): [id number] cc: Ric Prado MD EXAMINATION: MM SCREENING DIGITAL BREAST TOMOSYNTHESIS, BILATERAL CLINICAL INFORMATION: Screening. Asymptomatic. COMPARISON: Mammography: Comparison is made with available priors TECHNIQUE: Digital breast mammography with tomosynthesis is performed in both the craniocaudal and mediolateral oblique views along with computer-aided detection (CAD). FINDINGS: The breasts are heterogeneously dense, which may obscure small masses (ACR BI-RADS breast composition Category c). There are no significant masses, abnormal calcifications, or other abnormalities. MM/MM tomosynthesis screening BI IMPRESSION: No mammographic evidence of malignancy. ASSESSMENT: BI-RADS BI-RADS 1 - Negative RECOMMENDATION: Routine annual mammography screening. 1 year F/U This examination should not preclude the clinical evaluation of a suspicious palpable abnormality. This patient's information was entered into a reminder system with a target due date for their next mammogram. Electronically signed by: Trinity Shea DO 10/27/2024 05:31 PM EDT RP Dictated By: Trinity Shea DO Signed By: <Electronically signed by Trinity Shea DO in OV> 10/27/24 1731 DD/ 1530 TD/TT: 10/20/24 1543 Wealth Management Director: Omero [facility] [address] [place], [place] [id number] Mammography Report Signed Patient: Quique Bridges MR#: [id number] 394 : 1960 Acct:[id number] Age/Sex: 64 / F ADM Date: 10/20/24 Loc: HO.MAMMO Attending Dr: Ric Prado MD Ordering Physician: Ric Prado MD Results: 1Ne gative Date of Service: 10/20/24 Follow Up: 1 Year From Orig inal Mammogram Procedure(s): MM tomosynthesis screening BI Accession Number(s): [id number] cc: Ric Prado MD EXAMINATION: MM SCREENING DIGITAL BREAST TOMOSYNTHESIS, BILATERAL CLINICAL INFORMATION: Screening. Asymptomatic. COMPARISON: Mammography: Compari son is made with available priors TECHNIQUE: Digital breast mammography with tomosynthesis is performed in both the craniocaudal and mediolateral oblique views along with computer-aided detection (CAD). FINDINGS: The breasts are heterogeneously dense, which may obscure small masses (ACR BI-RADS breast composition Category c). There are no signifi cant masses, abnormal calcifications, or other abnormalities. M M/MM tomosynthesis screening BI IMPRESSION: No mammographic evid ence of malignancy. ASSESSMENT: BI-RADS BI-RADS 1 - Negative RECOMMENDATION: Routine annual mammography screening. 1 year F/U This examination braeden uld not preclude the clinical evaluation of a suspicious palpable abnormality. This patient's information was entered into a reminder system with a target due date for their next mammogram. Electronically tino d by: Trinity Shea DO 10/27/2024 05:31 PM EDT Dictated By: Trinity Shea DO Signed By: <Electronically signed by Trinity Shea DO in OV> 10/27/24 1731 DD/ 1530 TD/TT: 10/20/24 1543 Wealth Management Director: CT chest mira rao Reviewed date:12/19/2024 05:25:55 PM Interpretation: Performing Lab: Notes/Report: [place] [address] CT Scan Report Signed Patient: Araseli Bridges MR#: [id number] 394 : 1960 Acct:[id number] Age/Sex: 64 / F ADM Date: 12/18/24 Loc: HO.CT Attending Dr: Rajendra Sandoval MD Ordering Physician: Rajendra Sandoval MD Date of Service: 12/18/24 Procedure(s): CT chest wo IV maira Accession Number(s): [id number] cc: Ric Prado MD; Rajendra Sandoval MD Report Number: [id number]: Total DLP = 60.00 mGy-cm CLINICAL HISTORY: R91.8 - Other nonspecific abnormal finding of lung field CT chest without contrast Comparison: CT/CA/SR - CT CHEST WITHOUT IV CONTRAST - 12/06/23 09:[address]/REG/CA/SR - CT CHEST WITHOUT IV CONTRAST - 05/17/23 12:53 EST Findings: The heart is normal size. Atherosclerosis calcification of the coronary artery. 1.2 cm nodule in the left lobe of thyroid gland. No mediastinal lymphadenopathy. Severe emphysema. Postsurgical change of the left upper lobe. Stable 3 mm pulmonary nodule of the left lower lobe series 4, image 120. Stable additional micro nodules. The upper abdomen is unremarkable. The bones are intact. IMPRESSION: Stable small pulmonary nodules. No new suspicious nodule. Additional findings as above. This document has been electronically signed by: Loren Wen MD on 12/18/2024 17:47:50 Dictated By: Loren Wen MD Signed By: <Electronically signed by Loren Wen MD in OV> 12/18/241748 DD/ 46 TD/TT: 12/18/241746 Wealth Management Director: [place] [address] CT Scan Report Signed Patient: Quique Bridges MR#: [id number] 394 : 1960 Acct:[id number] Age/Sex: 64 / F ADM Date: 12/18/24 Loc: HO.CT Attending Dr: Rajendra Sandoval MD Ordering Physician: Rajendra Sandoval MD Date of Service: 12/18/24 Procedure(s): CT me[address] st wo IV con Accession Number(s): [id number] cc: Ric Prado MD; Rajendra Sandoval MD Report Number: [id number]: Total DLP = 60.00 mGy-cm CLINICAL HISTORY: R9 1.8 - Other nonspecific abnormal finding of lung field CT chest without contrast Comparison: CT/CA/SR - CT CHEST WITHOUT IV CONTRAST - 12/06/23 09:[address]/REG/CA/SR - CT CH EST WITHOUT IV CONTRAST - 05/17/23 12:53 EST Findings: The heart is normal size. Atherosclerosis calcification of the coronary artery. 1.2 cm nodule in the left lobe of thyroid gland. No mediastinal lymphadenopathy. Severe emphysema. Postsurgical change of the left upper lobe. Stable 3 mm pulmonary nodule of the left lower lobe series 4, image 120. Stable additional micro nodules. The upper abdomen is unremarkable. The bones are intact. IMPRESSION: Stable small pulmona ry nodules. No new suspicious nodule. Additional findings as above. This document has be en electronically signed by: Loren Wen MD on 12/18/2024 17:47:50 Dictated By: Loren Wne MD Signed By: <Electronically signed by Loren Wen MD in OV> 12/18/241748 DD/ 46 TD/TT: 12/18/241746 Wealth Management Director: Complete Blood Count Auto Di ff (Not yet reviewed by provider) Interpretation: Performing Lab:[facility], [address] [place] [phone] Notes/Report: White Blood Count 6.8 4.8-10.8 X10*3/uL Red Blood Count 4.87 4.20-5.50 X10*6/uL Hemoglobin 14.1 12.0-16.0 g/dl Hematocrit 40.7 37.0-47.0 % Mean Corpuscular Volume 83.6 80.0-98.0 fL Mean Corpuscular Hemoglobin 29.0 27.0-33.0 pg Mean Corpuscular HGB Conc 34.6 31.0-35.0 g/dl Red Cell Distribution Width 12.9 11.0-16.0 % Platelet Count 168 160-400 X10*3/uL Mean Platelet Volume 9.5 9.4-12.3 fL Neutrophils Percent Auto 80.6 45-73 % Imm Gran Pct Auto 0.1 0.0-0.4 % Lymphocytes Percent Auto 11.2 20-40 % Monocytes Percent Auto 7.1 2-11 % Eosinophils Percent Auto 0.6 0-4 % Basophils Percent Auto 0.4 0-2 % NRBC Pct Auto 0.0 0.0-0.2 /100WBC Neutrophils Absolute Auto 5.5 2.0-8.3 x10*3/uL Imm Gran Abs Auto 0.01 0.00-0.03 X10*3/uL Lymphocytes Absolute Auto 0.8 1.2-4.9 X10*3/uL Monocytes Absolute Auto 0.5 0.1-1.2 X10*3/uL Eosinophils Absolute Auto 0.0 0.0-0.4 X10*3/uL Basophils Absolute Auto 0.0 0.0-0.2 X10*3/uL NRBC Abs Auto 0.000 0.0-0.012 X10*3/uL Troponin-I High Sensitivity (Not yet reviewed by provider) Interpretation: Performing Lab:[facility], [address] [place] [phone] Notes/Report: Troponin-I High Sensitivity 4.8 <3.5-17.0 ng/L The Siddiqi high sensitivity Troponin-I results should be used in conjunction with other diagnostic information such as ECG, clinical observations and information, and patient symptoms to aid in the diagnosis of IA. NT Pro B Type Natriuretic Pe pt (Not yet reviewed by provider) Interpretation: Performing Lab:[facility], [address] [place] [phone] Notes/Report: NT Pro B Type Natriuretic Pept 72.2 <300 pg/mL Reference Range: Age Group (years) NT-proBNP (pg/ml) Interpretation All <300 Negative: HF unlikely For patients presenting to the ED with clinical suspicion of new onset or worsening HF, see below: 18 to <50 >299.9 to <450.0 Grayzone: Consider 50 to 75 >299.9 to <900.0 other causes of >75 >299.9 to <1800.0 NT-proBNP elevation 18 to <50 >449.9 Positive: HF likely 50-75 >899.9 >75 >1799.9 Note: Elevated NT-proBNP levels should be interpreted in the context of other clinical information. Reason For Referral No Information Medications Medication [...] Orally O nce a day Active Ipratropium [place] 0.02 % 2.5 mL Inhalation every 8 hrs Active Anoro Ellipta 62.5-25 MCG/ACT inhale 1 puff into the lungs every day for 90 days Inhalation Once a day Active Stiolto Respimat 2.5-2.5 MCG/ACT 2 puffs Inhalation Once a day 02/12/2023 Active Amoxicillin 500 MG TAKE 1 CAPSULE BY [facility] EVERY 8 HOURS FOR 5 DAYS for 5 Active Ambien 5 MG 1 tablet at [...] red pt was [facility] the vaccine at [facility] TDaP IM Intramuscular 03/30/2019 Administered pt was [facility] the [facility] 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) Active confirmed Problem Smoker (97638639) Smoker (F17.200) Active confi rmed Problem 53216715 Smoker unmotivated to quit (F17.210) Active confirmed Problem 51135418 Alcohol abuse (F10.10) Active confirmed Problem Age related osteoporosis (85068218) Age related osteoporosis (M81.0) Active confirmed Problem 51006559 Intrinsic eczema (L20.84) Active confirmed Problem 7236994706364 Cervical neuropathy (G54.2) Active confirmed Problem 215187230 Abnormal mammogram (R92.8) Active confirmed Problem 07448244 Internal hemorrhoids (K64.8) Active confirmed Problem 67056127 Hyperplastic polyp of ascending colon (D12.2) Active confirmed Problem Age-related osteoporosis with current pathological fracture with delayed healing, subsequent encounter (M80.00XG) Active confirmed Problem 209792405 Lung nodule < 6c m on CT (R91.1) Active confirmed Problem 237410363 Thyroid nodule greater than or equal to 1.5 cm in diameter incidentally noted on imaging study (E04.1) Active confirmed Problem 114634118 History of lung cancer (Z85.118) Active confirmed [...] Ric Prado MD [address] [place] [phone] 07/30/2024 Ric Prado Chronic obstructive pulmonary disease, unspecified J44.9 ; History of lung cancer Z85.118 ; Palpitations R00.2 and Smoker F17.200 Ric Prado MD [address] [place] [phone] 04/09/2024 Ric Prado Cervical neuropathy G54.2 Ric Prado MD [address] [place], [place] [phone] 01/01/2025 Ric Prado Assessments Encounter Date Diagnosis (ICD Code) Assessment Notes Treatment Notes Treatment Clinical Notes Section Notes 07/30/2024 Chronic obstructive pulmonary disease, unspecified (ICD-10 - J44.9) has severe shortness of breath from the time of the surgery. still gets episodes of severe shortness of breaht yesterday had an attack 07/30/2024 History of lung cancer (ICD-10 - Z85.118) is followed by pulmonary 04/09/2024 Cervical neuropathy (ICD-10 - G54.2) 07/30/2024 Palpitations (ICD-10 - R00.2) at this point doesn't want to do any testing 07/30/2024 Smoker (ICD-10 - F17.200) trying to fquit Plan Of Treatment Pending Test Test Name Order Date MRI BREAST BILATERAL 04/07/2020 ECHO 11/01/2020 Complete Blood Count Auto Diff 5 Troponin-I High Sensitivity 02/27/2025 NM bone scan whole body 07/19/2022 US thyroid 10/27/2020 MM tomosynthesis screening BI 03/20/2021 NT Pro B Type Natriuretic Pept Next Appt Details Provider Name:Ric Lundberg ier, 03/04/2025 03:00:00 PM, [address] [facility], [address], [place], [place], [phone], Insurance Providers Payer Name Payer Address Payer Phone Subscriber Number Group Number Insured Name Patient Relationship to Insured Coverage Start Date Coverage End Date [facility] [employer] [address] [address] [place] [address] [phone] [id number] Araseli Bridges Self - patient is the insured Medical (General) History Medical History History ICD Code Colonoscopy done 01/27/15 w/D payal Sawyer - repeat 1 year; colonoscopy 06/07/[address] Sawyer - repeat 3 years; Colonoscopy 06/24/[address] Sawyer - repeat 3 years thyroid nodule refuses evaluation 2022
--- OUTSIDE RECORDS SUMMARY | 2025-02-27 01:23 | XMS_ITS | Clinical Summary ---
Author Organization [facility] Address [address] [place] [phone] Care Team Providers Care Plastic Roller Name Role Phone Ric Prado MD Primary Care Provider Medical History Medical History Date Comments Lung cancer ([facility] V24, [facility] V28) DX:Lung cancer ([facility]); COMMENT: MARYELLEN Lung Cancer COPD (chronic obstructive pu lmonary disease) ([facility] V24, [facility] V28) DX:COPD (chronic o bstructive pulmonary disease) ([facility]) Pulmonary nodules DX:Pulmonary n odules Family History Medical History Relation Name Comments COPD Brother Relation Name Status Comments Brother Social History Tobacco Use Types Packs/Day Years Used Date Smoking Tobacco: Every Day Cigarettes 0.5 51.7 Started: 06/03/1973 Smokeless Tobacco: Never Alcohol Use [...] Cancer Screening 1960 COVID-19 Vaccine (#1) 1965 Pneumococcal Vaccine: 50+ Years (1 of 2 - PCV) 1979 Zoster Vaccines (1 of 2) 1979 Cervical Cancer Screening: P ap Smear 1981 RSV Immunization Adult Patients (1 - Risk 60-74 years 1-dose series) 2020 Cholesterol Screening (Lipid Panel) 05/05/2022 Colorectal Cancer Screening: Colonoscopy 05/05/2022 HIV Screening 05/05/2022 Hepatitis C Screening 05/05/2022 Lung Cancer Screening (Low Dose CT) 05/05/2022 Social Influencers of Health Screening 05/05/2022 Depression Screening 06/03/2024 Influenza Vaccine (#1) 2025 4, 03/09/2020, 03/30/2019 DTaP,Tdap,and Td Vaccines (2 - Td or Tdap) 03/30/2029 03/30/2019 HIB Vaccines Aged Out No longer eligi [...] to complete this topic RSV Immunization Patients Under 20 months Aged Out No longer eligible b ased on patient's age to complete this topic Varicella Vaccines Aged Out No longer eligible based on patient's age to complete this topic Advance Directives Documents on File Type Date Recorded Patient Joinery Patternmaker Expl anation Health Care Decision (hx) 02/17/2021 AD SHIRLEY DIRECTIVE Health Care Decision (hx) 02/17/2021 AD SHIRLEY DIRECTIVE Health Care Decision (hx) 02/17/2021 AD SHIRLEY DIRECTIVE Health Care Decision (hx) 02/17/2021 AD SHIRLEY DIRECTIVE Care Teams Plastic Roller Relationship Specialty Start Date End Date Ric Prado MD PCP - General Internal Medicine 08/25/21
[2025-02-27 01:37] LABS: Resp Syncy Virus RNA Qual PCR NEGATIVE (Negative); SARS COV2 PCR INHOUSE NEGATIVE (Negative)
--- NOTE | 2025-02-27 01:46 | PC.NURSE ---
pt ambulated to bathroom and back and upon return patient is tachypneic tachycardic, reports feeling sob. sats 78% on RA. placed on 2L NC for short time and sats return to 95%. HR and RR improved at rest. o2 removed. pt remains 96% on RA. taken to CT scan at this time.
[2025-02-27 01:55] LABS: Alanine Aminotransferase 10 U/L (0-31); Albumin Level 4.0 g/dL (3.5-5.0); Alkaline Phosphatase 56 U/L (39-117); Aspartate Amino Transferase 29 U/L (5-31); Total Protein 6.5 g/dL (6.5-8.0)
[2025-02-27] MEDS: iohexoL 350 MG/ML 100 ML INFUS..BTL 65 ML IV (02:04)
--- NOTE | 2025-02-27 02:17 | PC.NURSE ---
pt came back from ct scan and appeared sob, sats 86% on RA. currently 95% on 1L NC. MD Hutson aware. vitals as documented.
[2025-02-27] MEDS: Albuterol Sulfate 2.5 MG, Albuterol/Iprat 2.5/0.5MG 3 ML 3 ML INHALE (04:23)
[2025-02-27] MEDS: guaiFEN/Codeine SF 200/20/10ML 10 ML LIQUID 5 ML PO (05:22)
[2025-02-27] MEDS: Acetylcysteine 10 % 400 MG/4 ML VIAL INHALE (05:36)
--- NOTE | 2025-02-27 06:29 | PC.NURSE ---
pt was noted to having a coughing fit resp 27 sats 88-90% on 2L NC. MD Hutson notified. cough medicine suggested and PRN ordered per aug. pt medicated per aug and cough improved pt now resting comfortably. Alisia UP at bedside for admission assessment.
--- NOTE | 2025-02-27 06:41 | PM.IMHP ---
History of Present Illness Date of Service: 02/27/25 Attending physician on admission: Zak Giles Chief Complaint: chest pressure/LUQ pain Patient is a 64-year-old female with a past medical history significant for severe COPD, hypertension, history TIA, history lung cancer s/p resection about 4 years ago, who presented to the ED due to chest pain in the left lower chest and left upper quadrant pain. The patient reports this has been going on since yesterday. It does not change with breathing but feels pressure-like. No history of DVT or PE. She has associated dry heaving. She also reports 40 lb weight loss in the past 4 months. She feels weak and tired but denies any melena. She reports she has to go for colonoscopies yearly but has not gone in the past 4 years due to her respiratory status. Her last colonoscopy was in June 2020 with a few precancerous polyps removed. Workup in the ED with negative CTA for pulmonary embolism and abdominopelvic CT. The patient desaturated to 78% with ambulation and was placed on 2 L. CTA did show stable left thyroid nodule. EKG with normal sinus rhythm, BNP normal, troponin negative. Likely COPD exacerbation, patient received Solu-Medrol, ceftriaxone and azithromycin. The patient is a poor historian, she states she just wants to sleep and does not provide much history. Review of Systems Constitutional: Constitutional: Denies body ache(s), Denies chills, Reports fatigue, Denies fever(s) and Denies headache(s) Eyes: Eyes: Denies change in vision ENT: Denies headache(s), Denies nasal congestion and Denies sore throat Cardiovascular: Cardiovascular: Reports chest pain, Denies rapid heart rate, Denies leg edema, Denies lightheadedness and Reports dyspnea Respiratory: Respiratory: Reports chest congestion, Reports cough, Reports dyspnea and Denies wheezing Gastrointestinal: Gastrointestinal: Denies abdominal pain, Denies melena, Denies diarrhea, Reports nausea and Reports vomiting Genitourinary: Genitourinary: Denies dysuria and Denies urinary urgency Musculoskeletal: Musculoskeletal: Denies myalgias Integumentary/Breasts: Skin/Breast: Denies rash Neurologic: Denies confusion and Denies headache(s) Psychiatric: Psychiatric: Denies confusion Endocrine: Endocrine: Reports fatigue Hematologic/Lymphatic: Hematologic/Lymphatic: Denies easy bleeding and Denies easy bruising Allergic/Immunologic: Allergic/Immunologic: Denies wheezing [facility] Medical History Lung cancer Depression Pancreatitis Vitamin D deficiency Hyperparathyroidism Personal history of nicotine dependence Tubular adenoma of colon (~2002) Subclinical hyperthyroidism Multinodular goiter Low TSH level Osteoporosis Anxiety and depression COPD (chronic obstructive pulmonary disease) Family History Mother Hx of cardiac pacemaker Father Colon cancer Brother Testicular cancer COPD (chronic obstructive pulmonary disease) Maternal Aunt Breast cancer Surgical History Status post biopsy of thyroid gland (~08/2021) History of left oophorectomy History of lung surgery (~02/2021) History of colonoscopy (~06/2020) History of esophagogastroduodenoscopy (EGD) Social History Household Members: Other Household Members Other:: Housemate Housing: House Are you a primary out of school hours care worker to a significant other at home: No Do you presently have visiting nurse or other home services: No Alcohol intake: former Patient Tobacco Use Status: Current everyday Tobacco user Tobacco use type: Cigarette Cigarette Packs Per Day: 0.5 Cigarettes Per Day: 14 Years Smoked: 50yrs Second Hand Smoke Exposure: Yes Advance Directives: Yes Advance Directives on File: Yes Advance Directives Date on File: 10/19/20 Do you have a plan to hurt others: No Plan service: No Current occupational status: employed Narrative: current smoker about 1ppd, occasional etoh, no drug use Meds Allergies Allergy/AdvReac Type Severity Reaction Status Date / Time No Known Allergies Allergy Verified 02/27/25 00:29 Active Medications: Current Medications Guaifenesin/Codeine Phosphate (Guaifen/Codeine Sf 200/20/10ml 10 Ml Liquid) 5 ml PO Q4H PRN PRN Reason: Cough Last Admin: 02/27/25 05:22 Dose: 5 ml Home Medications ?Medication ?Instructions ?Recorded ?Confirmed ?Last Taken ?Type sertraline 100 mg tablet (Zoloft) 100 mg PO DAILY 06/20/20 09/24/24 1 Day Ago History ~10/13/20 biotin 09/24/24 09/24/24 Unknown History gabapentin 300 mg capsule 300 mg PO BEDTIME 09/24/24 09/24/24 Unknown History meloxicam 15 mg tablet 15 mg PO DAILY 09/24/24 09/24/24 Unknown History theophylline 400 mg 400 mg PO DAILY 09/24/24 09/24/24 Unknown History tablet,extended release 24 hr Physical Exam Vital Signs and Narrative: Vital Signs: Last Vital Signs Temp 98.2 F 02/27/25 06:00 Pulse 110 H 02/27/25 06:00 Resp 16 02/27/25 06:00 BP 111/62 02/27/25 06:00 Pulse Ox 96 02/27/25 06:00 O2 Del Method Nasal Cannula 02/27/25 06:00 O2 Flow Rate 2 02/27/25 06:00 BMI result Body Mass Index 15.3 General: AOx3, no acute distress, occasional coughing fit, tired Resp: Diminished throughout, mild expiratory wheezing, no crackles CVS: S1, S2, RRR GI: +BS, epigastric tenderness, no distention Skin: Warm, dry Neuro: Cranial nerves II-XII grossly intact bilaterally. Motor grossly intact bilaterally Extremities: No pitting edema Psych: Appropriate affect Const: General: No confusion Orientation/consciousness: No confusion Neuro: General: No confusion Results Labs 02/27/25 00:53 02/27/25 00:53 Labs: Laboratory Results - last 24 hr 02/27/25 02/27/25 02/27/25 00:52 00:53 03:52 MCV 83.6 MCH 29.0 MCHC 34.6 RDW 12.9 Plt Count 168 MPV 9.5 Immature Gran % (Auto) 0.1 Neut % (Auto) 80.6 H Lymph % (Auto) 11.2 L [place] % (Auto) 7.1 Eos % (Auto) 0.6 Baso % (Auto) 0.4 Lymph # (Auto) 0.8 L [place] # (Auto) 0.5 Eos # (Auto) 0.0 Baso # (Auto) 0.0 Abs Immat Gran (auto) 0.01 Absolute Neuts (auto) 5.5 Absolute Nucleated RBC 0.000 Nucleated RBC % (auto) 0.0 Anion Gap 16 Estim Creat Clear Calc 60.5 Estimated GFR > 60 Random Glucose 95 Lactic Acid 1.4 Calcium 8.8 D Total Bilirubin 0.9 Direct Bilirubin 0.3 AST 29 ALT 10 Alkaline Phosphatase 56 Troponin I High Sens 4.8 NT-Pro-B Natriuret Pep 72.2 Total Protein 6.5 Albumin 4.0 Lipase 22 TSH 0.60 Influenza Type A (PCR) NEGATIVE Influenza Type B (PCR) NEGATIVE RSV RNA Qual (PCR) NEGATIVE SARS-CoV-2 RNA (RT-PCR) NEGATIVE Assessment and Plan (1) Acute hypoxic respiratory failure: Status: Acute (2) COPD exacerbation: Status: Acute (3) Chest pain: Status: Acute (4) Unintentional weight loss: Status: Acute (5) Personal history of nicotine dependence: Status: Acute Plan Patient is a 64-year-old female with a past medical history significant for severe COPD, hypertension, history TIA, history lung cancer s/p resection about 4 years ago, who presented to the ED due to chest pain in the left lower chest and left upper quadrant pain. imaging negative, likely hypoxia due to COPD exacerbation Acute hypoxic respiratory failure secondary to COPD exacerbation - Solu-Medrol - duo nebs - titrate oxygen as needed - doxycycline - RPP chest pain, likely pleurisy from COPD exacerbation - monitor on tele unintentional weight loss - f/u with GI outpt - nutrition consult tobacco use disoder - declines NRT - smoking cessation discussed - RT consult HTN, normotensive - resume BP meds when appropriate med rec pending full code VTE prophy: heparin Pt with acute hypoxic respiratory failure secondary to COPD exacerbation, requiring admission for at least 2 midnight stay for IV steroids, antibiotics and monitoring. Quality Stroke Does the patient have a stroke diagnosis?: No VTE Prior VTE?: No VTE Risk Level:: Medical - moderate - high VTE Device Contraindication: Treatment Not Indicated VTE Drug Contraindication: N/A - Med Ordered
--- NOTE | 2025-02-27 07:18 | PC.NURSE ---
This RN assumed care of patient @ 0700 Patient sleeping in bed O2 100% 2L NC, titrated to RA 98% no signs of respiratory distress Patient A&O x 3, denies pain Patient asked not to be disturbed because she finally able to get to sleep Call eagle placed in reach Patient waiting for bed placement
--- NOTE | 2025-02-27 07:40 | PM.EVENT ---
Event Note Date of Service: 02/28/25 Event Note: seen/examined. Admitted this morning for copd exacerbation, disccussed with KRISTINA and I agree with A/P per H and P Time Spent With Patient Time: Total time managing care of this patient today ____ minutes.
--- NOTE | 2025-02-27 10:10 | PHA.MEDREC ---
Addendum entered by Yina Ortiz RPh 02/27/25 10:42: Reviewed by [facility] Original Note: Pharmacy Consult ? Medication Reconciliation Pharmacy has completed the medication reconciliation. Confirmed medication list with patient. Patient took their sertraline, theophylline, umeclidinium (Anoro ellipta), and Xopenex rescue inhaler yesterday. All nebulizer medications (arformoterol and ipratropium bromide) were last taken . Gabapentin was last taken . All other medications patient could not confirm date last taken.
--- NOTE | 2025-02-27 10:19 | PC.NURSE ---
Patient titrated to RA 90% no respiratory distress noted
--- NOTE | 2025-02-27 10:37 | MHC.CM.PN ---
PT REPORTS SHE LIVES WITH A FRIEND AND IS INDEPENDENT WITH CARE SHE HAS A NEBULIZER FOR DME AND NO SERVICES HCP ON FILE AND VERIFIED PCP: PETER JON IMM DELIVERED DCP: HOME VIA FAMILY TRANSPORT
[2025-02-27 12:07] LABS: Chlamydia pneumoniae PCR Not Detected (Not Detect.); Coronavirus 229E PCR Not Detected (Not Detect.); Coronavirus HKU1 PCR Not Detected (Not Detect.); Coronavirus NL63 PCR Not Detected (Not Detect.); Coronavirus OC43 PCR Not Detected (Not Detect.); RSV PCR Not Detected (Not Detect.); Rhino/Enterovirus PCR Not Detected (Not Detect.)
[2025-02-27 13:00] LABS: Influenza A H1 PCR Not Detected (Not Detect.); Influenza A H1-2009 PCR Not Detected (Not Detect.); Influenza A H3 PCR Not Detected (Not Detect.); SARS-CoV-2 PCR Not Detected (Not Detect.)
[2025-02-27] MEDS: 0.9 % Sodium Chloride Flush 3 ML SYRINGE IVFLUSH ×2 (16:36→21:35)
[2025-02-27 22:19] LABS: Appearance Urine Clear; Glucose Urine UA 500 mg/dL (Negative); PH 5.5 (5.0-9.0); Specific Gravity - Urine >= 1.030 (1.005-1.025)
[2025-02-28 03:19] VITALS: BP 119/66; PULSE 79; RESP 16; TEMP 36.2; O2SAT 93
[2025-02-28 06:12] LABS: MANUAL DIFF FLAG NO
[2025-02-28 06:15] LABS: Hematocrit 37.2 % (37.0-47.0); Hemoglobin 12.8 g/dl (12.0-16.0); Imm Gran Abs Auto 0.05 X10*3/uL (0.00-0.03); Imm Gran Pct Auto 0.5 % (0.0-0.4); Lymphocytes Absolute Auto 0.6 X10*3/uL (1.2-4.9); Mean Corpuscular HGB Conc 34.4 g/dl (31.0-35.0); Mean Corpuscular Hemoglobin 28.8 pg (27.0-33.0); Mean Corpuscular Volume 83.6 fL (80.0-98.0); NRBC Abs Auto 0.000 X10*3/uL (0.0-0.012); NRBC Pct Auto 0.0 /100WBC (0.0-0.2); Platelet Count 167 X10*3/uL (160-400); Red Blood Count 4.45 X10*6/uL (4.20-5.50); White Blood Count 9.1 X10*3/uL (4.8-10.8)
[2025-02-28 06:30] LABS: Anion Gap 10 (12-20); Blood Urea Nitrogen 20 mg/dL (9-16); Calcium 8.5 mg/dL (8.4-10.2); Carbon Dioxide 23 mmol/L (22-29); Chloride 112 mmol/L (96-108); Creatinine Clr Calc Pharmacy 61.6; Estimated Glomerular Filt Rate > 60; Potassium 4.0 mmol/L (3.3-5.1); Sodium 141 mmol/L (135-145)
[2025-02-28] MEDS: oxyCODONE HCl Immed Release 5 MG TABLET PO (06:40)
[2025-02-28 07:29] VITALS: BP 107/61; PULSE 76; RESP 17; TEMP 36.7; O2SAT 94
[2025-02-28] MEDS: 0.9 % Sodium Chloride Flush 3 ML SYRINGE IVFLUSH (08:09)
[2025-02-28] MEDS: Theophylline Anhydrous ER 400 MG TAB.ER.24H PO (08:36)
[2025-02-28 10:30] VITALS: PULSE 101; PULSE 73; PULSE 84; O2SAT 83; O2SAT 95; O2SAT 99
[2025-02-28 11:18] VITALS: BP 112/61; PULSE 72; RESP 18; TEMP 36.3; O2SAT 95
--- NOTE | 2025-02-28 12:06 | P.DS_ITS ---
DS: Providers Provider Date of Service: 02/28/25 Date of admission: 02/27/25 05:41 Date of discharge: 02/28/25 Primary care physician: Ric Prado MD DS: Diagnosis Discharge Diagnosis (1) Acute hypoxic respiratory failure: Status: Acute (2) COPD exacerbation: Status: Acute (3) Chest pain: Status: Acute (4) Unintentional weight loss: Status: Acute (5) Personal history of nicotine dependence: Status: Acute DS: Summary Hospital Course Hospital Course: Chief Complaint: chest pressure/LUQ pain Patient is a 64-year-old female with a past medical history significant for severe COPD, hypertension, history TIA, history lung cancer s/p resection about 4 years ago, who presented to the ED due to chest pain in the left lower chest and left upper quadrant pain. The patient reports this has been going on since yesterday. It does not change with breathing but feels pressure-like. No history of DVT or PE. She has associated dry heaving. She also reports 40 lb weight loss in the past 4 months. She feels weak and tired but denies any melena. She reports she has to go for colonoscopies yearly but has not gone in the past 4 years due to her respiratory status. Her last colonoscopy was in June 2020 with a few precancerous polyps removed. Workup in the ED with negative CTA for pulmonary embolism and abdominopelvic CT. The patient desaturated to 78% with ambulation and was placed on 2 L. CTA did show stable left thyroid nodule. EKG with normal sinus rhythm, BNP normal, troponin negative. Likely COPD exacerbation, patient received Solu-Medrol, ceftriaxone and azithromycin. The patient is a poor historian, she states she just wants to sleep and does not provide much history. Hospital course: The patient is a 64-year-old female with a history of severe COPD, hypertension, prior TIA, and lung cancer status post resection (approximately 4 years ago). She presented to the ED with left lower chest and left upper quadrant pain. Imaging was negative for acute pathology, and chest X-ray showed no evidence of pneumonia. Her symptoms were attributed to hypoxia secondary to a COPD exacerbation, likely with underlying bronchitis, in the setting of active tobacco use. During her admission, she was treated with IV steroids, supplemental oxygen, and empiric doxycycline. She experienced a more rapid recovery than expected and is now stable on room air at rest. However, her oxygen saturation drops significantly with exertion, qualifying her for home oxygen therapy. Discharge Plan: * Discharge with a prednisone taper * Continue home bronchodilators * Home oxygen for exertion * Follow up with primary care provider * Strongly advised to stop smoking * PCP to evaluate further for unintentional weight loss Final Diagnoses: * Acute hypoxic respiratory failure due to COPD exacerbation * Bronchitis * Tobacco use disorder * Unintentional weight loss Time Attestation Discharge Coordination Time (in mins): 35 Quality: Safe Use of Opioids Does Pt have an Active Cancer Diagnosis on the Problem List?: No Quality: Stroke Does the patient have a stroke diagnosis?: No Physical Exam Vital Signs: Vital Signs: Last Vital Signs Temp 97.3 F 02/28/25 11:18 Pulse 72 02/28/25 11:18 Resp 18 02/28/25 11:18 BP 112/61 02/28/25 11:18 Pulse Ox 95 02/28/25 11:18 O2 Del Method Room Air 02/28/25 11:18 O2 Flow Rate 2 02/27/25 06:00 BMI result Body Mass Index 14.0 General: AO X 3, no acute distress Resp: CTA bilateral CVS: S1,S2,RRR GI: +BS, NT, no distention Skin: No rash Neuro: motor grossly intact Psych: appropriate affect DS: Data Data Completed and Pending Labs on day of discharge: Laboratory Results - last 24 hr 02/27/25 02/27/25 02/28/25 09:22 22:09 06:07 WBC 9.1 RBC 4.45 Hgb 12.8 Hct 37.2 MCV 83.6 MCH 28.8 MCHC 34.4 RDW 13.2 Plt Count 167 MPV 9.2 L Immature Gran % (Auto) 0.5 H Neut % (Auto) 90.0 H Lymph % (Auto) 6.5 L [place] % (Auto) 2.9 Eos % (Auto) 0.0 Baso % (Auto) 0.1 Lymph # (Auto) 0.6 L [place] # (Auto) 0.3 Eos # (Auto) 0.0 Baso # (Auto) 0.0 Abs Immat Gran (auto) 0.05 H Absolute Neuts (auto) 8.2 Absolute Nucleated RBC 0.000 Nucleated RBC % (auto) 0.0 Sodium 141 Potassium 4.0 Chloride 112 H Carbon Dioxide 23 Anion Gap 10 L BUN 20 H Creatinine 0.54 Estim Creat Clear Calc 61.6 Estimated GFR > 60 Random Glucose 119 H Calcium 8.5 Urine Color Yellow Urine Appearance Clear Urine pH 5.5 Ur Specific [place] >= 1.030 H Urine Protein Negative Urine Glucose (UA) 500 H Urine Ketones Trace Urine Blood Negative Urine Nitrite Negative Ur Leukocyte Esterase Negative Urine RBC 0-2 Urine WBC 0-5 Ur Squamous Epith Cells 0-2 Urine Bacteria None Seen Hyaline Casts 0-2 Respiratory Panel [place] See Note Adenovirus (Rapid PCR) Not Detected B.pert (TEM-PCR) Not Detected B.parapertussis DNA PCR Not Detected C. pneumoniae DNA (PCR) Not Detected Coronavirus OC43 (PCR) Not Detected Coronavirus HKU1 (PCR) Not Detected Coronavirus 229E (PCR) Not Detected Coronavirus NL63 (PCR) Not Detected Human Metapneumovir PCR Not Detected Influenza A (RT-PCR) Not Detected Influenza A (H1) PCR Not Detected Influ A (H1/09) PCR Not Detected Influenza A (H3) PCR Not Detected Influenza B (RT-PCR) Not Detected M. pneumoniae (PCR) Not Detected Parainfluenza 1 (PCR) Not Detected Parainfluenza 2 (PCR) Not Detected Parainfluenza 3 (PCR) Not Detected Parainfluenza 4 (PCR) Not Detected RSV (PCR) Not Detected Entero/Rhino (PCR) Not Detected SARS-CoV-2 RNA (RT-PCR) Not Detected Preliminary micro results at discharge 02/27/25 03:51 Blood Culture - Preliminary Blood - Venous No growth after 24 hours. 02/27/25 03:51 Blood Culture - Preliminary Blood - Venous No growth after 24 hours. Discharge Plan Discharge Anticipated Discharge Date/Time: 02/28/25 12:06 Patient Disposition: Home, Self-Care Discharge Diagnosis: Acute Hypoxic respiratory failure due to copd exacerbation Referrals: Ric Prado MD [Primary Care Provider, Medical] - 1 Week Discharge Medications: New prednisone 10 mg tablet See Taper PO DAILY Qty: 20 0RF Taper: Prednisone 40 mg daily for 3 Days and 0 Hour 30 mg daily for 3 Days and 0 Hour 20 mg daily for 3 Days and 0 Hour 10 mg daily for 3 Days and 0 Hour doxycycline monohydrate 100 mg tablet 100 mg PO BID 4 Days Qty: 8 0RF Continued ipratropium bromide 0.02 % solution 2.5 ml inhalation Q6H PRN (Reason: shortness of breath or wheezing) 30 Days Qty: 300 6RF arformoterol [Brovana] 15 mcg/2 mL solution for nebulization 2 ml inhalation BID 30 Days Qty: 120 0RF levalbuterol tartrate [Xopenex HFA] 45 mcg/actuation HFA aerosol inhaler 1 puff PO Q4H PRN (Reason: for wheezing) Qty: 15 6RF umeclidinium-vilanterol [Anoro Ellipta] 62.5-25 mcg/actuation blister with device 1 ea inhalation DAILY Qty: 60 0RF sertraline [Zoloft] 100 mg Tablet 100 mg PO DAILY gabapentin 300 mg capsule 300 mg PO BEDTIME biotin tablet 2 tab PO DAILY theophylline 400 mg tablet extended release 24 hr 400 mg PO DAILY Calcium 300 300 mg (750 mg) Tablet,Chewable 600 mg PO DAILY@0730 Women's Multivitamin 18 mg iron-400 mcg-500 mg Tablet 1 tab PO DAILY@0730 Discharge Orders: Discharge Order (Routine); Ordered 02/28/25 Ordered By: Sheldon Nguyễn Diet: Advance to usual diet Activity on Discharge: As tolerated Stand Alone Forms: Patient Portal Discharge page Print Language: Monegasque Care Plan Goals: recovery from copd exacerbation Health Concerns: copd chronic tobacco use weight loss Plan of Treatment: take prednisone as directed use inhalers as directed follow up with your PCP and tell your pcp about your weight loos, you may need further testing especially your screen exams Assessment: see above
--- NOTE | 2025-02-28 15:09 | MHC.CM.PN ---
PT IS MEDICALLY CLEARED FOR DISCHARGE HOME SELF-CARE, SHE ARRANGED HER OWN TRANSPORT HOME TODAY.
== END 2025-02-28 14:18 | disposition home or self-care (01) | DRG 190 ==
LOC: HO.ED 03:32 → HO.EDOVER 06:44 → HO.IMC 10:23
PROVIDERS: Emergency Medicine Emergency Medical Services; Admitting Provider Physician Assistant; Emergency Provider Emergency Medicine; PCP Internal Medicine; Visit Provider Internal Medicine
DX: J43.9 Emphysema, unspecified (principal); J96.01 Acute respiratory failure with hypoxia; Z68.1 Body mass index [BMI] 19.9 or less, adult; I10 Essential (primary) hypertension; R63.4 Abnormal weight loss; Z20.822 Contact with and (suspected) exposure to COVID-19; Z85.118 Personal history of other malignant neoplasm of bronchus and lung; Z90.2 Acquired absence of lung [part of]; Z79.899 Other long term (current) drug therapy
CPT/HCPCS: 36415; 71275; 74177; 80048; 80076; 81001; 83605; 83690; 83880; 84443; 84484; 85025; 87040; 87633; 87637; 93005; 94640; 99222; 99285; J0456; J0696; J1271; J1644; J2405; J2919; Q9967

== ENCOUNTER → 2025-02-27 00:20 | Outpatient (BNV) | payer MEDICARE, MEDICAID, SELFPAY | PROVIDERS: Admitting Provider Physician Assistant; Emergency Provider Emergency Medicine; PCP Internal Medicine; Visit Provider Internal Medicine Cardiovascular Disease | DX: I51.7 Cardiomegaly (principal) | CPT/HCPCS: 93010 ==

== ENCOUNTER → 2025-02-27 00:39 | Outpatient (BNV) | payer MEDICARE, MEDICAID, SELFPAY | PROVIDERS: Emergency Provider Emergency Medicine; PCP Internal Medicine; Visit Provider Radiology Diagnostic Radiology | DX: R10.9 Unspecified abdominal pain (principal); J43.9 Emphysema, unspecified | CPT/HCPCS: 71275; 74177 ==

== ENCOUNTER → 2025-02-27 05:41 | Outpatient (BNV) | payer MEDICARE, MEDICAID, SELFPAY | PROVIDERS: Admitting Provider Physician Assistant; Emergency Provider Emergency Medicine; PCP Internal Medicine; Visit Provider Physician Assistant | DX: J96.01 Acute respiratory failure with hypoxia (principal); J44.1 Chronic obstructive pulmonary disease with (acute) exacerbation; R07.9 Chest pain, unspecified; R63.4 Abnormal weight loss; Z87.891 Personal history of nicotine dependence | CPT/HCPCS: 99223; 99499 ==

== ENCOUNTER 2025-03-30 14:31 | Outpatient (AMB) | payer MEDICARE, MEDICAID, SELFPAY ==
--- OUTSIDE RECORDS SUMMARY | 2023-12-09 07:26 | XMS_ITS ---
Author Organization Ric Prado MD Address [address] [place] [address] [phone] Care Team Providers Care Information Receptionist Name Role Phone Ric Prado Primary Care Provider [phone] REASON FOR VISIT refill Medications Medication SIG (Take, Route, Fr equency, Duration) Notes Start Date End Date Status Gabapentin 300 MG 1 capsule Orally at night for 30 days 07/25/2023 Active Encounters Encounter Location Date Provider Diagnosis Ric Prado MD [address] [place] [address] [phone] 12/09/2023 Ric Prado Cervical neuropathy G54.2 Assessments Encounter Date Diagnosis (ICD Code) Assessment Notes Treatment Notes Treatment Clinical Notes Section Notes 12/09/2023 Cervical neuropathy (ICD-10 - G54.2) Plan Of Treatment Medication Medication Name Sig Start Date Stop Date Notes Gabapentin 300 MG 1 capsule Orally at night for 30 days Next Appt Details Provider Name:Ric Lundberg ier, 05/24/2025 01:45:00 PM, [address], [address], [place], [place], [phone], Progress Notes * Araseli BRIDGES MDOB:[birth year] (63 yo F)Acc No.[id number]:12/09/2023 Patient: Regi duranAraseli :1960 A ge:63 Y S ex:Female Address:[address] [place] [address] [place] b[place], [id number] * Refills Refill Gabapentin Capsule, 300 MG, Orally, 30, 1 capsule, at night, 30 days, Refills=3 * true * Date: Generated for Colton gordon/Derek/Kacismitting on: 1 06:55 PM EDT
--- OUTSIDE RECORDS SUMMARY | 2024-01-20 10:00 | XMS_ITS ---
Author Organization Ric Prado MD Address [address] [place], [place] [phone] Care Team Providers Care Primary Grade Teacher Name Role Phone Ric Prado Primary Care Provider [phone] Allergies No Known Allergies REASON FOR VISIT 6 MO F/U Medications Medication SIG (Take, Route, Frequency, Duration) Notes Start Date End Date Status Gabapentin 300 MG 1 capsule Orally at night for 30 days 07/25/2023 Active Breo Ellipta 200-25 MCG/ACT 1 puff Inhalation Once a day for 30 days 01/24/2023 Not-Taking Stiolto Respimat 2.5-2.5 MCG/ACT 2 puffs Inhalation Once a day for 30 days 02/12/2023 Active Meloxicam 15 MG TAKE 1 TABLET BY DONOVAN TH EVERY DAY for 30 Active Sertraline HCl 100 MG TAKE 1 TABLET BY M OUTH EVERY DAY for 90 Active Ambien 5 MG 1 tablet at bedtime as needed Orally Once a day as needed for 30 days 02/11/2023 Active Ipratropium [place] 0.02 % 2.5 mL Inhalation every 8 hrs Active Xopenex HFA 45 MCG/ACT 1 puff as needed Inhalation every 4 hrs 06/16/2020 Active Anoro Ellipta 62.5-25 MCG/ACT inhale 1 puff into the lungs every day for 90 days Inhalation Once a day for 90 days Active Theophylline ER 400 MG 1 tablet Orally O nce a day Active Meclizine HCl 12.5 MG 1 tablet as needed Orally twice a day for 10 days 10/24/2020 Active Vitamin D3 Super Strength 50 MCG (2000 UT) 1 capsule Orally Once a day for 30 day(s) Not-Taking Levalbuterol Tartrate 45 MCG/ACT 1 puff as needed Inhalation every 4 hrs for 30 days Not-Taking Clobetasol Propionate 0.05 % 1 application to affected area Externally Twice a day for 10 day(s) 01/03/2018 Not-Taking Social History Tobacco Use: Social History Observation Description Date Details (start date - stop date) Current Smoker NA - NA Tobacco Use/Smoking Question Answer Notes Patient is a current smoker How often do you smoke cigarettes? every day How many cigarettes a day do you smoke? 11-20 How soon after you wake up d o you smoke your first cigarette? 31-60 minutes Are you interested in quitting? Not ready to haley t Additional Findings: Tobacco User Curren t cigarette smoker, not currently using another form of tobacco Section Notes: Patient states has not had a drink in 4 years. Vital Signs Blood pressure systolic 84 mm Hg 01/20/20 24 Blood pressure diastolic 50 mm Hg 024 Height 64 in 01/20/2024 Weight 92 lbs 01/20/2024 BMI 15.79 kg/m2 01/20/2024 weight is down 8 pounds raoul corry 02-11-23 Encounters Encounter Location Date Provider Diagnosis Ric Prado MD [address] [place] [address] [address] [place], [place] [phone] 01/20/2024 Ric Prado Chronic obstructive pulmonary disease, unspecified J44.9 and Smoker unmotivated to quit F17.210 Assessments Encounter Date Diagnosis (ICD Code) Assessment Notes Treatment Notes Treatment Clinical Notes Section Notes 01/20/2024 Chronic obstructive pulmonary disease, unspecified (ICD-10 - J44.9) went over the results of the chest ct which has improved. she is using her updraft 4 times a day but still short of breath needs a handicapped plate and will try to get the FEV1 which is necessary. 01/20/2024 Smoker unmotivated to quit (ICD-10 - F17.210) have explained that her continued smoking does not help her breathing and continues to worsen it Plan Of Treatment Treatment Notes Assessment Notes Chronic obstructive pulmonar y disease, unspecified went over the results of the chest ct which has improved. she is using her updraft 4 times a day but still short of breath needs a handicapped plate and will try to get the FEV1 which is necessary. Smoker unmotivated to quit have explaine d that her continued smoking does not help her breathing and continues to worsen it Next Appt Details Follow Up: 6 Months, Reason: Provider Name:Ric garvin, 05/24/2025 01:45:00 PM, [address] [place] [address], [address], [phone], Progress Notes * Araseli BRIDGES MDOB:[birth year] (63 yo F)Acc No.[id number]:01/20/2024 Progress Notes Patient: Araseli Miramontes Provider: Shalom Prado MD :1960 A ge:63 Y S ex:Female Date:01/20/2024 Address:[address] [place], [place] [phone] Subjective: * Chief Complaints: * 6 MO F/U * HPI: S ymptom(s): patient is a 63 yo female here for 6 month follow up visit complaining she is not able to breath. * ROS: G eneral/Constitutional: Denies C hills. D enies F atigue. D enies F ever. D enies H eadache. E NT: Patient denies d ecreased sense of smell , any loss of taste , sore throat. D enies S ore throat. R espiratory: Admits C ough. A dmits S hortness of breath at rest. A dmits S hortness of breath with exertion. A dmits S putum production. Shanelle taveras. Shalom astrointestinal: Denies Shanelle iarrhea. Shanelle Tavares ausea. M usculoskeletal: Patient denies m uscle aches. P eripheral Vascular: Patient denies r ed and blue toes. * Medical History: * Surgical History: * Hospitalization/Major Diagno stic Procedure: * Social History: T obacco Use: T obacco Use/Smoking P atient is a c urrent smoker, H ow often do you smoke cigarettes? e very day, H ow many cigarettes a day do you smoke? 1 1-20, H ow soon after you wake up do you smoke your first cigarette? 3 1-60 minutes, A re you interested in quitting? N ot ready to quit, A dditional Findings: Tobacco User C urrent cigarette smoker, not currently using another form of tobacco. P atient states has not had a drink in 4 years. * Medications: T akingMeclizine HCl 12.5 MG Tablet 1 tablet as needed Orally twice a dayAmbien 5 MG Tablet 1 tablet at bedtime as needed Orally Once a day as neededAnoro Ellipta 62.5-25 MCG/ACT Aerosol Powder Breath Activated inhale 1 puff into the lungs every day for 90 days Inhalation Once a dayTheophylline ER 400 MG Tablet Extended Release 24 Hour 1 tablet Orally Once a dayIpratropium Stanberry 0.02 % Solution 2.5 mL Inhalation every 8 hrsXopenex HFA 45 MCG/ACT Aerosol 1 puff as needed Inhalation every 4 hrsStiolto Respimat 2.5-2.5 MCG/ACT Aerosol Solution 2 puffs Inhalation Once a dayMeloxicam 15 MG Tablet TAKE 1 TABLET BY MOUTH EVERY DAY Sertraline HCl 100 MG Tablet TAKE 1 TABLET BY MOUTH EVERY DAY Gabapentin 300 MG Capsule 1 capsule Orally at nightTaking Meclizine HCl 12.5 MG Tablet 1 tablet as needed Orally twice a dayTaking Ambien 5 MG Tablet 1 tablet at bedtime as needed Orally Once a day as neededTaking Anoro Ellipta 62.5-25 MCG/ACT Aerosol Powder Breath Activated inhale 1 puff into the lungs every day for 90 days Inhalation Once a dayTaking Theophylline ER 400 MG Tablet Extended Release 24 Hour 1 tablet Orally Once a dayTaking Ipratropium [place] 0.02 % Solution 2.5 mL Inhalation every 8 hrsTaking Xopenex HFA 45 MCG/ACT Aerosol 1 puff as needed Inhalation every 4 hrsTaking Stiolto Respimat 2.5-2.5 MCG/ACT Aerosol Solution 2 puffs Inhalation Once a dayTaking Meloxicam 15 MG Tablet TAKE 1 TABLET BY MOUTH EVERY DAY Taking Sertraline HCl 100 MG Tablet TAKE 1 TABLET BY MOUTH EVERY DAY Taking Gabapentin 300 MG Capsule 1 capsule Orally at nightNot-Taking/PRNBreo Ellipta 200-25 MCG/ACT Aerosol Powder Breath Activated 1 puff Inhalation Once a dayVitamin D3 Super Strength 50 MCG (1999 UT) Capsule 1 capsule Orally Once a dayLevalbuterol Tartrate 45 MCG/ACT Aerosol 1 puff as needed Inhalation every 4 hrsClobetasol Propionate 0.05 % Cream 1 application to affected area Externally Twice a dayMedication List reviewed and reconciled with the patientNot-Taking/PRN Breo Ellipta 200-25 MCG/ACT Aerosol Powder Breath Activated 1 puff Inhalation Once a dayNot-Taking/PRN Vitamin D3 Super Strength 50 MCG (2000 UT) Capsule 1 capsule Orally Once a dayNot-Taking/PRN Levalbuterol Tartrate 45 MCG/ACT Aerosol 1 puff as needed Inhalation every 4 hrsNot-Taking/PRN Clobetasol Propionate 0.05 % Cream 1 application to affected area Externally Twice a dayMedication List reviewed and reconciled with the patient * Allergies: N .K.D.A.yes[Allergies Verified] Objective: * Vitals: H t: 64, Wt:92, BMI:15.79, BP:84/50 weight is down 8 pounds since 02-11-23. * Examination: G eneral Examination: GENERAL APPEARANCE: alert, well hydrated, in no distress , female. HEAD: normocephalic. HEART: regular rate and rhythm, no murmurs, rubs, gallops. LUNGS: diminished breath sounds throughout. ? Assessment: * Assessment: 1. C hronic obstructive pulmonary disease, unspecified - J44.9 (Primary) 2 Josey barrera unmotivated to quit - F17.210 Plan: * Treatment: 2Josey barrera unmotivated to quit Notes: have explained that her continued smoking does not help her breathing and continues to worsen it. * Procedure Codes: * Preventive Medicine: Counseling: S moking P atient counseled on the dangers of tobacco use and urged to quit. 0 01/20/2024, P atient Lifestyle Goals P atient does not want to quit, T reatment Goals s uggested patient at least, Cut down by 1 cigarette a week, S elf-Managment Goals C onsider support such as Quitworks or counseling, B arriers D oes not want to quit, S et a Quit Date D oes not want to quit. COPD Care Plan: P atient Lifestyle Goals R elieve symptoms and improve quality of life. T reatment Goals Q uit smoking or cut down number of cigarettes slowly. B arriers P atient unmotivated to quit smoking. S elf-Managment Plan M ariel a plan for quitting smoking - set a quit date. * Follow Up: 6 Months * * Sign off status: Completed true * Provider: Shalom Prado MD Date: 0 01/20/2024 Generated for Colton gordon/Derek/Otisransmitting on: 1 06:55 PM EDT History and Physical Notes * HPI (History of Present Illness) Category Sub-Category Detail Notes Category Not es Symptom(s) patient is a 63 yo female here for 6 month follow up visit complaining she is not able to breath Examination Category Sub-Category Detail Notes Category Not es General Examination GENERAL APPEARANCE: alert, w ell hydrated, in no distress , female HEAD: normocephalic HEART: regular rate and rhy thm, no murmurs, rubs, gallops LUNGS: diminished breath so unds throughout
--- OUTSIDE RECORDS SUMMARY | 2024-02-04 10:00 | XMS_ITS ---
Author Organization [facility] Address [address] [place] [address] Care Team Providers Care Agency Cashier Name Role Phone Ric Prado MD Primary Care Provider Raymon Alegria Unavailable [phone] REASON FOR VISIT Patient presents today for a colon screening Encounters Encounter Location Date Provider Diagnosis [facility] [address] [place] [phone] 02/04/2024 Raymon Sawyer Plan Of Treatment No Information Progress Notes * ISAIAS KING MDOB:[birth year] (65 yo F)Acc No.[id number]:02/04/2024 Progress Notes Patient: ISAIAS COLLIER Provider: Santos Sawyer MD :1960 A ge:63 Y S ex:Female Date:02/04/2024 Address:[address] [facility] [id number] Pcp:Ric Prado MD Subjective: * Chief Complaints: * 1 . Patient presents today for a colon screening. * Medical History: Objective: * Vitals: Assessment: Plan: * Treatment: * * The named appointment provid er may or may not be the originator of this progress note, and it is not deemed complete until electronically signed by the appointment provider. Sign off status: Pending * Provider: Santos Sawyer MD Date: 0 02/04/2024 Generated for Colton gordon/Fabrendang/eTransmitting on: 1 06:56 PM EDT
--- OUTSIDE RECORDS SUMMARY | 2024-04-09 07:31 | XMS_ITS ---
Author Organization Ric Prado MD Address [address] [place] [phone] Care Team Providers Care Workers Compensation Legal Secretary Name Role Phone Ric Prado Primary Care Provider [phone] REASON FOR VISIT REFILL GABAPENTIN Medications Medication SIG (Take, Route, Fr equency, Duration) Notes Start Date End Date Status Gabapentin 300 MG 1 capsule Orally at night for 30 days 07/25/2023 Active Encounters Encounter Location Date Provider Diagnosis Ric Prado MD [address] [place] [phone] 04/09/2024 Ric Prado Cervical neuropathy G54.2 Assessments Encounter Date Diagnosis (ICD Code) Assessment Notes Treatment Notes Treatment Clinical Notes Section Notes 04/09/2024 Cervical neuropathy (ICD-10 - G54.2) Plan Of Treatment Medication Medication Name Sig Start Date Stop Date Notes Gabapentin 300 MG 1 capsule Orally at night for 30 days Next Appt Details Provider Name:Ric Lundberg ier, 05/24/2025 01:45:00 PM, [address], [address], [place], [place], [phone], Progress Notes * Araseli BRIDGES MDOB:[birth year] (64 yo F)Acc No.[id number]:04/09/2024 Patient: Regi duranAraseli :1960 A ge:64 Y S ex:Female Address:[address] [place] [address], [place], [address] * Refills Refill Gabapentin Capsule, 300 MG, Orally, 1 capsule, at night, 30 days, Refills=3 * true * Date: Generated for Colton gordon/Derek/Malcomitting on: 1 06:55 PM EDT
--- OUTSIDE RECORDS SUMMARY | 2024-07-30 10:15 | XMS_ITS ---
Author Organization Ric Prado MD Address [address] [place] [phone] Care Team Providers Care Advertising Manager Name Role Phone Ric Prado Primary Care Provider Allergies No Known Allergies REASON FOR VISIT 6 month Medications Medication SIG (Take, Route, Frequency, Duration) Notes Start Date End Date Status Ipratropium [place] 0.02 % 2.5 mL Inhalation every 8 [...] Status W/U Status Risk Notes Problem Smoker (20398369) Smoker (F17.200) Active confirmed Vital Signs Blood pressure systolic 94 mm Hg 07/30/19 25 Blood pressure diastolic 50 mm Hg 025 Height 64 in 07/30/2024 Weight 90 lbs 07/30/2024 BMI 15.45 kg/m2 07/30/2024 weight is down 2 pounds [facility] 01-20-24 Encounters Encounter Location Date Provider Diagnosis Ric Prado MD [address] [place] [address] [place] [phone] 07/30/2024 Ric Prado Chronic obstructive pulmonary disease, [...] Sig Start Date Stop Date Notes Ipratropium [place] 0.02 % 2.5 mL Inhala tion every [...] 6 Months, Reason: Provider Name:Ric Lundberg ier, 05/24/2025 01:45:00 PM, [address] [place] [address], [facility] [address], [place], [phone], Progress Notes * Araseli BRIDGES MDOB:[birth year] (64 yo F)Acc No.[id number]:07/30/2024 Progress Notes Patient: Regi MAY Araseli Amaya Provider: Shalom Prado MD :1960 A ge:64 Y S ex:Female Date:07/30/2024 Address:[address] [place], [place] [phone] Subjective: * Chief Complaints: * 6 month [...] 1 tablet Orally Once a day Ipratropium [place] 0.02 % Solution 2.5 mL Inhalation every [...] tablet Orally Once a day Taking Ipratropium [place] 0.02 % Solution 2.5 mL Inhalation every [...] 0 07/30/2024 Generated for Colton gordon/Derek/Malcomitting on: 1 06:56 PM EDT History and Physical Notes * [...]
--- OUTSIDE RECORDS SUMMARY | 2024-09-28 03:30 | XMS_ITS ---
Author Organization [facility] Address [address] [place] [address] Care Team Providers Care Director Of Industrial Relations Name Role Phone Ric Prado MD Primary Care Provider Raymon Alegria Unavailable [phone] REASON FOR VISIT screening,hx polyps, fam hx colon ca Encounters Encounter Location Date Provider Diagnosis [facility] [address] [place], [place] [phone] 09/28/2024 Raymon Sawyer Plan Of Treatment No Information Progress Notes * ISAIAS KING MDOB:[birth year] (65 yo F)Acc No.[id number]:09/28/2024 COLON WITH MAC Patient: ISAIAS COLLIER Provider: Santos Sawyer MD :1960 A ge:64 Y S ex:Female Date:09/28/2024 Address:[address] [facility] [facility] Pcp:Ric Prado MD Subjective: * Chief Complaints: [...] * Provider: Santos Sawyer MD Date: 0 09/28/2024 Generated for Colton ng/Fabrendang/eTransmitting on: 1 06:56 PM EDT
--- OUTSIDE RECORDS SUMMARY | 2025-01-01 07:16 | XMS_ITS ---
Author Organization Ric Prado MD Address [address] [place] [phone] Care Team Providers Care Roustabout Hand Name Role Phone Ric Prado Primary Care Provider REASON FOR VISIT tooth infection Medications Medication SIG (Take, Route, Fr equency, Duration) Notes Start Date End Date Status Amoxicillin 500 MG 1 capsule Orally sulema ry 8 hrs for 5 days 01/01/2025 Active Encounters Encounter Location Date Provider Diagnosis Ric Prado MD [address] [place] [phone] 01/01/2025 Ric Prado Plan Of Treatment Medication Medication Name Sig Start Date Stop Date Notes Amoxicillin 500 MG 1 capsule Orally every 8 hrs for 5 days 01/01/2025 Next Appt Details Provider Name:Ric Lundberg ier, 05/24/2025 01:45:00 PM, [address] [place] [address], [address], [place], [phone], Progress Notes * Araseli BRIDGES MDOB:[birth year] (64 yo F)Acc No.[id number]:01/01/2025 Patient: Quique COLLIERen Amaya :1960 A ge:64 Y S ex:Female Address:[address] [place] [address] [place], [address] * Refills Start Amoxicillin Capsule, 500 MG, Orally, 15, 1 capsule, every 8 hrs, 5 days * true * Date: Generated for Colton gordon/Derek/Kacismitting on: 06:55 PM EDT
--- OUTSIDE RECORDS SUMMARY | 2025-03-04 13:15 | XMS_ITS ---
Author Organization Ric Prado MD Address [address] [facility] [address] [place] [phone] Care Team Providers Care Paving Inspector Name Role Phone Ric Prado Primary Care Provider Allergies No Known Allergies REASON FOR VISIT 6 month Encounters Encounter Location Date Provider Diagnosis Ric Prado MD [address] [facility] [address] [place], [place] [phone] 03/04/2025 Ric Prado Plan Of Treatment Next Appt Details Provider Name:Ric Lundberg ier, 05/24/2025 01:45:00 PM, [address] [facility], Suite [facility], [place], [place], [phone], Progress Notes * Araseli BRIDGES MDOB:[birth year] (65 yo F)Acc No.[id number]:03/04/2025 Progress Notes Patient: Araseli COLLIER Provider: Shalom Prado MD :1960 A ge:65 Y S ex:Female Date:03/04/2025 Address:[address] [place], [place] [id number] Subjective: * Chief Complaints: * 1 . 6 month. * HPI: S ymptom(s): patientis a 65 yo female here for 6 month follow up visit. * ROS: G eneral/Constitutional: Denies C hills. D enies F atigue. D enies F ever. D enies H eadache. E NT: Denies S ore throat. R espiratory: Denies C ough. D enies S hortness of breath at rest. D enies S hortness of breath with exertion. G astrointestinal: Denies D iarrhea. D enies N ausea. * Medical History: C olonoscopy done 01/27/15 w/Dr. Sawyer - repeat 1 year; colonoscopy 06/07/[address] Sawyer - repeat 3 years; Colonoscopy 06/24/[address] Sawyer - repeat 3 years, Thyroid nodule refuses evaluation 2022. * Allergies: N .K.D.A. Objective: * Vitals: Assessment: Plan: * Treatment: * * The named appointment provid er may or may not be the originator of this progress note, and it is not deemed complete until electronically signed by the appointment provider. Sign off status: Pending * Provider: Shalom Prado MD Date: Generated for Colton gordon/Derek/Kacismitting on: 06:56 PM EDT History and Physical Notes * HPI (History of Present Illness) Category Sub-Category Detail Notes Category Not es Symptom(s) patientis a 65 yo female here for 6 month follow up visit
--- OUTSIDE RECORDS SUMMARY | 2025-03-08 10:10 | XMS_ITS ---
Author Organization Ric Prado MD Address [address] [facility] [address] [place] [phone] Care Team Providers Care Route Returner Name Role Phone Ric Prado Primary Care Provider REASON FOR VISIT Discharge Encounters Encounter Location Date Provider Diagnosis Ric Prado MD [address] [facility] [address] [place] [phone] 03/08/2025 Ric Prado Plan Of Treatment Next Appt Details Provider Name:Ric garvin, 05/24/2025 01:45:00 PM, [address] [place] [address], [address] [place] [address], [phone], Progress Notes * Araseli BRIDGES MDOB:[birth year] (65 yo F)Acc No.[id number]:03/08/2025 Patient: Araseli COLLIER :1960 A ge:65 Y S ex:Female Address:[address] [place] [address] [id number] * true * Date: Generated for Urszulai ng/Derek/eTransmitting on: 06:54 PM EDT
--- OUTSIDE RECORDS SUMMARY | 2025-03-19 09:00 | XMS_ITS ---
Author Organization Ric Prado MD Address [address] [place] [phone] Care Team Providers Care Account Executive Healthcare Name Role Phone Ric Prado Primary Care Provider Allergies No Known Allergies REASON FOR VISIT PH/TCM, Audio [phone] Medications Medication SIG (Take, Route, Frequency, Duration) Notes Start Date End Date Status Doxycycline Monohydrate 100 MG 1 tablet Orally Once a day Not-Taking Anoro Ellipta 62.5-25 MCG/ACT inhale 1 puff into the lungs every day for 90 days Inhalation Once a day Not-Taking predniSONE 10 MG 1 tablet with food o r milk Orally Once a day Not-Takin g Ambien 5 MG 1 tablet at bedtime as needed Orally Once a day as needed for 30 days 02/11/2023 Active Meclizine HCl 12.5 MG 1 tablet as needed Orally twice a day for 10 days 10/24/2020 Active Umeclidinium-Vilanterol 62.5-25 MCG/ACT 1 puff Inhalation Once a day Active Clobetasol Propionate 0.05 % 1 application to affected area Externally Twice a day for 10 day(s) 01/03/2018 Not-Taking Levalbuterol Tartrate 45 MCG/ACT 1 puff as needed Inhalation every 4 hrs for 30 days Not-Taking Vitamin D3 Super Strength 50 MCG (1999 [place]) 1 capsule Orally Once a day for 30 day(s) Not-Taking Breo Ellipta 200-25 MCG/ACT 1 puff Inhalation Once a day for 30 days 01/24/2023 Not-Taking Gabapentin 300 MG TAKE 1 CAPSULE BY MO UTH AT NIGHT for 30 Active Stiolto Respimat 2.5-2.5 MCG/ACT 2 puffs Inhalation Once a day 02/12/2023 Not-Taking Sertraline HCl 100 MG TAKE 1 TABLET BY M OUTH EVERY DAY for 90 Active Meloxicam 15 MG TAKE 1 TABLET BY DONOVAN EVERY DAY for 30 Active Theophylline ER 300 MG 2 tabs Orally Onc e a day Active Xopenex HFA 45 MCG/ACT 1 puff as needed Inhalation every 4 hrs 06/16/2020 Active Ipratropium [place] 0.02 % 2.5 mL Inhalation every 8 hrs Active Vital Signs Height 64 in 03/19/2025 Weight 81.2 lbs 03/19/2025 BMI 13.94 kg/m2 03/19/2025 weight at home is 81.2 BP no t taken at home no temp Encounters Encounter Location Date Provider Diagnosis Ric Prado MD [address] [place] [address] Drive [address] [place] [phone] 03/19/2025 Ric Prado Chronic obstructive pulmonary disease, unspecified J44.9 ; Weight loss R63.4 and Abdominal pain R10.9 Assessments Encounter Date Diagnosis (ICD Code) Assessment Notes Treatment Notes Treatment Clinical Notes Section Notes 03/19/2025 Chronic obstructive pulmonary disease, unspecified (ICD-10 - J44.9) need copy of last pft's from dr lance[place] [id number] IN 2021, THEY WILL FAX OVER/ she wants a handicap placard and said she tried to get it and we sent it to her partially filled out. will try to get her fev1 which should qualify her 03/19/2025 Weight loss (ICD-10 - R63.4) she has had an extensinve work up and there is no evidence of any cancer. she could not do a colonoscopy as her breathing is so bad and she continues to smoke. seems it is just the cachexia of end stage copd. 03/19/2025 Abdominal pain (ICD-10 - R10.9) has had extensive evaluation. had ct and all blood work looked fine. seems she would not be a candidate for a colonoscopy due to her end stage lung disease as she would be a high risk from anashtesia and the possibility of finding something that could be treated is low compared to the risk Plan Of Treatment Treatment Notes Assessment Notes Chronic obstructive pulmonar y disease, unspecified need copy of last pft's from dr lance/P [facility] [id number] LAST PFT DONE IN 2021, THEY WILL FAX OVER/ she wants a handicap placard and said she tried to get it and we sent it to her partially filled out. will try to get her fev1 which should qualify her Weight loss she has had an exten sinve work up and there is no evidence of any cancer. she could not do a colonoscopy as her breathing is so bad and she continues to smoke. seems it is just the cachexia of end stage copd. Abdominal pain has had extensive ev aluation. had ct and all blood work looked fine. seems she would not be a candidate for a colonoscopy due to her end stage lung disease as she would be a high risk from anashtesia and the possibility of finding something that could be treated is low compared to the risk Next Appt Details Follow Up: 2 Months, Reason: Provider Name:Ric Lundberg ier, 05/24/2025 01:45:00 PM, [address], [address], [place], [place], [phone], Progress Notes * Araseli BRIDGES MDOB:[birth year] (65 yo F)Acc No.[id number]:03/19/2025 Patient: Araseli COLLIER Provider: Shalom Prado MD :1960 A ge:65 Y S ex:Female Date:03/19/2025 Address:[address], [id number] Subjective: * Chief Complaints: * P H/Trang [phone] * HPI: S ymptom(s): Telehealth L ocation of provider rendering services: [address], [address], L ocation of patient: a t address listed in demographics for today's visit, P atient identification confirmed using: CHEMO Tavares ame, T elehealth method: T elephone only. Patient not visible to care provider., C onsent: P atient verbally consented to treatment, Patient verbally consented to billing insurance company, Patient informed of any privacy concerns related to method of visit, T otal time spend talking with patient (minutes) 3 2. patient is a 65 yo female audio teleheath visit here for transitional car manageent visit following recent hospitalization. Discharge summary has been reviewed and medications reconcilled. * ROS: G eneral/Constitutional: Denies C hills. D enies F atigue. D enies F ever. D enies H eadache. E NT: Denies S ore throat. R espiratory: Admits C ough. A dmits S hortness of breath at rest. A dmits S hortness of breath with exertion. D enies S putum production. A dmits W heezing. G astrointestinal: Denies D iarrhea. D enies N ausea. * Medical History: * Surgical History: * Hospitalization/Major Diagno stic Procedure: * Medications: T akingUmeclidinium-Vilanterol 62.5-25 MCG/ACT Aerosol Powder Breath Activated 1 puff Inhalation Once a day Meclizine HCl 12.5 MG Tablet 1 tablet as needed Orally twice a day Ambien 5 MG Tablet 1 tablet at bedtime as needed Orally Once a day as needed Theophylline ER 300 MG Capsule Extended Release 24 Hour 2 tabs Orally Once a day Ipratropium [place] 0.02 % Solution 2.5 mL Inhalation every 8 hrs Xopenex HFA 45 MCG/ACT Aerosol 1 puff as needed Inhalation every 4 hrs Gabapentin 300 MG Capsule TAKE 1 CAPSULE BY MOUTH AT NIGHT Sertraline HCl 100 MG Tablet TAKE 1 TABLET BY MOUTH EVERY DAY Meloxicam 15 MG Tablet TAKE 1 TABLET BY MOUTH EVERY DAY Taking Umeclidinium-Vilanterol 62.5-25 MCG/ACT Aerosol Powder Breath Activated 1 puff Inhalation Once a day Taking Meclizine HCl 12.5 MG Tablet 1 tablet as needed Orally twice a day Taking Ambien 5 MG Tablet 1 tablet at bedtime as needed Orally Once a day as needed Taking Theophylline ER 300 MG Capsule Extended Release 24 Hour 2 tabs Orally Once a day Taking Ipratropium [place] 0.02 % Solution 2.5 mL Inhalation every 8 hrs Taking Xopenex HFA 45 MCG/ACT Aerosol 1 puff as needed Inhalation every 4 hrs Taking Gabapentin 300 MG Capsule TAKE 1 CAPSULE BY MOUTH AT NIGHT Taking Sertraline HCl 100 MG Tablet TAKE 1 TABLET BY MOUTH EVERY DAY Taking Meloxicam 15 MG Tablet TAKE 1 TABLET BY MOUTH EVERY DAY Not-Taking/PRNDoxycycline Monohydrate 100 MG Tablet 1 tablet Orally Once a day predniSONE 10 MG Tablet 1 tablet with food or milk Orally Once a day Anoro Ellipta 62.5-25 MCG/ACT Aerosol Powder Breath Activated inhale 1 puff into the lungs every day for 90 days Inhalation Once a day Stiolto Respimat 2.5-2.5 MCG/ACT Aerosol Solution 2 puffs Inhalation Once a day Breo Ellipta 200- 25 MCG/ACT Aerosol Powder Breath Activated 1 puff Inhalation Once a day Vitamin D3 Super Strength 50 MCG (2000 UT) Capsule 1 capsule Orally Once a day Levalbuterol Tartrate 45 MCG/ACT Aerosol 1 puff as needed Inhalation every 4 hrs Clobetasol Propionate 0.05 % Cream 1 application to affected area Externally Twice a day Not-Taking/PRN Doxycycline Monohydrate 100 MG Tablet 1 tablet Orally Once a day Not-Taking/PRN predniSONE 10 MG Tablet 1 tablet with food or milk Orally Once a day Not- Taking/PRN Anoro Ellipta 62.5-25 MCG/ACT Aerosol Powder Breath Activated inhale 1 puff into the lungs every day for 90 days Inhalation Once a day Not-Taking/PRN Stiolto Respimat 2.5-2.5 MCG/ACT Aerosol Solution 2 puffs Inhalation Once a day Not-Taking/PRN Breo Ellipta 200-25 MCG/ACT Aerosol Powder Breath Activated 1 puff Inhalation Once a day Not-Taking/PRN Vitamin D3 Super Strength 50 MCG (2000 UT) Capsule 1 capsule Orally Once a day Not-Taking/PRN Levalbuterol Tartrate 45 MCG/ACT Aerosol 1 puff as needed Inhalation every 4 hrs Not-Taking/PRN Clobetasol Propionate 0.05 % Cream 1 application to affected area Externally Twice a day DiscontinuedAmoxicillin 500 MG Capsule TAKE 1 CAPSULE BY MOUTH EVERY 8 HOURS FOR 5 DAYS Medication List reviewed and reconciled with the patientDiscontinued Amoxicillin 500 MG Capsule TAKE 1 CAPSULE BY MOUTH EVERY 8 HOURS FOR 5 DAYS Medication List reviewed and reconciled with the patient * Allergies: N .K.D.A.yes[Allergies Verified] Objective: * Vitals: H t: 64, Wt: 81.2, BMI:13.94, Wt-k.83. weight at home is 81.2 BP not taken at home no temp. Assessment: * Assessment: 1. C hronic obstructive pulmonary disease, unspecified - J44.9 (Primary) 2 .?Weight loss - R63.4 3 . A bdominal pain - R10.9 Plan: * Treatment: 2. W eight loss Notes: she has had an extensinve work up and there is no evidence of any cancer. she could not do a colonoscopy as her breathing is so bad and she continues to smoke. seems it is just the cachexia of end stage copd. 3. A bdominal pain Notes: has had extensive evaluation. had ct and all blood work looked fine. seems she would not be a candidate for a colonoscopy due to her end stage lung disease as she would be a high risk from anashtesia and the possibility of finding something that could be treated is low compared to the risk? * Procedure Codes: * Follow Up: 2 Months * * Sign off status: Completed true * Provider: Shalom Prado MD Date: Generated for Colton gordon/Derek/Maclomitting on: 06:55 PM EDT History and Physical Notes * HPI (History of Present Illness) Category Sub-Category Detail Notes Category Not es Symptom(s) Telehealth Location of [facility] rendering services:: [address], [address] patient is a 65 yo female audio teleheath visit here for transitional car manageent visit following recent hospitalization. Discharge summary has been reviewed and medications reconcilled Location of patient:: at address listed in demographics for today's visit Patient identification confirmed using:: Name, Telehealth method:: Telephone only. Brissa ent not visible to care provider. Consent:: Patient verbally c onsented to treatment, Patient verbally consented to billing insurance company, Patient informed of any privacy concerns related to method of visit Total time spend talking with patient (m inutes): 32
[2025-03-30 14:36] VITALS: BP 88/48; PULSE 127; O2SAT 92
--- NOTE | 2025-03-30 14:36 | A.OFFVIS_ITS ---
Vital Signs 03/30/25 14:36 Weight 83 lb BP 88/48 L Blood Pressure Location Rt brachial Position Sitting Pulse 127 H Pulse Source Pulse Oximeter Pulse Oximetry (%) 92 Oxygen Delivery Method Room Air Intake Visit Reasons: COPD Allergies No Known Allergies Allergy (Verified 03/30/25 14:44) HPI HPI COPD: Details: 65-year-old lady, active 50+ pack-year smoker, followed for underlying severe COPD.? 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 Dutton.? She also was evaluated by Oncology and did not require any adjuvant therapy.? Patient had follow-up CT scan that showed stable pulmonary nodules. She also continues to use Anoro, Brovana, theophylline, ipratropium, and Xopenex with reasonable control of her underlying symptoms. Patient recently being hospitalized at [facility] for an acute exacerbation and discharged on supplemental oxygen up to 2 L with exertion. [facility] Medical History Lung cancer Depression Pancreatitis Vitamin D deficiency Hyperparathyroidism Personal history of nicotine dependence Tubular adenoma of colon (~2002) Subclinical hyperthyroidism Multinodular goiter Low TSH level Osteoporosis Anxiety and depression COPD (chronic obstructive pulmonary disease) Surgical History Status post biopsy of thyroid gland (~08/2021) History of left oophorectomy History of lung surgery (~02/2021) History of colonoscopy (~06/2020) History of esophagogastroduodenoscopy (EGD) Family History Mother Hx of cardiac pacemaker Father Colon cancer Brother Testicular cancer COPD (chronic obstructive pulmonary disease) Maternal Aunt Breast cancer Social History Household Members: Friend(s) Household Members Other:: Housemate Housing: House Are you a primary live in caregiver to a significant other at home: No Do you presently have visiting nurse or other home services: No Alcohol intake: former Patient Tobacco Use Status: Current everyday Tobacco user Tobacco use type: Cigarette Cigarette Packs Per Day: 0.5 Cigarettes Per Day: 14 Years Smoked: 50yrs Second Hand Smoke Exposure: Yes Advance Directives Date on File: 10/19/20 service: No Current occupational status: employed Review of Systems Const Denies daytime sleepiness, Denies excessive sweating, Denies fatigue, Denies fever(s), Denies lethargy, Denies malaise, Denies night sweats, Denies snoring and Denies weight loss Eyes Denies blurry vision and Denies itchy eyes ENT Denies nasal congestion, Denies post nasal drip, Denies sinus pain, Denies sinus pressure and Denies other ( Thrush) Card Denies chest pain, Denies pedal edema, Denies dyspnea, Denies orthopnea and Denies paroxysmal nocturnal dyspnea Resp Denies cough, Denies hemoptysis, Denies excessive phlegm production, Denies dyspnea, Denies snoring and Denies wheezing GI Denies abdominal pain and Denies heartburn Musc Denies myalgias, Denies arthralgias and Denies joint swelling Skin/Breast Denies rash Neuro Denies memory loss and Denies seizure-like activity Psych Denies abnormal sleep pattern, Denies anxiety and Denies memory loss Endo Denies excessive sweating, Denies fatigue and Denies heat intolerance Christopher/Lymph Denies easy bruising Aller/Immun Denies itchy eyes, Denies seasonal rhinorrhea and Denies wheezing Physical Exam Vital Signs: Last Vital Signs Pulse 127 H 03/30/25 14:36 BP 88/48 L 03/30/25 14:36 Pulse Ox 92 03/30/25 14:36 Oxygen Delivery Method Room Air 03/30/25 14:36 Const General: no acute distress and alert Nutritional Appearance: not obese Orientation/consciousness: Other orientation findings ( oriented) HEENT Head: Yes atraumatic Eyes General: appearance normal, both eyes and all related structures Sclerae: sclerae normal EOM: EOMs intact bilaterally Neck Neck: Yes supple Lymphatic: no lymphadenopathy noted Resp Effort & Inspection: normal respiratory effort and no use of accessory muscles Auscultation: clear to auscultation bilaterally Cardio Rate: tachycardic Rhythm: regular rhythm Heart sounds: no gallops, no murmurs and no rubs Skin General skin exam: other ( warm) Extrem General: No clubbing, No cyanosis and No edema Office Procedures 6 Minute Walk Time:: 15:00 SPO2 % at rest: 94 Pulse at rest: 124 SPO2 % during excercise: 88 Pulse during excercise: 137 SPO2 % after excercise: 96 Pulse after excercise: 137 Distance in yards walked: 90 Performance Observations:: Test performed by Aditya Marx required the use of 2 lpm pulsed O2 to maintain her SPO2 at 95%. [id number] Minute Walk Assessment & Plan Assessment & Plan (1) COPD (chronic obstructive pulmonary disease): Code(s): J44.9 - Chronic obstructive pulmonary disease, unspecified Category: Medical Plan: Advanced COPD essentially on maximum therapy with Brovana, theophylline, Anoro, and Xopenex. Continue current regimen. (2) Supplemental oxygen dependent: Code(s): Z99.81 - Dependence on supplemental oxygen Category: Medical Plan: 6 minute walk test / supplemental oxygen evaluation performed, patient requires supplemental oxygen up to 2 L to maintain normal oximetry with exertion and is able to use portable oxygen concentrator. Portable oxygen concentrator ordered. Orders: Orders AMB 6 minute walk 03/30/25 Z87.891 - Personal history of nicotine dependence Coding Level of Care Code Est Pt Level 4 (97263) Diagnoses COPD (chronic obstructive pulmonary disease) J44.9 Supplemental oxygen dependent Z99.81 CPT Codes Coding ([id number])
[2025-03-30 15:36] VITALS: PULSE 124; O2SAT 94
--- OUTSIDE RECORDS SUMMARY | 2025-03-30 18:56 | XMS_ITS | Patient Health Record ---
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 Name Role Phone Ric Prado MD Primary Care Provider Raymon Alegria Unavailable [phone] Allergies Allergen (clinical drug ingredient) Drug/Non Drug Allergy documented on EMR Reaction Allergy Type Onset Date Status seasonal (uncoded) Unknown Allergy A ctive Reason For Referral No Information Medications Medication SIG (Take, Route, Frequency, Duration) Notes Start Date End Date Status Ipratropium [place] 0.02 % 2.5 ML INHALE D EVERY 6 HOURS NEEDED FOR SHORTNESS OF BREATH OR WHEEZING FOR 30 DAYS Inhalation; Duration: 30 Active Sertraline HCl 100 MG Oral; Duration: 90 Active Theophylline ER 400 MG Oral; Duration: 90 Active Arformoterol Tartrate 15 MCG/2ML Inhalation; Duration: 30 Act rosa MiraLax (colon prep) 17 GM/SCOOP 1/2 of 238m bottle mixed with Gatorade 2 days before the colonoscopy, and then 1 full 238 bottle of Miralax mixed with Gatorade or Crystal Light the day before the colonoscopy orally Begin 2 days before the colonoscopy, and then begin at 5:00 p.m. the day before the procedure; Duration: 2 days 07/02/2024 Active Zoloft 100 MG Orally Active Levalbuterol Tartrate Active Biotin Active Anoro Ellipta 62.5-25 MCG/ACT INHALE 1 PUFF ORALLY DAILY FOR 90 DAYS Inhalation; Duration: 30 Active Dulcolax (colon prep) 5 MG Take 2 tablet s 2 days before the colonoscopy, and then take 2 tablets at 3:00 p.m and 7:00p.m. on the day before the colonosocpy orally Two tablets once two days before the colonoscopy, and then two tablets twice a day for one day; Duration: 2 days 07/02/2024 Active Meloxicam 15 MG Oral; Duration: 30 Active Gabapentin 300 MG Oral; Duration: 30 Active Immunizations Vaccine Route Administration Date [...] Problem Status W/U Status Risk Notes Problem Screening for malignant neoplasm of colon (143752670) Encounter for screening for malignant neoplasm of colon (Z12.11) Active confirmed Problem History of adenomatous polyp of colon (614414986) History of adenomatous polyp of colon (Z86.010) Active confirmed Problem Imaging of abdomen abnormal (997954011) Abnormal findings on diagnostic imaging of other abdominal regions, including retroperitoneum (R93.5) Active confirmed Problem Screening for malignant neoplasm of rectum (756465216) Encounter for screening for malignant neoplasm of rectum (Z12.12) Active confirmed Problem Family History of Cancer of Colon (Situation) (318435411) Family history of colon cancer (Z80.0) Active confirmed Problem Constipation (84359293) Constipation, unspecified constipation type (K59.00) Active confirmed Problem Personal history of adenomatous and serrated colon polyps (Z86.0101) Active confirmed Vital Signs Temperature 97.1 degrees Fahrenheit 06/10/2024 Blood pressure diastolic 00 mm Hg 06/10/2024 Height 64.5 in 06/10/2024 Blood pressure systolic 000 mm Hg 06/10/2024 Weight 90 lb 8 oz lbs 06/10/2024 BMI 15.29 kg/m2 06/10/2024 Encounters Encounter Location Date Provider Diagnosis [facility] [address] [place] [address] 06/10/2024 Raymon Sawyer Constipation, unspecified constipation type K59.00 ; History of adenomatous polyp of colon Z86.010 ; Family history of colon cancer Z80.0 and Encounter for screening for malignant neoplasm of colon Z12.11 [facility] [address] [place] [phone] 06/10/[address] [facility] [address] [place] [address] 10/03/[address] [facility] [address] [place] [phone] 10/05/2024 Raymon Sawyer Assessments Encounter Date Diagnosis [...] Insured Coverage Start Date Coverage End Date [facility] [address] [address] [place], [place] [phone] [id number] ISAIAS KING Self - patient is the insured MEDICAID OF [facility] [address] [place] [address] [phone] [id number] ISAIAS KING Self - patient is the insured Medical (General) History Medical History History ICD Code EGD in 2001--small HH-no gastritis, no e sophagitis Tubular adenomas of the colon removed in 2002 and 2004 Colonoscopy 07-25-2009--no polyps, supervisor international reservations al hemorrhoids Denies CO,DM,CV,renal disease Distant history of pancreatitis in relat ion to previous alcohol use Colonoscopy in 01/2015--1.5 c m flat tubular adenoma removed from the ascending colon Depression Osteoporosis Colonoscopy in 06/2016 with a hyperplasti c polyp removed COPD--Dr. Sandoval at [facility] Colonoscopy in 06/2020 with several tubul ar adenomas Left lung cancer approx 2021-Dr. Dutton Surgical History Surgery Date(Month/Year) Endometriosis and removal of one ovary Lung cancer-removed part of left lung
--- OUTSIDE RECORDS SUMMARY | 2025-03-30 18:57 | XMS_ITS | Patient Health Record ---
Author Organization Ric Prado MD Address [address] [place], [place] [id number] Care Team Providers Care Vp Director Of Creative Strategy Name Role Phone Ric Prado Primary Care Provider [phone] Allergies No Known Allergies Results Component Value Reference Range Notes MM tomosynthesis screening B I Reviewed date:10/29/2024 07:12:08 PM Interpretation: Performing Lab: Notes/Report: [address] [place] [address] Mammography Report Signed Patient: Araseli Bridges MR#: [id number] 394 : 1960 Acct:[id number] Age/Sex: 64 / F ADM Date: 10/20/24 Loc: HO.MAMMO Attending Dr: Ric Prado MD Ordering Physician: Ric Prado MD Results: 1Ne gative Date of Service: 10/20/24 Follow Up: 1 Year From Orig inal Mammogram Procedure(s): MM tomosynthesis screening BI Accession Number(s): [id number] cc: Ric Prado MD EXAMINATION: MM SCREENING [...] 10/27/24 1731 DD/ 1530 TD/TT: 10/20/24 1543 Grocery Clerk Marking: [facility] [address] [place], [place] [id number] Mammography Report Signed Patient: Quique Bridges MR#: [id number] 394 : 1960 Acct:[id number] Age/Sex: 64 / F ADM Date: 10/20/24 Loc: HO.MAMMO Attending Dr: Ric Prado MD Ordering Physician: Ric Prado MD Results: 1Ne gative Date of Service: 10/20/24 Follow Up: 1 Year From Orig inal Mammogram Procedure(s): MM tomosynthesis screening BI Accession Number(s): [id number] cc: Ric Prado MD EXAMINATION: MM SCREENING [...] 10/27/24 1731 DD/ 1530 TD/TT: 10/20/24 1543 Grocery Clerk Marking: CT chest mira rao Reviewed date:12/19/2024 05:25:55 PM Interpretation: Performing Lab: Notes/Report: [place] [address] [address] Scan Report Signed Patient: Araseli Bridges MR#: [id number] 394 : 1960 Acct:[id number] Age/Sex: 64 / F ADM Date: 12/18/24 Loc: HO.CT Attending Dr: Rajendra Sandoval MD Ordering Physician: Rajendra Sandoval MD Date of Service: 12/18/24 Procedure(s): CT chest wo IV maira Accession Number(s): [id number] cc: Ric Prado MD; Rajendra Sandoval MD Report Number: [id number]: Total DLP = 60.00 mGy-cm CLINICAL HISTORY: R91.8 - Other nonspecific abnormal finding of lung field CT chest without contrast Comparison: CT/CT/SR - CT CHEST WITHOUT IV CONTRAST - 12/06/23 09:[address]/REG/CT/SR - CT CHEST WITHOUT IV CONTRAST - [...] in OV> 12/18/241748 DD/ 46 TD/TT: 12/18/241746 Grocery Clerk Marking: [place] [address] CT Scan Report Signed Patient: Quique Bridges MR#: [id number] 394 : 1960 Acct:[id number] Age/Sex: 64 / F ADM Date: 12/18/24 Loc: HO.CT Attending Dr: Rajendra Sandoval MD Ordering Physician: Rajendra Sandoval MD Date of Service: 12/18/24 Procedure(s): CT [address] [facility] wo IV con Accession Number(s): [id number] cc: Ric Prado MD; Rajendra Sandoval MD Report Number: [id number]: Total DLP = 60.00 mGy-cm CLINICAL HISTORY: R9 1.8 - Other nonspecific abnormal finding of lung field CT chest without contrast Comparison: CT/CT/SR - CT CHEST WITHOUT IV CONTRAST - 12/06/23 09:[address]/REG/CT/SR - CT CH EST WITHOUT IV CONTRAST [...] in OV> 12/18/241748 DD/ 46 TD/TT: 12/18/241746 Grocery Clerk Marking: Complete Blood Count Auto Di ff Reviewed date:02/27/2025 04:11:46 PM Interpretation: Performing Lab:[facility], [address] [place] [phone] Notes/Report: White Blood Count 6.8 4.8-10.8 X10*3/uL [...] X10*3/uL NRBC Abs Auto 0.000 0.0-0.012 X10*3/uL Liver Panel Reviewed date:02/27/2025 04:08:13 PM Interpretation: Performing Lab:[facility], [address] [place] [phone] Notes/Report: Bilirubin Total 0.9 0.0-1.0 mg/dL Bilirubin Direct 0.3 0.0-0.5 mg/dL Aspartate Amino Transferase 29 5-31 U/L Slight Hemolysis.Interpret result with caution. Alanine Aminotransferase 10 0-31 U/L Total Protein 6.5 6.5-8.0 g/dL Albumin Level 4.0 3.5-5.0 g/dL Alkaline Phosphatase 56 39-117 U/L Basic Metabolic Panel Reviewed date:02/27/2025 04:08:51 PM Interpretation: Performing Lab:[facility], [address] [place] [phone] Notes/Report: Sodium 144 135-145 mmol/L Potassium 3.8 3.3-5.1 mmol/L Slight Hemolysis.Interpret result with caution. Chloride 108 96-108 mmol/L Carbon Dioxide 24 22-29 mmol/L Anion Gap 16 12-20 Blood Urea Nitrogen 16 9-16 mg/dL Creatinine 0.60 0.5-1.4 mg/dL Creatinine Clr Calc Pharmacy 60.5 Provided height and weight: 162.56 cm, 40.5 kg. eGFR (calculated from the MDRD study equation) and eCrCl (calculated from the Cockcroft-Gault equation) are based on different parameters and may not yield comparable results. If eCrCl result is absurd, please check patient's height/weight. Estimated Glomerular Filt Rate > 60 Chronic Kidney Disease: Estimated GFR < 60 mL/min/1.73m2 Severe Kidney Disease: Estimated GFR < 15 mL/min/1.73m2 Glucose Random 95 60-115 mg/dL Calcium 8.8 8.4-10.2 mg/dL Lactic Acid Reviewed date:02/27/2025 04:02:11 PM Interpretation: Performing Lab:[facility], [address] [place] [phone] Notes/Report: Lactic Acid 1.4 0.5-2.0 mmol/L Troponin-I High Sensitivity Reviewed date:02/27/2025 04:09:33 PM Interpretation: Performing Lab:[facility], [address] [place] [phone] Notes/Report: Troponin-I High Sensitivity 4.8 <3.5-17.0 ng/L The Siddiqi high sensitivity Troponin-I results should be used in conjunction with other diagnostic information such as ECG, clinical observations and information, and patient symptoms to aid in the diagnosis of LA. Lipase Reviewed date:02/27/2025 04:07:33 PM Interpretation: Performing Lab:[facility], [address] [place] [phone] Notes/Report: Lipase 22 8-78 U/L TSH reflex Free T4 Reviewed date:02/27/2025 04:03:59 PM Interpretation: Performing Lab:[facility], [address] [place] [phone] Notes/Report: TSH reflex Free T4 0.60 0.32-4.0 uIU/mL Respiratory Panel Reviewed date:02/27/2025 04:01:50 PM Interpretation: Performing Lab:[facility], [address] [place] [phone] Notes/Report: Adenovirus PCR Not Detected Not Detect. Bordetella pertussis PCR Not Detected Not Detect. Interpret results with caution. If B. pertussis is specifically suspected, additional testing using an alternate method is recommended. Bordetella parapertussis PCR Not Detected Not Detect. Chlamydia pneumoniae PCR Not Detected Not Detect. Coronavirus 229E PCR Not Detected Not Detect. Coronavirus HKU1 PCR Not Detected Not Detect. Coronavirus NL63 PCR Not Detected Not Detect. Coronavirus OC43 PCR Not Detected Not Detect. SARS-CoV-2 PCR Not Detected Not Detect. SARS-CoV-2 not detected by real-time RT-PCR. Note: If clinical suspicion for Sars-CoV-2 is high, continue to maintain precautions and consider repeat testing. Test results should be interpreted in the context of clinical findings and other laboratory data. Rare polymorphisms exist that could lead to false-negative or false-positive results. If results do not match the clinical findings, additional testing should be considered. Results reported to [facility]. This test has been authorized by the FDA under the Emergency Use Authorization (EUA) for use by authorized laboratories. Influenza A PCR Not Detected Not Detect. Influenza A H1 PCR Not Detected Not Detect. Influenza A H1-2009 PCR Not Detected Not Detect. Influenza A H3 PCR Not Detected Not Detect. Influenza B PCR Not Detected Not Detect. Human metapneumovirus PCR Not Detected Not Detect. Rhino/Enterovirus PCR Not Detected Not Detect. Mycoplasma pneumoniae PCR Not Detected Not Detect. Parainfluenza 1 PCR Not Detected Not Detect. Parainfluenza 2 PCR Not Detected Not Detect. Parainfluenza 3 PCR Not Detected Not Detect. Parainfluenza 4 PCR Not Detected Not Detect. RSV PCR Not Detected Not Detect. Resp Panel NA Note See Note All results must be correlated with clinical findings. Negative results should not be used as the sole basis for diagnosis, treatment, or other management decisions. A negative result does not exclude the possibility of viral or bacterial infection. Negative results may occur from the presence of sequence variants in the region targeted by the assay, the presence of inhibitors, an infection caused by an organism not detected by the panel, or lower respiratory tract infections that are not detected by a nasopharyngeal swab specimen. Test results may also be affected by concurrent antiviral/antibacter ial therapy or levels of organism in the specimen that are below the limit of detection for this test. This assay is performed by Multiplexed PCR, utilizing the Exent Array. SARS-CoV2/FLU/RSV Reviewed date:02/27/2025 04:08:25 PM Interpretation: Performing Lab:[facility], [address] [place] [phone] Notes/Report: Influenza A PCR NEGATIVE Negative Influenza B PCR NEGATIVE Negative Resp Syncy Virus RNA Qual PCR NEGATIVE Negative SARS COV2 PCR INHOUSE NEGATIVE Negative All test results must be correlated with clinical findings. Negative results do not preclude SARS-CoV2, influenza A virus, influenza B virus and/or RSV infection and should not be used as the sole basis for treatment or other patient management decisions. Negative results must be combined with clinical observations, patient history, and epidemiological information. This test has not been evaluated for monitoring treatment of infection. This test has been authorized by the FDA under an Emergency Use Authorization (EUA) for use by authorized laboratories. Testing performed on the [employer] GeneXpert utilizing real-time RT-PCR. All SARS CoV2 and positive influenza A/B results are reported to [facility]. Blood Culture (First) Reviewed date:03/04/2025 12:40:30 PM Interpretation: Performing Lab:[facility], [address] [place] [phone] Notes/Report: Blood Culture (First) No growth after 5 days. Blood Culture (Second) Reviewed date:03/04/2025 12:40:38 PM Interpretation: Performing Lab:[facility], [address] [place] [phone] Notes/Report: Blood Culture (Second) No growth after 5 days. UA ClnCatch+Micro w/rflx Cul t Reviewed date:02/28/2025 07:06:47 PM Interpretation: Performing Lab:[facility], [address] [place] [phone] Notes/Report: Urine, Clean Catch Color Urine Yellow Appearance Urine Clear PH 5.5 5.0-9.0 Glucose Urine UA 500 Negative mg/dL Urine Blood Negative Negative Specific [place] - Urine >= 1.030 1.005-1.025 Urine Protein Negative Neg-Trace mg/dL Urine Ketones Trace Negative mg/dL Nitrite Urine Negative Negative Leukocyte Esterase Urine Negative Negative RBC Urine 0-2 0-2 /HPF WBC Urine 0-5 0-5 /HPF Squamous Epithelial Cell Urine 0-2 0-2 /HPF Bacteria Urine None Seen None Seen Hyaline Casts Urine 0-2 0-2 /LPF NT Pro B Type Natriuretic Pe pt Reviewed date:02/27/2025 04:11:56 PM Interpretation: Performing Lab:[facility], [address] [place] [phone] Notes/Report: NT Pro B Type Natriuretic Pept [...] in the context of other clinical information. CT angio chest PE protocol Reviewed date:02/27/2025 04:02:49 PM Interpretation: Performing Lab: Notes/Report: [address] [address] [address] Scan Report Signed Patient: Araseli Bridges MR#: [id number] 394 : 1960 Acct:[id number] Age/Sex: 64 / F ADM Date: 02/27/25 Loc: .ED Attending Dr: Ordering Physician: Miryam Wallace MD Date of Service: 02/27/25 Procedure(s): CT angio chest PE protocol Accession Number(s): [id number] cc: Ric Prado MD; Miryam Wallace MD Report Number: [id number]: Total DLP = 131.00 mGy-cm Reason for Exam: sob CLINICAL HISTORY: sob CT angiography chest with contrast. 3D Postprocessing. Comparison: CT/SR - CT CHEST WO IV CON - 12/18/24 12:[address]/CT/SR - CT CHEST WITHOUT IV CONTRAST - 12/06/23 09:10 EDT Findings: There is no pulmonary embolism. Heart size is normal. There is no pericardial effusion. Thoracic aorta is within normal limits in diameter without dissection. There is mild coronary artery calcification. There are no enlarged lymph nodes. There is a stable 1.2 cm left thyroid nodule. There is unchanged severe emphysema. There is a surgical staple line in the medial left upper lobe. There is unchanged mild subpleural scarring in the right upper lobe. Trachea and central bronchi are widely patent. There is no acute fracture or suspicious lytic or sclerotic lesion. IMPRESSION: 1. No pulmonary embolism. 2. Severe emphysema. This document has been electronically signed by: Ollie Santamaria MD on 02/27/2025 03:07:59 Dictated By: Ollie Santamaria MD Signed By: <Electronically signed by Ollie Santamaria MD in OV> 02/27/25 030 DD/ 6 TD/TT: 02/27/25306 Grocery Clerk Marking: [address] [address] [address] Scan Report Signed Patient: Quique Bridges MR#: [id number] 394 : 1960 Acct:[id number] Age/Sex: 64 / F ADM Date: 02/27/25 Loc: HO.ED Attending Dr: Ordering Physician: Miryam Wallace MD Date of Service: 02/27/25 Procedure(s): CT ang io chest PE protocol Accession Number(s): [id number] cc: Ric Prado MD; Miryam Wallace MD Report Number: [id number]: Total DLP = 131.00 mGy-cm Reason for Exam: sob CLINICAL HISTORY: sob CT angiography chest with contrast. 3D Postprocessing. Comparison: CT/SR - CT CHEST WO IV CON - 12/18/24 12:[address]/CT/SR - CT CHEST WITHOUT IV CONTRAST - 12/06/23 09:10 EDT Findings: There is no pulmonar y embolism. Heart size is normal. There is no pericardial effusion . Thoracic aorta is within normal limits in diameter without dissection. There is mild coronary artery calcification. There are no enlarged lymph no anoop. There is a stable 1.2 cm left thyroid nodule. There is unchanged severe emphysema. There is a surgical staple line in the medial left uppe r lobe. There is unchanged mild subpleural scarring in the right upper lobe . Trachea and central bronchi are widely patent. There is no acute fracture or suspicious lytic or sclerotic lesion. IMPRESSION: 1. No pulmonary embolism. 2. Severe emphysema. This document has be en electronically signed by: Ollie Santamaria MD on 02/27/2025 03:07:59 Dictated By: Ollie Santamaria MD Signed By: <Electronically signed by Ollie Santamaria MD in OV> 02/27/25308 DD/ 6 TD/TT: 02/27/25306 Grocery Clerk Marking: CT abdomen pelvis w con Reviewed date:02/27/2025 04:03:51 PM Interpretation: Performing Lab: Notes/Report: [address] [address] [address] Scan Report Signed Patient: Araseli Bridges MR#: [id number] 394 : 1960 Acct:[id number] Age/Sex: 64 / F ADM Date: 02/27/25 Loc: .ED Attending Dr: Ordering Physician: Miryam Wallace MD Date of Service: 02/27/25 Procedure(s): CT abdomen pelvis w IV con Accession Number(s): [id number] cc: Ric Prado MD; Miryam Wallace MD Report Number: [id number]: Total DLP = 173.00 mGy-cm Reason for Exam: abd pain CLINICAL HISTORY: abd pain CT abdomen and pelvis with contrast Comparison: None provided Findings: The liver, gallbladder, pancreas, spleen, and adrenal glands are unremarkable. There is a small amount of excreted contrast in the renal collecting systems which could obscure small stones. There is no hydronephrosis. The appendix is normal. There is mild sigmoid diverticulosis. The remainder of the gastrointestinal tract is unremarkable. There is no free fluid or free air. There are no enlarged lymph nodes. The aorta is normal in diameter. Uterus and adnexa are grossly unremarkable. The bladder is decompressed. There is no fracture or suspicious lytic or sclerotic lesion. There are degenerative changes in the lumbar spine. IMPRESSION: No acute abnormality in the abdomen or pelvis. This document has been electronically signed by: Ollie Santamaria MD on 02/27/2025 03:00:49 Dictated By: Ollie Santamaria MD Signed By: <Electronically signed by Ollie Santamaria MD in OV> 02/27/25 0301 DD/ 0300 TD/TT: 02/27/25 030 Grocery Clerk Marking: [address] [address] [address] Scan Report Signed Patient: Quique Bridges MR#: [id number] 394 : 1960 Acct:[id number] Age/Sex: 64 / F ADM Date: 02/27/25 Loc: .ED Attending Dr: Ordering Physician: Miryam Wallace MD Date of Service: 02/27/25 Procedure(s): CT abd omen pelvis w IV con Accession Number(s): [id number] cc: Ric Prado MD; Miryam Wallace MD Report Number: [id number]: Total DLP = 173.00 mGy-cm Reason for Exam: abd pain CLINICAL HISTORY: ab d pain CT abdomen and pelvi s with contrast Comparison: None provided Findings: The liver, gallbladd er, pancreas, spleen, and adrenal glands are unremarkable. There is a small amount of excreted contrast in the renal collecting systems w hich could obscure small stones. There is no hydronephrosis. The appendix is norm al. There is mild sigmoid diverticulosis. The remainder of the gastrointestinal tract is unremarkable. There is no free fluid or free air. T here are no enlarged lymph nodes. The aorta is normal in diameter. Uterus and adnexa are grossly unremarkable. The bladder is decompressed. There is no fracture or suspicious lytic or sclerotic lesion. There are degenerative changes in the lumbar spine. IMPRESSION: No acute abnormality in the abdomen or pelvis. This document has be en electronically signed by: Ollie Santamarai MD on 02/27/2025 03:00:49 Dictated By: Ollie Santamaria MD Signed By: <Electronically signed by Ollie Santamaria MD in OV> 02/27/25 0301 DD/ 0300 TD/TT: 02/27/25 0300 Grocery Clerk Marking: Complete Blood Count Auto Di ff Reviewed date:02/28/2025 07:05:06 PM Interpretation: Performing Lab:[facility], [address] [place] [phone] Notes/Report: White Blood Count 9.1 4.8-10.8 X10*3/uL Red Blood Count 4.45 4.20-5.50 X10*6/uL Hemoglobin 12.8 12.0-16.0 g/dl Hematocrit 37.2 37.0-47.0 % Mean Corpuscular Volume 83.6 80.0-98.0 fL Mean Corpuscular Hemoglobin 28.8 27.0-33.0 pg Mean Corpuscular HGB Conc 34.4 31.0-35.0 g/dl Red Cell Distribution Width 13.2 11.0-16.0 % Platelet Count 167 160-400 X10*3/uL Mean Platelet Volume 9.2 9.4-12.3 fL Neutrophils Percent Auto 90.0 45-73 % Imm Gran Pct Auto 0.5 0.0-0.4 % Lymphocytes Percent Auto 6.5 20-40 % Monocytes Percent Auto 2.9 2-11 % Eosinophils Percent Auto 0.0 0-4 % Basophils Percent Auto 0.1 0-2 % NRBC Pct Auto 0.0 0.0-0.2 /100WBC Neutrophils Absolute Auto 8.2 2.0-8.3 x10*3/uL Imm Gran Abs Auto 0.05 0.00-0.03 X10*3/uL Lymphocytes Absolute Auto 0.6 1.2-4.9 X10*3/uL Monocytes Absolute Auto 0.3 0.1-1.2 X10*3/uL Eosinophils Absolute Auto 0.0 0.0-0.4 X10*3/uL Basophils Absolute Auto 0.0 0.0-0.2 X10*3/uL NRBC Abs Auto 0.000 0.0-0.012 X10*3/uL Basic Metabolic Panel Reviewed date:02/28/2025 07:06:02 PM Interpretation: Performing Lab:[facility], [address] [place] [phone] Notes/Report: Sodium 141 135-145 mmol/L Potassium 4.0 3.3-5.1 mmol/L Chloride 112 96-108 mmol/L Carbon Dioxide 23 22-29 mmol/L Anion Gap 10 12-20 Blood Urea Nitrogen 20 9-16 mg/dL Creatinine 0.54 0.5-1.4 mg/dL Creatinine Clr Calc Pharmacy 61.6 Provided height and weight: 162.56 cm, 37.1 kg. eGFR (calculated from the MDRD study equation) and eCrCl (calculated from the Cockcroft-Gault equation) are based on different parameters and may not yield comparable results. If eCrCl result is absurd, please check patient's height/weight. Estimated Glomerular Filt Rate > 60 Chronic Kidney Disease: Estimated GFR < 60 mL/min/1.73m2 Severe Kidney Disease: Estimated GFR < 15 mL/min/1.73m2 Glucose Random 119 60-115 mg/dL Calcium 8.5 8.4-10.2 mg/dL Reason For Referral No Information Medications Medication SIG (Take, Route, Frequency, Duration) Notes Start Date End Date Status Gabapentin 300 MG TAKE 1 CAPSULE BY MO UTH AT NIGHT for 30 Active Stiolto Respimat 2.5-2.5 MCG/ACT 2 puffs Inhalation Once a day 02/12/2023 Not-Taking Doxycycline Monohydrate 100 MG 1 tablet Orally Once a day Not-Taking Umeclidinium-Vilanterol 62.5-25 MCG/ACT 1 puff Inhalation Once a day Active Sertraline HCl 100 MG TAKE 1 TABLET BY M OUTH EVERY DAY for 90 Active Theophylline ER 300 MG 2 tabs Orally Onc e a day Active Clobetasol Propionate 0.05 % 1 application to affected area Externally Twice a day for 10 day(s) 01/03/2018 Not-Taking Anoro Ellipta 62.5-25 MCG/ACT inhale 1 puff into the lungs every day for 90 days Inhalation Once a day Not-Taking Levalbuterol Tartrate 45 MCG/ACT 1 puff as needed Inhalation every 4 hrs for 30 days Not-Taking Xopenex HFA 45 MCG/ACT 1 puff as needed Inhalation every 4 hrs 06/16/2020 Active Ipratropium [place] 0.02 % 2.5 mL Inhalation every 8 hrs Active predniSONE 10 MG 1 tablet with food o r milk Orally Once a day Not-Takin g Meloxicam 15 MG TAKE 1 TABLET BY DONOVAN TH EVERY DAY for 30 Active Ambien 5 MG 1 tablet at bedtime as needed Orally Once a day as needed for 30 days 02/11/2023 Active Vitamin D3 Super Strength 50 MCG (1999 UT) 1 capsule Orally Once a day for 30 day(s) Not-Taking Meclizine HCl 12.5 MG 1 tablet as needed Orally twice a day for 10 days 10/24/2020 Active Breo Ellipta 200-25 MCG/ACT 1 puff Inhalation Once a day for 30 days 01/24/2023 Not-Taking Immunizations Vaccine Route Administration Date Status Comme nts DECLINED, FLU Unknown 02/03/2013 Administered Fluarix Quadrivalent IM Intramuscular 03/30/2019 Administe red pt was given the vaccine at [facility] [place] TDaP IM Intramuscular 03/30/2019 Administered pt was given the vaccine at [facility] [place] Tetanus Unknown 03/30/2019 Administered Fluarix Quadrivalent Unknown 02/19/2020 Administered S Covid Vaccine Unknown 10/05/2020 Administered Moderna [...] haley t Additional Findings: Tobacco User Cody t cigarette smoker, not currently using another [...] Problem Status W/U Status Risk Notes Problem 176636702 Chronic obstructive pulmonary disease, unspecified (J44.9) Active confirmed Problem 932749409 Thyroid nodule (E04.1) Active confirmed Problem 810651329 TIA (transient ischemic attack) (G45.9) Active confirmed Problem 26982435 Depression (F32.9) Active confirmed Problem 6518389 Primary insomnia (F51.01) Active confirmed Problem 02040515 Simple chronic bronchitis (J41.0) Active confirmed Problem Fibroadenosis of breast (80377332) 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) Active confirmed Problem Smoker (46927409) Smoker (F17.200) Active confi rmed Problem 65451569 Smoker unmotivated to quit (F17.210) Active confirmed Problem 69466638 Alcohol abuse (F10.10) Active confirmed Problem Age related osteoporosis (32702257) Age related osteoporosis (M81.0) Active confirmed Problem 75260418 Intrinsic eczema (L20.84) Active confirmed Problem 3611753798116 Cervical neuropathy (G54.2) Active confirmed Problem 539883339 Abnormal mammogram (R92.8) Active confirmed Problem 92096293 Internal hemorrhoids (K64.8) Active confirmed Problem 02750122 Hyperplastic polyp of ascending colon (D12.2) Active confirmed Problem Age-related osteoporosis with current pathological fracture with delayed healing, subsequent encounter (M80.00XG) Active confirmed Problem 055143820 Lung nodule < 6c m on CT (R91.1) Active confirmed Problem 762653022 Thyroid nodule greater than or equal to 1.5 cm in diameter incidentally noted on imaging study (E04.1) Active confirmed Problem 910130479 History of lung cancer (Z85.118) Active confirmed Vital Signs Blood pressure diastolic 50 mm Hg 07/30/2024 farzana ght is down 2 pounds since 01-20-24 Height 64 in 03/19/2025 weight at home is 81.2 BP not taken at home no temp Blood pressure systolic 94 mm Hg 07/30/2024 weig ht is down 2 pounds since 819-24 Weight 81.2 lbs 03/19/2025 weight at home is 81.2 BP not taken at home no temp BMI 13.94 kg/m2 03/19/2025 weight at home is 81.2 BP not taken at home no temp Encounters Encounter Location Date Provider Diagnosis Ric Prado MD [address] [place] [address] [phone] 07/30/2024 Ric Prado Chronic obstructive pulmonary disease, unspecified J44.9 ; History of lung cancer Z85.118 ; Palpitations R00.2 and Smoker F17.200 Ric Prado MD [facility] [address] [place] [address] [id number] 03/19/2025 Ric Prado Chronic obstructive pulmonary disease, unspecified J44.9 ; Weight loss R63.4 and Abdominal pain R10.9 Ric Pr[address] MD [address] [place] [address] [id number] 04/09/2024 Ric Prado Cervical neuropathy G54.2 Ric Prado MD [address] [place] [address] [id number] 01/01/2025 Ric Prado MD [address] [place] [address] [id number] 03/08/2025 Ric Prado Assessments Encounter Date Diagnosis (ICD Code) Assessment Notes Treatment Notes Treatment Clinical Notes Section Notes 07/30/2024 Chronic obstructive pulmonary disease, unspecified (ICD-10 - J44.9) has severe shortness of breath from the time of the surgery. still gets episodes of severe shortness of breaht yesterday had an attack 07/30/2024 History of lung cancer (ICD-10 - Z85.118) is followed by pulmonary 03/19/2025 Chronic obstructive pulmonary disease, unspecified (ICD-10 - J44.9) need copy of last pft's from dr sandoval/[id number] LAST PFT DONE IN 2021, THEY WILL [...] just the cachexia of end stage copd. 04/09/2024 Cervical neuropathy (ICD-10 - G54.2) 07/30/2024 Palpitations (ICD-10 - R00.2) at this point doesn't want to do any testing 03/19/2025 Abdominal pain (ICD-10 - R10.9) has had extensive evaluation. had ct and all blood work looked fine. seems she would not be a candidate for a colonoscopy due to her end stage lung disease as she would be a high risk from anashtesia and the possibility of finding something that could be treated is low compared to the risk 07/30/2024 Smoker (ICD-10 - F17.200) trying to fquit Plan Of Treatment Pending Test Test Name Order Date MRI BREAST BILATERAL 04/07/2020 ECHO 11/01/2020 NM bone scan whole body 07/19/2022 US thyroid 10/27/2020 MM tomosynthesis screening BI 03/20/2021 Next Appt Details Provider Name:Ric Lundberg ier, 05/24/2025 01:45:00 PM, [address] [facility], [address], [place], [place], [id number], Insurance Providers Payer Name Payer Address Payer Phone Subscriber Number Group Number Insured Name Patient Relationship to Insured Coverage Start Date Coverage End Date [facility] [address] [address] [place] [phone] [id number] Araseli Bridges Self - patient is the insured Medical (General) History Medical History History ICD Code Colonoscopy done 01/27/15 w/D payal Sawyer - repeat 1 year; colonoscopy 06/07/[address] Sawyer - repeat 3 years; Colonoscopy 06/24/[address] Sawyer - repeat 3 years thyroid nodule refuses evaluation 2022
--- OUTSIDE RECORDS SUMMARY | 2025-03-30 18:57 | XMS_ITS | Clinical Summary ---
Author Organization [facility] Address [address] [place] [id number] Care Team Providers Care Experimental Box Tester Name Role Phone Ric Prado MD Primary Care Provider Medical History Medical History Date Comments Lung cancer ([facility] V24, [facility] V28) DX:Lung cancer ([facility]); COMMENT: MARYELLEN Lung Cancer COPD (chronic obstructive pu lmonary disease) ([facility] V24, [facility] V28) DX:COPD (chronic o bstructive pulmonary disease) ([facility]) Pulmonary nodules DX:Pulmonary n odules Family History Medical History Relation Name Comments COPD Brother Relation Name Status Comments Brother Social History Tobacco Use Types Packs/Day Years Used Date Smoking Tobacco: Every Day Cigarettes 0.5 51.8 Started: 06/03/1973 Smokeless Tobacco: Never Alcohol Use [...] Last Done Comments Breast Cancer Screening 1960 Colorectal Cancer Screening: Colonoscopy 1960 COVID-19 Vaccine (#1) 1965 Pneumococcal Vaccine: 50+ Years (1 of 2 - PCV) 1979 Zoster Vaccines (1 of 2) 1979 Cervical Cancer Screening: P ap Smear 1981 RSV Immunization Adult Patients (1 - Risk 50-74 years 1-dose series) 2010 Cholesterol Screening (Lipid Panel) 05/05/2022 Hepatitis C Screening 05/05/2022 Lung Cancer Screening (Low Dose CT) 05/05/2022 Osteoporosis Screening (Bone Density Screening) 05/05/2022 Social Influencers of Health Screening 05/05/2022 Depression Screening 06/03/2024 Influenza Vaccine (#1) 2025 , 03/09/2020, 03/30/2019 Falls Risk Assessment 2025 DTaP,Tdap,and Td Vaccines (2 - Td or [...] Documents on File Type Date Recorded 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
== END 2025-03-30 15:27 | disposition home or self-care (01) ==
LOC: HO.HPS 14:32
PROVIDERS: PCP Internal Medicine; Visit Provider Internal Medicine Pulmonary Disease
DX: J44.9 Chronic obstructive pulmonary disease, unspecified (principal); Z99.81 Dependence on supplemental oxygen
CPT/HCPCS: 99214

== ENCOUNTER → 2025-03-30 14:31 | Outpatient (BNVA) | payer MEDICARE, MEDICAID, SELFPAY | PROVIDERS: PCP Internal Medicine; Visit Provider Internal Medicine Pulmonary Disease | DX: J44.9 Chronic obstructive pulmonary disease, unspecified (principal); F17.210 Nicotine dependence, cigarettes, uncomplicated; Z99.81 Dependence on supplemental oxygen; Z85.118 Personal history of other malignant neoplasm of bronchus and lung; Z79.899 Other long term (current) drug therapy | CPT/HCPCS: 94618; 99212 ==

== ENCOUNTER 2025-05-11 22:30 | Emergency (ER) | payer MEDICARE, MEDICAID, SELFPAY ==
--- NOTE | ~2025-05-11 | CT_ITS ---
CLINICAL HISTORY: abd pain, nausea, vomitng. CT abdomen and pelvis with contrast Comparison: CT/REG/SR - CT ABDOMEN PELVIS W IV CON - 02/27/25 01:47 EDT Findings: Motion artifact degrades some of the provided images. The lung bases are clear. The gallbladder and solid organs are within normal limits. No renal stones. No bowel obstruction, pneumoperitoneum, or pneumatosis. Atherosclerotic vascular calcifications are present. Appendix is not visualized. Urinary bladder and visualized pelvic structures are within normal limits. Bones are osteopenic. IMPRESSION: No acute findings. This document has been electronically signed by: Gera Benson MD, PHD on 05/12/2025 01:31:21
--- NOTE | ~2025-05-11 | CT_ITS ---
CLINICAL HISTORY: SOB CT angiography chest with contrast. 3D Postprocessing. Comparison: CT/REG/SR - CT ANGIO CHEST PE PROTOCOL - 02/27/25 01:47 EDT Findings: The heart is normal size. RV/LV ratio is normal. The thoracic aorta is normal caliber. No acute pulmonary embolus. The visualized thyroid and mediastinum are unremarkable. Emphysematous changes are present within the lungs with mild peripheral septal thickening. No pulmonary consolidation or infiltrate identified. The upper abdomen is unremarkable. The bones are intact. IMPRESSION: 1. No pulmonary emboli. This document has been electronically signed by: Gera Benson MD, PHD on 05/12/2025 01:28:50
[2025-05-11 22:47] VITALS: BP 110/64; BP 130/70; PULSE 117; PULSE 98; RESP 18; TEMP 36.6; O2SAT 97; BMI 15.9
--- NOTE | 2025-05-11 22:52 | ECG_ITS ---
Test Reason : CP Blood Pressure : */* mmHG Vent. Rate : 110 BPM Atrial Rate : 110 BPM P-R Int : 128 ms QRS Dur : 72 ms QT Int : 338 ms P-R-T Axes : 83 90 32 degrees QTcB Int : 457 ms Sinus tachycardia Biatrial enlargement Rightward axis Cannot rule out Anterior infarct (cited on or before 27-Feb-2025) Abnormal ECG When compared with ECG of 27-Feb-2025 00:24, No significant change was found Referred By: Generic ED Physician Electronically Signed By: CHRISTAL NORMAN MD
[2025-05-11 23:13] LABS: Hematocrit 46.3 % (37.0-47.0); Hemoglobin 15.6 g/dl (12.0-16.0); Imm Gran Abs Auto 0.01 X10*3/uL (0.00-0.03); Imm Gran Pct Auto 0.2 % (0.0-0.4); Lymphocytes Absolute Auto 0.4 X10*3/uL (1.2-4.9); MANUAL DIFF FLAG NO; Mean Corpuscular HGB Conc 33.7 g/dl (31.0-35.0); Mean Corpuscular Hemoglobin 28.2 pg (27.0-33.0); Mean Corpuscular Volume 83.7 fL (80.0-98.0); NRBC Abs Auto 0.000 X10*3/uL (0.0-0.012); NRBC Pct Auto 0.0 /100WBC (0.0-0.2); Platelet Count 189 X10*3/uL (160-400); Red Blood Count 5.53 X10*6/uL (4.20-5.50); White Blood Count 5.5 X10*3/uL (4.8-10.8)
--- NOTE | 2025-05-11 23:19 | ED.GENADULT ---
HPI - General Adult General Chief complaint: Nausea/Vomiting/Diarrhea Stated complaint: CP x2 day pressure L side gave 15g oral glucose Time Seen by Provider: 05/11/25 22:55 Source: patient and EMS Mode of arrival: EMS Limitations: no limitations History of Present Illness ED Provider: DR. Sorensen HPI narrative: 65-year-old female with PMHx severe COPD, HTN, TIA, lung cancer s/p resection, active tobacco smoker, acute hypoxic respiratory failure secondary to COPD, needs 2 L of supplemental oxygen at home PRN, patient presented today for abdominal pain with nausea and vomiting for the past 2 days, unable to tolerate p.o. intake, patient also been having difficulty breathing think it COPD exacerbation. +Cough and chills. Related Data Home Medications ?Medication ?Instructions ?Recorded ?Confirmed sertraline 100 mg tablet (Zoloft) 100 mg PO DAILY 06/20/20 02/27/25 biotin 2 tab PO DAILY 09/24/24 02/27/25 gabapentin 300 mg capsule 300 mg PO BEDTIME 09/24/24 02/27/25 calcium carbonate 600 mg PO DAILY@72902/27/25 02/27/25 kskpsoyc-yti-uppj-FA-Ca carb-vit K 1 tab PO DAILY@72902/27/25 02/27/25 18 mg iron-400 mcg-500 mg tablet Previous Rx's ?Medication ?Instructions ?Recorded ipratropium bromide 0.02 % 2.5 ml inhalation Q6H PRN 12/26/23 solution for inhalation shortness of breath or wheezing 30 days #300 mL arformoterol 15 mcg/2 mL solution 2 ml inhalation BID 30 days #120 mL 09/03/24 for nebulization (Brovana) Xopenex HFA 45 mcg/actuation 1 puff PO Q4H PRN for wheezing #15 11/23/24 aerosol inhaler (levalbuterol ea tartrate) theophylline 300 mg 600 mg (2 x 300 mg) PO Q12H #60 03/18/25 tablet,extended release,12 hr tabs umeclidinium 62.5 mcg-vilanterol 1 ea inhalation DAILY #60 ea 04/26/25 25 mcg/actuation powdr for inhalation ondansetron 4 mg disintegrating 4 mg PO Q8H PRN nausea and 05/12/25 tablet vomiting #7 tabs Allergies Allergy/AdvReac Type Severity Reaction Status Date / Time No Known Allergies Allergy Verified 05/11/25 22:51 Review of Systems Review of Systems: All other systems are reviewed and are negative Constitutional: Reports as per HPI and Reports no additional constitutional complaints Eyes: Reports as per HPI and Reports no additional eye complaints Reports system reviewed and no additional complaints, except as documented Cardiovascular: Reports as per HPI and Reports no additional cardiovascular complaints Respiratory: Reports as per HPI and Reports no additional respiratory complaints Gastrointestinal: Reports as per HPI and Reports no additional gastrointestinal complaints Genitourinary: Reports no additional female genitourinary complaints Musculoskeletal: Reports no additional musculoskeletal complaints Skin/Breast: Reports system reviewed and no additional complaints, except as docu Psychiatric: Reports no additional psychiatric complaints Endocrine: Reports no additional endocrine complaints Hematologic/Lymphatic: Reports no additional hematologic/lymphatic complaints Allergic/Immunologic: Reports no additional allergic/immunologic complaints Reports system reviewed and no additional complaints, except as documented and Reports Abnormal speech present [facility] Past Medical History Medical History Emphysema lung Lung cancer Depression Pancreatitis Vitamin D deficiency Hyperparathyroidism Personal history of nicotine dependence Tubular adenoma of colon (~2002) Subclinical hyperthyroidism Multinodular goiter Low TSH level Osteoporosis Anxiety and depression COPD (chronic obstructive pulmonary disease) Surgical History Status post biopsy of thyroid gland (~08/2021) History of left oophorectomy History of lung surgery (~02/2021) History of colonoscopy (~06/2020) History of esophagogastroduodenoscopy (EGD) Family History Family History Mother Hx of cardiac pacemaker Father Colon cancer Brother Testicular cancer COPD (chronic obstructive pulmonary disease) Maternal Aunt Breast cancer Social History Social History Household Members: Friend(s) Household Members Other:: Housemate Housing: House Are you a primary intensive care unit nurse to a significant other at home: No Do you presently have visiting nurse or other home services: No Alcohol intake: former Patient Tobacco Use Status: Current everyday Tobacco user Tobacco use type: Cigarette Cigarette Packs Per Day: 0.5 Cigarettes Per Day: 14 Years Smoked: 50yrs Smoked in Last 30 Days: Yes Second Hand Smoke Exposure: Yes Use of substances other than those prescribed or required for medical reasons: No Advance Directives: Yes Advance Directives on File: Yes Advance Directives Date on File: 10/19/20 service: No Current occupational status: employed Physical Exam ED Vital Signs: Vital Signs - 24 hr 05/11/25 22:47 05/12/25 01:08 Temperature 97.9 F Pulse Rate 98 110 H Respiratory Rate 18 14 Blood Pressure 110/64 Pulse Oximetry 97 Oxygen Delivery Method Room Air BMI result Body Mass Index 15.9 Vital signs have been reviewed and appear to be correct. Blood pressure elevated. Heart rate normal. Respiratory rate normal. Temperature normal. Oxygen saturation normal. Appearance: Alert. Oriented X3. No acute distress. Head: Normal external exam. Normocephalic. Atraumatic. No Doyle signs noted. No raccoon eyes noted Eyes: PERRLA. EOMI. Conjunctiva and sclera normal. Eyelids normal. ENT: TM's Normal. Pharynx normal. Uvula midline. Moist mucous membranes. No trismus noted. No drooling noted. No muffled voice noted. Neck: Normal inspection. Neck supple. FROM. No adenopathy. Thyroid Normal. No meningeal signs. No neck mass noted. CVS: Normal heart rate and rhythm. Heart sound normal. No murmurs noted. Pulses normal throughout. Respiratory: No respiratory distress. Painless inspiration. Breath sounds normal. Diffuse mild expiratory wheezing with prolonged expiration, decreased breathing sounds bilaterally. No accessory muscle Usage. Abdomen: Soft and nontender. Bowel sounds normal in all 4 quadrants. No distention noted. No organomegaly noted. No visible injury noted. Back: No CVA tenderness. Full range of motion noted. Skin: Skin warm and dry. Normal skin color. Normal skin turgor. No rashes/lesions/lacerations noted. Extremities: No lower extremity edema. Extremities exhibit normal range of motion. Extremities nontender. Neuro: Oriented X 3. Cranial nerve exam: II-XII are grossly intact No motor deficit. No sensory deficit. Reflexes normal. Course Reevaluation(s) Reevaluation #1: 65-year-old female history of COPD presented with chest pain and nausea vomiting with diarrhea. Patient now feels better after was given Zofran, Pepcid able to tolerate p.o. intake, repeat abdominal exam shows no abdominal tenderness, no guarding, no rebound tenderness, CT of the abdomen and pelvis shows unremarkable findings, patient is drinking fluids in the ED with no nausea or vomiting. Mild COPD exacerbation, patient received Xopenex and Solu-Medrol feel better after, CT angio of the chest reveals no pulmonary embolism or pneumonia. O2 sat 99% on room air. Await for 2nd troponin and discharge after. Time: 01:41 Medications Administered Discontinued Medications Generic Name Dose Route Start Last Admin Trade Name Freq PRN Reason Stop Dose Admin Famotidine 20 mg 05/11/25 23:17 05/11/25 23:39 Famotidine/Pf 20 Mg/2 Ml Vial IVPUSH 05/11/25 23:18 20 mg ONCE ONE Administration Ceftriaxone Sodium 1 gm/ 50 mls @ 100 mls/hr 05/11/25 23:18 05/12/25 01:09 Sodium Chloride IV 05/11/25 23:47 Infused ONCE ONE Infusion Iohexol 85 ml 05/12/25 00:11 05/12/25 00:12 Iohexol 350 Mg/Ml 100 Ml Infus..Btl IV 05/12/25 00:12 85 ml ONCE ONE Administration Levalbuterol HCl 1.25 mg 05/11/25 23:17 05/12/25 01:08 Levalbuterol Hcl 1.25 Mg/3 Ml Vial.Neb INHALE 05/11/25 23:18 1.25 mg ONCE ONE Administration Methylprednisolone Sodium Succinate 125 mg 05/11/25 23:17 05/11/25 23:38 Methylprednisolone Sod Succ 125 Mg/2 Ml Vial IVPUSH 05/11/25 23:18 125 mg ONCE ONE Administration Ondansetron HCl 4 mg 05/11/25 23:17 05/11/25 23:39 Ondansetron Hcl 4 Mg/2 Ml Vial IVPUSH 05/11/25 23:18 4 mg ONCE ONE Administration Medical Decision Making Differential Diagnosis Differential Diagnoses: The differential diagnosis associated with the presentation includes ( Gastroenteritis, gastritis, colitis, diverticulitis, electrolyte derangement, severe anemia, COPD exacerbation, pulmonary embolism, pneumonia, hypoxia.) Admission/Observation Consideration of admission/observation: Escalation of care including admission/observation considered Lab Data MDM Lab Attestation statement: I reviewed the patient's lab results. 05/11/25 23:06 05/11/25 23:06 Labs: Lab Results 05/11/25 05/11/25 05/12/25 Range/Units 23:06 23:36 01:37 WBC 5.5 (4.8-10.8) X10*3/uL RBC 5.53 H D (4.20-5.50) X10*6/uL Hgb 15.6 D (12.0-16.0) g/dl Hct 46.3 D (37.0-47.0) % MCV 83.7 (80.0-98.0) fL MCH 28.2 (27.0-33.0) pg MCHC 33.7 (31.0-35.0) g/dl RDW 12.7 (11.0-16.0) % Plt Count 189 (160-400) X10*3/uL MPV 9.3 L (9.4-12.3) fL Immature Gran % (Auto) 0.2 (0.0-0.4) % Neut % (Auto) 88.2 H (45-73) % Lymph % (Auto) 6.9 L (20-40) % Borden % (Auto) 3.8 (2-11) % Eos % (Auto) 0.2 (0-4) % Baso % (Auto) 0.7 (0-2) % Lymph # (Auto) 0.4 L (1.2-4.9) X10*3/uL Borden # (Auto) 0.2 (0.1-1.2) X10*3/uL Eos # (Auto) 0.0 (0.0-0.4) X10*3/uL Baso # (Auto) 0.0 (0.0-0.2) X10*3/uL Abs Immat Gran (auto) 0.01 (0.00-0.03) X10*3/uL Absolute Neuts (auto) 4.9 (2.0-8.3) x10*3/uL Absolute Nucleated RBC 0.000 (0.0-0.012) X10*3/uL Nucleated RBC % (auto) 0.0 (0.0-0.2) /100WBC D-Dimer High Sensitivty < 150 NG/ML Sodium 140 (135-145) mmol/L Potassium 4.1 (3.3-5.1) mmol/L Chloride 103 (96-108) mmol/L Carbon Dioxide 21 L (22-29) mmol/L Anion Gap 20 (12-20) BUN 31 H (9-16) mg/dL Creatinine 0.61 (0.5-1.4) mg/dL Estim Creat Clear Calc 60.9 Estimated GFR > 60 Random Glucose 81 (60-115) mg/dL Lactic Acid 1.1 (0.5-2.0) mmol/L Calcium 9.0 (8.4-10.2) mg/dL Total Bilirubin 0.8 (0.0-1.0) mg/dL AST 71 H (5-31) U/L ALT 81 H (0-31) U/L Alkaline Phosphatase 47 (39-117) U/L Troponin I High Sens 8.6 D 9.0 (<3.5-17.0) ng/L Total Protein 6.3 L (6.5-8.0) g/dL Albumin 4.3 (3.5-5.0) g/dL Independent Interpretation I performed an independent interpretation of an: CT Scan ( Chest: Abdomen: And pelvis: No pulmonary embolism, no acute intra-abdominal pathology) Radiology Impression Discussion of test interpretation with radiology: I have reviewed the radiologist's reading. Discharge Plan Discharge Clinical Impression: Gastroenteritis, COPD exacerbation Patient Disposition: Home, Self-Care Instructions: Gastroenteritis (ED) Prescriptions: New ondansetron 4 mg tablet,disintegrating 4 mg PO Q8H PRN (Reason: nausea and vomiting) Qty: 7 0RF No Action ipratropium bromide 0.02 % solution 2.5 ml inhalation Q6H PRN (Reason: shortness of breath or wheezing) 30 Days Qty: 300 6RF arformoterol [Brovana] 15 mcg/2 mL solution for nebulization 2 ml inhalation BID 30 Days Qty: 120 0RF levalbuterol tartrate [Xopenex HFA] 45 mcg/actuation HFA aerosol inhaler 1 puff PO Q4H PRN (Reason: for wheezing) Qty: 15 6RF theophylline 300 mg tablet extended release 12 hr 600 mg PO Q12H Qty: 60 6RF umeclidinium-vilanterol 62.5-25 mcg/actuation blister with device 1 ea inhalation DAILY Qty: 60 0RF sertraline [Zoloft] 100 mg Tablet 100 mg PO DAILY gabapentin 300 mg capsule 300 mg PO BEDTIME biotin tablet 2 tab PO DAILY calcium carbonate 300 mg (750 mg) Tablet,Chewable 600 mg PO DAILY@0730 um-vk-wztu-FA-Ca carb-vit K 18 mg iron-400 mcg-500 mg Tablet 1 tab PO DAILY@0730 Referrals: Ric Prado MD [Primary Care Provider, Medical] Print Language: Palestinian
[2025-05-11 23:27] LABS: Alanine Aminotransferase 81 U/L (0-31); Albumin Level 4.3 g/dL (3.5-5.0); Alkaline Phosphatase 47 U/L (39-117); Anion Gap 20 (12-20); Aspartate Amino Transferase 71 U/L (5-31); Blood Urea Nitrogen 31 mg/dL (9-16); Calcium 9.0 mg/dL (8.4-10.2); Carbon Dioxide 21 mmol/L (22-29); Chloride 103 mmol/L (96-108); Creatinine Clr Calc Pharmacy 60.9; Estimated Glomerular Filt Rate > 60; Potassium 4.1 mmol/L (3.3-5.1); Sodium 140 mmol/L (135-145); Total Protein 6.3 g/dL (6.5-8.0)
[2025-05-11 23:37] LABS: Troponin-I High Sensitivity 8.6 ng/L (<3.5-17.0)
[2025-05-12] MEDS: iohexoL 350 MG/ML 100 ML INFUS..BTL 85 ML IV (00:12)
[2025-05-12 00:14] LABS: D Dimer High Sensitivity < 150 NG/ML
--- OUTSIDE RECORDS SUMMARY | 2025-05-12 00:32 | XMS_ITS | Clinical Summary ---
Author Organization [facility] Address [address] [place] [id number] Care Team Providers Care Audograph Operator Name Role Phone Ric Prado MD Primary Care Provider Medical History Medical History Date Comments Lung cancer ([facility] V24, [facility] V28) DX:Lung cancer ([facility]); COMMENT: MARYELLEN Lung Cancer COPD (chronic obstructive pu lmonary disease) ([facility] V24, [facility] V28) DX:COPD (chronic o bstructive pulmonary disease) ([facility]) Pulmonary nodules DX:Pulmonary n odules Family History Medical History Relation Name Comments COPD Brother Relation Name Status Comments Brother Social History Tobacco Use Types Packs/Day Years Used Date Smoking Tobacco: Every Day Cigarettes 0.5 51.9 Started: 06/03/1973 Smokeless Tobacco: Never Alcohol Use Standard Drinks/Week Comments Never 0 (1 standard drink = 0.6 oz pur e alcohol) Comments Unknown Sex and Gender Information Value Date Recorded Sex Assigned at Not on file Legal Sex Female 7:30 PM EST Gender Identity Not on file Sexual Orientation Not on file Last Filed Vital Signs Vital Sign Reading [...] Documents on File Type Date Recorded 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
[2025-05-12 01:08] VITALS: PULSE 110; RESP 14; O2SAT 96
[2025-05-12 03:01] LABS: Troponin-I High Sensitivity 9.0 ng/L (<3.5-17.0)
[2025-05-12 03:40] VITALS: BP 112/62; PULSE 95; RESP 17; TEMP 36.6; O2SAT 96
[2025-05-12 03:41] VITALS: BP 112/62; PULSE 95; RESP 17; TEMP 36.6; O2SAT 96
== END 2025-05-12 03:42 | disposition home or self-care (01) ==
PROVIDERS: Emergency Provider Emergency Medicine; PCP Internal Medicine
DX: K52.9 Noninfective gastroenteritis and colitis, unspecified (principal); J44.1 Chronic obstructive pulmonary disease with (acute) exacerbation; R11.2 Nausea with vomiting, unspecified; R05.9 Cough, unspecified; F17.210 Nicotine dependence, cigarettes, uncomplicated; Z99.81 Dependence on supplemental oxygen; Z79.899 Other long term (current) drug therapy
CPT/HCPCS: 36415; 71275; 74177; 80053; 83605; 84484; 85025; 85379; 87040; 93005; 94640; 96365; 96366; 96375; 99285; J0696; J1308; J2405; J2919; Q9967

== ENCOUNTER → 2025-05-11 22:52 | Outpatient (BNV) | payer MEDICARE, MEDICAID, SELFPAY | PROVIDERS: Emergency Provider Emergency Medicine; PCP Internal Medicine; Visit Provider Internal Medicine Cardiovascular Disease | DX: R00.0 Tachycardia, unspecified (principal); I51.7 Cardiomegaly | CPT/HCPCS: 93010 ==

== ENCOUNTER → 2025-05-11 23:12 | Outpatient (BNV) | payer MEDICARE, MEDICAID, SELFPAY | PROVIDERS: Emergency Provider Emergency Medicine; PCP Internal Medicine; Visit Provider General Practice | DX: R10.9 Unspecified abdominal pain (principal); R11.2 Nausea with vomiting, unspecified; R06.02 Shortness of breath | CPT/HCPCS: 71275; 74177 ==